=== PATIENT | male | born 1945 | race Hispanic/Latino ===

== ENCOUNTER 2017-10-09 17:28 | Inpatient (IN) | payer MEDICARE, MEDICAID ==
[2017-10-09] MEDS ORDERED: Piperacillin/Tazobact 3.375 GM in Sodium Chloride 0.9% 100 ML IVPB STA (20:03)
--- NOTE | 2017-10-09 20:29 | ED PDOC ---
HPI: Abdomen Time Seen by Provider: 10/09/17 19:34 Chief Complaint (Nursing): Abdominal Pain Chief Complaint (Provider): Lower Extremity Swelling and Body Aches History Per: Patient History/Exam Limitations: no limitations Onset/Duration Of Symptoms: Days (x 4) Current Symptoms Are (Timing): Still Present Associated Symptoms: Chills, Nausea, Loss Of Appetite. denies: Vomiting, Diarrhea Additional Complaint(s): 72 year old male with a past medical history of hypertension and diabetes, presents to the ED complaining of left foot swelling and body aches associated with chills, loss of appetite, nausea, generalized weakness and fatigue increase swelling and redness to the left foot. Patient reports he doesn't know if he injured his foot because he cannot feel is feet or hands due to diabetic nephropathy. Patient states he is homeless and is constantly wearing his shoes and socks. Patient reports he goes to [facility] and is compliant with his medications. Denies vomiting and diarrhea. PMD: Randy Ruiz MD Past Medical History Reviewed: Historical Data, Nursing Documentation, Vital Signs Vital Signs: Last Vital Signs Temp 99.4 F 10/10/17 12:45 Pulse 87 10/10/17 14:00 Resp 16 10/10/17 14:00 BP 99/50 L 10/10/17 14:00 Pulse Ox 99 10/10/17 14:00 - Medical History PMH: Arthritis, Diabetes, HTN - Surgical History Surgical History: No Surg Hx - Family History Family History: States: Unknown Family Hx - Living Arrangements Living Arrangements: Other (Undomiciled (homeless)) - Social History Current smoker - smoking cessation education provided: No Alcohol: None Drugs: Denies - Home Medications Home Medications: Ambulatory Orders Medication Instructions Recorded Gabapentin 300 mg PO TID 10/17/16 Ibuprofen [Motrin Tab] 800 mg PO TID 10/17/16 Sitagliptin Phos/Metformin HCl 1 each PO BID 10/17/16 [Janumet 50-500 mg Tablet] Brimonidine 0.15% [Alphagan P 5 Ml] 1 drop OP TID 10/10/17 Timolol 0.5% Ophth [Timoptic 0.5% 1 drop OP BID 10/10/17 Ophth Soln] amLODIPine [Norvasc] 10 mg PO DAILY 10/10/17 - Allergies Allergies/Adverse Reactions: Allergies Allergy/AdvReac Type Severity Reaction Status Date / Time No Known Allergies Allergy Verified 10/09/17 17:36 Review of Systems ROS Statement: Except As Marked, All Systems Reviewed And Found Negative (and as per HPI) Constitutional: Positive for: Chills, Weakness, Other (Fatigue) Gastrointestinal: Positive for: Nausea, Other (Loss of appetite). Negative for : Vomiting, Diarrhea Musculoskeletal: Positive for: Foot Pain (left foot swelling and redness ) Physical Exam - Reviewed Nursing Documentation Reviewed: Yes Vital Signs Reviewed: Yes - Physical Exam Appears: Positive for: In Acute Distress (dissheveled and unkempt) Head Exam: Positive for: ATRAUMATIC, NORMOCEPHALIC Skin: Positive for: Warm, Dry Eye Exam: Positive for: EOMI, PERRL ENT: Positive for: Other (dry mucus membranes) Neck: Positive for: Painless ROM, Supple Cardiovascular/Chest: Positive for: Regular Rate, Rhythm. Negative for: Murmur Respiratory: Positive for: Normal Breath Sounds. Negative for: Respiratory Distress Gastrointestinal/Abdominal: Positive for: Soft. Negative for: Tenderness Back: Positive for: Normal Inspection. Negative for: Decreased ROM Extremity: Positive for: Pedal Edema (Marked pitting edema of left lower ankle and leg associated with erythema, warmth and induration ), Other (slothing of skin layers of the forefoot with gangrenous appearing first and third toes, malodorus discharge from diffusely excoriated skin of fore foot. ) Lymphatic: Negative for: Adenopathy Neurologic/Psych: Positive for: Alert. Negative for: Motor/Sensory Deficits - Laboratory Results Result Diagrams: 10/10/17 04:35 10/10/17 04:35 Interpretation Of Abn Labs: NOTE: LABS ABOVE ARE NOT LABS AT TIME OF ER EVALUATION - ECG O2 Sat by Pulse Oximetry: 100 (RA) Pulse Ox Interpretation: Normal - Critical Care Total Time (In Min): 30 Documented Critical Care: Time excludes all time spent performint seperately billable procedures Medical Decision Making Medical Decision Making: Initial Impression: Diabetic Foot Cellulites Differentials include but not limiting to gangrene, sepsis, osteomalulits, hyperglycemia DKA Time: 1948 Plan: -- Venous Blood Gas -- EKG -- B-Type Natriuretic -- CMP -- CRP -- Magnesium -- Phosphorus -- Troponin -- ED Urine Dipstick -- CBC with differentials -- Erythrocyte Sedimentation -- PTT -- Prothombin Time -- CXR -- Blood Culture -- IV Insertion -- Glucose, Blood, POC -- Foot Left 3 Views RAD -- Duple Lower Extremity US Time: 2002 Plan: -- Vancomycin IV 250 ml -- Piperacillin IVPB 100 ml Time: 2303 --Patient evaluated by podiatry: concern for gas in foot, tracking from higher to lower left extremity. Possible DKA. Recommended surgical consult. --Discussed case with surgical services director and Dr. Griffin, who will admit for patient 's PMD: Dr. Ruiz. --Discussed case with Dr. Dye, hospitalist for ICU admission. --Sepsis considered. However pt does not meet SIRS criteria. Given markedly uncontrolled diabetes, will aggressively hydrate and continue broad spectrum antibiotics anyway. Time: 00:09 --US duplex LE FINDINGS: Deep veins: Unremarkable. No DVT in the visualized common femoral, femoral, proximal deep femoral or popliteal veins. The veins demonstrate normal color flow, are normally compressible, with normal phasic flow and/or augmentation response. Soft tissues: No acute findings. No popliteal cyst. IMPRESSION: No evidence of left lower extremity deep venous thrombosis. Scribe Attestation: Documented by Karen Wilkes and Catarina Gregory, acting as scribes for Dr. Mari Lowry. Provider Scribe Attestation: All medical record entries made by the Scribe were at my direction and personally dictated by me. I have reviewed the chart and agree that the record accurately reflects my personal performance of the history, physical exam, medical decision making, and the department course for this patient. I have also personally directed, reviewed, and agree with the discharge instructions and disposition. Disposition - Clinical Impression Clinical Impression: Gangrene of left foot, Uncontrolled diabetes mellitus Counseled Patient/Family Regarding: Studies Performed, Diagnosis - Disposition Disposition Time: 22:00 Condition: CRITICAL - Pt Status Changed To: Hospital Disposition Of: Inpatient - Admit Certification Admit to Inpatient:: After my assessment, the patient will require hospitalization for at least two midnights. This is because of the severity of symptoms shown, intensity of services needed, and/or the medical risk in this patient being treated as an outpatient. - POA Present On Arrival: Poor Glycemic Control
[2017-10-09 21:51] LABS: VENOUS BLOOD GAS BASE EXCESS 0.5 mmol/L (0.0-2.0); VENOUS BLOOD GAS PCO2 37 mmHg (40-60); VENOUS BLOOD GAS PO2 33 mm/Hg (30-55); VENOUS BLOOD PH 7.43 (7.32-7.43)
[2017-10-09] MEDS ORDERED: Insulin Regular 100 units/ml SC STA (21:53)
[2017-10-09] MEDS ORDERED: Insulin Regular 100 units/ml IVP STA (21:54)
[2017-10-09] MEDS ORDERED: Sodium Chloride 0.9% 1,000 ML IV STA (21:54)
[2017-10-09 22:05] LABS: BASO % 0.1 % (0.0-2.0); EOS # 0.1 K/uL (0.0-0.7); EOS % 0.2 % (0.0-4.0); HEMOGLOBIN 9.6 g/dL (12.0-18.0); LYMPH # 1.4 K/uL (1.0-4.3); LYMPH % 4.6 % (20.0-40.0); MEAN CELL VOLUME 92.7 fl (80.0-94.0); MEAN CORPUSCULAR HEMOGLOBIN 30.6 pg (27.0-31.0); MEAN PLATELET VOLUME 8.9 fl (7.2-11.7); MONO # 1.8 K/uL (0.0-0.8); MONO % 5.9 % (0.0-10.0); NEUT % 89.2 % (50.0-75.0); PLATELET COUNT 467 K/uL (130-400); RBC 3.13 Mil/uL (4.40-5.90); RED CELL DISTRIBUTION WIDTH 15.6 % (11.5-14.5); WHITE BLOOD COUNT 30.3 K/uL (4.8-10.8)
[2017-10-09] MEDS ORDERED: Piperacillin/Tazobact 3.375 gm Inj IVPB ONE (22:06)
[2017-10-09 22:09] LABS: INR 1.5 (0.9-1.2); PARTIAL THROMBOPLASTIN TIME 30.5 Seconds (25.6-37.1); PROTHROMBIN TIME 16.2 Seconds (9.8-13.1)
[2017-10-09 22:18] LABS: ALB/GLOB RATIO 0.6 (1.0-2.1); ALBUMIN 3.1 g/dL (3.5-5.0); ALT/SGPT 28 U/L (21-72); AST/SGOT 50 U/L (17-59); BLOOD UREA NITROGEN 41 mg/dl (9-20); CALCIUM 8.5 mg/dL (8.4-10.2); GFR AFRICAN-AMERICAN > 60; GFR NON-AFRICAN AMERICAN > 60
[2017-10-09] MEDS ORDERED: Povidone Iodine Topical 10% Sol ONE (22:23)
[2017-10-09 22:24] LABS: B-TYPE NATRIURETIC PEPTIDE 615 pg/ml (0-900)
[2017-10-09 22:41] LABS: LYMPHOCYTE 3 % (20-50); MONOCYTE 1 % (0-10); NEUTROPHIL 95 % (42-75); REACTIVE LYMPHOCYTES 1 % (0-0); TOTAL CELLS COUNTED 100
[2017-10-09 22:42] LABS: HYPOCHROMIC SLIGHT; TARGET CELLS SLIGHT
[2017-10-09 22:43] LABS: PLATELET CLUMPS PRESENT
[2017-10-09 22:44] LABS: PLATELET ESTIMATE NORMAL (NORMAL); ROULEAUX FORMATION SLIGHT
--- NOTE | 2017-10-09 23:13 | CP.PCM.CON ---
History of Present Illness - History of Present Illness History of Present Illness: Attending: Gaby Celis MD PMD: Randy Arevalo MD Reason for consult: Critical care management Chief Complaint: Abdominal pain/ Left foot swollen/body aches The patient was seen and examined in the ED HPI: The hx was obtained from the patient and after review of the medical records. He is a 72 years old male who [place], with hx of DM II with neuropathy where he does not have sensation at the feet nor the hands, HTN and arthritis. He comes to the ED with 4 days of left foot and ankle swelling, red but nontender. This is associated with chills, loss of appetite, nausea, abdominal pain, generalized weakness. No vomiting, diarrhea, dysuria nor urinary frequency. PMH: Arthritis; DM II; HTN PSH: No surgical Hx SH; No illegal drug use; No alcohol use; No cigarette smoking; homeless FH: States: No known family hx Allergies: NKDA Medication: Review of Systems - Constitutional Constitutional: Anorexia, Chills. absent: Fever, Headache, Lethargy - EENT Eyes: Requires Corrective Lenses. 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 absent: Diarrhea, Vomiting - Genitourinary Genitourinary: absent: Dysuria, Flank Pain, Hematuria, Urinary Frequency - Musculoskeletal Additional comments: Necrosis at the distal region of the left foot DERM: Necrotic distal aspect of the left 1st and 2nd digit, with inter-digital maceration in all interspaces; fluctuant roofed bullae noted on the dorso- lateral aspect of the left foot with proximal necrotic eschar on the proximal medial aspect of the foot, scaling of the epidermis layer on on the forefoot as well as surrounding the fluctuant area; - Integumentary Integumentary: Swelling. absent: Pruritus, Rash, Striae - Neurological Neurological: Weakness. absent: Confusion, Headaches, Tremor - Psychiatric Psychiatric: absent: Anxiety, Depression, Panic Attacks - Endocrine Endocrine: absent: Palpitations, Polydipsia, Polyphagia, Polyuria - Hematologic/Lymphatic Hematologic: absent: Easy Bleeding, Easy Bruising Past Patient History - Past Medical History & Family History Past Medical History?: Yes - Past Social History Smoking Status: Never Smoked Chewing Tobacco Use: No Cigar Use: No Alcohol: None Drugs: Denies Home Situation {Lives}: Homeless - CARDIAC Hx Hypertension: Yes - PULMONARY Hx Respiratory Disorders: No - HEENT Hx Blind: Yes (lt eye) - RENAL Hx Chronic Kidney Disease: No - ENDOCRINE/METABOLIC Hx Diabetes Mellitus Type 1: Yes - HEMATOLOGICAL/ONCOLOGICAL Hx Blood Disorders: No - INTEGUMENTARY Hx Dermatological Problems: No - MUSCULOSKELETAL/RHEUMATOLOGICAL Hx Arthritis: Yes - PSYCHIATRIC Hx Psychophysiologic Disorder: No Hx Substance Use: No - SURGICAL HISTORY Hx Surgeries: No - ANESTHESIA Hx Anesthesia: No Meds Allergies/Adverse Reactions: Allergies Allergy/AdvReac Type Severity Reaction Status Date / Time No Known Allergies Allergy Verified 10/09/17 17:36 Physical Exam - Constitutional Appears: No Acute Distress - Head Exam Head Exam: ATRAUMATIC, NORMAL INSPECTION, NORMOCEPHALIC - Eye Exam Additional comments: left eye with cataract - ENT Exam ENT Exam: absent: Mucous Membranes Moist - Neck Exam Neck exam: Positive for: Full Rom, Normal Inspection. Negative for: Lymphadenopathy, Tenderness - Respiratory Exam Respiratory Exam: absent: Clear to Auscultation Bilateral, Rales, Rhonchi, Wheezes - Cardiovascular Exam Cardiovascular Exam: REGULAR RHYTHM, RRR, +S1, +S2 - GI/Abdominal Exam Additional comments: Flat, soft , decreased, mild generalized tenderness, no guarding, nor rebound tenderness - Rectal Exam Rectal Exam: Deferred - Extremities Exam Extremities exam: Negative for: calf tenderness, joint swelling, pedal edema, tenderness - Back Exam Back exam: NORMAL INSPECTION. absent: CVA tenderness (L), CVA tenderness (R), paraspinal tenderness - Neurological Exam Neurological exam: Alert, CN II-XII Intact, Oriented x3, Reflexes Normal - Psychiatric Exam Psychiatric exam: Normal Affect, Normal Mood - Skin Additional comments: left foot with necrotic lesion at the distal 1 and 2nd toes with fluctuant bullae with swelling at the dorsum of the left foot. Results - Vital Signs Recent Vital Signs: Last Vital Signs Temp 98 F 10/09/17 17:36 Pulse 94 H 10/09/17 17:36 Resp 18 10/09/17 17:36 BP 151/71 H 10/09/17 17:36 Pulse Ox 100 10/09/17 22:22 - Labs Result Diagrams: 10/09/17 21:47 10/09/17 21:47 Labs: Laboratory Results - last 24 hr 10/09/17 10/09/17 10/09/17 21:41 21:47 21:47 WBC 30.3 H RBC 3.13 L Hgb 9.6 L Hct 29.0 L MCV 92.7 MCH 30.6 MCHC 33.0 RDW 15.6 H Plt Count 467 H MPV 8.9 Neut % (Auto) 89.2 H Lymph % (Auto) 4.[address] [place] % (Auto) 5.9 Eos % (Auto) 0.2 Baso % (Auto) 0.1 Neut # (Auto) 27.0 H Lymph # (Auto) 1.4 [place] # (Auto) 1.8 H Eos # (Auto) 0.1 Baso # (Auto) 0.0 Neutrophils % (Manual) 95 H Lymphocytes % (Manual) 3 L Reactive Lymphs % 1 H Monocytes % (Manual) 1 Platelet Estimate Normal Plt Clumps, EDTA Present Hypochromasia (manual) Slight Macrocytosis (manual) Slight Target Cells Slight Rouleaux Slight PT INR APTT pO2 33 VBG pH 7.43 VBG pCO2 37 L VBG HCO3 24.5 VBG Total CO2 25.7 VBG O2 Sat (Calc) 68.2 H VBG Base Excess 0.5 VBG Potassium 5.0 Sodium 131.0 L 136 Chloride 102.0 97 L Glucose 742 H* Lactate 2.0 FiO2 21.0 Crit Value Called To erasto Lowry md Crit Value Called By Xena mccarty Crit Value Read Back Y Blood Gas Notified Time 0 Potassium 4.9 Carbon Dioxide 22 Anion Gap 22 H BUN 41 H Creatinine 0.9 Est GFR ( Amer) > 60 Est GFR (Non-Af Amer) > 60 POC Glucose (mg/dL) Random Glucose 666 H* Calcium 8.5 Phosphorus 3.6 Magnesium 2.9 H Total Bilirubin 0.8 AST 50 ALT 28 Alkaline Phosphatase 188 H Troponin I < 0.0120 NT-Pro-B Natriuret Pep 615 Total Protein 8.5 H Albumin 3.1 L Globulin 5.4 H Albumin/Globulin Ratio 0.6 L Venous Blood Potassium 5.0 10/09/17 10/09/17 21:47 21:48 WBC RBC Hgb Hct MCV MCH MCHC RDW Plt Count MPV Neut % (Auto) Lymph % (Auto) [place] % (Auto) Eos % (Auto) Baso % (Auto) Neut # (Auto) Lymph # (Auto) [place] # (Auto) Eos # (Auto) Baso # (Auto) Neutrophils % (Manual) Lymphocytes % (Manual) Reactive Lymphs % Monocytes % (Manual) Platelet Estimate Plt Clumps, EDTA Hypochromasia (manual) Macrocytosis (manual) Target Cells Rouleaux PT 16.2 H INR 1.5 H APTT 30.5 pO2 VBG pH VBG pCO2 VBG HCO3 VBG Total CO2 VBG O2 Sat (Calc) VBG Base Excess VBG Potassium Sodium Chloride Glucose Lactate FiO2 Crit Value Called To Crit Value Called By Crit Value Read Back Blood Gas Notified Time Potassium Carbon Dioxide Anion Gap BUN Creatinine Est GFR ( Amer) Est GFR (Non-Af Amer) POC Glucose (mg/dL) > 500 H* Random Glucose Calcium Phosphorus Magnesium Total Bilirubin AST ALT Alkaline Phosphatase Troponin I NT-Pro-B Natriuret Pep Total Protein Albumin Globulin Albumin/Globulin Ratio Venous Blood Potassium - Impressions Impression: NSR 92/min - Imaging and Cardiology US left lower extremity Status: Report reviewed by me Additional comment: EXAM: US Duplex Left Lower Extremity Veins FINDINGS: Deep veins: Unremarkable. No DVT in the visualized common femoral, femoral, proximal deep femoral or popliteal veins. The veins demonstrate normal color flow, are normally compressible, with normal phasic flow and/or augmentation response. Soft tissues: No acute findings. No popliteal cyst. IMPRESSION: No evidence of left lower extremity deep venous thrombosis. Chest x-ray Status: Image reviewed by me Additional comment: No infiltrate Left foot and ankle Status: Report reviewed by me Additional comment: No fracture nor dislocation Assessment & Plan - Assessment and Plan (Free Text) Assessment: #. Gangrenous diabetic foot Cellulitis #. Hyperosmole Hyperglycemias Syndrome #. Anemia #. Dehydrationl #. Leukocytosis Plan: 72 years old male who lives in [place], with hx of DM II with neuropathy where he does not have sensation at the feet nor the hands, comes with 4 days of left foot and ankle swelling, red but nontender. This is associated with chills, loss of appetite, nausea, abdominal pain, generalized weakness. No vomiting, diarrhea, dysuria nor urinary frequency. #. Gangrenous diabetic - NPO for possible surgery in the - Consult PodiatryDgurwinder Velazquez - Consult Dr Jacobson ID - Vancomycin - Zosyn #. Hyperosmole Hyperglycemias Syndrome in Diabetes Mellitus - IV Fluids - Regular insulin sliding scale according to accucheck - To start Januvia when patient starts oral diet #. Coagulopathy with elevated INR - Vitamin K - transfuse one unit of FFP #. Anemia - Iron panel - follow Hb #. Dehydrationl - IV fluids #. Leukocytosis caused by the gangrenous #. DVT Prophylaxis will be started after surgery #. Code Status: Full This patient has a low to intermediate cardiac surgical risk. He is cleared for Surgery. - Date & Time Date: 10/09/17 Time: 23:13
--- NOTE | 2017-10-10 00:10 | US ---
EXAM: US Duplex Left Lower Extremity Veins CLINICAL HISTORY: 72 years old, male; Signs and symptoms; Swelling of limb; Lower extremity, left; Additional info: Left leg swelling TECHNIQUE: Real-time duplex ultrasound scan of the left lower extremity veins integrating B-mode two-dimensional vascular structure, Doppler spectral analysis, color flow Doppler imaging and compression. COMPARISON: No relevant prior studies available. FINDINGS: Deep veins: Unremarkable. No DVT in the visualized common femoral, femoral, proximal deep femoral or popliteal veins. The veins demonstrate normal color flow, are normally compressible, with normal phasic flow and/or augmentation response. Soft tissues: No acute findings. No popliteal cyst. IMPRESSION: No evidence of left lower extremity deep venous thrombosis.
[2017-10-10] MEDS ORDERED: Permethrin 5% CREAM TOP STA (00:13)
--- NOTE | 2017-10-10 00:24 | CP.PCM.CON ---
History of Present Illness - History of Present Illness History of Present Illness: Podiatry consult note Dr. Velazquez 72 year old male patient with PMHx of DM, HTN, and Arthritis was seen and evaluated at bedside for left foot pain. Patient is a homeless man who reports that the pain started about 6 days ago. Patient states that he did not seek any medical attention until today. Reports that he has been having fever and diarrhea for the past couple of days. Denies of any recent trauma to the foot and reports that he is always wearing his shoes so he did not notice the wound. Patient denies of any pain to his foot now. Denies of N/V/C/SOB. No new complains at this time. PMHx: DM, HTN, Arthritis PSHx: Denies Allergies: N.K.D.A Review of Systems - Constitutional Constitutional: As Per HPI Past Patient History - Past Social History Alcohol: None Drugs: Denies - CARDIAC Hx Hypertension: Yes - HEENT Hx Blind: Yes (lt eye) - ENDOCRINE/METABOLIC Hx Diabetes Mellitus Type 1: Yes - MUSCULOSKELETAL/RHEUMATOLOGICAL Hx Arthritis: Yes - PSYCHIATRIC Hx Substance Use: No - SURGICAL HISTORY Hx Surgeries: No - ANESTHESIA Hx Anesthesia: No Meds Allergies/Adverse Reactions: Allergies Allergy/AdvReac Type Severity Reaction Status Date / Time No Known Allergies Allergy Verified 10/09/17 17:36 Physical Exam - Constitutional Appears: Well, Non-toxic, No Acute Distress - Extremities Exam Additional comments: Bilateral LE exam: VASC: DP pulses are faintly palpable 1/4, PT pulses are non-palpable due to edema on the left, DP/PT pulse are 1/4 on the right, Cap refill time: Sluggish with necrosis at the tips of the digits 1 and 2 on the left foot, diffuse non- pitting edema noted from foot extending up to the ankle joint; temperature gradient: warm to hot from proximal to distal DERM: Necrotic distal aspect of the left 1st and 2nd digit, with inter-digital maceration in all interspaces; fluctuant roofed bullae noted on the dorso- lateral aspect of the left foot with proximal necrotic eschar on the proximal medial aspect of the foot, scaling of the epidermis layer on on the forefoot as well as surrounding the fluctuant area; maceration extending on the plantar aspect of the forefoot, erythema extending distal mid leg on the left, no open lesions noted, extreme malodor from the site, no tunneling, no undermining, suspicious for soft tissue emphysema/infection NEURO: Protective sensation grossly diminished to bilateral LE ORTHO: no pain on palpation of the left foot - Neurological Exam Neurological exam: Alert, Oriented x3 - Psychiatric Exam Psychiatric exam: Normal Affect, Normal Mood Results - Vital Signs Recent Vital Signs: Last Vital Signs Temp 98 F 10/09/17 17:36 Pulse 94 H 10/09/17 17:36 Resp 18 10/09/17 17:36 BP 151/71 H 10/09/17 17:36 Pulse Ox 100 10/09/17 23:42 - Labs Result Diagrams: 10/11/17 04:20 10/10/17 04:35 Labs: Laboratory Results - last 24 hr 10/09/17 10/09/17 10/09/17 21:41 21:47 21:47 WBC 30.3 H RBC 3.13 L Hgb 9.6 L Hct 29.0 L MCV 92.7 MCH 30.6 MCHC 33.0 RDW 15.6 H Plt Count 467 H MPV 8.9 Neut % (Auto) 89.2 H Lymph % (Auto) 4.6 L [place] % (Auto) 5.9 Eos % (Auto) 0.2 Baso % (Auto) 0.1 Neut # (Auto) 27.0 H Lymph # (Auto) 1.4 [place] # (Auto) 1.8 H Eos # (Auto) 0.1 Baso # (Auto) 0.0 Neutrophils % (Manual) 95 H Lymphocytes % (Manual) 3 L Reactive Lymphs % 1 H Monocytes % (Manual) 1 Platelet Estimate Normal Plt Clumps, EDTA Present Hypochromasia (manual) Slight Macrocytosis (manual) Slight Target Cells Slight Rouleaux Slight PT INR APTT pO2 33 VBG pH 7.43 VBG pCO2 37 L VBG HCO3 24.5 VBG Total CO2 25.7 VBG O2 Sat (Calc) 68.2 H VBG Base Excess 0.5 VBG Potassium 5.0 Sodium 131.0 L 136 Chloride 102.0 97 L Glucose 742 H* Lactate 2.0 FiO2 21.0 Crit Value Called To erasto Lowry md Crit Value Called By Xena mccarty Crit Value Read Back Y Blood Gas Notified Time 2150 Potassium 4.9 Carbon Dioxide 22 Anion Gap 22 H BUN 41 H Creatinine 0.9 Est GFR ( Amer) > 60 Est GFR (Non-Af Amer) > 60 POC Glucose (mg/dL) Random Glucose 666 H* Calcium 8.5 Phosphorus 3.6 Magnesium 2.9 H Total Bilirubin 0.8 AST 50 ALT 28 Alkaline Phosphatase 188 H Troponin I < 0.0120 NT-Pro-B Natriuret Pep 615 Total Protein 8.5 H Albumin 3.1 L Globulin 5.4 H Albumin/Globulin Ratio 0.6 L Venous Blood Potassium 5.0 10/09/17 10/09/17 10/09/17 21:47 21:48 23:32 WBC RBC Hgb Hct MCV MCH MCHC RDW Plt Count MPV Neut % (Auto) Lymph % (Auto) [place] % (Auto) Eos % (Auto) Baso % (Auto) Neut # (Auto) Lymph # (Auto) [place] # (Auto) Eos # (Auto) Baso # (Auto) Neutrophils % (Manual) Lymphocytes % (Manual) Reactive Lymphs % Monocytes % (Manual) Platelet Estimate Plt Clumps, EDTA Hypochromasia (manual) Macrocytosis (manual) Target Cells Rouleaux PT 16.2 H INR 1.5 H APTT 30.5 pO2 VBG pH VBG pCO2 VBG HCO3 VBG Total CO2 VBG O2 Sat (Calc) VBG Base Excess VBG Potassium Sodium Chloride Glucose Lactate FiO2 Crit Value Called To Crit Value Called By Crit Value Read Back Blood Gas Notified Time Potassium Carbon Dioxide Anion Gap BUN Creatinine Est GFR ( Amer) Est GFR (Non-Af Amer) POC Glucose (mg/dL) > 500 H* 361 H Random Glucose Calcium Phosphorus Magnesium Total Bilirubin AST ALT Alkaline Phosphatase Troponin I NT-Pro-B Natriuret Pep Total Protein Albumin Globulin Albumin/Globulin Ratio Venous Blood Potassium Assessment & Plan - Assessment and Plan (Free Text) Assessment: 72 year old male with PMHx of DM, HTN, arthritis was evaluated for gas gangrene/ soft tissue emphysema of the left foot Plan: Patient seen and evaluated Discussed in details with attending Dr. Velazquez Labs, vitals and charts reviewed - Afebrile; WBC @ 30.3 ESR and CRP: pending Venous dulpex: - No evidence of DVT X-rays of the left foot, ankle and tib-fib ordered/reviewed - Diffuse soft tissue emphysema noted on the forefoot and midfoot extending anterior to the ankle joint on lateral view With the medical history and the possible post surgical wound from just I&D due to soft tissue emphysema, patient may benefit from BKA Patient started on Vanc, zosyn in the ER Small superficial longitudinal incision placed superior to the bullae - approx 5 cc of purulent drainage evacuated with bubbles when pressure applied proximally from the ankle distally as well as from distal to proximal Incision site superficially packed with gauze Left foot cleaned with saline and dressed with betadine, DSD Patient requires medical clearance for incision and drainage of the left foot/ ankle in the morning - Hospitalist team made aware; started on FFP due to elevated INR - NPO Vascular team on consult due to extensive soft tissue emphysema extending to distal leg -Recommends holding the I&D/BKA procedure until the morning as the patient is not currently septic Infectious disease consulted Spoke with on-call anesthesiologist (Dr. Cárdenas) over the phone who recommends to hold the procedure until the morning Podiatry to monitor patient closely Thank you for the podiatry consult and allowing to take part in patient care - Date & Time Date: 10/10/17 Time: 02:14
--- NOTE | 2017-10-10 00:45 | CP.PCM.CON ---
History of Present Illness - History of Present Illness History of Present Illness: Vascular Surgery Consult for Dr. Brasher This is a 72M with a PMH of DM, HTN, diabetic neuropathy who presented to the ED with foot pain. Patient reports pain started 6 days ago. He did not check for fevers but reports chills. Denies of any recent trauma to the foot and reports that he is always wearing his shoes so he did not notice the wound. He reports he has not been able to eat for 9 days and he has only consumed fruit juice. Patient reports numbness in both upper and lowe extremities in a stocking like distribution. Denies of N/V/C/SOB. PMHx: DM, HTN PSHx: Denies Allergies: N.K.D.A Review of Systems - Review of Systems All systems: reviewed and no additional remarkable complaints except - Gastrointestinal Gastrointestinal: Abdominal Pain - Neurological Neurological: Numbness Past Patient History - Past Social History Alcohol: None Drugs: Denies - CARDIAC Hx Hypertension: Yes - HEENT Hx Blind: Yes (lt eye) - ENDOCRINE/METABOLIC Hx Diabetes Mellitus Type 1: Yes - MUSCULOSKELETAL/RHEUMATOLOGICAL Hx Arthritis: Yes - PSYCHIATRIC Hx Substance Use: No - SURGICAL HISTORY Hx Surgeries: No - ANESTHESIA Hx Anesthesia: No Meds Allergies/Adverse Reactions: Allergies Allergy/AdvReac Type Severity Reaction Status Date / Time No Known Allergies Allergy Verified 10/09/17 17:36 Physical Exam - Constitutional Appears: Non-toxic - Head Exam Head Exam: ATRAUMATIC, NORMOCEPHALIC - Eye Exam Eye Exam: EOMI Additional comments: Left cataract - Respiratory Exam Respiratory Exam: NORMAL BREATHING PATTERN - Cardiovascular Exam Cardiovascular Exam: +S1, +S2 - GI/Abdominal Exam GI & Abdominal Exam: Soft, Tenderness. absent: Guarding, Hernia, Rebound, Rigid - Extremities Exam Additional comments: LLE necrosis with eschar and gas - Neurological Exam Neurological exam: Alert, Oriented x3 - Psychiatric Exam Psychiatric exam: Normal Affect, Normal Mood - Skin Skin Exam: Dry, Intact Results - Vital Signs Recent Vital Signs: Last Vital Signs Temp 98 F 10/09/17 17:36 Pulse 94 H 10/09/17 17:36 Resp 18 10/09/17 17:36 BP 151/71 H 10/09/17 17:36 Pulse Ox 100 10/10/17 00:16 - Labs Result Diagrams: 10/11/17 04:20 10/10/17 04:35 Labs: Laboratory Results - last 24 hr 10/09/17 10/09/17 10/09/17 21:41 21:47 21:47 WBC 30.3 H RBC 3.13 L Hgb 9.6 L Hct 29.0 L MCV 92.7 MCH 30.6 MCHC 33.0 RDW 15.6 H Plt Count 467 H MPV 8.9 Neut % (Auto) 89.2 H Lymph % (Auto) 4.6 L [place] % (Auto) 5.9 Eos % (Auto) 0.2 Baso % (Auto) 0.1 Neut # (Auto) 27.0 H Lymph # (Auto) 1.4 [place] # (Auto) 1.8 H Eos # (Auto) 0.1 Baso # (Auto) 0.0 Neutrophils % (Manual) 95 H Lymphocytes % (Manual) 3 L Reactive Lymphs % 1 H Monocytes % (Manual) 1 Platelet Estimate Normal Plt Clumps, EDTA Present Hypochromasia (manual) Slight Macrocytosis (manual) Slight Target Cells Slight Rouleaux Slight PT INR APTT pO2 33 VBG pH 7.43 VBG pCO2 37 L VBG HCO3 24.5 VBG Total CO2 25.7 VBG O2 Sat (Calc) 68.2 H VBG Base Excess 0.5 VBG Potassium 5.0 Sodium 131.0 L 136 Chloride 102.0 97 L Glucose 742 H* Lactate 2.0 FiO2 21.0 Crit Value Called To erasto Lowry md Crit Value Called By Xena frankfort Crit Value Read Back Y Blood Gas Notified Time 2150 Potassium 4.9 Carbon Dioxide 22 Anion Gap 22 H BUN 41 H Creatinine 0.9 Est GFR ( Amer) > 60 Est GFR (Non-Af Amer) > 60 POC Glucose (mg/dL) Random Glucose 666 H* Calcium 8.5 Phosphorus 3.6 Magnesium 2.9 H Total Bilirubin 0.8 AST 50 ALT 28 Alkaline Phosphatase 188 H Troponin I < 0.0120 NT-Pro-B Natriuret Pep 615 Total Protein 8.5 H Albumin 3.1 L Globulin 5.4 H Albumin/Globulin Ratio 0.6 L Venous Blood Potassium 5.0 10/09/17 10/09/17 10/09/17 21:47 21:48 23:32 WBC RBC Hgb Hct MCV MCH MCHC RDW Plt Count MPV Neut % (Auto) Lymph % (Auto) [place] % (Auto) Eos % (Auto) Baso % (Auto) Neut # (Auto) Lymph # (Auto) [place] # (Auto) Eos # (Auto) Baso # (Auto) Neutrophils % (Manual) Lymphocytes % (Manual) Reactive Lymphs % Monocytes % (Manual) Platelet Estimate Plt Clumps, EDTA Hypochromasia (manual) Macrocytosis (manual) Target Cells Rouleaux PT 16.2 H INR 1.5 H APTT 30.5 pO2 VBG pH VBG pCO2 VBG HCO3 VBG Total CO2 VBG O2 Sat (Calc) VBG Base Excess VBG Potassium Sodium Chloride Glucose Lactate FiO2 Crit Value Called To Crit Value Called By Crit Value Read Back Blood Gas Notified Time Potassium Carbon Dioxide Anion Gap BUN Creatinine Est GFR ( Amer) Est GFR (Non-Af Amer) POC Glucose (mg/dL) > 500 H* 361 H Random Glucose Calcium Phosphorus Magnesium Total Bilirubin AST ALT Alkaline Phosphatase Troponin I NT-Pro-B Natriuret Pep Total Protein Albumin Globulin Albumin/Globulin Ratio Venous Blood Potassium Assessment & Plan - Assessment and Plan (Free Text) Assessment: 72M with LLE infected necrosis NPO IV ABX IVF F/U Radiology Continue managment per ICU team D/W Dr. Villatoro
[2017-10-10] MEDS ORDERED: Povidone Iodine Topical 10% Sol ONE (01:09)
[2017-10-10 01:54] VITALS: BMI 19.0
[2017-10-10] MEDS: Piperacillin/Tazobact 3.375 GM in Sodium Chloride 0.9% 100 ML IVPB SCH ×3 (03:07→16:20)
[2017-10-10 06:03] LABS: BASO # 0.1 K/uL (0.0-0.2); BASO % 0.2 % (0.0-2.0); EOS # 0.2 K/uL (0.0-0.7); EOS % 0.6 % (0.0-4.0); HEMOGLOBIN 8.7 g/dL (12.0-18.0); LYMPH # 1.7 K/uL (1.0-4.3); LYMPH % 5.9 % (20.0-40.0); MEAN CELL VOLUME 91.7 fl (80.0-94.0); MEAN CORPUSCULAR HEMOGLOBIN 30.1 pg (27.0-31.0); MEAN CORPUSCULAR HGB CONC 32.8 g/dL (33.0-37.0); MEAN PLATELET VOLUME 8.9 fl (7.2-11.7); MONO # 2.4 K/uL (0.0-0.8); MONO % 8.1 % (0.0-10.0); NEUT # 24.9 K/uL (1.8-7.0); NEUT % 85.2 % (50.0-75.0); PLATELET COUNT 418 K/uL (130-400); RBC 2.89 Mil/uL (4.40-5.90); WHITE BLOOD COUNT 29.3 K/uL (4.8-10.8)
[2017-10-10 06:11] LABS: BLOOD UREA NITROGEN 37 mg/dl (9-20); GFR AFRICAN-AMERICAN > 60; GFR NON-AFRICAN AMERICAN > 60
[2017-10-10 06:14] LABS: IRON 28 ug/dL (49-181)
[2017-10-10 06:24] LABS: % IRON SATURATION 15 % (20-55); TOTAL IRON BINDING CAPACITY 191 ug/dL (250-450)
--- NOTE | 2017-10-10 07:41 | CP.PCM.PN ---
Subjective - Date & Time of Evaluation Date of Evaluation: 10/10/17 Time of Evaluation: 07:39 - Subjective Subjective: 72 y/o male with left foot and ankle gangrene to go to OR for emergent I&D today at 9am. Pt seen at bedside with Dr. Griffin and resident. Per chart, no fevers or tachycardia overnight. Pt resting in bed at time of visit. Agreeable and aware of surgery this morning. Objective - Vital Signs/Intake and Output Vital Signs (last 24 hours): Temp Pulse Resp BP Pulse Ox 98.1 F 86 16 137/66 97 10/10/17 04:00 10/10/17 06:00 10/10/17 06:00 10/10/17 06:00 10/10/17 06:00 Intake and Output: 10/10/17 10/10/17 06:59 18:59 Intake Total 650 Balance 650 - Medications Medications: Current Medications Vancomycin HCl 1 gm/ Sodium (Chloride) 250 mls @ 166.667 mls/hr IVPB Q12 STEVEN PRN Reason: Protocol Piperacillin Sod/Tazobactam (Sod 3.375 gm/ Sodium Chloride) 100 mls @ 100 mls/ hr IVPB Q6 STEVEN PRN Reason: Protocol Last Admin: 10/10/17 03:07 Dose: 100 mls/hr - Labs Labs: 10/10/17 04:35 10/10/17 04:35 PT 16.2 Seconds (9.8-13.1) H 10/09/17 21:47 INR 1.5 (0.9-1.2) H 10/09/17 21:47 APTT 30.5 Seconds (25.6-37.1) 10/09/17 21:47 - Constitutional Appears: Well, Non-toxic - Extremities Exam Additional comments: LLE dressing left clean dry and intact without strikethrough - Neurological Exam Neurological Exam: Alert, Awake - Psychiatric Exam Psychiatric exam: Normal Affect, Normal Mood Assessment and Plan - Assessment and Plan (Free Text) Assessment: 72 y/o diabetic male with 1) left forefoot gangrene and 2) clinical and radiographic soft tissue emphysema of the left lower extremity extending from foot proximally to anterior ankle Plan: Discussed plan with attending Dr. Velazquez Afebrile, WBC 29.3 INR 1.5 --> pt given 1 unit of FFP X-rays of foot and ankle reviewed, indicate soft tissue emphysema extending up to anterior ankle Discussed with general surgery team and Dr. Villatoro - recommendation is to proceed with I&D of gas gangrene with removal of all non-viable soft tissue and bone Pt NPO past midnight Discussed with PMD Dr. Griffin who agrees that emergent surgical intervention must be performed Will continue to follow pt postoperatively
--- NOTE | 2017-10-10 08:11 | CP.PCM.HP ---
<Steve Holly - Last Filed: 10/10/17 08:03> History of Present Illness - History of Present Illness History of Present Illness: CC: left foot swelling HPI: 72 y/o man w/ pmh of HTN and NIDDM2 presents to the ED w/ complaints of left foot swelling and body aches. Patient reports symptoms for the past 4-5 days. Patient reports associated chills, loss of appetite, nausea, generalized weakness and fatigue increase swelling and redness to the left foot. Patient unsure of trauma to his foot due to diabetic neuropathy. Patient states he is homeless and is constantly wearing his shoes and socks. Patient reports he goes to [facility] and is adherent with his medications. Patient denies headaches, dizziness, SOB, vomiting, diarrhea, or dysuria. PMD: Dr. Randy Ruiz PMH: NIDDM2, HTN meds: see med list Allergies: NKDA PSH: denies previous surgery Fam: denies SOC: denies smoking, alcohol, and drugs; homeless ROS: 12 points assessed and negative unless otherwise reported in HPI Present on Admission - Present on Admission Any Indicators Present on Admission: Yes History of DVT/PE: No History of Uncontrolled Diabetes: Yes Urinary Catheter: No Decubitus Ulcer Present: No Review of Systems - Review of Systems All systems: reviewed and no additional remarkable complaints except - Constitutional Constitutional: As Per HPI, Chills, Fever. absent: Headache - EENT Eyes: absent: Change in Vision - Cardiovascular Cardiovascular: absent: Chest Pain - Respiratory Respiratory: absent: Dyspnea - Gastrointestinal Gastrointestinal: As Per HPI, Nausea. absent: Diarrhea, Vomiting - Genitourinary Genitourinary: absent: Dysuria, Urinary Frequency - Integumentary Integumentary: As Per HPI - Neurological Neurological: Paresthesias Past Patient History - Past Medical History & Family History Past Medical History?: Yes - Past Social History Smoking Status: Never Smoked Chewing Tobacco Use: No Cigar Use: No Alcohol: None Drugs: Denies Home Situation {Lives}: Homeless - CARDIAC Hx Hypertension: Yes - PULMONARY Hx Respiratory Disorders: No - HEENT Hx Blind: Yes (lt eye) - RENAL Hx Chronic Kidney Disease: No - ENDOCRINE/METABOLIC Hx Diabetes Mellitus Type 1: Yes - HEMATOLOGICAL/ONCOLOGICAL Hx Blood Disorders: No - INTEGUMENTARY Hx Dermatological Problems: No - MUSCULOSKELETAL/RHEUMATOLOGICAL Hx Arthritis: Yes - GASTROINTESTINAL Hx Gastrointestinal Disorders: Yes Hx Gastritis: Yes - GENITOURINARY/GYNECOLOGICAL Hx Genitourinary Disorders: No - PSYCHIATRIC Hx Psychophysiologic Disorder: No Hx Substance Use: No - SURGICAL HISTORY Hx Surgeries: No - ANESTHESIA Hx Anesthesia: No Meds Allergies/Adverse Reactions: Allergies Allergy/AdvReac Type Severity Reaction Status Date / Time No Known Allergies Allergy Verified 10/23/17 16:52 Physical Exam - Constitutional Appears: No Acute Distress - Head Exam Head Exam: ATRAUMATIC, NORMAL INSPECTION, NORMOCEPHALIC - Eye Exam Additional comments: cataract on left eye - ENT Exam ENT Exam: Mucous Membranes Dry - Neck Exam Neck exam: Positive for: Full Rom. Negative for: Tenderness - Respiratory Exam Respiratory Exam: Clear to Auscultation Bilateral. absent: Accessory Muscle Use , Decreased Breath Sounds, Rales, Rhonchi, Wheezes - Cardiovascular Exam Cardiovascular Exam: REGULAR RHYTHM, RRR. absent: Tachycardia - GI/Abdominal Exam GI & Abdominal Exam: Normal Bowel Sounds, Soft, Tenderness (mild generalized tenderness). absent: Distended, Guarding, Rebound - Extremities Exam Additional comments: left foot with necrotic lesion at the distal 1 and 2nd toes with fluctuant bullae with swelling at the dorsum of the left foot; nontender; left DP pulse faintly palpable, PT pulse not palpable - Expanded Lower Extremities Exam Left Foot/Toe exam: swelling - Neurological Exam Neurological exam: Alert, CN II-XII Intact, Oriented x3 - Skin Skin Exam: Dry Results - Vital Signs Recent Vital Signs: Last Vital Signs Temp 98.1 F 10/10/17 04:00 Pulse 86 10/10/17 06:00 Resp 16 10/10/17 06:00 BP 137/66 10/10/17 06:00 Pulse Ox 97 10/10/17 06:00 - Labs Result Diagrams: 10/10/17 04:35 10/10/17 04:35 Labs: Laboratory Results - last 24 hr 10/09/17 10/09/17 10/09/17 21:41 21:47 21:47 WBC 30.3 H RBC 3.13 L Hgb 9.6 L Hct 29.0 L MCV 92.7 MCH 30.6 MCHC 33.0 RDW 15.6 H Plt Count 467 H MPV 8.9 Neut % (Auto) 89.2 H Lymph % (Auto) 4.6 L [place] % (Auto) 5.9 Eos % (Auto) 0.2 Baso % (Auto) 0.1 Neut # (Auto) 27.0 H Lymph # (Auto) 1.4 [place] # (Auto) 1.8 H Eos # (Auto) 0.1 Baso # (Auto) 0.0 Neutrophils % (Manual) 95 H Lymphocytes % (Manual) 3 L Reactive Lymphs % 1 H Monocytes % (Manual) 1 Platelet Estimate Normal Plt Clumps, EDTA Present Hypochromasia (manual) Slight Macrocytosis (manual) Slight Target Cells Slight Rouleaux Slight ESR Cancelled PT INR APTT pO2 33 VBG pH 7.43 VBG pCO2 37 L VBG HCO3 24.5 VBG Total CO2 25.7 VBG O2 Sat (Calc) 68.2 H VBG Base Excess 0.5 VBG Potassium 5.0 Sodium 131.0 L 136 Chloride 102.0 97 L Glucose 742 H* Lactate 2.0 FiO2 21.0 Crit Value Called To erasto Lowry md Crit Value Called By Xena mccarty Crit Value Read Back Y Blood Gas Notified Time 2150 Potassium 4.9 Carbon Dioxide 22 Anion Gap 22 H BUN 41 H Creatinine 0.9 Est GFR ( Amer) > 60 Est GFR (Non-Af Amer) > 60 POC Glucose (mg/dL) Random Glucose 666 H* Serum Osmolality Calcium 8.5 Phosphorus 3.6 Magnesium 2.9 H Iron TIBC % Saturation Total Bilirubin 0.8 AST 50 ALT 28 Alkaline Phosphatase 188 H Troponin I < 0.0120 NT-Pro-B Natriuret Pep 615 Total Protein 8.5 H Albumin 3.1 L Globulin 5.4 H Albumin/Globulin Ratio 0.6 L Venous Blood Potassium 5.0 Blood Type Blood Type Confirm Antibody Screen BBK History Checked 10/09/17 10/09/17 10/09/17 21:47 21:48 22:35 WBC RBC Hgb Hct MCV MCH MCHC RDW Plt Count MPV Neut % (Auto) Lymph % (Auto) [place] % (Auto) Eos % (Auto) Baso % (Auto) Neut # (Auto) Lymph # (Auto) [place] # (Auto) Eos # (Auto) Baso # (Auto) Neutrophils % (Manual) Lymphocytes % (Manual) Reactive Lymphs % Monocytes % (Manual) Platelet Estimate Plt Clumps, EDTA Hypochromasia (manual) Macrocytosis (manual) Target Cells Rouleaux ESR PT 16.2 H INR 1.5 H APTT 30.5 pO2 VBG pH VBG pCO2 VBG HCO3 VBG Total CO2 VBG O2 Sat (Calc) VBG Base Excess VBG Potassium Sodium Chloride Glucose Lactate FiO2 Crit Value Called To Crit Value Called By Crit Value Read Back Blood Gas Notified Time Potassium Carbon Dioxide Anion Gap BUN Creatinine Est GFR ( Amer) Est GFR (Non-Af Amer) POC Glucose (mg/dL) > 500 H* Random Glucose Serum Osmolality 318 H Calcium Phosphorus Magnesium Iron TIBC % Saturation Total Bilirubin AST ALT Alkaline Phosphatase Troponin I NT-Pro-B Natriuret Pep Total Protein Albumin Globulin Albumin/Globulin Ratio Venous Blood Potassium Blood Type Blood Type Confirm Antibody Screen BBK History Checked 10/09/17 10/10/17 10/10/17 23:32 02:33 02:36 WBC RBC Hgb Hct MCV MCH MCHC RDW Plt Count MPV Neut % (Auto) Lymph % (Auto) [place] % (Auto) Eos % (Auto) Baso % (Auto) Neut # (Auto) Lymph # (Auto) [place] # (Auto) Eos # (Auto) Baso # (Auto) Neutrophils % (Manual) Lymphocytes % (Manual) Reactive Lymphs % Monocytes % (Manual) Platelet Estimate Plt Clumps, EDTA Hypochromasia (manual) Macrocytosis (manual) Target Cells Rouleaux ESR PT INR APTT pO2 VBG pH VBG pCO2 VBG HCO3 VBG Total CO2 VBG O2 Sat (Calc) VBG Base Excess VBG Potassium Sodium Chloride Glucose Lactate FiO2 Crit Value Called To Crit Value Called By Crit Value Read Back Blood Gas Notified Time Potassium Carbon Dioxide Anion Gap BUN Creatinine Est GFR ( Amer) Est GFR (Non-Af Amer) POC Glucose (mg/dL) 361 H 289 H Random Glucose Serum Osmolality Calcium Phosphorus Magnesium Iron TIBC % Saturation Total Bilirubin AST ALT Alkaline Phosphatase Troponin I NT-Pro-B Natriuret Pep Total Protein Albumin Globulin Albumin/Globulin Ratio Venous Blood Potassium Blood Type O POSITIVE Blood Type Confirm Antibody Screen Negative BBK History Checked No verified bt 10/10/17 10/10/17 10/10/17 02:36 04:29 04:35 WBC 29.3 H RBC 2.89 L Hgb 8.7 L Hct 26.5 L MCV 91.7 MCH 30.1 MCHC 32.8 L RDW 15.0 H Plt Count 418 H MPV 8.9 Neut % (Auto) 85.2 H Lymph % (Auto) 5.9 L [place] % (Auto) 8.1 Eos % (Auto) 0.6 Baso % (Auto) 0.2 Neut # (Auto) 24.9 H Lymph # (Auto) 1.7 [place] # (Auto) 2.4 H Eos # (Auto) 0.2 Baso # (Auto) 0.1 Neutrophils % (Manual) Lymphocytes % (Manual) Reactive Lymphs % Monocytes % (Manual) Platelet Estimate Plt Clumps, EDTA Hypochromasia (manual) Macrocytosis (manual) Target Cells Rouleaux ESR > 120 H PT INR APTT pO2 VBG pH VBG pCO2 VBG HCO3 VBG Total CO2 VBG O2 Sat (Calc) VBG Base Excess VBG Potassium Sodium Chloride Glucose Lactate FiO2 Crit Value Called To Crit Value Called By Crit Value Read Back Blood Gas Notified Time Potassium Carbon Dioxide Anion Gap BUN Creatinine Est GFR ( Amer) Est GFR (Non-Af Amer) POC Glucose (mg/dL) Random Glucose Serum Osmolality Calcium Phosphorus Magnesium Iron TIBC % Saturation Total Bilirubin AST ALT Alkaline Phosphatase Troponin I NT-Pro-B Natriuret Pep Total Protein Albumin Globulin Albumin/Globulin Ratio Venous Blood Potassium Blood Type Blood Type Confirm O POSITIVE Antibody Screen BBK History Checked 10/10/17 10/10/17 10/10/17 04:35 04:35 06:06 WBC RBC Hgb Hct MCV MCH MCHC RDW Plt Count MPV Neut % (Auto) Lymph % (Auto) [place] % (Auto) Eos % (Auto) Baso % (Auto) Neut # (Auto) Lymph # (Auto) [place] # (Auto) Eos # (Auto) Baso # (Auto) Neutrophils % (Manual) Lymphocytes % (Manual) Reactive Lymphs % Monocytes % (Manual) Platelet Estimate Plt Clumps, EDTA Hypochromasia (manual) Macrocytosis (manual) Target Cells Rouleaux ESR PT INR APTT pO2 VBG pH VBG pCO2 VBG HCO3 VBG Total CO2 VBG O2 Sat (Calc) VBG Base Excess VBG Potassium Sodium 143 Chloride 106 Glucose Lactate FiO2 Crit Value Called To Crit Value Called By Crit Value Read Back Blood Gas Notified Time Potassium 4.2 Carbon Dioxide 20 L Anion Gap 21 H BUN 37 H Creatinine 0.9 Est GFR ( Amer) > 60 Est GFR (Non-Af Amer) > 60 POC Glucose (mg/dL) 297 H Random Glucose 299 H Serum Osmolality Calcium 8.0 L Phosphorus Magnesium Iron 28 L TIBC 191 L % Saturation 15 L Total Bilirubin AST ALT Alkaline Phosphatase Troponin I NT-Pro-B Natriuret Pep Total Protein Albumin Globulin Albumin/Globulin Ratio Venous Blood Potassium Blood Type Blood Type Confirm Antibody Screen BBK History Checked Assessment & Plan (3) HTN (hypertension) Status: Chronic (4) Uncontrolled diabetes mellitus Status: Chronic (5) Gangrene of left foot Status: Acute - Assessment and Plan (Free Text) Plan: c/w present management afebrile, non-tachycardic, normotensive podiatry recommendations appreciated surgery recommendations appreciated infectious disease consult ordered WBC 29.3 H/H 8.7/26.5 INR 1.5 given FFP f/u repeat INR Vancomycin 1 gm Q12 day 1 zosyn 3.375 gm Q6 day1 NPO for OR this morning patient medically cleared for emergent surgery: patient is moderate to high risk for surgery; however, due to emergent nature of his case and present condition, benefits outweigh risks monitor for acute changes <Vimal Griffin - Last Filed: 10/25/17 19:17> Results - Vital Signs Recent Vital Signs: Last Vital Signs Temp 98.9 F 10/23/17 16:09 Pulse 83 10/23/17 16:09 Resp 20 10/23/17 16:09 BP 141/69 10/23/17 16:09 Pulse Ox 99 10/23/17 16:09 - Labs Result Diagrams: 10/22/17 12:00 10/21/17 10:30 Assessment & Plan - Assessment and Plan (Free Text) Assessment: Patient was personally seen and examined by me in rounds with residents. Available labs and diagnostic data reviewed. Case, Patient's condition and management plan discussed with residents in rounds. Agree with resident's progress note. Plan: As ordered.
--- NOTE | 2017-10-10 08:53 | CARD ---
APPROVED REPORT EKG Measurement Heart [id number] MD [id number] <Conclusion> Normal sinus rhythm Rightward axis Prolonged QT Abnormal ECG
[2017-10-10 08:57] LABS: INR 1.5 (0.9-1.2); PROTHROMBIN TIME 16.6 Seconds (9.8-13.1)
[2017-10-10] MEDS ORDERED: Propofol 10 mg/ml Inj (20 ML) ONE (09:37)
[2017-10-10] MEDS ORDERED: Midazolam 2 MG/2 ML VIAL ONE (09:42)
[2017-10-10] MEDS ORDERED: Lidocaine 4% (Laryng-O-Jet) Kit MM ONE (09:43)
[2017-10-10 09:55] LABS: ANISOCYTOSIS SLIGHT; BANDS 4 % (0-2); EOSINOPHIL 2 % (0-7); HYPOCHROMIC SLIGHT; LYMPHOCYTE 9 % (20-50); MONOCYTE 2 % (0-10); NEUTROPHIL 81 % (42-75); PLATELET ESTIMATE NORMAL (NORMAL); POIKILOCYTOSIS SLIGHT; REACTIVE LYMPHOCYTES 2 % (0-0); TOTAL CELLS COUNTED 100
[2017-10-10 09:56] LABS: LARGE PLATELETS PRESENT; TARGET CELLS SLIGHT
[2017-10-10] MEDS ORDERED: Piperacillin/Tazobact 3.375 gm Inj IVPB ONE (10:00)
[2017-10-10] MEDS ORDERED: Lactated Ringer's 1,000 ML IV ONE (10:15)
--- NOTE | 2017-10-10 10:46 | CP.PCM.CON ---
History of Present Illness - History of Present Illness History of Present Illness: Infectious Disease Consultation Note- asked to see this patient at the request of Dr. Griffin for left foot/leg gas gangrene HPI- History obtained from medical chart and podiatry resident as pt. is not good historian and is post-op currently in ICU. Patient is a 72 year old homeless male with pmh of Dm II, HTN who came to ED c/ o left foot pain and swelling that had worsened in the past five day.as per podiatry resident Patient stated that he is homeless and is constantly wearing his shoes and socks. upon admission pt. was found to have very high wbc and fever and foot/leg xray subcutaneous emphysema of the left foot and leg and gangrenous toes and pt. is now s/p surgery by podiatry for left TMA of left lateral leg wound opened to relieve the gas and infection and as per podiatry resident there was foul odor once the wound was opened in OR. wound is left open as they are planning on most likely BKA since the infection was so extensive. pt. in NAD slightly drowsy from the anesthesia. PMH: NIDDM2, HTN meds: see med list Allergies: NKDA PSH: denies previous surgery Fam: denies SOC: denies smoking, alcohol, and drugs; homeless Review of Systems - Review of Systems Review of Systems: ROS- unable to obtain at the moment since pt. is somewhat drowsy post-op but as per podiatry resident pt. had mandy dmission left foor/leg pain and swelling, chills. no other complaints Past Patient History - Past Medical History & Family History Past Medical History?: Yes - Past Social History Smoking Status: Never Smoked Chewing Tobacco Use: No Cigar Use: No Alcohol: None Drugs: Denies Home Situation {Lives}: Homeless - CARDIAC Hx Hypertension: Yes - PULMONARY Hx Respiratory Disorders: No - HEENT Hx Blind: Yes (lt eye) - RENAL Hx Chronic Kidney Disease: No - ENDOCRINE/METABOLIC Hx Diabetes Mellitus Type 1: Yes - HEMATOLOGICAL/ONCOLOGICAL Hx Blood Disorders: No - INTEGUMENTARY Hx Dermatological Problems: No - MUSCULOSKELETAL/RHEUMATOLOGICAL Hx Arthritis: Yes - GASTROINTESTINAL Hx Gastrointestinal Disorders: Yes Hx Gastritis: Yes - GENITOURINARY/GYNECOLOGICAL Hx Genitourinary Disorders: No - PSYCHIATRIC Hx Psychophysiologic Disorder: No Hx Substance Use: No - SURGICAL HISTORY Hx Surgeries: No - ANESTHESIA Hx Anesthesia: No Meds Allergies/Adverse Reactions: Allergies Allergy/AdvReac Type Severity Reaction Status Date / Time No Known Allergies Allergy Verified 10/09/17 17:36 - Medications Medications: Current Medications Vancomycin HCl 1 gm/ Sodium (Chloride) 250 mls @ 166.667 mls/hr IVPB Q12 STEVEN PRN Reason: Protocol Last Admin: 10/10/17 08:22 Dose: 166.667 mls/hr Piperacillin Sod/Tazobactam (Sod 3.375 gm/ Sodium Chloride) 100 mls @ 100 mls/ hr IVPB Q6 STEVEN PRN Reason: Protocol Last Admin: 10/10/17 03:07 Dose: 100 mls/hr Insulin Human Lispro (Humalog) 0 units SC Q6H STEVEN PRN Reason: Protocol Physical Exam - Constitutional Appears: No Acute Distress - Head Exam Head Exam: ATRAUMATIC - Neck Exam Neck exam: Positive for: Full Rom - Respiratory Exam Respiratory Exam: Clear to Auscultation Bilateral, NORMAL BREATHING PATTERN - Cardiovascular Exam Cardiovascular Exam: RRR, +S1, +S2 - GI/Abdominal Exam GI & Abdominal Exam: Normal Bowel Sounds, Soft Additional comments: NT,ND - Extremities Exam Additional comments: left foot OPEN TMA surgical open wound all the way till mid lateral left leg , no active pus . bloody discharge exposed bone in foot pt. seen and examined and dressing opened by the podiatry resident and post -op dressing done by podiatry - Neurological Exam Additional comments: drowsy post-op but awakens when his name is called Results - Vital Signs Recent Vital Signs: Last Vital Signs Temp 100.4 F H 10/10/17 08:00 Pulse 89 10/10/17 08:00 Resp 24 10/10/17 08:00 BP 136/75 10/10/17 08:00 Pulse Ox 96 10/10/17 08:00 - Labs Result Diagrams: 10/10/17 04:35 10/10/17 04:35 Labs: Laboratory Results - last 24 hr 10/09/17 10/09/17 10/09/17 21:41 21:47 21:47 WBC 30.3 H RBC 3.13 L Hgb 9.6 L Hct 29.0 L MCV 92.7 MCH 30.6 MCHC 33.0 RDW 15.6 H Plt Count 467 H MPV 8.9 Neut % (Auto) 89.2 H Lymph % (Auto) 4.6 L Churchill % (Auto) 5.9 Eos % (Auto) 0.2 Baso % (Auto) 0.1 Neut # (Auto) 27.0 H Lymph # (Auto) 1.4 Churchill # (Auto) 1.8 H Eos # (Auto) 0.1 Baso # (Auto) 0.0 Neutrophils % (Manual) 95 H Band Neutrophils % Lymphocytes % (Manual) 3 L Reactive Lymphs % 1 H Monocytes % (Manual) 1 Eosinophils % (Manual) Platelet Estimate Normal Plt Clumps, EDTA Present Large Platelets Hypochromasia (manual) Slight Poikilocytosis (manual Anisocytosis (manual) Macrocytosis (manual) Slight Target Cells Slight Rouleaux Slight ESR Cancelled PT INR APTT pO2 33 VBG pH 7.43 VBG pCO2 37 L VBG HCO3 24.5 VBG Total CO2 25.7 VBG O2 Sat (Calc) 68.2 H VBG Base Excess 0.5 VBG Potassium 5.0 Sodium 131.0 L 136 Chloride 102.0 97 L Glucose 742 H* Lactate 2.0 FiO2 21.0 Crit Value Called To erasto Lowry md Crit Value Called By [place] Crit Value Read Back Y Blood Gas Notified Time 2150 Potassium 4.9 Carbon Dioxide 22 Anion Gap 22 H BUN 41 H Creatinine 0.9 Est GFR ( Amer) > 60 Est GFR (Non-Af Amer) > 60 POC Glucose (mg/dL) Random Glucose 666 H* Serum Osmolality Calcium 8.5 Phosphorus 3.6 Magnesium 2.9 H Iron TIBC % Saturation Total Bilirubin 0.8 AST 50 ALT 28 Alkaline Phosphatase 188 H Troponin I < 0.0120 NT-Pro-B Natriuret Pep 615 Total Protein 8.5 H Albumin 3.1 L Globulin 5.4 H Albumin/Globulin Ratio 0.6 L Venous Blood Potassium 5.0 Blood Type Blood Type Confirm Antibody Screen Crossmatch BBK History Checked 10/09/17 10/09/17 10/09/17 21:47 21:48 22:35 WBC RBC Hgb Hct MCV MCH MCHC RDW Plt Count MPV Neut % (Auto) Lymph % (Auto) Churchill % (Auto) Eos % (Auto) Baso % (Auto) Neut # (Auto) Lymph # (Auto) Churchill # (Auto) Eos # (Auto) Baso # (Auto) Neutrophils % (Manual) Band Neutrophils % Lymphocytes % (Manual) Reactive Lymphs % Monocytes % (Manual) Eosinophils % (Manual) Platelet Estimate Plt Clumps, EDTA Large Platelets Hypochromasia (manual) Poikilocytosis (manual Anisocytosis (manual) Macrocytosis (manual) Target Cells Rouleaux ESR PT 16.2 H INR 1.5 H APTT 30.5 pO2 VBG pH VBG pCO2 VBG HCO3 VBG Total CO2 VBG O2 Sat (Calc) VBG Base Excess VBG Potassium Sodium Chloride Glucose Lactate FiO2 Crit Value Called To Crit Value Called By Crit Value Read Back Blood Gas Notified Time Potassium Carbon Dioxide Anion Gap BUN Creatinine Est GFR ( Amer) Est GFR (Non-Af Amer) POC Glucose (mg/dL) > 500 H* Random Glucose Serum Osmolality 318 H Calcium Phosphorus Magnesium Iron TIBC % Saturation Total Bilirubin AST ALT Alkaline Phosphatase Troponin I NT-Pro-B Natriuret Pep Total Protein Albumin Globulin Albumin/Globulin Ratio Venous Blood Potassium Blood Type Blood Type Confirm Antibody Screen Crossmatch BBK History Checked 10/09/17 10/10/17 10/10/17 23:32 02:33 02:36 WBC RBC Hgb Hct MCV MCH MCHC RDW Plt Count MPV Neut % (Auto) Lymph % (Auto) Churchill % (Auto) Eos % (Auto) Baso % (Auto) Neut # (Auto) Lymph # (Auto) Churchill # (Auto) Eos # (Auto) Baso # (Auto) Neutrophils % (Manual) Band Neutrophils % Lymphocytes % (Manual) Reactive Lymphs % Monocytes % (Manual) Eosinophils % (Manual) Platelet Estimate Plt Clumps, EDTA Large Platelets Hypochromasia (manual) Poikilocytosis (manual Anisocytosis (manual) Macrocytosis (manual) Target Cells Rouleaux ESR PT INR APTT pO2 VBG pH VBG pCO2 VBG HCO3 VBG Total CO2 VBG O2 Sat (Calc) VBG Base Excess VBG Potassium Sodium Chloride Glucose Lactate FiO2 Crit Value Called To Crit Value Called By Crit Value Read Back Blood Gas Notified Time Potassium Carbon Dioxide Anion Gap BUN Creatinine Est GFR ( Amer) Est GFR (Non-Af Amer) POC Glucose (mg/dL) 361 H 289 H Random Glucose Serum Osmolality Calcium Phosphorus Magnesium Iron TIBC % Saturation Total Bilirubin AST ALT Alkaline Phosphatase Troponin I NT-Pro-B Natriuret Pep Total Protein Albumin Globulin Albumin/Globulin Ratio Venous Blood Potassium Blood Type O POSITIVE Blood Type Confirm Antibody Screen Negative Crossmatch See Detail BBK History Checked No verified bt 10/10/17 10/10/17 10/10/17 02:36 04:29 04:35 WBC 29.3 H RBC 2.89 L Hgb 8.7 L Hct 26.5 L MCV 91.7 MCH 30.1 MCHC 32.8 L RDW 15.0 H Plt Count 418 H MPV 8.9 Neut % (Auto) 85.2 H Lymph % (Auto) 5.9 L Churchill % (Auto) 8.1 Eos % (Auto) 0.6 Baso % (Auto) 0.2 Neut # (Auto) 24.9 H Lymph # (Auto) 1.7 Churchill # (Auto) 2.4 H Eos # (Auto) 0.2 Baso # (Auto) 0.1 Neutrophils % (Manual) 81 H Band Neutrophils % 4 H Lymphocytes % (Manual) 9 L Reactive Lymphs % 2 H Monocytes % (Manual) 2 Eosinophils % (Manual) 2 Platelet Estimate Normal Plt Clumps, EDTA Large Platelets Present Hypochromasia (manual) Slight Poikilocytosis (manual Slight Anisocytosis (manual) Slight Macrocytosis (manual) Target Cells Slight Rouleaux ESR > 120 H PT INR APTT pO2 VBG pH VBG pCO2 VBG HCO3 VBG Total CO2 VBG O2 Sat (Calc) VBG Base Excess VBG Potassium Sodium Chloride Glucose Lactate FiO2 Crit Value Called To Crit Value Called By Crit Value Read Back Blood Gas Notified Time Potassium Carbon Dioxide Anion Gap BUN Creatinine Est GFR ( Amer) Est GFR (Non-Af Amer) POC Glucose (mg/dL) Random Glucose Serum Osmolality Calcium Phosphorus Magnesium Iron TIBC % Saturation Total Bilirubin AST ALT Alkaline Phosphatase Troponin I NT-Pro-B Natriuret Pep Total Protein Albumin Globulin Albumin/Globulin Ratio Venous Blood Potassium Blood Type Blood Type Confirm O POSITIVE Antibody Screen Crossmatch BBK History Checked 10/10/17 10/10/17 10/10/17 04:35 04:35 06:06 WBC RBC Hgb Hct MCV MCH MCHC RDW Plt Count MPV Neut % (Auto) Lymph % (Auto) Churchill % (Auto) Eos % (Auto) Baso % (Auto) Neut # (Auto) Lymph # (Auto) Churchill # (Auto) Eos # (Auto) Baso # (Auto) Neutrophils % (Manual) Band Neutrophils % Lymphocytes % (Manual) Reactive Lymphs % Monocytes % (Manual) Eosinophils % (Manual) Platelet Estimate Plt Clumps, EDTA Large Platelets Hypochromasia (manual) Poikilocytosis (manual Anisocytosis (manual) Macrocytosis (manual) Target Cells Rouleaux ESR PT INR APTT pO2 VBG pH VBG pCO2 VBG HCO3 VBG Total CO2 VBG O2 Sat (Calc) VBG Base Excess VBG Potassium Sodium 143 Chloride 106 Glucose Lactate FiO2 Crit Value Called To Crit Value Called By Crit Value Read Back Blood Gas Notified Time Potassium 4.2 Carbon Dioxide 20 L Anion Gap 21 H BUN 37 H Creatinine 0.9 Est GFR ( Amer) > 60 Est GFR (Non-Af Amer) > 60 POC Glucose (mg/dL) 297 H Random Glucose 299 H Serum Osmolality Calcium 8.0 L Phosphorus Magnesium Iron 28 L TIBC 191 L % Saturation 15 L Total Bilirubin AST ALT Alkaline Phosphatase Troponin I NT-Pro-B Natriuret Pep Total Protein Albumin Globulin Albumin/Globulin Ratio Venous Blood Potassium Blood Type Blood Type Confirm Antibody Screen Crossmatch BBK History Checked 10/10/17 10/10/17 08:12 09:34 WBC RBC Hgb Hct MCV MCH MCHC RDW Plt Count MPV Neut % (Auto) Lymph % (Auto) Churchill % (Auto) Eos % (Auto) Baso % (Auto) Neut # (Auto) Lymph # (Auto) Churchill # (Auto) Eos # (Auto) Baso # (Auto) Neutrophils % (Manual) Band Neutrophils % Lymphocytes % (Manual) Reactive Lymphs % Monocytes % (Manual) Eosinophils % (Manual) Platelet Estimate Plt Clumps, EDTA Large Platelets Hypochromasia (manual) Poikilocytosis (manual Anisocytosis (manual) Macrocytosis (manual) Target Cells Rouleaux ESR PT 16.6 H INR 1.5 H APTT pO2 VBG pH VBG pCO2 VBG HCO3 VBG Total CO2 VBG O2 Sat (Calc) VBG Base Excess VBG Potassium Sodium Chloride Glucose Lactate FiO2 Crit Value Called To Crit Value Called By Crit Value Read Back Blood Gas Notified Time Potassium Carbon Dioxide Anion Gap BUN Creatinine Est GFR ( Amer) Est GFR (Non-Af Amer) POC Glucose (mg/dL) 319 H Random Glucose Serum Osmolality Calcium Phosphorus Magnesium Iron TIBC % Saturation Total Bilirubin AST ALT Alkaline Phosphatase Troponin I NT-Pro-B Natriuret Pep Total Protein Albumin Globulin Albumin/Globulin Ratio Venous Blood Potassium Blood Type Blood Type Confirm Antibody Screen Crossmatch BBK History Checked Laboratory Results - last 72 hr 10/09/17 10/09/17 10/09/17 21:41 21:47 21:47 WBC 30.3 H RBC 3.13 L Hgb 9.6 L Hct 29.0 L MCV 92.7 MCH 30.6 MCHC 33.0 RDW 15.6 H Plt Count 467 H MPV 8.9 Neut % (Auto) 89.2 H Lymph % (Auto) 4.6 L Churchill % (Auto) 5.9 Eos % (Auto) 0.2 Baso % (Auto) 0.1 Neut # (Auto) 27.0 H Lymph # (Auto) 1.4 Churchill # (Auto) 1.8 H Eos # (Auto) 0.1 Baso # (Auto) 0.0 Neutrophils % (Manual) 95 H Band Neutrophils % Lymphocytes % (Manual) 3 L Reactive Lymphs % 1 H Monocytes % (Manual) 1 Eosinophils % (Manual) Platelet Estimate Normal Plt Clumps, EDTA Present Large Platelets Hypochromasia (manual) Slight Poikilocytosis (manual Anisocytosis (manual) Macrocytosis (manual) Slight Target Cells Slight Rouleaux Slight ESR Cancelled PT INR APTT pO2 33 VBG pH 7.43 VBG pCO2 37 L VBG HCO3 24.5 VBG Total CO2 25.7 VBG O2 Sat (Calc) 68.2 H VBG Base Excess 0.5 VBG Potassium 5.0 Sodium 131.0 L 136 Chloride 102.0 97 L Glucose 742 H* Lactate 2.0 FiO2 21.0 Crit Value Called To erasto Lowry md Crit Value Called By Xena mccarty Crit Value Read Back Y Blood Gas Notified Time 2150 Potassium 4.9 Carbon Dioxide 22 Anion Gap 22 H BUN 41 H Creatinine 0.9 Est GFR ( Amer) > 60 Est GFR (Non-Af Amer) > 60 POC Glucose (mg/dL) Random Glucose 666 H* Serum Osmolality Calcium 8.5 Phosphorus 3.6 Magnesium 2.9 H Iron TIBC % Saturation Total Bilirubin 0.8 AST 50 ALT 28 Alkaline Phosphatase 188 H Troponin I < 0.0120 C-Reactive Protein 250.10 H NT-Pro-B Natriuret Pep 615 Total Protein 8.5 H Albumin 3.1 L Globulin 5.4 H Albumin/Globulin Ratio 0.6 L Venous Blood Potassium 5.0 Blood Type Blood Type Confirm Antibody Screen Crossmatch BBK History Checked 10/09/17 10/09/17 10/09/17 21:47 21:48 22:35 WBC RBC Hgb Hct MCV MCH MCHC RDW Plt Count MPV Neut % (Auto) Lymph % (Auto) Churchill % (Auto) Eos % (Auto) Baso % (Auto) Neut # (Auto) Lymph # (Auto) Churchill # (Auto) Eos # (Auto) Baso # (Auto) Neutrophils % (Manual) Band Neutrophils % Lymphocytes % (Manual) Reactive Lymphs % Monocytes % (Manual) Eosinophils % (Manual) Platelet Estimate Plt Clumps, EDTA Large Platelets Hypochromasia (manual) Poikilocytosis (manual Anisocytosis (manual) Macrocytosis (manual) Target Cells Rouleaux ESR PT 16.2 H INR 1.5 H APTT 30.5 pO2 VBG pH VBG pCO2 VBG HCO3 VBG Total CO2 VBG O2 Sat (Calc) VBG Base Excess VBG Potassium Sodium Chloride Glucose Lactate FiO2 Crit Value Called To Crit Value Called By Crit Value Read Back Blood Gas Notified Time Potassium Carbon Dioxide Anion Gap BUN Creatinine Est GFR ( Amer) Est GFR (Non-Af Amer) POC Glucose (mg/dL) > 500 H* Random Glucose Serum Osmolality 318 H Calcium Phosphorus Magnesium Iron TIBC % Saturation Total Bilirubin AST ALT Alkaline Phosphatase Troponin I C-Reactive Protein NT-Pro-B Natriuret Pep Total Protein Albumin Globulin Albumin/Globulin Ratio Venous Blood Potassium Blood Type Blood Type Confirm Antibody Screen Crossmatch BBK History Checked 10/09/17 10/10/17 10/10/17 23:32 02:33 02:36 WBC RBC Hgb Hct MCV MCH MCHC RDW Plt Count MPV Neut % (Auto) Lymph % (Auto) Churchill % (Auto) Eos % (Auto) Baso % (Auto) Neut # (Auto) Lymph # (Auto) Churchill # (Auto) Eos # (Auto) Baso # (Auto) Neutrophils % (Manual) Band Neutrophils % Lymphocytes % (Manual) Reactive Lymphs % Monocytes % (Manual) Eosinophils % (Manual) Platelet Estimate Plt Clumps, EDTA Large Platelets Hypochromasia (manual) Poikilocytosis (manual Anisocytosis (manual) Macrocytosis (manual) Target Cells Rouleaux ESR PT INR APTT pO2 VBG pH VBG pCO2 VBG HCO3 VBG Total CO2 VBG O2 Sat (Calc) VBG Base Excess VBG Potassium Sodium Chloride Glucose Lactate FiO2 Crit Value Called To Crit Value Called By Crit Value Read Back Blood Gas Notified Time Potassium Carbon Dioxide Anion Gap BUN Creatinine Est GFR ( Amer) Est GFR (Non-Af Amer) POC Glucose (mg/dL) 361 H 289 H Random Glucose Serum Osmolality Calcium Phosphorus Magnesium Iron TIBC % Saturation Total Bilirubin AST ALT Alkaline Phosphatase Troponin I C-Reactive Protein NT-Pro-B Natriuret Pep Total Protein Albumin Globulin Albumin/Globulin Ratio Venous Blood Potassium Blood Type O POSITIVE Blood Type Confirm Antibody Screen Negative Crossmatch See Detail BBK History Checked No verified bt 10/10/17 10/10/17 10/10/17 02:36 04:29 04:35 WBC 29.3 H RBC 2.89 L Hgb 8.7 L Hct 26.5 L MCV 91.7 MCH 30.1 MCHC 32.8 L RDW 15.0 H Plt Count 418 H MPV 8.9 Neut % (Auto) 85.2 H Lymph % (Auto) 5.9 L Churchill % (Auto) 8.1 Eos % (Auto) 0.6 Baso % (Auto) 0.2 Neut # (Auto) 24.9 H Lymph # (Auto) 1.7 Churchill # (Auto) 2.4 H Eos # (Auto) 0.2 Baso # (Auto) 0.1 Neutrophils % (Manual) 81 H Band Neutrophils % 4 H Lymphocytes % (Manual) 9 L Reactive Lymphs % 2 H Monocytes % (Manual) 2 Eosinophils % (Manual) 2 Platelet Estimate Normal Plt Clumps, EDTA Large Platelets Present Hypochromasia (manual) Slight Poikilocytosis (manual Slight Anisocytosis (manual) Slight Macrocytosis (manual) Target Cells Slight Rouleaux ESR > 120 H PT INR APTT pO2 VBG pH VBG pCO2 VBG HCO3 VBG Total CO2 VBG O2 Sat (Calc) VBG Base Excess VBG Potassium Sodium Chloride Glucose Lactate FiO2 Crit Value Called To Crit Value Called By Crit Value Read Back Blood Gas Notified Time Potassium Carbon Dioxide Anion Gap BUN Creatinine Est GFR ( Amer) Est GFR (Non-Af Amer) POC Glucose (mg/dL) Random Glucose Serum Osmolality Calcium Phosphorus Magnesium Iron TIBC % Saturation Total Bilirubin AST ALT Alkaline Phosphatase Troponin I C-Reactive Protein NT-Pro-B Natriuret Pep Total Protein Albumin Globulin Albumin/Globulin Ratio Venous Blood Potassium Blood Type Blood Type Confirm O POSITIVE Antibody Screen Crossmatch BBK History Checked 10/10/17 10/10/17 10/10/17 04:35 04:35 06:06 WBC RBC Hgb Hct MCV MCH MCHC RDW Plt Count MPV Neut % (Auto) Lymph % (Auto) Churchill % (Auto) Eos % (Auto) Baso % (Auto) Neut # (Auto) Lymph # (Auto) Churchill # (Auto) Eos # (Auto) Baso # (Auto) Neutrophils % (Manual) Band Neutrophils % Lymphocytes % (Manual) Reactive Lymphs % Monocytes % (Manual) Eosinophils % (Manual) Platelet Estimate Plt Clumps, EDTA Large Platelets Hypochromasia (manual) Poikilocytosis (manual Anisocytosis (manual) Macrocytosis (manual) Target Cells Rouleaux ESR PT INR APTT pO2 VBG pH VBG pCO2 VBG HCO3 VBG Total CO2 VBG O2 Sat (Calc) VBG Base Excess VBG Potassium Sodium 143 Chloride 106 Glucose Lactate FiO2 Crit Value Called To Crit Value Called By Crit Value Read Back Blood Gas Notified Time Potassium 4.2 Carbon Dioxide 20 L Anion Gap 21 H BUN 37 H Creatinine 0.9 Est GFR ( Amer) > 60 Est GFR (Non-Af Amer) > 60 POC Glucose (mg/dL) 297 H Random Glucose 299 H Serum Osmolality Calcium 8.0 L Phosphorus Magnesium Iron 28 L TIBC 191 L % Saturation 15 L Total Bilirubin AST ALT Alkaline Phosphatase Troponin I C-Reactive Protein NT-Pro-B Natriuret Pep Total Protein Albumin Globulin Albumin/Globulin Ratio Venous Blood Potassium Blood Type Blood Type Confirm Antibody Screen Crossmatch BBK History Checked 10/10/17 10/10/17 10/10/17 08:12 09:34 11:46 WBC RBC Hgb Hct MCV MCH MCHC RDW Plt Count MPV Neut % (Auto) Lymph % (Auto) Churchill % (Auto) Eos % (Auto) Baso % (Auto) Neut # (Auto) Lymph # (Auto) Churchill # (Auto) Eos # (Auto) Baso # (Auto) Neutrophils % (Manual) Band Neutrophils % Lymphocytes % (Manual) Reactive Lymphs % Monocytes % (Manual) Eosinophils % (Manual) Platelet Estimate Plt Clumps, EDTA Large Platelets Hypochromasia (manual) Poikilocytosis (manual Anisocytosis (manual) Macrocytosis (manual) Target Cells Rouleaux ESR PT 16.6 H INR 1.5 H APTT pO2 VBG pH VBG pCO2 VBG HCO3 VBG Total CO2 VBG O2 Sat (Calc) VBG Base Excess VBG Potassium Sodium Chloride Glucose Lactate FiO2 Crit Value Called To Crit Value Called By Crit Value Read Back Blood Gas Notified Time Potassium Carbon Dioxide Anion Gap BUN Creatinine Est GFR ( Amer) Est GFR (Non-Af Amer) POC Glucose (mg/dL) 319 H 353 H Random Glucose Serum Osmolality Calcium Phosphorus Magnesium Iron TIBC % Saturation Total Bilirubin AST ALT Alkaline Phosphatase Troponin I C-Reactive Protein NT-Pro-B Natriuret Pep Total Protein Albumin Globulin Albumin/Globulin Ratio Venous Blood Potassium Blood Type Blood Type Confirm Antibody Screen Crossmatch BBK History Checked 10/10/17 15:05 WBC RBC Hgb Hct MCV MCH MCHC RDW Plt Count MPV Neut % (Auto) Lymph % (Auto) Churchill % (Auto) Eos % (Auto) Baso % (Auto) Neut # (Auto) Lymph # (Auto) Churchill # (Auto) Eos # (Auto) Baso # (Auto) Neutrophils % (Manual) Band Neutrophils % Lymphocytes % (Manual) Reactive Lymphs % Monocytes % (Manual) Eosinophils % (Manual) Platelet Estimate Plt Clumps, EDTA Large Platelets Hypochromasia (manual) Poikilocytosis (manual Anisocytosis (manual) Macrocytosis (manual) Target Cells Rouleaux ESR PT INR APTT pO2 VBG pH VBG pCO2 VBG HCO3 VBG Total CO2 VBG O2 Sat (Calc) VBG Base Excess VBG Potassium Sodium Chloride Glucose Lactate FiO2 Crit Value Called To Crit Value Called By Crit Value Read Back Blood Gas Notified Time Potassium Carbon Dioxide Anion Gap BUN Creatinine Est GFR ( Amer) Est GFR (Non-Af Amer) POC Glucose (mg/dL) 292 H Random Glucose Serum Osmolality Calcium Phosphorus Magnesium Iron TIBC % Saturation Total Bilirubin AST ALT Alkaline Phosphatase Troponin I C-Reactive Protein NT-Pro-B Natriuret Pep Total Protein Albumin Globulin Albumin/Globulin Ratio Venous Blood Potassium Blood Type Blood Type Confirm Antibody Screen Crossmatch BBK History Checked Accession No. : [id number] Patient Name / ID : GONZALEZ LOPEZ / [id number] Exam Date : 10/09/2017 23:03:57 ( Approved ) Study Comment : Sex / Age : M / 72Y Creator : Man Monroy MD Dictator : Man Monroy MD Sheet Heater Helper : Personal Lines Sales Rep : Man Monroy MD Approver2 : Report Date : 10/10/2017 12:58:07 My Comment : PROCEDURE: Left Ankle Radiographs. HISTORY: r/o soft tissue emphysema COMPARISON: None FINDINGS: BONES: No acute fracture or destructive bony lesion identified. JOINTS: No subluxation or dislocation is seen throughout the ankle with the ankle mortise is intact. Talar dome is intact as well SOFT TISSUES: Extensive vascular calcifications are identified anteriorly as well as posteriorly including the midfoot and forefoot as captured. The visualized distal leg also exhibits extensive vascular calcifications. Emphysematous soft tissue change are incidentally seen related to the midfoot and forefoot soft tissues. OTHER FINDINGS: None. IMPRESSION: No acute fracture or dislocation involving left ankle. No destructive bony lesion identified throughout the left ankle. Soft tissue vascular calcifications are noted. Additional incidental findings in the visualized forefoot and midfoot as well as visualize left leg as above. Accession No. : [id number] Patient Name / ID : GONZALEZ LOPEZ / [id number] Exam Date : 10/10/2017 12:20:53 ( Approved ) Study Comment : Sex / Age : M / 72Y Creator : Archana Davis Dictator : Archana Davis Sheet Heater Helper : Personal Lines Sales Rep : Archana Davis Approver2 : Report Date : 10/10/2017 12:58:10 My Comment : PROCEDURE: Left Ankle Radiographs. 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 JOINTS: Minimal anterior tibiotalar joint arthrosis . Ankle mortise maintained. Talar dome intact SOFT TISSUES: Atherosclerotic vascular calcifications present. . Lower leg subcutaneous edema OTHER FINDINGS: None. IMPRESSION: Recent postop changes as above. Accession No. : [id number] Patient Name / ID : GONZALEZ LOPEZ / [id number] Exam Date : 10/10/2017 12:12:45 ( Approved ) Study Comment : Sex / Age : [age] / 72Y Creator : Man Monroy MD Dictator : Man Monroy MD Sheet Heater Helper : Personal Lines Sales Rep : Man Monroy MD Approver2 : Report Date : 10/10/2017 13:06:56 My Comment : PROCEDURE: Radiographs of the left tibia and fibula. HISTORY: s/p surgery COMPARISON: None available. TECHNIQUE: Portable frontal and lateral views of the left tibia and fibula have been submitted. FINDINGS: BONES: No fracture or destructive lesion. JOINT SPACES: Limited degenerative changes seen at the left knee and tibiotalar joints comprised cortical sclerosis and joint space narrowing. OTHER FINDINGS: Vascular calcifications are seen in the soft tissues throughout the left leg. IMPRESSION: No acute fracture or dislocation identified. Degenerative changes are incidentally captured proximal and distal joints. Accession No. : [id number] Patient Name / ID : GONZALEZ LOPEZ / [id number] Exam Date : 10/10/2017 12:26:15 ( Approved ) Study Comment : Sex / Age : M / 72Y Creator : Archana Davis Dictator : Archana Davis Sheet Heater Helper : Personal Lines Sales Rep : Archana Davis Approver2 : Report Date : 10/10/2017 12:55:18 My Comment : PROCEDURE: Left Foot Radiographs. HISTORY: s/p surgery COMPARISON: 10/09/2017 FINDINGS: BONES: Interval recent amputation at proximal- mid metatarsal levels 1st through 5th digits. JOINTS: Tibiotalar arthrosis SOFT TISSUES: Overlying bandaging noted Atherosclerotic vascular calcifications present. . OTHER FINDINGS: None. IMPRESSION: Interval recent amputation at proximal- mid metatarsal levels 1st through 5th digits. Assessment & Plan (1) Gangrene of left foot Status: Acute (2) Uncontrolled diabetes mellitus Status: Chronic - Assessment and Plan (Free Text) Assessment: A/P- 72 y/o homeless male with DM II admitet with gangrenous toes and found to have subcutaneous emphysema on the xray and is s/p left TMA and opening of the left lateral LE for drainage of the infection by podiatry today. high leukocytois. febrile on admission. may need further surgical intervention done since pt. has extensive infection involving the entire foot and extending to his mid left LE region. plan- advise to cover with broad spectrum antibiotics pending intra-op wound cx results. hence advise to continue with IV vancomycin. keep vanco trough <15. advise to d/c zosyn and start pt. on IV meropenem for braoder coverage. check blood cx x 2. wound management as per podiatry and surgical team. all imaging and labs reviewed. Thank you for allowing me to take part in the care of this patient. ICU time 60 minutes.
[2017-10-10] MEDS ORDERED: Silver Sulfadiazine 1% CREAM (50 gm) ONE (11:24)
[2017-10-10] MEDS ORDERED: Silver Sulfadiazine 1% CREAM (50 gm) TOP ONE (11:30)
--- NOTE | 2017-10-10 11:43 | PCM.SURG1 ---
Surgeon's Initial Post Op Note - Surgeon's Notes Surgeon: Dr. Jesus Velazquez DPM Revenue Inspector: Dr. Patricio Smart DPM PGY-1; Dr. Vern Bernard DPM PGY-1 Type of Anesthesia: General LMA Anesthesia Administered By: Dr. Davy THORNE Pre-Operative Diagnosis: Left foot/ankle gas gangrene Operative Findings: See dictation. M: none. I: none Post-Operative Diagnosis: Same Operation Performed: Incision and drainage with transmetatarsal amputation of the left foot Specimen/Specimens Removed: Left forefoot. Intra-op wound cultures Estimated Blood Loss: EBL {In ML}: 50 Blood Products Given: N/A Drains Used: No Drains Post-Op Condition: Good Date of Surgery/Procedure: 10/10/17 Time of Surgery/Procedure: 11:44
[2017-10-10] MEDS ORDERED: Oxycodone/Acetaminophen 5/325 mg Tab PO PRN (11:45)
[2017-10-10] MEDS ORDERED: Sodium Chloride 0.9% 1,000 ML IV ONE (11:45)
[2017-10-10] MEDS ORDERED: Insulin Regular 100 units/ml SC ONE (11:58)
--- NOTE | 2017-10-10 12:00 | RAD ---
PROCEDURE: Radiographs of the left tibia and fibula. HISTORY: r/o soft tissue emphysema COMPARISON: None available. TECHNIQUE: Frontal and lateral views obtained. FINDINGS: BONES: No fracture or destructive lesion. JOINT SPACES: Unremarkable. OTHER FINDINGS: No subcutaneous emphysema appreciated. Atherosclerotic vascular calcifications present. . There is partially visualized dorsal and likely lateral bandaging over the foot IMPRESSION: No subcutaneous emphysema seen to suggest a gas-forming cellulitis. Atherosclerotic vascular calcifications present. No periosteal reaction or cortical interruption seen to suggest any osteomyelitis.
--- NOTE | 2017-10-10 12:21 | RAD ---
PROCEDURE: CHEST RADIOGRAPH, 1 VIEW HISTORY: [facility] COMPARISON: Portable chest 10/11/2013. FINDINGS: LUNGS: Skin folds are identified bilaterally in the periphery of the chest with Mach lines present and vessels identified extending beyond these lines. No pneumothorax pleural effusion or airspace disease identified bilaterally. PLEURA: As above. CARDIOVASCULAR: Normal. OSSEOUS STRUCTURES: No significant abnormalities. VISUALIZED UPPER ABDOMEN: Normal. OTHER FINDINGS: None. IMPRESSION: No interval acute cardiopulmonary disease appreciated.
--- NOTE | 2017-10-10 12:56 | RAD ---
PROCEDURE: Left Foot Radiographs. HISTORY: s/p surgery COMPARISON: 10/09/2017 FINDINGS: BONES: Interval recent amputation at proximal- mid metatarsal levels 1st through 5th digits. JOINTS: Tibiotalar arthrosis SOFT TISSUES: Overlying bandaging noted Atherosclerotic vascular calcifications present. . OTHER FINDINGS: None. IMPRESSION: Interval recent amputation at proximal- mid metatarsal levels 1st through 5th digits.
--- NOTE | 2017-10-10 12:59 | RAD ---
PROCEDURE: Left Ankle Radiographs. HISTORY: r/o soft tissue emphysema COMPARISON: None FINDINGS: BONES: No acute fracture or destructive bony lesion identified. JOINTS: No subluxation or dislocation is seen throughout the ankle with the ankle mortise is intact. Talar dome is intact as well SOFT TISSUES: Extensive vascular calcifications are identified anteriorly as well as posteriorly including the midfoot and forefoot as captured. The visualized distal leg also exhibits extensive vascular calcifications. Emphysematous soft tissue change are incidentally seen related to the midfoot and forefoot soft tissues. OTHER FINDINGS: None. IMPRESSION: No acute fracture or dislocation involving left ankle. No destructive bony lesion identified throughout the left ankle. Soft tissue vascular calcifications are noted. Additional incidental findings in the visualized forefoot and midfoot as well as visualize left leg as above.
--- NOTE | 2017-10-10 12:59 | RAD ---
PROCEDURE: Left Ankle Radiographs. 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 JOINTS: Minimal anterior tibiotalar joint arthrosis . Ankle mortise maintained. Talar dome intact SOFT TISSUES: Atherosclerotic vascular calcifications present. . Lower leg subcutaneous edema OTHER FINDINGS: None. IMPRESSION: Recent postop changes as above.
--- NOTE | 2017-10-10 13:02 | CP.CCUPN ---
CCU Subjective - Physician Review Events Since Last Encounter (Free Text): 10/10/17 13:01 alert and going to the OR today, no complaints. CCU Objective - Vital Signs / Intake & Output Vital Signs (Last 4 hours): Vital Signs Temp Pulse Resp BP Pulse Ox 10/10/17 12:45 99.4 F 91 H 20 133/74 99 10/10/17 12:30 99 F 88 20 131/79 98 10/10/17 12:15 98.9 F 85 20 132/78 100 10/10/17 12:00 98.6 F 85 20 130/76 100 10/10/17 11:45 98.3 F 86 20 129/76 100 Intake and Output (Last 8hrs): Intake & Output 10/09/17 10/10/17 10/10/17 22:59 06:59 14:59 Intake Total 650 1350 Output Total 250 Balance 650 1100 Weight 105 lb 117 lb 14.4 oz Intake: IV 700 Intake, Piggyback 350 Blood Product 300 650 Output: Urine 250 Urine, Voided 250 - Physical Exam Head: Positive for: Atraumatic, Normocephalic Pupils: Positive for: PERRL Extroacular Muscles: Positive for: EOMI Mouth: Positive for: Moist Mucous Membranes Respiratory/Chest: Positive for: Clear to Auscultation, Good Air Exchange Cardiovascular: Positive for: Regular Rate and Rhythm Abdomen: Positive for: Normal Bowel Sounds. Negative for: Tenderness, Distention Lower Extremity: Positive for: Other (left lower extremity gangrenous toes, foul smelling) Neurological: Positive for: GCS=15, CN II-XII Intact - Medications Active Medications: Active Medications Generic Name Dose Route Start Last Admin Trade Name Freq PRN Reason Stop Dose Admin Acetaminophen 650 mg 10/10/17 11:45 Tylenol 325mg Tab PO Q6 PRN Pain, Mild (1-3) Vancomycin HCl 1 gm/ Sodium 250 mls @ 166.667 mls/hr 10/10/17 09:00 10/10/17 08:22 Chloride IVPB 166.667 mls/hr Q12 STEVEN Administration Protocol Piperacillin Sod/Tazobactam 100 mls @ 100 mls/hr 10/10/17 04:00 10/10/17 03: 07 Sod 3.375 gm/ Sodium Chloride IVPB 100 mls/hr Q6 STEVEN Administration Protocol Insulin Human Lispro 0 units 10/10/17 08:30 Humalog SC Q6H STEVEN Protocol Morphine Sulfate 2 mg 10/10/17 11:48 Morphine IVP 10/10/17 13:48 Q10M PRN Pain, severe (8-10) Ondansetron HCl 4 mg 10/10/17 11:48 Zofran Inj IVP 10/10/17 13:49 ONCE PRN Nausea/Vomiting Oxycodone/Acetaminophen 1 tab 10/10/17 11:45 Percocet 5/325 Mg Tab PO 10/13/17 11:46 Q4 PRN Pain, moderate (4-7) Oxycodone/Acetaminophen 2 tab 10/10/17 11:45 Percocet 5/325 Mg Tab PO 10/13/17 11:46 Q4 PRN Pain, severe (8-10) - Patient Studies Lab Studies: Lab Studies 10/10/17 10/10/17 10/10/17 Range/Units 11:46 09:34 08:12 WBC (4.8-10.8) K/uL RBC (4.40-5.90) Mil/uL Hgb (12.0-18.0) g/dL Hct (35.0-51.0) % MCV (80.0-94.0) fl MCH (27.0-31.0) pg MCHC (33.0-37.0) g/dL RDW (11.5-14.5) % Plt Count (130-400) K/uL MPV (7.2-11.7) fl Neut % (Auto) (50.0-75.0) % Lymph % (Auto) (20.0-40.0) % [place] % (Auto) (0.0-10.0) % Eos % (Auto) (0.0-4.0) % Baso % (Auto) (0.0-2.0) % Neut # (Auto) (1.8-7.0) K/uL Lymph # (Auto) (1.0-4.3) K/uL [place] # (Auto) (0.0-0.8) K/uL Eos # (Auto) (0.0-0.7) K/uL Baso # (Auto) (0.0-0.2) K/uL Neutrophils % (Manual) (42-75) % Band Neutrophils % (0-2) % Lymphocytes % (Manual) (20-50) % Reactive Lymphs % (0-0) % Monocytes % (Manual) (0-10) % Eosinophils % (Manual) (0-7) % Platelet Estimate (NORMAL) Plt Clumps, EDTA Large Platelets Hypochromasia (manual) Poikilocytosis (manual Anisocytosis (manual) Macrocytosis (manual) Target Cells Rouleaux ESR PT 16.6 H (9.8-13.1) Seconds INR 1.5 H (0.9-1.2) APTT (25.6-37.1) Seconds pO2 (30-55) mm/Hg VBG pH (7.32-7.43) VBG pCO2 (40-60) mmHg VBG HCO3 mmol/L VBG Total CO2 (22-28) mmol/L VBG O2 Sat (Calc) (40-65) % VBG Base Excess (0.0-2.0) mmol/L VBG Potassium (3.6-5.2) mmol/L Sodium (132-148) mmol/L Chloride (98-107) mmol/L Glucose (75-110) mg/dL Lactate (0.7-2.1) mmol/L FiO2 % Crit Value Called To Crit Value Called By Crit Value Read Back Blood Gas Notified Time Potassium (3.6-5.0) MMOL/L Carbon Dioxide (22-30) mmol/L Anion Gap (10-20) BUN (9-20) mg/dl Creatinine (0.8-1.5) mg/dl Est GFR ( Amer) Est GFR (Non-Af Amer) POC Glucose (mg/dL) 353 H 319 H (65-110) mg/dL Random Glucose (75-110) mg/dL Serum Osmolality (272-300) mosm/kg Calcium (8.4-10.2) mg/dL Phosphorus (2.5-4.5) mg/dl Magnesium (1.6-2.3) MG/DL Iron (49-181) ug/dL TIBC (250-450) ug/dL % Saturation (20-55) % Total Bilirubin (0.2-1.3) mg/dl AST (17-59) U/L ALT (21-72) U/L Alkaline Phosphatase (38-126) U/L Troponin I (0.00-0.120) ng/mL C-Reactive Protein (0.0-9.9) mg/L NT-Pro-B Natriuret Pep (0-900) pg/ml Total Protein (6.3-8.2) G/DL Albumin (3.5-5.0) g/dL Globulin (2.2-3.9) gm/dL Albumin/Globulin Ratio (1.0-2.1) Venous Blood Potassium (3.6-5.2) mmol/L Blood Type Blood Type Confirm Antibody Screen Crossmatch BBK History Checked 10/10/17 10/10/17 10/10/17 Range/Units 06:06 04:35 04:35 WBC (4.8-10.8) K/uL RBC (4.40-5.90) Mil/uL Hgb (12.0-18.0) g/dL Hct (35.0-51.0) % MCV (80.0-94.0) fl MCH (27.0-31.0) pg MCHC (33.0-37.0) g/dL RDW (11.5-14.5) % Plt Count (130-400) K/uL MPV (7.2-11.7) fl Neut % (Auto) (50.0-75.0) % Lymph % (Auto) (20.0-40.0) % [place] % (Auto) (0.0-10.0) % Eos % (Auto) (0.0-4.0) % Baso % (Auto) (0.0-2.0) % Neut # (Auto) (1.8-7.0) K/uL Lymph # (Auto) (1.0-4.3) K/uL [place] # (Auto) (0.0-0.8) K/uL Eos # (Auto) (0.0-0.7) K/uL Baso # (Auto) (0.0-0.2) K/uL Neutrophils % (Manual) (42-75) % Band Neutrophils % (0-2) % Lymphocytes % (Manual) (20-50) % Reactive Lymphs % (0-0) % Monocytes % (Manual) (0-10) % Eosinophils % (Manual) (0-7) % Platelet Estimate (NORMAL) Plt Clumps, EDTA Large Platelets Hypochromasia (manual) Poikilocytosis (manual Anisocytosis (manual) Macrocytosis (manual) Target Cells Rouleaux ESR PT (9.8-13.1) Seconds INR (0.9-1.2) APTT (25.6-37.1) Seconds pO2 (30-55) mm/Hg VBG pH (7.32-7.43) VBG pCO2 (40-60) mmHg VBG HCO3 mmol/L VBG Total CO2 (22-28) mmol/L VBG O2 Sat (Calc) (40-65) % VBG Base Excess (0.0-2.0) mmol/L VBG Potassium (3.6-5.2) mmol/L Sodium 143 (132-148) mmol/L Chloride 106 (98-107) mmol/L Glucose (75-110) mg/dL Lactate (0.7-2.1) mmol/L FiO2 % Crit Value Called To Crit Value Called By Crit Value Read Back Blood Gas Notified Time Potassium 4.2 (3.6-5.0) MMOL/L Carbon Dioxide 20 L (22-30) mmol/L Anion Gap 21 H (10-20) BUN 37 H (9-20) mg/dl Creatinine 0.9 (0.8-1.5) mg/dl Est GFR ( Amer) > 60 Est GFR (Non-Af Amer) > 60 POC Glucose (mg/dL) 297 H (65-110) mg/dL Random Glucose 299 H (75-110) mg/dL Serum Osmolality (272-300) mosm/kg Calcium 8.0 L (8.4-10.2) mg/dL Phosphorus (2.5-4.5) mg/dl Magnesium (1.6-2.3) MG/DL Iron 28 L (49-181) ug/dL TIBC 191 L (250-450) ug/dL % Saturation 15 L (20-55) % Total Bilirubin (0.2-1.3) mg/dl AST (17-59) U/L ALT (21-72) U/L Alkaline Phosphatase (38-126) U/L Troponin I (0.00-0.120) ng/mL C-Reactive Protein (0.0-9.9) mg/L NT-Pro-B Natriuret Pep (0-900) pg/ml Total Protein (6.3-8.2) G/DL Albumin (3.5-5.0) g/dL Globulin (2.2-3.9) gm/dL Albumin/Globulin Ratio (1.0-2.1) Venous Blood Potassium (3.6-5.2) mmol/L Blood Type Blood Type Confirm Antibody Screen Crossmatch BBK History Checked 10/10/17 10/10/17 10/10/17 Range/Units 04:35 04:29 02:36 WBC 29.3 H (4.8-10.8) K/uL RBC 2.89 L (4.40-5.90) Mil/uL Hgb 8.7 L (12.0-18.0) g/dL Hct 26.5 L (35.0-51.0) % MCV 91.7 (80.0-94.0) fl MCH 30.1 (27.0-31.0) pg MCHC 32.8 L (33.0-37.0) g/dL RDW 15.0 H (11.5-14.5) % Plt Count 418 H (130-400) K/uL MPV 8.9 (7.2-11.7) fl Neut % (Auto) 85.2 H (50.0-75.0) % Lymph % (Auto) 5.9 L (20.0-40.0) % [place] % (Auto) 8.1 (0.0-10.0) % Eos % (Auto) 0.6 (0.0-4.0) % Baso % (Auto) 0.2 (0.0-2.0) % Neut # (Auto) 24.9 H (1.8-7.0) K/uL Lymph # (Auto) 1.7 (1.0-4.3) K/uL [place] # (Auto) 2.4 H (0.0-0.8) K/uL Eos # (Auto) 0.2 (0.0-0.7) K/uL Baso # (Auto) 0.1 (0.0-0.2) K/uL Neutrophils % (Manual) 81 H (42-75) % Band Neutrophils % 4 H (0-2) % Lymphocytes % (Manual) 9 L (20-50) % Reactive Lymphs % 2 H (0-0) % Monocytes % (Manual) 2 (0-10) % Eosinophils % (Manual) 2 (0-7) % Platelet Estimate Normal (NORMAL) Plt Clumps, EDTA Large Platelets Present Hypochromasia (manual) Slight Poikilocytosis (manual Slight Anisocytosis (manual) Slight Macrocytosis (manual) Target Cells Slight Rouleaux ESR > 120 H PT (9.8-13.1) Seconds INR (0.9-1.2) APTT (25.6-37.1) Seconds pO2 (30-55) mm/Hg VBG pH (7.32-7.43) VBG pCO2 (40-60) mmHg VBG HCO3 mmol/L VBG Total CO2 (22-28) mmol/L VBG O2 Sat (Calc) (40-65) % VBG Base Excess (0.0-2.0) mmol/L VBG Potassium (3.6-5.2) mmol/L Sodium (132-148) mmol/L Chloride (98-107) mmol/L Glucose (75-110) mg/dL Lactate (0.7-2.1) mmol/L FiO2 % Crit Value Called To Crit Value Called By Crit Value Read Back Blood Gas Notified Time Potassium (3.6-5.0) MMOL/L Carbon Dioxide (22-30) mmol/L Anion Gap (10-20) BUN (9-20) mg/dl Creatinine (0.8-1.5) mg/dl Est GFR ( Amer) Est GFR (Non-Af Amer) POC Glucose (mg/dL) (65-110) mg/dL Random Glucose (75-110) mg/dL Serum Osmolality (272-300) mosm/kg Calcium (8.4-10.2) mg/dL Phosphorus (2.5-4.5) mg/dl Magnesium (1.6-2.3) MG/DL Iron (49-181) ug/dL TIBC (250-450) ug/dL % Saturation (20-55) % Total Bilirubin (0.2-1.3) mg/dl AST (17-59) U/L ALT (21-72) U/L Alkaline Phosphatase (38-126) U/L Troponin I (0.00-0.120) ng/mL C-Reactive Protein (0.0-9.9) mg/L NT-Pro-B Natriuret Pep (0-900) pg/ml Total Protein (6.3-8.2) G/DL Albumin (3.5-5.0) g/dL Globulin (2.2-3.9) gm/dL Albumin/Globulin Ratio (1.0-2.1) Venous Blood Potassium (3.6-5.2) mmol/L Blood Type Blood Type Confirm O POSITIVE Antibody Screen Crossmatch BBK History Checked 10/10/17 10/10/17 10/09/17 Range/Units 02:36 02:33 23:32 WBC (4.8-10.8) K/uL RBC (4.40-5.90) Mil/uL Hgb (12.0-18.0) g/dL Hct (35.0-51.0) % MCV (80.0-94.0) fl MCH (27.0-31.0) pg MCHC (33.0-37.0) g/dL RDW (11.5-14.5) % Plt Count (130-400) K/uL MPV (7.2-11.7) fl Neut % (Auto) (50.0-75.0) % Lymph % (Auto) (20.0-40.0) % [place] % (Auto) (0.0-10.0) % Eos % (Auto) (0.0-4.0) % Baso % (Auto) (0.0-2.0) % Neut # (Auto) (1.8-7.0) K/uL Lymph # (Auto) (1.0-4.3) K/uL [place] # (Auto) (0.0-0.8) K/uL Eos # (Auto) (0.0-0.7) K/uL Baso # (Auto) (0.0-0.2) K/uL Neutrophils % (Manual) (42-75) % Band Neutrophils % (0-2) % Lymphocytes % (Manual) (20-50) % Reactive Lymphs % (0-0) % Monocytes % (Manual) (0-10) % Eosinophils % (Manual) (0-7) % Platelet Estimate (NORMAL) Plt Clumps, EDTA Large Platelets Hypochromasia (manual) Poikilocytosis (manual Anisocytosis (manual) Macrocytosis (manual) Target Cells Rouleaux ESR PT (9.8-13.1) Seconds INR (0.9-1.2) APTT (25.6-37.1) Seconds pO2 (30-55) mm/Hg VBG pH (7.32-7.43) VBG pCO2 (40-60) mmHg VBG HCO3 mmol/L VBG Total CO2 (22-28) mmol/L VBG O2 Sat (Calc) (40-65) % VBG Base Excess (0.0-2.0) mmol/L VBG Potassium (3.6-5.2) mmol/L Sodium (132-148) mmol/L Chloride (98-107) mmol/L Glucose (75-110) mg/dL Lactate (0.7-2.1) mmol/L FiO2 % Crit Value Called To Crit Value Called By Crit Value Read Back Blood Gas Notified Time Potassium (3.6-5.0) MMOL/L Carbon Dioxide (22-30) mmol/L Anion Gap (10-20) BUN (9-20) mg/dl Creatinine (0.8-1.5) mg/dl Est GFR ( Amer) Est GFR (Non-Af Amer) POC Glucose (mg/dL) 289 H 361 H (65-110) mg/dL Random Glucose (75-110) mg/dL Serum Osmolality (272-300) mosm/kg Calcium (8.4-10.2) mg/dL Phosphorus (2.5-4.5) mg/dl Magnesium (1.6-2.3) MG/DL Iron (49-181) ug/dL TIBC (250-450) ug/dL % Saturation (20-55) % Total Bilirubin (0.2-1.3) mg/dl AST (17-59) U/L ALT (21-72) U/L Alkaline Phosphatase (38-126) U/L Troponin I (0.00-0.120) ng/mL C-Reactive Protein (0.0-9.9) mg/L NT-Pro-B Natriuret Pep (0-900) pg/ml Total Protein (6.3-8.2) G/DL Albumin (3.5-5.0) g/dL Globulin (2.2-3.9) gm/dL Albumin/Globulin Ratio (1.0-2.1) Venous Blood Potassium (3.6-5.2) mmol/L Blood Type O POSITIVE Blood Type Confirm Antibody Screen Negative Crossmatch See Detail BBK History Checked No verified bt 10/09/17 10/09/17 10/09/17 Range/Units 22:35 21:48 21:47 WBC (4.8-10.8) K/uL RBC (4.40-5.90) Mil/uL Hgb (12.0-18.0) g/dL Hct (35.0-51.0) % MCV (80.0-94.0) fl MCH (27.0-31.0) pg MCHC (33.0-37.0) g/dL RDW (11.5-14.5) % Plt Count (130-400) K/uL MPV (7.2-11.7) fl Neut % (Auto) (50.0-75.0) % Lymph % (Auto) (20.0-40.0) % [place] % (Auto) (0.0-10.0) % Eos % (Auto) (0.0-4.0) % Baso % (Auto) (0.0-2.0) % Neut # (Auto) (1.8-7.0) K/uL Lymph # (Auto) (1.0-4.3) K/uL [place] # (Auto) (0.0-0.8) K/uL Eos # (Auto) (0.0-0.7) K/uL Baso # (Auto) (0.0-0.2) K/uL Neutrophils % (Manual) (42-75) % Band Neutrophils % (0-2) % Lymphocytes % (Manual) (20-50) % Reactive Lymphs % (0-0) % Monocytes % (Manual) (0-10) % Eosinophils % (Manual) (0-7) % Platelet Estimate (NORMAL) Plt Clumps, EDTA Large Platelets Hypochromasia (manual) Poikilocytosis (manual Anisocytosis (manual) Macrocytosis (manual) Target Cells Rouleaux ESR PT 16.2 H (9.8-13.1) Seconds INR 1.5 H (0.9-1.2) APTT 30.5 (25.6-37.1) Seconds pO2 (30-55) mm/Hg VBG pH (7.32-7.43) VBG pCO2 (40-60) mmHg VBG HCO3 mmol/L VBG Total CO2 (22-28) mmol/L VBG O2 Sat (Calc) (40-65) % VBG Base Excess (0.0-2.0) mmol/L VBG Potassium (3.6-5.2) mmol/L Sodium (132-148) mmol/L Chloride (98-107) mmol/L Glucose (75-110) mg/dL Lactate (0.7-2.1) mmol/L FiO2 % Crit Value Called To Crit Value Called By Crit Value Read Back Blood Gas Notified Time Potassium (3.6-5.0) MMOL/L Carbon Dioxide (22-30) mmol/L Anion Gap (10-20) BUN (9-20) mg/dl Creatinine (0.8-1.5) mg/dl Est GFR ( Amer) Est GFR (Non-Af Amer) POC Glucose (mg/dL) > 500 H* (65-110) mg/dL Random Glucose (75-110) mg/dL Serum Osmolality 318 H (272-300) mosm/kg Calcium (8.4-10.2) mg/dL Phosphorus (2.5-4.5) mg/dl Magnesium (1.6-2.3) MG/DL Iron (49-181) ug/dL TIBC (250-450) ug/dL % Saturation (20-55) % Total Bilirubin (0.2-1.3) mg/dl AST (17-59) U/L ALT (21-72) U/L Alkaline Phosphatase (38-126) U/L Troponin I (0.00-0.120) ng/mL C-Reactive Protein (0.0-9.9) mg/L NT-Pro-B Natriuret Pep (0-900) pg/ml Total Protein (6.3-8.2) G/DL Albumin (3.5-5.0) g/dL Globulin (2.2-3.9) gm/dL Albumin/Globulin Ratio (1.0-2.1) Venous Blood Potassium (3.6-5.2) mmol/L Blood Type Blood Type Confirm Antibody Screen Crossmatch BBK History Checked 10/09/17 10/09/17 10/09/17 Range/Units 21:47 21:47 21:41 WBC 30.3 H (4.8-10.8) K/uL RBC 3.13 L (4.40-5.90) Mil/uL Hgb 9.6 L (12.0-18.0) g/dL Hct 29.0 L (35.0-51.0) % MCV 92.7 (80.0-94.0) fl MCH 30.6 (27.0-31.0) pg MCHC 33.0 (33.0-37.0) g/dL RDW 15.6 H (11.5-14.5) % Plt Count 467 H (130-400) K/uL MPV 8.9 (7.2-11.7) fl Neut % (Auto) 89.2 H (50.0-75.0) % Lymph % (Auto) 4.6 L (20.0-40.0) % [place] % (Auto) 5.9 (0.0-10.0) % Eos % (Auto) 0.2 (0.0-4.0) % Baso % (Auto) 0.1 (0.0-2.0) % Neut # (Auto) 27.0 H (1.8-7.0) K/uL Lymph # (Auto) 1.4 (1.0-4.3) K/uL [place] # (Auto) 1.8 H (0.0-0.8) K/uL Eos # (Auto) 0.1 (0.0-0.7) K/uL Baso # (Auto) 0.0 (0.0-0.2) K/uL Neutrophils % (Manual) 95 H (42-75) % Band Neutrophils % (0-2) % Lymphocytes % (Manual) 3 L (20-50) % Reactive Lymphs % 1 H (0-0) % Monocytes % (Manual) 1 (0-10) % Eosinophils % (Manual) (0-7) % Platelet Estimate Normal (NORMAL) Plt Clumps, EDTA Present Large Platelets Hypochromasia (manual) Slight Poikilocytosis (manual Anisocytosis (manual) Macrocytosis (manual) Slight Target Cells Slight Rouleaux Slight ESR Cancelled PT (9.8-13.1) Seconds INR (0.9-1.2) APTT (25.6-37.1) Seconds pO2 33 (30-55) mm/Hg VBG pH 7.43 (7.32-7.43) VBG pCO2 37 L (40-60) mmHg VBG HCO3 24.5 mmol/L VBG Total CO2 25.7 (22-28) mmol/L VBG O2 Sat (Calc) 68.2 H (40-65) % VBG Base Excess 0.5 (0.0-2.0) mmol/L VBG Potassium 5.0 (3.6-5.2) mmol/L Sodium 136 131.0 L (132-148) mmol/L Chloride 97 L 102.0 (98-107) mmol/L Glucose 742 H* (75-110) mg/dL Lactate 2.0 (0.7-2.1) mmol/L FiO2 21.0 % Crit Value Called To erasto Lowry md Crit Value Called By Xena mccarty Crit Value Read Back Y Blood Gas Notified Time 2150 Potassium 4.9 (3.6-5.0) MMOL/L Carbon Dioxide 22 (22-30) mmol/L Anion Gap 22 H (10-20) BUN 41 H (9-20) mg/dl Creatinine 0.9 (0.8-1.5) mg/dl Est GFR ( Amer) > 60 Est GFR (Non-Af Amer) > 60 POC Glucose (mg/dL) (65-110) mg/dL Random Glucose 666 H* (75-110) mg/dL Serum Osmolality (272-300) mosm/kg Calcium 8.5 (8.4-10.2) mg/dL Phosphorus 3.6 (2.5-4.5) mg/dl Magnesium 2.9 H (1.6-2.3) MG/DL Iron (49-181) ug/dL TIBC (250-450) ug/dL % Saturation (20-55) % Total Bilirubin 0.8 (0.2-1.3) mg/dl AST 50 (17-59) U/L ALT 28 (21-72) U/L Alkaline Phosphatase 188 H (38-126) U/L Troponin I < 0.0120 (0.00-0.120) ng/mL C-Reactive Protein 250.10 H (0.0-9.9) mg/L NT-Pro-B Natriuret Pep 615 (0-900) pg/ml Total Protein 8.5 H (6.3-8.2) G/DL Albumin 3.1 L (3.5-5.0) g/dL Globulin 5.4 H (2.2-3.9) gm/dL Albumin/Globulin Ratio 0.6 L (1.0-2.1) Venous Blood Potassium 5.0 (3.6-5.2) mmol/L Blood Type Blood Type Confirm Antibody Screen Crossmatch BBK History Checked Laboratory Results - last 24 hr 10/09/17 10/09/17 10/09/17 21:41 21:47 21:47 WBC 30.3 H RBC 3.13 L Hgb 9.6 L Hct 29.0 L MCV 92.7 MCH 30.6 MCHC 33.0 RDW 15.6 H Plt Count 467 H MPV 8.9 Neut % (Auto) 89.2 H Lymph % (Auto) 4.6 L [place] % (Auto) 5.9 Eos % (Auto) 0.2 Baso % (Auto) 0.1 Neut # (Auto) 27.0 H Lymph # (Auto) 1.4 [place] # (Auto) 1.8 H Eos # (Auto) 0.1 Baso # (Auto) 0.0 Neutrophils % (Manual) 95 H Band Neutrophils % Lymphocytes % (Manual) 3 L Reactive Lymphs % 1 H Monocytes % (Manual) 1 Eosinophils % (Manual) Platelet Estimate Normal Plt Clumps, EDTA Present Large Platelets Hypochromasia (manual) Slight Poikilocytosis (manual Anisocytosis (manual) Macrocytosis (manual) Slight Target Cells Slight Rouleaux Slight ESR Cancelled PT INR APTT pO2 33 VBG pH 7.43 VBG pCO2 37 L VBG HCO3 24.5 VBG Total CO2 25.7 VBG O2 Sat (Calc) 68.2 H VBG Base Excess 0.5 VBG Potassium 5.0 Sodium 131.0 L 136 Chloride 102.0 97 L Glucose 742 H* Lactate 2.0 FiO2 21.0 Crit Value Called To erasto Lowry md Crit Value Called By Xena mccarty Crit Value Read Back Y Blood Gas Notified Time 2150 Potassium 4.9 Carbon Dioxide 22 Anion Gap 22 H BUN 41 H Creatinine 0.9 Est GFR ( Amer) > 60 Est GFR (Non-Af Amer) > 60 POC Glucose (mg/dL) Random Glucose 666 H* Serum Osmolality Calcium 8.5 Phosphorus 3.6 Magnesium 2.9 H Iron TIBC % Saturation Total Bilirubin 0.8 AST 50 ALT 28 Alkaline Phosphatase 188 H Troponin I < 0.0120 C-Reactive Protein 250.10 H NT-Pro-B Natriuret Pep 615 Total Protein 8.5 H Albumin 3.1 L Globulin 5.4 H Albumin/Globulin Ratio 0.6 L Venous Blood Potassium 5.0 Blood Type Blood Type Confirm Antibody Screen Crossmatch BBK History Checked 10/09/17 10/09/17 10/09/17 21:47 21:48 22:35 WBC RBC Hgb Hct MCV MCH MCHC RDW Plt Count MPV Neut % (Auto) Lymph % (Auto) [place] % (Auto) Eos % (Auto) Baso % (Auto) Neut # (Auto) Lymph # (Auto) [place] # (Auto) Eos # (Auto) Baso # (Auto) Neutrophils % (Manual) Band Neutrophils % Lymphocytes % (Manual) Reactive Lymphs % Monocytes % (Manual) Eosinophils % (Manual) Platelet Estimate Plt Clumps, EDTA Large Platelets Hypochromasia (manual) Poikilocytosis (manual Anisocytosis (manual) Macrocytosis (manual) Target Cells Rouleaux ESR PT 16.2 H INR 1.5 H APTT 30.5 pO2 VBG pH VBG pCO2 VBG HCO3 VBG Total CO2 VBG O2 Sat (Calc) VBG Base Excess VBG Potassium Sodium Chloride Glucose Lactate FiO2 Crit Value Called To Crit Value Called By Crit Value Read Back Blood Gas Notified Time Potassium Carbon Dioxide Anion Gap BUN Creatinine Est GFR ( Amer) Est GFR (Non-Af Amer) POC Glucose (mg/dL) > 500 H* Random Glucose Serum Osmolality 318 H Calcium Phosphorus Magnesium Iron TIBC % Saturation Total Bilirubin AST ALT Alkaline Phosphatase Troponin I C-Reactive Protein NT-Pro-B Natriuret Pep Total Protein Albumin Globulin Albumin/Globulin Ratio Venous Blood Potassium Blood Type Blood Type Confirm Antibody Screen Crossmatch BBK History Checked 10/09/17 10/10/17 10/10/17 23:32 02:33 02:36 WBC RBC Hgb Hct MCV MCH MCHC RDW Plt Count MPV Neut % (Auto) Lymph % (Auto) [place] % (Auto) Eos % (Auto) Baso % (Auto) Neut # (Auto) Lymph # (Auto) [place] # (Auto) Eos # (Auto) Baso # (Auto) Neutrophils % (Manual) Band Neutrophils % Lymphocytes % (Manual) Reactive Lymphs % Monocytes % (Manual) Eosinophils % (Manual) Platelet Estimate Plt Clumps, EDTA Large Platelets Hypochromasia (manual) Poikilocytosis (manual Anisocytosis (manual) Macrocytosis (manual) Target Cells Rouleaux ESR PT INR APTT pO2 VBG pH VBG pCO2 VBG HCO3 VBG Total CO2 VBG O2 Sat (Calc) VBG Base Excess VBG Potassium Sodium Chloride Glucose Lactate FiO2 Crit Value Called To Crit Value Called By Crit Value Read Back Blood Gas Notified Time Potassium Carbon Dioxide Anion Gap BUN Creatinine Est GFR ( Amer) Est GFR (Non-Af Amer) POC Glucose (mg/dL) 361 H 289 H Random Glucose Serum Osmolality Calcium Phosphorus Magnesium Iron TIBC % Saturation Total Bilirubin AST ALT Alkaline Phosphatase Troponin I C-Reactive Protein NT-Pro-B Natriuret Pep Total Protein Albumin Globulin Albumin/Globulin Ratio Venous Blood Potassium Blood Type O POSITIVE Blood Type Confirm Antibody Screen Negative Crossmatch See Detail BBK History Checked No verified bt 10/10/17 10/10/17 10/10/17 02:36 04:29 04:35 WBC 29.3 H RBC 2.89 L Hgb 8.7 L Hct 26.5 L MCV 91.7 MCH 30.1 MCHC 32.8 L RDW 15.0 H Plt Count 418 H MPV 8.9 Neut % (Auto) 85.2 H Lymph % (Auto) 5.9 L [place] % (Auto) 8.1 Eos % (Auto) 0.6 Baso % (Auto) 0.2 Neut # (Auto) 24.9 H Lymph # (Auto) 1.7 [place] # (Auto) 2.4 H Eos # (Auto) 0.2 Baso # (Auto) 0.1 Neutrophils % (Manual) 81 H Band Neutrophils % 4 H Lymphocytes % (Manual) 9 L Reactive Lymphs % 2 H Monocytes % (Manual) 2 Eosinophils % (Manual) 2 Platelet Estimate Normal Plt Clumps, EDTA Large Platelets Present Hypochromasia (manual) Slight Poikilocytosis (manual Slight Anisocytosis (manual) Slight Macrocytosis (manual) Target Cells Slight Rouleaux ESR > 120 H PT INR APTT pO2 VBG pH VBG pCO2 VBG HCO3 VBG Total CO2 VBG O2 Sat (Calc) VBG Base Excess VBG Potassium Sodium Chloride Glucose Lactate FiO2 Crit Value Called To Crit Value Called By Crit Value Read Back Blood Gas Notified Time Potassium Carbon Dioxide Anion Gap BUN Creatinine Est GFR ( Amer) Est GFR (Non-Af Amer) POC Glucose (mg/dL) Random Glucose Serum Osmolality Calcium Phosphorus Magnesium Iron TIBC % Saturation Total Bilirubin AST ALT Alkaline Phosphatase Troponin I C-Reactive Protein NT-Pro-B Natriuret Pep Total Protein Albumin Globulin Albumin/Globulin Ratio Venous Blood Potassium Blood Type Blood Type Confirm O POSITIVE Antibody Screen Crossmatch BBK History Checked 10/10/17 10/10/17 10/10/17 04:35 04:35 06:06 WBC RBC Hgb Hct MCV MCH MCHC RDW Plt Count MPV Neut % (Auto) Lymph % (Auto) [place] % (Auto) Eos % (Auto) Baso % (Auto) Neut # (Auto) Lymph # (Auto) [place] # (Auto) Eos # (Auto) Baso # (Auto) Neutrophils % (Manual) Band Neutrophils % Lymphocytes % (Manual) Reactive Lymphs % Monocytes % (Manual) Eosinophils % (Manual) Platelet Estimate Plt Clumps, EDTA Large Platelets Hypochromasia (manual) Poikilocytosis (manual Anisocytosis (manual) Macrocytosis (manual) Target Cells Rouleaux ESR PT INR APTT pO2 VBG pH VBG pCO2 VBG HCO3 VBG Total CO2 VBG O2 Sat (Calc) VBG Base Excess VBG Potassium Sodium 143 Chloride 106 Glucose Lactate FiO2 Crit Value Called To Crit Value Called By Crit Value Read Back Blood Gas Notified Time Potassium 4.2 Carbon Dioxide 20 L Anion Gap 21 H BUN 37 H Creatinine 0.9 Est GFR ( Amer) > 60 Est GFR (Non-Af Amer) > 60 POC Glucose (mg/dL) 297 H Random Glucose 299 H Serum Osmolality Calcium 8.0 L Phosphorus Magnesium Iron 28 L TIBC 191 L % Saturation 15 L Total Bilirubin AST ALT Alkaline Phosphatase Troponin I C-Reactive Protein NT-Pro-B Natriuret Pep Total Protein Albumin Globulin Albumin/Globulin Ratio Venous Blood Potassium Blood Type Blood Type Confirm Antibody Screen Crossmatch BBK History Checked 10/10/17 10/10/17 10/10/17 08:12 09:34 11:46 WBC RBC Hgb Hct MCV MCH MCHC RDW Plt Count MPV Neut % (Auto) Lymph % (Auto) [place] % (Auto) Eos % (Auto) Baso % (Auto) Neut # (Auto) Lymph # (Auto) [place] # (Auto) Eos # (Auto) Baso # (Auto) Neutrophils % (Manual) Band Neutrophils % Lymphocytes % (Manual) Reactive Lymphs % Monocytes % (Manual) Eosinophils % (Manual) Platelet Estimate Plt Clumps, EDTA Large Platelets Hypochromasia (manual) Poikilocytosis (manual Anisocytosis (manual) Macrocytosis (manual) Target Cells Rouleaux ESR PT 16.6 H INR 1.5 H APTT pO2 VBG pH VBG pCO2 VBG HCO3 VBG Total CO2 VBG O2 Sat (Calc) VBG Base Excess VBG Potassium Sodium Chloride Glucose Lactate FiO2 Crit Value Called To Crit Value Called By Crit Value Read Back Blood Gas Notified Time Potassium Carbon Dioxide Anion Gap BUN Creatinine Est GFR ( Amer) Est GFR (Non-Af Amer) POC Glucose (mg/dL) 319 H 353 H Random Glucose Serum Osmolality Calcium Phosphorus Magnesium Iron TIBC % Saturation Total Bilirubin AST ALT Alkaline Phosphatase Troponin I C-Reactive Protein NT-Pro-B Natriuret Pep Total Protein Albumin Globulin Albumin/Globulin Ratio Venous Blood Potassium Blood Type Blood Type Confirm Antibody Screen Crossmatch BBK History Checked EKG/Cardiology Studies: Cardiology / EKG Studies 10/09/17 19:49 ELECTROCARDIOGRAM Stat Comment: Mode Of Transportation: Reason For Exam: weakness Fingerstick Blood Sugar Results: 353 Review of Systems - Review of Systems All systems: reviewed and no additional remarkable complaints except (no complaints) Critical Care Progress Note - Nutrition Nutrition: Nutrition Category Date Time Status Heart Healthy Diet [DIET] Diets 10/10/17 Lunch Active Assessment/Plan (1) Gangrene of left foot Assessment and plan: 72yo M. PMHx DM type 2, HTN, homeless. p/w sepsis secondary to left toe gangrene (1st and 2nd toe). Neuro: alert and oriented x 3 Pulm: no acute issues, breathing spontaneously on room air CV: hemodynamically stable Hem: leucocytosis from sepsis, anemia of critical illness Renal: no acute issues Endo: severe hyperglycemia secondary to sepsis, SISS for coverage GI: NPO for surgery, carb consistent diet post-op ID: severe sepsis from gangrene of LLE, continue Zosyn and Vancomycin, ID consulted. patient underwent Incision and drainage with transmetatarsal amputation of the left foot by podiatry today. Patient will most likely need BKA by general surgery. DVT proph - start a/c post-op GI proph - not currently indciated Code status - full code Critical Care Time spent 35 minutes Multi-disciplinary rounds were performed with house staff, nursing, speech therapy, respiratory therapy, pharmacy and nutrition with integrated input from the primary team/attending and other consulting services. The documented time is cumulative and includes review of patient data/exams/labs/chart review and examination of the patient on rounds and throughout the day; time is exclusive of any procedures or teaching time. Current Visit: Yes Status: Acute
--- NOTE | 2017-10-10 13:03 | RAD ---
PROCEDURE: Left Foot Radiographs. HISTORY: LEFT foot infection COMPARISON: None. FINDINGS: BONES: Bandages and emphysema event limits the evaluation of the digits and proximal metatarsal bones somewhat. No displaced fractures identified throughout the left foot, subluxation or dislocation. However, emphysematous changes seen throughout the forefoot surrounding the digits and appears concentrated mostly at the great toe soft tissues with prominent soft tissue edema related. Gross erosive changes are not identified at this time. MRI can be performed for greater characterization of the osseous elements of the left foot, particularly the forefoot, to evaluate for potential osteomyelitis not clearly evident in the current images. JOINTS: Moderate degenerative joint space narrowing and cortical sclerosis are seen throughout the interphalangeal joints well as the 1st metatarsophalangeal joint and mildly throughout the remaining forefoot midfoot and hindfoot joints. SOFT TISSUES: As above. OTHER FINDINGS: None. IMPRESSION: Findings suspicious for advanced forefoot cellulitis with abscess formation not excluded. No definite periosteal reaction or erosion to suggest definite osteomyelitis though MRI is more sensitive can be performed for additional characterization as clinically warranted. No acute fracture, dislocation or definitive destructive bony lesion appreciable. Degenerative changes are concentrated at the forefoot moreso than midfoot and hindfoot joints.
--- NOTE | 2017-10-10 13:08 | RAD ---
PROCEDURE: Radiographs of the left tibia and fibula. HISTORY: s/p surgery COMPARISON: None available. TECHNIQUE: Portable frontal and lateral views of the left tibia and fibula have been submitted. FINDINGS: BONES: No fracture or destructive lesion. JOINT SPACES: Limited degenerative changes seen at the left knee and tibiotalar joints comprised cortical sclerosis and joint space narrowing. OTHER FINDINGS: Vascular calcifications are seen in the soft tissues throughout the left leg. IMPRESSION: No acute fracture or dislocation identified. Degenerative changes are incidentally captured proximal and distal joints.
[2017-10-10] MEDS: Insulin Lispro (humaLOG) 100 Units/ml Inj SC SCH (15:11)
[2017-10-10] MEDS: Meropenem 1 GM in Sodium Chloride 0.9% 100 ML IVPB SCH (16:58)
[2017-10-11] MEDS: Insulin Lispro (humaLOG) 100 Units/ml Inj SC SCH ×8 (00:24→22:17)
[2017-10-11] MEDS: Meropenem 1 GM in Sodium Chloride 0.9% 100 ML IVPB SCH ×3 (00:42→17:09)
[2017-10-11] MEDS: Sodium Chloride 0.9% 1,000 ML IV SCH (05:35)
[2017-10-11 05:56] LABS: BASO % 0.2 % (0.0-2.0); EOS # 0.1 K/uL (0.0-0.7); EOS % 0.4 % (0.0-4.0); HEMOGLOBIN 9.9 g/dL (12.0-18.0); LYMPH % 7.6 % (20.0-40.0); MEAN CELL VOLUME 90.3 fl (80.0-94.0); MEAN CORPUSCULAR HEMOGLOBIN 30.1 pg (27.0-31.0); MEAN CORPUSCULAR HGB CONC 33.3 g/dL (33.0-37.0); MEAN PLATELET VOLUME 9.1 fl (7.2-11.7); MONO % 7.5 % (0.0-10.0); NEUT # 22.4 K/uL (1.8-7.0); NEUT % 84.3 % (50.0-75.0); NRBC % 0.1 % (0.0-0.0); RBC 3.29 Mil/uL (4.40-5.90); RED CELL DISTRIBUTION WIDTH 16.3 % (11.5-14.5); WHITE BLOOD COUNT 26.6 K/uL (4.8-10.8)
--- NOTE | 2017-10-11 07:45 | CP.PCM.PN ---
Subjective - Date & Time of Evaluation Date of Evaluation: 10/11/17 Time of Evaluation: 07:43 - Subjective Subjective: SURGERY NOTE FOR DR. ROTH 72M seen and examined at bedside. Patient resting comfortably, no acute events overnight. Patient continues to complain of pain in lower extremity on left. Objective - Vital Signs/Intake and Output Vital Signs (last 24 hours): Temp Pulse Resp BP Pulse Ox 97.9 F 89 26 H 133/69 97 10/11/17 04:00 10/11/17 04:00 10/11/17 04:00 10/11/17 04:00 10/11/17 04:00 Intake and Output: 10/11/17 10/11/17 06:59 18:59 Intake Total 400 Output Total 300 Balance 100 - Medications Medications: Current Medications Acetaminophen (Tylenol 325mg Tab) 650 mg PO Q6 PRN PRN Reason: Pain, Mild (1-3) Vancomycin HCl 1 gm/ Sodium (Chloride) 250 mls @ 166.667 mls/hr IVPB Q12 STEVEN PRN Reason: Protocol Last Admin: 10/10/17 20:16 Dose: 166.667 mls/hr Meropenem 1 gm/ Sodium (Chloride) 100 mls @ 100 mls/hr IVPB Q8 STEVEN PRN Reason: Protocol Last Admin: 10/11/17 00:42 Dose: 100 mls/hr Sodium Chloride (Sodium Chloride 0.9%) 1,000 mls @ 60 mls/hr IV .[id number] STEVEN Stop: 10/12/17 05:24 Last Admin: 10/11/17 05:35 Dose: 60 mls/hr Insulin Human Lispro (Humalog) 0 units SC Q6H STEVEN PRN Reason: Protocol Last Admin: 10/11/17 05:27 Dose: 6 units Oxycodone/Acetaminophen (Percocet 5/325 Mg Tab) 1 tab PO Q4 PRN PRN Reason: Pain, moderate (4-7) Stop: 10/13/17 11:46 Oxycodone/Acetaminophen (Percocet 5/325 Mg Tab) 2 tab PO Q4 PRN PRN Reason: Pain, severe (8-10) Stop: 10/13/17 11:46 - Labs Labs: 10/11/17 04:20 10/10/17 04:35 PT 16.6 Seconds (9.8-13.1) H 10/10/17 08:12 INR 1.5 (0.9-1.2) H 10/10/17 08:12 APTT 30.5 Seconds (25.6-37.1) 10/09/17 21:47 - Constitutional Appears: Well, Non-toxic, No Acute Distress - Eye Exam Additional comments: left eye blindnes? - Respiratory Exam Respiratory Exam: Clear to Ausculation Bilateral, NORMAL BREATHING PATTERN - Cardiovascular Exam Cardiovascular Exam: REGULAR RHYTHM, +S1, +S2 - GI/Abdominal Exam GI & Abdominal Exam: Soft. absent: Distended, Firm, Guarding, Rigid, Tenderness , Rebound - Extremities Exam Additional comments: Left lower extremity bandage in place, clean dry intact - Neurological Exam Neurological Exam: Alert, Awake Assessment and Plan - Assessment and Plan (Free Text) Assessment: 72M presents with left lower extremity foot wound infection, nec facsiitis, s/p TMA POD1 Plan: - f/u IKER - f/u CTA of lower extremity Further recs discuss with Dr. Irving Asencio, PGY2
--- NOTE | 2017-10-11 07:48 | CP.PCM.PN ---
<Steve Holly - Last Filed: 10/11/17 07:43> Subjective - Date & Time of Evaluation Date of Evaluation: 10/11/17 Time of Evaluation: 07:10 - Subjective Subjective: Patient seen and examined this morning at bedside w/ Dr. Griffin. There are no acute events overnight, NAD. Patient reports mild pain at surgical site. Patient s/p left foot I&D w/ transmetatarsal amputation POD1. Wound has been left open due to possible BKA by general surgery. Patient is voiding freely. Patient denies ehadaches, chest pain, SOB, abdominal pain, nausea, vomiting, diarrhea, dysuria, or fever. Objective - Vital Signs/Intake and Output Vital Signs (last 24 hours): Temp Pulse Resp BP Pulse Ox 97.9 F 89 26 H 133/69 97 10/11/17 04:00 10/11/17 04:00 10/11/17 04:00 10/11/17 04:00 10/11/17 04:00 Intake and Output: 10/11/17 10/11/17 06:59 18:59 Intake Total 400 Output Total 300 Balance 100 - Medications Medications: Current Medications Acetaminophen (Tylenol 325mg Tab) 650 mg PO Q6 PRN PRN Reason: Pain, Mild (1-3) Vancomycin HCl 1 gm/ Sodium (Chloride) 250 mls @ 166.667 mls/hr IVPB Q12 STEVEN PRN Reason: Protocol Last Admin: 10/10/17 20:16 Dose: 166.667 mls/hr Meropenem 1 gm/ Sodium (Chloride) 100 mls @ 100 mls/hr IVPB Q8 STEVEN PRN Reason: Protocol Last Admin: 10/11/17 00:42 Dose: 100 mls/hr Sodium Chloride (Sodium Chloride 0.9%) 1,000 mls @ 60 mls/hr IV .[id number] STEVEN Stop: 10/12/17 05:24 Last Admin: 10/11/17 05:35 Dose: 60 mls/hr Insulin Human Lispro (Humalog) 0 units SC Q6H STEVEN PRN Reason: Protocol Last Admin: 10/11/17 05:27 Dose: 6 units Oxycodone/Acetaminophen (Percocet 5/325 Mg Tab) 1 tab PO Q4 PRN PRN Reason: Pain, moderate (4-7) Stop: 10/13/17 11:46 Oxycodone/Acetaminophen (Percocet 5/325 Mg Tab) 2 tab PO Q4 PRN PRN Reason: Pain, severe (8-10) Stop: 10/13/17 11:46 - Labs Labs: 10/11/17 04:20 10/10/17 04:35 PT 16.6 Seconds (9.8-13.1) H 10/10/17 08:12 INR 1.5 (0.9-1.2) H 10/10/17 08:12 APTT 30.5 Seconds (25.6-37.1) 10/09/17 21:47 - Constitutional Appears: No Acute Distress - Head Exam Head Exam: ATRAUMATIC, NORMAL INSPECTION, NORMOCEPHALIC - Eye Exam Additional comments: left eye cataract - ENT Exam ENT Exam: Mucous Membranes Dry - Neck Exam Neck Exam: Full ROM. absent: Tenderness - Respiratory Exam Respiratory Exam: Clear to Ausculation Bilateral. absent: Accessory Muscle Use , Decreased Breath Sounds, Rales, Rhonchi, Wheezes, Respiratory Distress - Cardiovascular Exam Cardiovascular Exam: REGULAR RHYTHM. absent: Tachycardia - GI/Abdominal Exam GI & Abdominal Exam: Soft, Normal Bowel Sounds. absent: Distended, Tenderness - Extremities Exam Extremities Exam: absent: Calf Tenderness, Pedal Edema, Tenderness Additional comments: left foot dressed, c/d/i - Neurological Exam Neurological Exam: Alert, Awake, Oriented x3 - Skin Skin Exam: Dry, Intact, Warm Assessment and Plan (3) HTN (hypertension) Status: Chronic (4) Uncontrolled diabetes mellitus Status: Chronic (5) Gangrene of left foot Status: Acute - Assessment and Plan (Free Text) Plan: c/w present management afebrile, non-tachycardic, normotensive s/p left TMA POD1, wound remains open for possible BKA podiatry recommendations appreciated surgery recommendations appreciated infectious disease consult ordered CBC: 26.6>9.9/29.7<380 INR 1.5 s/p 1 unit FFP and 1 unit PRBC Vancomycin 1 gm Q12 day 2 meropenem 1 gm Q8h day 2 pain management: tylenol 650 mg Q6h prn (mild), percocet 1 tab Q4h prn (moderate ), percocet 2 tab Q4h prn (severe) blood culture no growth x2 f/u wound culture f/u IKER f/u CTA left lower extremity PT ordered monitor for acute changes transfer to [facility] <Vimal Griffin - Last Filed: 10/25/17 19:17> Objective - Vital Signs/Intake and Output Vital Signs (last 24 hours): Temp Pulse Resp BP Pulse Ox 98.9 F 83 20 141/69 99 10/23/17 16:09 10/23/17 16:09 10/23/17 16:09 10/23/17 16:09 10/23/17 16:09 - Labs Labs: 10/22/17 12:00 10/21/17 10:30 PT 15.9 Seconds (9.8-13.1) H 10/15/17 06:00 INR 1.4 (0.9-1.2) H 10/15/17 06:00 APTT 33.1 Seconds (25.6-37.1) 10/15/17 06:00 Assessment and Plan - Assessment and Plan (Free Text) Assessment: Patient was personally seen and examined by me in rounds with residents. Available labs and diagnostic data reviewed. Case, Patient's condition and management plan discussed with residents in rounds. Agree with resident's progress note. Plan: As ordered.
--- NOTE | 2017-10-11 08:00 | CP.PCM.PN ---
Subjective - Date & Time of Evaluation Date of Evaluation: 10/11/17 Time of Evaluation: 07:56 - Subjective Subjective: General Surgery Progress Note for Dr. Villatoro This 72M was seen and examined this AM. Objective - Vital Signs/Intake and Output Vital Signs (last 24 hours): Temp Pulse Resp BP Pulse Ox 97.9 F 89 26 H 133/69 97 10/11/17 04:00 10/11/17 04:00 10/11/17 04:00 10/11/17 04:00 10/11/17 04:00 Intake and Output: 10/11/17 10/11/17 06:59 18:59 Intake Total 400 Output Total 300 Balance 100 - Medications Medications: Current Medications Acetaminophen (Tylenol 325mg Tab) 650 mg PO Q6 PRN PRN Reason: Pain, Mild (1-3) Vancomycin HCl 1 gm/ Sodium (Chloride) 250 mls @ 166.667 mls/hr IVPB Q12 STEVEN PRN Reason: Protocol Last Admin: 10/10/17 20:16 Dose: 166.667 mls/hr Meropenem 1 gm/ Sodium (Chloride) 100 mls @ 100 mls/hr IVPB Q8 STEVEN PRN Reason: Protocol Last Admin: 10/11/17 00:42 Dose: 100 mls/hr Sodium Chloride (Sodium Chloride 0.9%) 1,000 mls @ 60 mls/hr IV .[id number] STEVEN Stop: 10/12/17 05:24 Last Admin: 10/11/17 05:35 Dose: 60 mls/hr Insulin Human Lispro (Humalog) 0 units SC Q6H STEVEN PRN Reason: Protocol Last Admin: 10/11/17 05:27 Dose: 6 units Oxycodone/Acetaminophen (Percocet 5/325 Mg Tab) 1 tab PO Q4 PRN PRN Reason: Pain, moderate (4-7) Stop: 10/13/17 11:46 Oxycodone/Acetaminophen (Percocet 5/325 Mg Tab) 2 tab PO Q4 PRN PRN Reason: Pain, severe (8-10) Stop: 10/13/17 11:46 - Labs Labs: 10/11/17 04:20 10/10/17 04:35 PT 16.6 Seconds (9.8-13.1) H 10/10/17 08:12 INR 1.5 (0.9-1.2) H 10/10/17 08:12 APTT 30.5 Seconds (25.6-37.1) 10/09/17 21:47
--- NOTE | 2017-10-11 10:32 | CP.PCM.PN ---
Subjective - Date & Time of Evaluation Date of Evaluation: 10/11/17 Time of Evaluation: 13:00 - Subjective Subjective: ID Note- Pt. seen and examined in ICU. no new events overnight. afebrile POD #1 for I and D and TMA of left foot gasgangrene. Objective - Vital Signs/Intake and Output Vital Signs (last 24 hours): Temp Pulse Resp BP Pulse Ox 98.0 F 98 H 10 L 123/63 100 10/11/17 08:00 10/11/17 08:00 10/11/17 08:00 10/11/17 08:00 10/11/17 08:00 Intake and Output: 10/11/17 10/11/17 06:59 18:59 Intake Total 400 Output Total 300 Balance 100 - Medications Medications: Current Medications Acetaminophen (Tylenol 325mg Tab) 650 mg PO Q6 PRN PRN Reason: Pain, Mild (1-3) Vancomycin HCl 1 gm/ Sodium (Chloride) 250 mls @ 166.667 mls/hr IVPB Q12 STEVEN PRN Reason: Protocol Last Admin: 10/11/17 10:03 Dose: 166.667 mls/hr Meropenem 1 gm/ Sodium (Chloride) 100 mls @ 100 mls/hr IVPB Q8 STEVEN PRN Reason: Protocol Last Admin: 10/11/17 09:59 Dose: 100 mls/hr Sodium Chloride (Sodium Chloride 0.9%) 1,000 mls @ 60 mls/hr IV .[id number] STEVEN Stop: 10/12/17 05:24 Last Admin: 10/11/17 05:35 Dose: 60 mls/hr Insulin Human Lispro (Humalog) 0 units SC Q6H STEVEN PRN Reason: Protocol Last Admin: 10/11/17 05:27 Dose: 6 units Oxycodone/Acetaminophen (Percocet 5/325 Mg Tab) 1 tab PO Q4 PRN PRN Reason: Pain, moderate (4-7) Stop: 10/13/17 11:46 Oxycodone/Acetaminophen (Percocet 5/325 Mg Tab) 2 tab PO Q4 PRN PRN Reason: Pain, severe (8-10) Stop: 10/13/17 11:46 - Labs Labs: - Additional Findings Additional findings: - Constitutional Appears: No Acute Distress - Head Exam Head Exam: ATRAUMATIC - Neck Exam Neck exam: Positive for: Full Rom - Respiratory Exam Respiratory Exam: Clear to Auscultation Bilateral, NORMAL BREATHING PATTERN - Cardiovascular Exam Cardiovascular Exam: RRR, +S1, +S2 - GI/Abdominal Exam GI & Abdominal Exam: Normal Bowel Sounds, Soft Additional comments: NT,ND - Extremities Exam Additional comments: left foot OPEN TMA surgical open wound all the way till mid lateral left leg , no active pus . bloody discharge exposed bone in foot - Neurological Exam Additional comments: AAO x 3 Laboratory Results - last 72 hr 10/09/17 10/09/17 10/09/17 21:41 21:47 21:47 WBC 30.3 H RBC 3.13 L Hgb 9.6 L Hct 29.0 L MCV 92.7 MCH 30.6 MCHC 33.0 RDW 15.6 H Plt Count 467 H MPV 8.9 Neut % (Auto) 89.2 H Lymph % (Auto) 4.6 L [place] % (Auto) 5.9 Eos % (Auto) 0.2 Baso % (Auto) 0.1 Neut # (Auto) 27.0 H Lymph # (Auto) 1.4 [place] # (Auto) 1.8 H Eos # (Auto) 0.1 Baso # (Auto) 0.0 Neutrophils % (Manual) 95 H Band Neutrophils % Lymphocytes % (Manual) 3 L Reactive Lymphs % 1 H Monocytes % (Manual) 1 Eosinophils % (Manual) Platelet Estimate Normal Plt Clumps, EDTA Present Large Platelets Hypochromasia (manual) Slight Poikilocytosis (manual Anisocytosis (manual) Macrocytosis (manual) Slight Target Cells Slight Rouleaux Slight ESR Cancelled PT INR APTT pO2 33 VBG pH 7.43 VBG pCO2 37 L VBG HCO3 24.5 VBG Total CO2 25.7 VBG O2 Sat (Calc) 68.2 H VBG Base Excess 0.5 VBG Potassium 5.0 Sodium 131.0 L 136 Chloride 102.0 97 L Glucose 742 H* Lactate 2.0 FiO2 21.0 Crit Value Called To erasto Lowry md Crit Value Called By Xena mccarty Crit Value Read Back Y Blood Gas Notified Time 2150 Potassium 4.9 Carbon Dioxide 22 Anion Gap 22 H BUN 41 H Creatinine 0.9 Est GFR ( Amer) > 60 Est GFR (Non-Af Amer) > 60 POC Glucose (mg/dL) Random Glucose 666 H* Serum Osmolality Calcium 8.5 Phosphorus 3.6 Magnesium 2.9 H Iron TIBC % Saturation Total Bilirubin 0.8 AST 50 ALT 28 Alkaline Phosphatase 188 H Troponin I < 0.0120 C-Reactive Protein 250.10 H NT-Pro-B Natriuret Pep 615 Total Protein 8.5 H Albumin 3.1 L Globulin 5.4 H Albumin/Globulin Ratio 0.6 L Venous Blood Potassium 5.0 Blood Type Blood Type Confirm Antibody Screen Crossmatch BBK History Checked 10/09/17 10/09/17 10/09/17 21:47 21:48 22:35 WBC RBC Hgb Hct MCV MCH MCHC RDW Plt Count MPV Neut % (Auto) Lymph % (Auto) [place] % (Auto) Eos % (Auto) Baso % (Auto) Neut # (Auto) Lymph # (Auto) [place] # (Auto) Eos # (Auto) Baso # (Auto) Neutrophils % (Manual) Band Neutrophils % Lymphocytes % (Manual) Reactive Lymphs % Monocytes % (Manual) Eosinophils % (Manual) Platelet Estimate Plt Clumps, EDTA Large Platelets Hypochromasia (manual) Poikilocytosis (manual Anisocytosis (manual) Macrocytosis (manual) Target Cells Rouleaux ESR PT 16.2 H INR 1.5 H APTT 30.5 pO2 VBG pH VBG pCO2 VBG HCO3 VBG Total CO2 VBG O2 Sat (Calc) VBG Base Excess VBG Potassium Sodium Chloride Glucose Lactate FiO2 Crit Value Called To Crit Value Called By Crit Value Read Back Blood Gas Notified Time Potassium Carbon Dioxide Anion Gap BUN Creatinine Est GFR ( Amer) Est GFR (Non-Af Amer) POC Glucose (mg/dL) > 500 H* Random Glucose Serum Osmolality 318 H Calcium Phosphorus Magnesium Iron TIBC % Saturation Total Bilirubin AST ALT Alkaline Phosphatase Troponin I C-Reactive Protein NT-Pro-B Natriuret Pep Total Protein Albumin Globulin Albumin/Globulin Ratio Venous Blood Potassium Blood Type Blood Type Confirm Antibody Screen Crossmatch BBK History Checked 10/09/17 10/10/17 10/10/17 23:32 02:33 02:36 WBC RBC Hgb Hct MCV MCH MCHC RDW Plt Count MPV Neut % (Auto) Lymph % (Auto) [place] % (Auto) Eos % (Auto) Baso % (Auto) Neut # (Auto) Lymph # (Auto) [place] # (Auto) Eos # (Auto) Baso # (Auto) Neutrophils % (Manual) Band Neutrophils % Lymphocytes % (Manual) Reactive Lymphs % Monocytes % (Manual) Eosinophils % (Manual) Platelet Estimate Plt Clumps, EDTA Large Platelets Hypochromasia (manual) Poikilocytosis (manual Anisocytosis (manual) Macrocytosis (manual) Target Cells Rouleaux ESR PT INR APTT pO2 VBG pH VBG pCO2 VBG HCO3 VBG Total CO2 VBG O2 Sat (Calc) VBG Base Excess VBG Potassium Sodium Chloride Glucose Lactate FiO2 Crit Value Called To Crit Value Called By Crit Value Read Back Blood Gas Notified Time Potassium Carbon Dioxide Anion Gap BUN Creatinine Est GFR ( Amer) Est GFR (Non-Af Amer) POC Glucose (mg/dL) 361 H 289 H Random Glucose Serum Osmolality Calcium Phosphorus Magnesium Iron TIBC % Saturation Total Bilirubin AST ALT Alkaline Phosphatase Troponin I C-Reactive Protein NT-Pro-B Natriuret Pep Total Protein Albumin Globulin Albumin/Globulin Ratio Venous Blood Potassium Blood Type O POSITIVE Blood Type Confirm Antibody Screen Negative Crossmatch See Detail BBK History Checked No verified bt 10/10/17 10/10/17 10/10/17 02:36 04:29 04:35 WBC 29.3 H RBC 2.89 L Hgb 8.7 L Hct 26.5 L MCV 91.7 MCH 30.1 MCHC 32.8 L RDW 15.0 H Plt Count 418 H MPV 8.9 Neut % (Auto) 85.2 H Lymph % (Auto) 5.9 L [place] % (Auto) 8.1 Eos % (Auto) 0.6 Baso % (Auto) 0.2 Neut # (Auto) 24.9 H Lymph # (Auto) 1.7 [place] # (Auto) 2.4 H Eos # (Auto) 0.2 Baso # (Auto) 0.1 Neutrophils % (Manual) 81 H Band Neutrophils % 4 H Lymphocytes % (Manual) 9 L Reactive Lymphs % 2 H Monocytes % (Manual) 2 Eosinophils % (Manual) 2 Platelet Estimate Normal Plt Clumps, EDTA Large Platelets Present Hypochromasia (manual) Slight Poikilocytosis (manual Slight Anisocytosis (manual) Slight Macrocytosis (manual) Target Cells Slight Rouleaux ESR > 120 H PT INR APTT pO2 VBG pH VBG pCO2 VBG HCO3 VBG Total CO2 VBG O2 Sat (Calc) VBG Base Excess VBG Potassium Sodium Chloride Glucose Lactate FiO2 Crit Value Called To Crit Value Called By Crit Value Read Back Blood Gas Notified Time Potassium Carbon Dioxide Anion Gap BUN Creatinine Est GFR ( Amer) Est GFR (Non-Af Amer) POC Glucose (mg/dL) Random Glucose Serum Osmolality Calcium Phosphorus Magnesium Iron TIBC % Saturation Total Bilirubin AST ALT Alkaline Phosphatase Troponin I C-Reactive Protein NT-Pro-B Natriuret Pep Total Protein Albumin Globulin Albumin/Globulin Ratio Venous Blood Potassium Blood Type Blood Type Confirm O POSITIVE Antibody Screen Crossmatch BBK History Checked 10/10/17 10/10/17 10/10/17 04:35 04:35 06:06 WBC RBC Hgb Hct MCV MCH MCHC RDW Plt Count MPV Neut % (Auto) Lymph % (Auto) [place] % (Auto) Eos % (Auto) Baso % (Auto) Neut # (Auto) Lymph # (Auto) [place] # (Auto) Eos # (Auto) Baso # (Auto) Neutrophils % (Manual) Band Neutrophils % Lymphocytes % (Manual) Reactive Lymphs % Monocytes % (Manual) Eosinophils % (Manual) Platelet Estimate Plt Clumps, EDTA Large Platelets Hypochromasia (manual) Poikilocytosis (manual Anisocytosis (manual) Macrocytosis (manual) Target Cells Rouleaux ESR PT INR APTT pO2 VBG pH VBG pCO2 VBG HCO3 VBG Total CO2 VBG O2 Sat (Calc) VBG Base Excess VBG Potassium Sodium 143 Chloride 106 Glucose Lactate FiO2 Crit Value Called To Crit Value Called By Crit Value Read Back Blood Gas Notified Time Potassium 4.2 Carbon Dioxide 20 L Anion Gap 21 H BUN 37 H Creatinine 0.9 Est GFR ( Amer) > 60 Est GFR (Non-Af Amer) > 60 POC Glucose (mg/dL) 297 H Random Glucose 299 H Serum Osmolality Calcium 8.0 L Phosphorus Magnesium Iron 28 L TIBC 191 L % Saturation 15 L Total Bilirubin AST ALT Alkaline Phosphatase Troponin I C-Reactive Protein NT-Pro-B Natriuret Pep Total Protein Albumin Globulin Albumin/Globulin Ratio Venous Blood Potassium Blood Type Blood Type Confirm Antibody Screen Crossmatch BBK History Checked 10/10/17 10/10/17 10/10/17 08:12 09:34 11:46 WBC RBC Hgb Hct MCV MCH MCHC RDW Plt Count MPV Neut % (Auto) Lymph % (Auto) [place] % (Auto) Eos % (Auto) Baso % (Auto) Neut # (Auto) Lymph # (Auto) [place] # (Auto) Eos # (Auto) Baso # (Auto) Neutrophils % (Manual) Band Neutrophils % Lymphocytes % (Manual) Reactive Lymphs % Monocytes % (Manual) Eosinophils % (Manual) Platelet Estimate Plt Clumps, EDTA Large Platelets Hypochromasia (manual) Poikilocytosis (manual Anisocytosis (manual) Macrocytosis (manual) Target Cells Rouleaux ESR PT 16.6 H INR 1.5 H APTT pO2 VBG pH VBG pCO2 VBG HCO3 VBG Total CO2 VBG O2 Sat (Calc) VBG Base Excess VBG Potassium Sodium Chloride Glucose Lactate FiO2 Crit Value Called To Crit Value Called By Crit Value Read Back Blood Gas Notified Time Potassium Carbon Dioxide Anion Gap BUN Creatinine Est GFR ( Amer) Est GFR (Non-Af Amer) POC Glucose (mg/dL) 319 H 353 H Random Glucose Serum Osmolality Calcium Phosphorus Magnesium Iron TIBC % Saturation Total Bilirubin AST ALT Alkaline Phosphatase Troponin I C-Reactive Protein NT-Pro-B Natriuret Pep Total Protein Albumin Globulin Albumin/Globulin Ratio Venous Blood Potassium Blood Type Blood Type Confirm Antibody Screen Crossmatch BBK History Checked 10/10/17 10/10/17 10/11/17 15:05 21:37 04:20 WBC 26.6 H RBC 3.29 L Hgb 9.9 L Hct 29.7 L MCV 90.3 MCH 30.1 MCHC 33.3 RDW 16.3 H Plt Count 380 MPV 9.1 Neut % (Auto) 84.3 H Lymph % (Auto) 7.6 L [place] % (Auto) 7.5 Eos % (Auto) 0.4 Baso % (Auto) 0.2 Neut # (Auto) 22.4 H Lymph # (Auto) 2.0 [place] # (Auto) 2.0 H Eos # (Auto) 0.1 Baso # (Auto) 0.0 Neutrophils % (Manual) Band Neutrophils % Lymphocytes % (Manual) Reactive Lymphs % Monocytes % (Manual) Eosinophils % (Manual) Platelet Estimate Plt Clumps, EDTA Large Platelets Hypochromasia (manual) Poikilocytosis (manual Anisocytosis (manual) Macrocytosis (manual) Target Cells Rouleaux ESR PT INR APTT pO2 VBG pH VBG pCO2 VBG HCO3 VBG Total CO2 VBG O2 Sat (Calc) VBG Base Excess VBG Potassium Sodium Chloride Glucose Lactate FiO2 Crit Value Called To Crit Value Called By Crit Value Read Back Blood Gas Notified Time Potassium Carbon Dioxide Anion Gap BUN Creatinine Est GFR ( Amer) Est GFR (Non-Af Amer) POC Glucose (mg/dL) 292 H 237 H Random Glucose Serum Osmolality Calcium Phosphorus Magnesium Iron TIBC % Saturation Total Bilirubin AST ALT Alkaline Phosphatase Troponin I C-Reactive Protein NT-Pro-B Natriuret Pep Total Protein Albumin Globulin Albumin/Globulin Ratio Venous Blood Potassium Blood Type Blood Type Confirm Antibody Screen Crossmatch BBK History Checked 10/11/17 10/11/17 04:57 11:35 WBC RBC Hgb Hct MCV MCH MCHC RDW Plt Count MPV Neut % (Auto) Lymph % (Auto) [place] % (Auto) Eos % (Auto) Baso % (Auto) Neut # (Auto) Lymph # (Auto) [place] # (Auto) Eos # (Auto) Baso # (Auto) Neutrophils % (Manual) Band Neutrophils % Lymphocytes % (Manual) Reactive Lymphs % Monocytes % (Manual) Eosinophils % (Manual) Platelet Estimate Plt Clumps, EDTA Large Platelets Hypochromasia (manual) Poikilocytosis (manual Anisocytosis (manual) Macrocytosis (manual) Target Cells Rouleaux ESR PT INR APTT pO2 VBG pH VBG pCO2 VBG HCO3 VBG Total CO2 VBG O2 Sat (Calc) VBG Base Excess VBG Potassium Sodium Chloride Glucose Lactate FiO2 Crit Value Called To Crit Value Called By Crit Value Read Back Blood Gas Notified Time Potassium Carbon Dioxide Anion Gap BUN Creatinine Est GFR ( Amer) Est GFR (Non-Af Amer) POC Glucose (mg/dL) 271 H 272 H Random Glucose Serum Osmolality Calcium Phosphorus Magnesium Iron TIBC % Saturation Total Bilirubin AST ALT Alkaline Phosphatase Troponin I C-Reactive Protein NT-Pro-B Natriuret Pep Total Protein Albumin Globulin Albumin/Globulin Ratio Venous Blood Potassium Blood Type Blood Type Confirm Antibody Screen Crossmatch BBK History Checked Microbiology 10/10/17 06:46 Nose MRSA Culture (Admit) - Final MRSA NOT DETECTED 10/09/17 21:50 Blood-Venous Blood Culture - Preliminary NO GROWTH AFTER 24 HOURS 10/09/17 21:47 Blood-Venous Blood Culture - Preliminary NO GROWTH AFTER 24 HOURS 10/10/17 15:50 Ankle - Left Gram Stain - Final Assessment and Plan (1) Gangrene of left foot Status: Acute (2) Uncontrolled diabetes mellitus Status: Chronic - Assessment and Plan (Free Text) Assessment: A/P- 72 y/o homeless male with DM II admitet with gangrenous toes and found to have subcutaneous emphysema on the xray and is s/p left TMA and opening of the left lateral LE for drainage of the infection by podiatry today. high leukocytosis still but trending down. afebrile may need further surgical intervention done since pt. has extensive infection involving the entire foot and extending to his mid left LE region. awaiting vascular studies blood cx- neg x 2 wound cx- pending plan- advise to continue both IV vancomycin and meropnem day #2. keep vanco trough <15. wound management as per podiatry and surgical team. follow wbc. add clindamycin as well. ICU time 60 minutes.
[2017-10-11] MEDS ORDERED: Iodixanol 320 MG/ML 100 ML BOTTLE IV ONE (14:37)
[2017-10-11] MEDS ORDERED: Sodium Chloride 0.9% 100 ML ONE (14:38)
--- NOTE | 2017-10-11 14:43 | CP.PCM.PN ---
Subjective - Date & Time of Evaluation Date of Evaluation: 10/11/17 Time of Evaluation: 14:42 - Subjective Subjective: 72 y/o male seen and evaluated at bedside this afternoon 1 day s/p emergent I&D of gas gangrene of right foot and ankle. Pt denies any pain in the RLE. Denies F /C/N/V/CP/SOB. Denies any events overnight. Objective - Vital Signs/Intake and Output Vital Signs (last 24 hours): Temp Pulse Resp BP Pulse Ox 99.9 F H 92 H 24 120/66 99 10/11/17 12:00 10/11/17 14:00 10/11/17 14:00 10/11/17 14:00 10/11/17 14:00 Intake and Output: 10/11/17 10/11/17 06:59 18:59 Intake Total 400 800 Output Total 300 550 Balance 100 250 - Medications Medications: Current Medications Acetaminophen (Tylenol 325mg Tab) 650 mg PO Q6 PRN PRN Reason: Pain, Mild (1-3) Vancomycin HCl 1 gm/ Sodium (Chloride) 250 mls @ 166.667 mls/hr IVPB Q12 STEVEN PRN Reason: Protocol Last Admin: 10/11/17 10:03 Dose: 166.667 mls/hr Meropenem 1 gm/ Sodium (Chloride) 100 mls @ 100 mls/hr IVPB Q8 STEVEN PRN Reason: Protocol Last Admin: 10/11/17 09:59 Dose: 100 mls/hr Sodium Chloride (Sodium Chloride 0.9%) 1,000 mls @ 60 mls/hr IV .[id number] [facility] Stop: 10/12/17 05:24 Last Admin: 10/11/17 05:35 Dose: 60 mls/hr Insulin Human Lispro (Humalog) 0 units SC Q6H STEVEN PRN Reason: Protocol Last Admin: 10/11/17 12:00 Dose: 6 units Oxycodone/Acetaminophen (Percocet 5/325 Mg Tab) 1 tab PO Q4 PRN PRN Reason: Pain, moderate (4-7) Stop: 10/13/17 11:46 Oxycodone/Acetaminophen (Percocet 5/325 Mg Tab) 2 tab PO Q4 PRN PRN Reason: Pain, severe (8-10) Stop: 10/13/17 11:46 - Labs Labs: 10/11/17 04:20 10/10/17 04:35 PT 16.6 Seconds (9.8-13.1) H 10/10/17 08:12 INR 1.5 (0.9-1.2) H 10/10/17 08:12 APTT 30.5 Seconds (25.6-37.1) 10/09/17 21:47 - Constitutional Appears: Well, Non-toxic, No Acute Distress - Extremities Exam Additional comments: RLE focused exam: Sanguinous strikethrough noted to inner dressing Vasc: unable to assess DP; PT pulse 1/4. No pedal edema noted. Extensive necrotic and gangrenous tissue within wound bed proximally Derm: Open transmetatarsal amputation with wound extending from the distal lateral 1/3 of leg to forefoot. Wound narrows at level of ankle to linear incision. Wound bed is a mix of fibrotic and granular tissue with necrotic skin edges noted to linear incision site at anterior ankle. Tunneling and undermining noted to distal aspect of TMA site. Exposed metatarsal shafts 1-5. Lizett wound maceration noted diffusely. Neuro: Protective sensation grossly diminished Ortho: No tenderness to palpation of RLE - Neurological Exam Neurological Exam: Alert, Awake, Oriented x3 - Psychiatric Exam Psychiatric exam: Normal Affect, Normal Mood Assessment and Plan - Assessment and Plan (Free Text) Assessment: 72 y/o male 1 day s/p right foot and ankle I&D of gas gangrene Plan: Pt seen and evaluated in ICU Discussed with attending Dr. Velazquez Labs and vitals reviewed- afebrile, WBC 26.6 Wound cleansed with saline and dressed with adaptic, ABD, DSD Await results of vascular studies to develop further treatment plan - limb salvage vs proximal amputation General surgery on consult, appreciate recs Continue IV abx per ID Will continue to follow patient while in house
[2017-10-11] MEDS: Oxycodone/Acetaminophen 5/325 mg Tab PO PRN (19:53)
[2017-10-11] MEDS ORDERED: Insulin Lispro (humaLOG) 100 Units/ml Inj SC SCH (21:23)
[2017-10-12] MEDS: Meropenem 1 GM in Sodium Chloride 0.9% 100 ML IVPB SCH ×3 (01:34→17:59)
[2017-10-12] MEDS: Sodium Chloride 0.9% 1,000 ML IV SCH (01:36)
[2017-10-12 07:35] LABS: BASO % 0.2 % (0.0-2.0); EOS # 0.2 K/uL (0.0-0.7); EOS % 0.7 % (0.0-4.0); HEMOGLOBIN 9.6 g/dL (12.0-18.0); LYMPH # 1.5 K/uL (1.0-4.3); LYMPH % 6.6 % (20.0-40.0); MEAN CORPUSCULAR HEMOGLOBIN 29.7 pg (27.0-31.0); MEAN CORPUSCULAR HGB CONC 32.3 g/dL (33.0-37.0); MEAN PLATELET VOLUME 9.1 fl (7.2-11.7); MONO # 1.3 K/uL (0.0-0.8); MONO % 5.6 % (0.0-10.0); NEUT # 19.4 K/uL (1.8-7.0); NEUT % 86.9 % (50.0-75.0); RBC 3.23 Mil/uL (4.40-5.90); RED CELL DISTRIBUTION WIDTH 16.4 % (11.5-14.5); WHITE BLOOD COUNT 22.3 K/uL (4.8-10.8)
--- NOTE | 2017-10-12 08:22 | OP ---
PROCEDURE DATE: 10/10/2017 PREOPERATIVE DIAGNOSIS: Left foot ankle gas gangrene. POSTOPERATIVE DIAGNOSIS: Left foot ankle gas gangrene. NAME OF PROCEDURE: Incision and drainage with transmetatarsal amputation of the left foot. SURGEON: Jesus Velazquez DPM ASSISTANTS: Patricio Smart DPM, PGY1 and Vern Bernard DPM, PGY1. TYPE OF ANESTHESIA: General LMA. ANESTHESIA ADMINISTERED BY: Pablo Wilson MD INDICATION: The patient is a 72-year-old male with the above diagnosis. The patient has exhausted all conservative treatment at this time and now requires surgical intervention. The patient signed the consent after careful explanation of the risks, benefits, complications, and alternatives for the surgical procedure. The patient was made aware that he may still require [id number] amputation after this procedure. No guarantees were given nor implied. PREPARATION: The patient was brought into the operating room and placed on the operating room table in supine position. Time-out was performed for identification of the correct patient and the procedure. The patient received general LMA and no local anesthesia was used during the procedure. Once anesthesia was achieved, the left lower extremity was then prepped and draped in a normal sterile manner. No tourniquet was used during this procedure. DESCRIPTION OF PROCEDURE: Attention was directed at the distal anterolateral aspect of the left lower extremity where cellulitic changes were noted extending from the foot. Diffuse necrotic eschars with gangrenous changes were noted on the left forefoot and midfoot. The incision was carefully planned out after reviewing the radiographic studies using a marking pen. Incision was drawn out from the anterolateral left lower extremity extending down distally, circumferentially around the necrotic changes at the midfoot level. At this time, #15 blade and curved stats were used and layer by layer incision was made through the epidermal and dermal layer down to the bone. All of the neurovascular structures were identified and care was taken to retract them out of the way. All of the nonviable necrotic infected tissue was excisionally removed from the surgical site and was passed off the operative rodriguez to pathology. Intraoperative wound cultures were taken at this time. Using a sagittal saw, osteotomy was made over the metatarsal shafts resecting one metatarsal at a time. Forefoot consisting of bone and soft tissue [id number] metatarsal was resected and was passed off the operative field and was sent to pathology. At this time using pulse lavage, surgical site was irrigated with copious amounts of sterile saline infused with bacitracin. Surgical site was left opened and no primary closure was performed. Surgical site was dressed with great amount of SSD and Adaptic, 4 x 4 fluffy dressing with ABD, Kerlix, and light Vimal was applied over the surgical site. POSTOPERATIVE CONDITION: The patient tolerated the anesthesia and the procedure well and was escorted to the recovery room with vital signs stable and neurovascular status intact to the left lower extremity. The patient is to remain nonweightbearing to the left lower extremity using crutches. This patient will return to the floor where he will followed up by Podiatry on a daily basis. Patricio Smart DPM Jesus Velazquez DPM MARTINEZ
--- NOTE | 2017-10-12 08:39 | CP.PCM.PN ---
Subjective - Date & Time of Evaluation Date of Evaluation: 10/12/17 Time of Evaluation: 07:30 - Subjective Subjective: SURGERY NOTE FOR DR. MOBLEY Patient seen and examined at bedside. No acute events overnight. Patient resting comfortably in bed. Patient continues to complain of pain in left lower extremity. Patient has no other complaints at this time. Objective - Vital Signs/Intake and Output Vital Signs (last 24 hours): Temp Pulse Resp BP Pulse Ox 98.1 F 84 26 H 127/62 98 10/11/17 20:00 10/11/17 20:00 10/11/17 20:00 10/11/17 20:00 10/11/17 20:00 Intake and Output: 10/12/17 10/12/17 06:59 18:59 Intake Total 260 Output Total 300 Balance -40 - Medications Medications: Current Medications Acetaminophen (Tylenol 325mg Tab) 650 mg PO Q6 PRN PRN Reason: Pain, Mild (1-3) Vancomycin HCl 1 gm/ Sodium (Chloride) 250 mls @ 166.667 mls/hr IVPB Q12 STEVEN PRN Reason: Protocol Last Admin: 10/11/17 21:45 Dose: 166.667 mls/hr Meropenem 1 gm/ Sodium (Chloride) 100 mls @ 100 mls/hr IVPB Q8 STEVEN PRN Reason: Protocol Last Admin: 10/12/17 01:34 Dose: 100 mls/hr Clindamycin Phosphate 600 mg/ (Sodium Chloride) 54 mls @ 54 mls/hr IVPB Q8 STEVEN PRN Reason: Protocol Last Admin: 10/12/17 01:45 Dose: 54 mls/hr Insulin Human Lispro (Humalog) 0 units SC ACHS STEVEN PRN Reason: Protocol Last Admin: 10/11/17 22:17 Dose: Not Given Oxycodone/Acetaminophen (Percocet 5/325 Mg Tab) 1 tab PO Q4 PRN PRN Reason: Pain, moderate (4-7) Stop: 10/13/17 11:46 Last Admin: 10/11/17 19:53 Dose: 1 tab Oxycodone/Acetaminophen (Percocet 5/325 Mg Tab) 2 tab PO Q4 PRN PRN Reason: Pain, severe (8-10) Stop: 10/13/17 11:46 - Labs Labs: 10/12/17 06:40 10/10/17 04:35 PT 16.6 Seconds (9.8-13.1) H 10/10/17 08:12 INR 1.5 (0.9-1.2) H 10/10/17 08:12 APTT 30.5 Seconds (25.6-37.1) 10/09/17 21:47 - Constitutional Appears: No Acute Distress - Head Exam Head Exam: ATRAUMATIC, NORMOCEPHALIC - ENT Exam ENT Exam: Mucous Membranes Moist - Respiratory Exam Respiratory Exam: NORMAL BREATHING PATTERN - Cardiovascular Exam Cardiovascular Exam: REGULAR RHYTHM - GI/Abdominal Exam GI & Abdominal Exam: Soft, Normal Bowel Sounds. absent: Tenderness - Extremities Exam Additional comments: Left lower extremity bandage in place and clean/dry/intact LLE femoral and popliteal pulses 2+ - Neurological Exam Neurological Exam: Alert, Awake - Psychiatric Exam Psychiatric exam: Flat Affect - Skin Skin Exam: Dry, Warm Assessment and Plan - Assessment and Plan (Free Text) Plan: 72M presents with left lower extremity foot wound infection, necro fasciitis, s/ p TMA POD#2 -f/u IKER & CTA official reports -Plan for L BKA sunday -Further recommendations as per Dr. Irving Hawk PGY1
[2017-10-12] MEDS: Insulin Lispro (humaLOG) 100 Units/ml Inj SC SCH ×4 (08:44→22:42)
--- NOTE | 2017-10-12 10:56 | CP.PCM.PN ---
Subjective - Date & Time of Evaluation Date of Evaluation: 10/12/17 Time of Evaluation: 14:45 - Subjective Subjective: ID Note- still has lef tlower leg pain. afebrile high wbc Objective - Vital Signs/Intake and Output Vital Signs (last 24 hours): Temp Pulse Resp BP Pulse Ox 98.1 F 84 26 H 127/62 98 10/11/17 20:00 10/11/17 20:00 10/11/17 20:00 10/11/17 20:00 10/11/17 20:00 Intake and Output: 10/12/17 10/12/17 06:59 18:59 Intake Total 260 Output Total 300 Balance -40 - Medications Medications: Current Medications Acetaminophen (Tylenol 325mg Tab) 650 mg PO Q6 PRN PRN Reason: Pain, Mild (1-3) Vancomycin HCl 1 gm/ Sodium (Chloride) 250 mls @ 166.667 mls/hr IVPB Q12 STEVEN PRN Reason: Protocol Last Admin: 10/11/17 21:45 Dose: 166.667 mls/hr Meropenem 1 gm/ Sodium (Chloride) 100 mls @ 100 mls/hr IVPB Q8 STEVEN PRN Reason: Protocol Last Admin: 10/12/17 08:44 Dose: 100 mls/hr Clindamycin Phosphate 600 mg/ (Sodium Chloride) 54 mls @ 54 mls/hr IVPB Q8 STEVEN PRN Reason: Protocol Last Admin: 10/12/17 10:09 Dose: 54 mls/hr Insulin Human Lispro (Humalog) 0 units SC ACHS STEVEN PRN Reason: Protocol Last Admin: 10/12/17 08:44 Dose: 3 u Oxycodone/Acetaminophen (Percocet 5/325 Mg Tab) 1 tab PO Q4 PRN PRN Reason: Pain, moderate (4-7) Stop: 10/13/17 11:46 Last Admin: 10/11/17 19:53 Dose: 1 tab Oxycodone/Acetaminophen (Percocet 5/325 Mg Tab) 2 tab PO Q4 PRN PRN Reason: Pain, severe (8-10) Stop: 10/13/17 11:46 - Labs Labs: - Additional Findings Additional findings: - Constitutional Appears: No Acute Distress - Head Exam Head Exam: ATRAUMATIC - Neck Exam Neck exam: Positive for: Full Rom - Respiratory Exam Respiratory Exam: Clear to Auscultation Bilateral, NORMAL BREATHING PATTERN - Cardiovascular Exam Cardiovascular Exam: RRR, +S1, +S2 - GI/Abdominal Exam GI & Abdominal Exam: Normal Bowel Sounds, Soft Additional comments: NT,ND - Extremities Exam Additional comments: left foot OPEN TMA surgical open wound all the way till mid lateral left leg , no active pus . bloody discharge exposed bone in foot - Neurological Exam Additional comments: AAO x 3 Laboratory Results - last 72 hr 10/09/17 10/09/17 10/09/17 21:41 21:47 21:47 WBC 30.3 H RBC 3.13 L Hgb 9.6 L Hct 29.0 L MCV 92.7 MCH 30.6 MCHC 33.0 RDW 15.6 H Plt Count 467 H MPV 8.9 Neut % (Auto) 89.2 H Lymph % (Auto) 4.6 L Emanuel % (Auto) 5.9 Eos % (Auto) 0.2 Baso % (Auto) 0.1 Neut # (Auto) 27.0 H Lymph # (Auto) 1.4 Emanuel # (Auto) 1.8 H Eos # (Auto) 0.1 Baso # (Auto) 0.0 Neutrophils % (Manual) 95 H Band Neutrophils % Lymphocytes % (Manual) 3 L Reactive Lymphs % 1 H Monocytes % (Manual) 1 Eosinophils % (Manual) Platelet Estimate Normal Plt Clumps, EDTA Present Large Platelets Hypochromasia (manual) Slight Poikilocytosis (manual Anisocytosis (manual) Macrocytosis (manual) Slight Target Cells Slight Rouleaux Slight ESR Cancelled PT INR APTT pO2 33 VBG pH 7.43 VBG pCO2 37 L VBG HCO3 24.5 VBG Total CO2 25.7 VBG O2 Sat (Calc) 68.2 H VBG Base Excess 0.5 VBG Potassium 5.0 Sodium 131.0 L 136 Chloride 102.0 97 L Glucose 742 H* Lactate 2.0 FiO2 21.0 Crit Value Called To erasto Lowry md Crit Value Called By Xena mccarty Crit Value Read Back Y Blood Gas Notified Time 2150 Potassium 4.9 Carbon Dioxide 22 Anion Gap 22 H BUN 41 H Creatinine 0.9 Est GFR ( Amer) > 60 Est GFR (Non-Af Amer) > 60 POC Glucose (mg/dL) Random Glucose 666 H* Serum Osmolality Calcium 8.5 Phosphorus 3.6 Magnesium 2.9 H Iron TIBC % Saturation Total Bilirubin 0.8 AST 50 ALT 28 Alkaline Phosphatase 188 H Troponin I < 0.0120 C-Reactive Protein 250.10 H NT-Pro-B Natriuret Pep 615 Total Protein 8.5 H Albumin 3.1 L Globulin 5.4 H Albumin/Globulin Ratio 0.6 L Venous Blood Potassium 5.0 Blood Type Blood Type Confirm Antibody Screen Crossmatch BBK History Checked 10/09/17 10/09/17 10/09/17 21:47 21:48 22:35 WBC RBC Hgb Hct MCV MCH MCHC RDW Plt Count MPV Neut % (Auto) Lymph % (Auto) Emanuel % (Auto) Eos % (Auto) Baso % (Auto) Neut # (Auto) Lymph # (Auto) Emanuel # (Auto) Eos # (Auto) Baso # (Auto) Neutrophils % (Manual) Band Neutrophils % Lymphocytes % (Manual) Reactive Lymphs % Monocytes % (Manual) Eosinophils % (Manual) Platelet Estimate Plt Clumps, EDTA Large Platelets Hypochromasia (manual) Poikilocytosis (manual Anisocytosis (manual) Macrocytosis (manual) Target Cells Rouleaux ESR PT 16.2 H INR 1.5 H APTT 30.5 pO2 VBG pH VBG pCO2 VBG HCO3 VBG Total CO2 VBG O2 Sat (Calc) VBG Base Excess VBG Potassium Sodium Chloride Glucose Lactate FiO2 Crit Value Called To Crit Value Called By Crit Value Read Back Blood Gas Notified Time Potassium Carbon Dioxide Anion Gap BUN Creatinine Est GFR ( Amer) Est GFR (Non-Af Amer) POC Glucose (mg/dL) > 500 H* Random Glucose Serum Osmolality 318 H Calcium Phosphorus Magnesium Iron TIBC % Saturation Total Bilirubin AST ALT Alkaline Phosphatase Troponin I C-Reactive Protein NT-Pro-B Natriuret Pep Total Protein Albumin Globulin Albumin/Globulin Ratio Venous Blood Potassium Blood Type Blood Type Confirm Antibody Screen Crossmatch BBK History Checked 10/09/17 10/10/17 10/10/17 23:32 02:33 02:36 WBC RBC Hgb Hct MCV MCH MCHC RDW Plt Count MPV Neut % (Auto) Lymph % (Auto) Emanuel % (Auto) Eos % (Auto) Baso % (Auto) Neut # (Auto) Lymph # (Auto) Emanuel # (Auto) Eos # (Auto) Baso # (Auto) Neutrophils % (Manual) Band Neutrophils % Lymphocytes % (Manual) Reactive Lymphs % Monocytes % (Manual) Eosinophils % (Manual) Platelet Estimate Plt Clumps, EDTA Large Platelets Hypochromasia (manual) Poikilocytosis (manual Anisocytosis (manual) Macrocytosis (manual) Target Cells Rouleaux ESR PT INR APTT pO2 VBG pH VBG pCO2 VBG HCO3 VBG Total CO2 VBG O2 Sat (Calc) VBG Base Excess VBG Potassium Sodium Chloride Glucose Lactate FiO2 Crit Value Called To Crit Value Called By Crit Value Read Back Blood Gas Notified Time Potassium Carbon Dioxide Anion Gap BUN Creatinine Est GFR ( Amer) Est GFR (Non-Af Amer) POC Glucose (mg/dL) 361 H 289 H Random Glucose Serum Osmolality Calcium Phosphorus Magnesium Iron TIBC % Saturation Total Bilirubin AST ALT Alkaline Phosphatase Troponin I C-Reactive Protein NT-Pro-B Natriuret Pep Total Protein Albumin Globulin Albumin/Globulin Ratio Venous Blood Potassium Blood Type O POSITIVE Blood Type Confirm Antibody Screen Negative Crossmatch See Detail BBK History Checked No verified bt 10/10/17 10/10/17 10/10/17 02:36 04:29 04:35 WBC 29.3 H RBC 2.89 L Hgb 8.7 L Hct 26.5 L MCV 91.7 MCH 30.1 MCHC 32.8 L RDW 15.0 H Plt Count 418 H MPV 8.9 Neut % (Auto) 85.2 H Lymph % (Auto) 5.9 L Emanuel % (Auto) 8.1 Eos % (Auto) 0.6 Baso % (Auto) 0.2 Neut # (Auto) 24.9 H Lymph # (Auto) 1.7 Emanuel # (Auto) 2.4 H Eos # (Auto) 0.2 Baso # (Auto) 0.1 Neutrophils % (Manual) 81 H Band Neutrophils % 4 H Lymphocytes % (Manual) 9 L Reactive Lymphs % 2 H Monocytes % (Manual) 2 Eosinophils % (Manual) 2 Platelet Estimate Normal Plt Clumps, EDTA Large Platelets Present Hypochromasia (manual) Slight Poikilocytosis (manual Slight Anisocytosis (manual) Slight Macrocytosis (manual) Target Cells Slight Rouleaux ESR > 120 H PT INR APTT pO2 VBG pH VBG pCO2 VBG HCO3 VBG Total CO2 VBG O2 Sat (Calc) VBG Base Excess VBG Potassium Sodium Chloride Glucose Lactate FiO2 Crit Value Called To Crit Value Called By Crit Value Read Back Blood Gas Notified Time Potassium Carbon Dioxide Anion Gap BUN Creatinine Est GFR ( Amer) Est GFR (Non-Af Amer) POC Glucose (mg/dL) Random Glucose Serum Osmolality Calcium Phosphorus Magnesium Iron TIBC % Saturation Total Bilirubin AST ALT Alkaline Phosphatase Troponin I C-Reactive Protein NT-Pro-B Natriuret Pep Total Protein Albumin Globulin Albumin/Globulin Ratio Venous Blood Potassium Blood Type Blood Type Confirm O POSITIVE Antibody Screen Crossmatch BBK History Checked 10/10/17 10/10/17 10/10/17 04:35 04:35 06:06 WBC RBC Hgb Hct MCV MCH MCHC RDW Plt Count MPV Neut % (Auto) Lymph % (Auto) Emanuel % (Auto) Eos % (Auto) Baso % (Auto) Neut # (Auto) Lymph # (Auto) Emanuel # (Auto) Eos # (Auto) Baso # (Auto) Neutrophils % (Manual) Band Neutrophils % Lymphocytes % (Manual) Reactive Lymphs % Monocytes % (Manual) Eosinophils % (Manual) Platelet Estimate Plt Clumps, EDTA Large Platelets Hypochromasia (manual) Poikilocytosis (manual Anisocytosis (manual) Macrocytosis (manual) Target Cells Rouleaux ESR PT INR APTT pO2 VBG pH VBG pCO2 VBG HCO3 VBG Total CO2 VBG O2 Sat (Calc) VBG Base Excess VBG Potassium Sodium 143 Chloride 106 Glucose Lactate FiO2 Crit Value Called To Crit Value Called By Crit Value Read Back Blood Gas Notified Time Potassium 4.2 Carbon Dioxide 20 L Anion Gap 21 H BUN 37 H Creatinine 0.9 Est GFR ( Amer) > 60 Est GFR (Non-Af Amer) > 60 POC Glucose (mg/dL) 297 H Random Glucose 299 H Serum Osmolality Calcium 8.0 L Phosphorus Magnesium Iron 28 L TIBC 191 L % Saturation 15 L Total Bilirubin AST ALT Alkaline Phosphatase Troponin I C-Reactive Protein NT-Pro-B Natriuret Pep Total Protein Albumin Globulin Albumin/Globulin Ratio Venous Blood Potassium Blood Type Blood Type Confirm Antibody Screen Crossmatch BBK History Checked 10/10/17 10/10/17 10/10/17 08:12 09:34 11:46 WBC RBC Hgb Hct MCV MCH MCHC RDW Plt Count MPV Neut % (Auto) Lymph % (Auto) Emanuel % (Auto) Eos % (Auto) Baso % (Auto) Neut # (Auto) Lymph # (Auto) Emanuel # (Auto) Eos # (Auto) Baso # (Auto) Neutrophils % (Manual) Band Neutrophils % Lymphocytes % (Manual) Reactive Lymphs % Monocytes % (Manual) Eosinophils % (Manual) Platelet Estimate Plt Clumps, EDTA Large Platelets Hypochromasia (manual) Poikilocytosis (manual Anisocytosis (manual) Macrocytosis (manual) Target Cells Rouleaux ESR PT 16.6 H INR 1.5 H APTT pO2 VBG pH VBG pCO2 VBG HCO3 VBG Total CO2 VBG O2 Sat (Calc) VBG Base Excess VBG Potassium Sodium Chloride Glucose Lactate FiO2 Crit Value Called To Crit Value Called By Crit Value Read Back Blood Gas Notified Time Potassium Carbon Dioxide Anion Gap BUN Creatinine Est GFR ( Amer) Est GFR (Non-Af Amer) POC Glucose (mg/dL) 319 H 353 H Random Glucose Serum Osmolality Calcium Phosphorus Magnesium Iron TIBC % Saturation Total Bilirubin AST ALT Alkaline Phosphatase Troponin I C-Reactive Protein NT-Pro-B Natriuret Pep Total Protein Albumin Globulin Albumin/Globulin Ratio Venous Blood Potassium Blood Type Blood Type Confirm Antibody Screen Crossmatch BBK History Checked 10/10/17 10/10/17 10/11/17 15:05 21:37 04:20 WBC 26.6 H RBC 3.29 L Hgb 9.9 L Hct 29.7 L MCV 90.3 MCH 30.1 MCHC 33.3 RDW 16.3 H Plt Count 380 MPV 9.1 Neut % (Auto) 84.3 H Lymph % (Auto) 7.6 L Emanuel % (Auto) 7.5 Eos % (Auto) 0.4 Baso % (Auto) 0.2 Neut # (Auto) 22.4 H Lymph # (Auto) 2.0 Emanuel # (Auto) 2.0 H Eos # (Auto) 0.1 Baso # (Auto) 0.0 Neutrophils % (Manual) Band Neutrophils % Lymphocytes % (Manual) Reactive Lymphs % Monocytes % (Manual) Eosinophils % (Manual) Platelet Estimate Plt Clumps, EDTA Large Platelets Hypochromasia (manual) Poikilocytosis (manual Anisocytosis (manual) Macrocytosis (manual) Target Cells Rouleaux ESR PT INR APTT pO2 VBG pH VBG pCO2 VBG HCO3 VBG Total CO2 VBG O2 Sat (Calc) VBG Base Excess VBG Potassium Sodium Chloride Glucose Lactate FiO2 Crit Value Called To Crit Value Called By Crit Value Read Back Blood Gas Notified Time Potassium Carbon Dioxide Anion Gap BUN Creatinine Est GFR ( Amer) Est GFR (Non-Af Amer) POC Glucose (mg/dL) 292 H 237 H Random Glucose Serum Osmolality Calcium Phosphorus Magnesium Iron TIBC % Saturation Total Bilirubin AST ALT Alkaline Phosphatase Troponin I C-Reactive Protein NT-Pro-B Natriuret Pep Total Protein Albumin Globulin Albumin/Globulin Ratio Venous Blood Potassium Blood Type Blood Type Confirm Antibody Screen Crossmatch BBK History Checked 10/11/17 10/11/17 10/11/17 04:57 11:35 17:01 WBC RBC Hgb Hct MCV MCH MCHC RDW Plt Count MPV Neut % (Auto) Lymph % (Auto) Emanuel % (Auto) Eos % (Auto) Baso % (Auto) Neut # (Auto) Lymph # (Auto) Emanuel # (Auto) Eos # (Auto) Baso # (Auto) Neutrophils % (Manual) Band Neutrophils % Lymphocytes % (Manual) Reactive Lymphs % Monocytes % (Manual) Eosinophils % (Manual) Platelet Estimate Plt Clumps, EDTA Large Platelets Hypochromasia (manual) Poikilocytosis (manual Anisocytosis (manual) Macrocytosis (manual) Target Cells Rouleaux ESR PT INR APTT pO2 VBG pH VBG pCO2 VBG HCO3 VBG Total CO2 VBG O2 Sat (Calc) VBG Base Excess VBG Potassium Sodium Chloride Glucose Lactate FiO2 Crit Value Called To Crit Value Called By Crit Value Read Back Blood Gas Notified Time Potassium Carbon Dioxide Anion Gap BUN Creatinine Est GFR ( Amer) Est GFR (Non-Af Amer) POC Glucose (mg/dL) 271 H 272 H 260 H Random Glucose Serum Osmolality Calcium Phosphorus Magnesium Iron TIBC % Saturation Total Bilirubin AST ALT Alkaline Phosphatase Troponin I C-Reactive Protein NT-Pro-B Natriuret Pep Total Protein Albumin Globulin Albumin/Globulin Ratio Venous Blood Potassium Blood Type Blood Type Confirm Antibody Screen Crossmatch BBK History Checked 10/11/17 10/12/17 10/12/17 20:58 05:26 06:40 WBC 22.3 H RBC 3.23 L Hgb 9.6 L Hct 29.7 L MCV 92.0 MCH 29.7 MCHC 32.3 L RDW 16.4 H Plt Count 352 MPV 9.1 Neut % (Auto) 86.9 H Lymph % (Auto) 6.6 L Emanuel % (Auto) 5.6 Eos % (Auto) 0.7 Baso % (Auto) 0.2 Neut # (Auto) 19.4 H Lymph # (Auto) 1.5 Emanuel # (Auto) 1.3 H Eos # (Auto) 0.2 Baso # (Auto) 0.0 Neutrophils % (Manual) Band Neutrophils % Lymphocytes % (Manual) Reactive Lymphs % Monocytes % (Manual) Eosinophils % (Manual) Platelet Estimate Plt Clumps, EDTA Large Platelets Hypochromasia (manual) Poikilocytosis (manual Anisocytosis (manual) Macrocytosis (manual) Target Cells Rouleaux ESR PT INR APTT pO2 VBG pH VBG pCO2 VBG HCO3 VBG Total CO2 VBG O2 Sat (Calc) VBG Base Excess VBG Potassium Sodium Chloride Glucose Lactate FiO2 Crit Value Called To Crit Value Called By Crit Value Read Back Blood Gas Notified Time Potassium Carbon Dioxide Anion Gap BUN Creatinine Est GFR ( Amer) Est GFR (Non-Af Amer) POC Glucose (mg/dL) 230 H 212 H Random Glucose Serum Osmolality Calcium Phosphorus Magnesium Iron TIBC % Saturation Total Bilirubin AST ALT Alkaline Phosphatase Troponin I C-Reactive Protein NT-Pro-B Natriuret Pep Total Protein Albumin Globulin Albumin/Globulin Ratio Venous Blood Potassium Blood Type Blood Type Confirm Antibody Screen Crossmatch BBK History Checked 10/12/17 11:55 WBC RBC Hgb Hct MCV MCH MCHC RDW Plt Count MPV Neut % (Auto) Lymph % (Auto) Emanuel % (Auto) Eos % (Auto) Baso % (Auto) Neut # (Auto) Lymph # (Auto) Emanuel # (Auto) Eos # (Auto) Baso # (Auto) Neutrophils % (Manual) Band Neutrophils % Lymphocytes % (Manual) Reactive Lymphs % Monocytes % (Manual) Eosinophils % (Manual) Platelet Estimate Plt Clumps, EDTA Large Platelets Hypochromasia (manual) Poikilocytosis (manual Anisocytosis (manual) Macrocytosis (manual) Target Cells Rouleaux ESR PT INR APTT pO2 VBG pH VBG pCO2 VBG HCO3 VBG Total CO2 VBG O2 Sat (Calc) VBG Base Excess VBG Potassium Sodium Chloride Glucose Lactate FiO2 Crit Value Called To Crit Value Called By Crit Value Read Back Blood Gas Notified Time Potassium Carbon Dioxide Anion Gap BUN Creatinine Est GFR ( Amer) Est GFR (Non-Af Amer) POC Glucose (mg/dL) 259 H Random Glucose Serum Osmolality Calcium Phosphorus Magnesium Iron TIBC % Saturation Total Bilirubin AST ALT Alkaline Phosphatase Troponin I C-Reactive Protein NT-Pro-B Natriuret Pep Total Protein Albumin Globulin Albumin/Globulin Ratio Venous Blood Potassium Blood Type Blood Type Confirm Antibody Screen Crossmatch BBK History Checked Microbiology 10/10/17 15:50 Ankle - Left Gram Stain - Final 10/10/17 15:50 Ankle - Left Wound Culture - Final Beta Hemolytic Strep Group B 10/09/17 21:50 Blood-Venous Blood Culture - Preliminary NO GROWTH AFTER 48 HOURS 10/09/17 21:47 Blood-Venous Blood Culture - Preliminary NO GROWTH AFTER 48 HOURS 10/10/17 20:30 Blood-Venous Blood Culture - Preliminary NO GROWTH AFTER 24 HOURS 10/10/17 21:00 Blood-Venous Blood Culture - Preliminary NO GROWTH AFTER 24 HOURS 10/10/17 06:46 Nose MRSA Culture (Admit) - Final MRSA NOT DETECTED Assessment and Plan (1) Gangrene of left foot Status: Acute (2) Uncontrolled diabetes mellitus Status: Chronic - Assessment and Plan (Free Text) Assessment: A/P- 72 y/o homeless male with DM II admitet with gangrenous toes and found to have subcutaneous emphysema on the xray and is s/p left TMA and opening of the left lateral LE for drainage of the infection by podiatry today. high leukocytosis still but trending down. 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 blood cx- neg x 4 wound cx- group B strep Metatarsal Bone bx- osteo as per path report plan- advise to continue both IV vancomycin and meropnem day #4 keep vanco trough <15. continue wiht Iv clindamycin as well. day #4. wound management as per podiatry and surgical team. follow wbc.
--- NOTE | 2017-10-12 11:53 | VASCLAB ---
STUDY DESCRIPTION: HISTORY: PVD PRIORS: None. TECHNIQUE: Pulse volume recording waveforms and segmental pressures of bilateral lower extremities at multiple levels were obtained. Ankle Brachial Indices (ABIs) were calculated. Report prepared by Alex Smart RDMS,HELENA,VEENA LAZO RIGHT LOWER EXTREMITY: * Brachial artery: Pressure - 120 mmHg. * High thigh: Pressure - 188 mmHg: Ratio - 1.54: PVR waveform - Pulsatile * Calf: Pressure - 220 mmHg: Ratio - 1.80 PVR waveform: Pulsatile * Posterior tibial Artery: Pressure - >240 mmHg: Ratio - PVR waveform: Pulsatile * Dorsalis pedis Artery: Pressure - 222 mmHg: Ratio - 1.82 PVR waveform: Pulsatile Ankle brachial index (IKER): 1.82 LEFT LOWER EXTREMITY: * Brachial artery: Pressure - 122 mmHg. * High thigh: Pressure - 217 mmHg: Ratio - 1.78: PVR waveform - Pulsatile * Calf: Pressure - 217 mmHg: Ratio - 1.78 PVR waveform: Pulsatile * Posterior tibial Artery: Unable to obtain. PVR waveform: Pulsatile * Dorsalis pedis Artery: Unable to obtain. PVR waveform: Pulsatile Ankle brachial index (IKER): N/A OTHER FINDINGS: IMPRESSION: Right: The ankle pressure at the right lower extremity is nondiagnostic due to possible atrial wall calcifications. Left: IKER Could not be obtained due to patient unable to tolerate cuff pressures.
[2017-10-12] MEDS: Oxycodone/Acetaminophen 5/325 mg Tab PO PRN (13:36)
--- NOTE | 2017-10-12 18:42 | CP.PCM.PN ---
Subjective - Date & Time of Evaluation Date of Evaluation: 10/12/17 Time of Evaluation: 18:41 - Subjective Subjective: 72 y/o male seen at bedside this afternoon 2 days s/p emergent I&D of gas gangrene of left lower extremity. Pt denies pain in the left leg. Denies F/C/N/V /CP/SOb. Dressing has remained clean dry and intact to LLE. Objective - Vital Signs/Intake and Output Vital Signs (last 24 hours): Temp Pulse Resp BP Pulse Ox 97.7 F 88 20 129/71 98 10/12/17 17:26 10/12/17 17:26 10/12/17 17:26 10/12/17 17:26 10/12/17 17:26 Intake and Output: 10/12/17 10/12/17 06:59 18:59 Intake Total 260 Output Total 300 Balance -40 - Medications Medications: Current Medications Acetaminophen (Tylenol 325mg Tab) 650 mg PO Q6 PRN PRN Reason: Pain, Mild (1-3) Vancomycin HCl 1 gm/ Sodium (Chloride) 250 mls @ 166.667 mls/hr IVPB Q12 STEVEN PRN Reason: Protocol Last Admin: 10/12/17 11:25 Dose: 166.667 mls/hr Meropenem 1 gm/ Sodium (Chloride) 100 mls @ 100 mls/hr IVPB Q8 STEVEN PRN Reason: Protocol Last Admin: 10/12/17 17:59 Dose: 100 mls/hr Clindamycin Phosphate 600 mg/ (Sodium Chloride) 54 mls @ 54 mls/hr IVPB Q8 STEVEN PRN Reason: Protocol Last Admin: 10/12/17 16:44 Dose: 54 mls/hr Insulin Human Lispro (Humalog) 0 units SC ACHS STEVEN PRN Reason: Protocol Last Admin: 10/12/17 16:49 Dose: 8 u Oxycodone/Acetaminophen (Percocet 5/325 Mg Tab) 1 tab PO Q4 PRN PRN Reason: Pain, moderate (4-7) Stop: 10/13/17 11:46 Last Admin: 10/12/17 13:36 Dose: 1 tab Oxycodone/Acetaminophen (Percocet 5/325 Mg Tab) 2 tab PO Q4 PRN PRN Reason: Pain, severe (8-10) Stop: 10/13/17 11:46 - Labs Labs: 10/12/17 06:40 10/10/17 04:35 PT 16.6 Seconds (9.8-13.1) H 10/10/17 08:12 INR 1.5 (0.9-1.2) H 10/10/17 08:12 APTT 30.5 Seconds (25.6-37.1) 10/09/17 21:47 - Constitutional Appears: Well, Non-toxic, No Acute Distress - Extremities Exam Additional comments: dressing to LLE left clean dry and intact at this time no strikethrough at present - Neurological Exam Neurological Exam: Alert, Awake, Oriented x3 - Psychiatric Exam Psychiatric exam: Normal Affect, Normal Mood Assessment and Plan - Assessment and Plan (Free Text) Assessment: 72 y/o male 2 days s/p left foot and ankle I&D of gas gangrene Plan: Pt seen and evaluated in ICU Discussed with attending Dr. Velazquez Labs and vitals reviewed- afebrile, WBC 22.3 (trending down) Wound dressing left in place today Vascular studies indicate good flow to LE, femoral and popliteal vessels patent General surgery on consult, to take pt for left BKA on Sunday Continue IV abx per ID Will continue to follow patient while in house
--- NOTE | 2017-10-13 00:11 | CP.PCM.PN ---
<MunozCatarina Irene - Last Filed: 10/13/17 00:09> Subjective - Date & Time of Evaluation Date of Evaluation: 10/12/17 Time of Evaluation: 11:00 - Subjective Subjective: C/o l foot pain Objective - Vital Signs/Intake and Output Vital Signs (last 24 hours): Temp Pulse Resp BP Pulse Ox 97.7 F 88 20 129/71 98 10/12/17 17:26 10/12/17 17:26 10/12/17 17:26 10/12/17 17:26 10/12/17 17:26 - Medications Medications: Current Medications Acetaminophen (Tylenol 325mg Tab) 650 mg PO Q6 PRN PRN Reason: Pain, Mild (1-3) Vancomycin HCl 1 gm/ Sodium (Chloride) 250 mls @ 166.667 mls/hr IVPB Q12 STEVEN PRN Reason: Protocol Last Admin: 10/12/17 21:27 Dose: 166.667 mls/hr Meropenem 1 gm/ Sodium (Chloride) 100 mls @ 100 mls/hr IVPB Q8 STEVEN PRN Reason: Protocol Last Admin: 10/12/17 17:59 Dose: 100 mls/hr Clindamycin Phosphate 600 mg/ (Sodium Chloride) 54 mls @ 54 mls/hr IVPB Q8 STEVEN PRN Reason: Protocol Last Admin: 10/12/17 16:44 Dose: 54 mls/hr Insulin Human Lispro (Humalog) 0 units SC ACHS STEVEN PRN Reason: Protocol Last Admin: 10/12/17 22:42 Dose: 4 u Oxycodone/Acetaminophen (Percocet 5/325 Mg Tab) 1 tab PO Q4 PRN PRN Reason: Pain, moderate (4-7) Stop: 10/13/17 11:46 Last Admin: 10/12/17 13:36 Dose: 1 tab Oxycodone/Acetaminophen (Percocet 5/325 Mg Tab) 2 tab PO Q4 PRN PRN Reason: Pain, severe (8-10) Stop: 10/13/17 11:46 - Labs Labs: 10/12/17 06:40 10/10/17 04:35 PT 16.6 Seconds (9.8-13.1) H 10/10/17 08:12 INR 1.5 (0.9-1.2) H 10/10/17 08:12 APTT 30.5 Seconds (25.6-37.1) 10/09/17 21:47 - Constitutional Appears: Non-toxic, No Acute Distress - Head Exam Head Exam: ATRAUMATIC - Eye Exam Eye Exam: EOMI, Normal appearance Pupil Exam: NORMAL ACCOMODATION - ENT Exam ENT Exam: Mucous Membranes Moist - Neck Exam Neck Exam: Full ROM, Normal Inspection - Respiratory Exam Respiratory Exam: Clear to Ausculation Bilateral, NORMAL BREATHING PATTERN - Cardiovascular Exam Cardiovascular Exam: REGULAR RHYTHM - GI/Abdominal Exam GI & Abdominal Exam: Normal Bowel Sounds - Extremities Exam Extremities Exam: Full ROM Additional comments: eft foot OPEN TMA surgical open wound all the way till mid lateral left leg , no active pus . bloody discharge exposed bone in foot - Neurological Exam Neurological Exam: Alert, Awake, Oriented x3 - Psychiatric Exam Psychiatric exam: Normal Affect - Skin Skin Exam: Normal Color, Warm Assessment and Plan - Assessment and Plan (Free Text) Assessment: A/P- 72 y/o homeless male with DM II admitet with gangrenous toes and found to have subcutaneous emphysema on the xray and is s/p left TMA and opening of the left lateral LE for drainage of the infection by podiatry today. high leukocytosis still but trending down. 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 blood cx- neg x 4 wound cx- group B strep Metatarsal Bone bx- osteo as per path report -to continue both IV vancomycin and meropnem day #4 keep vanco trough <15. -continue wiht Iv clindamycin as well. day #4. wound management as per podiatry and surgical team. follow wbc. <Griffin,Vimal K - Last Filed: 10/25/17 19:19> Objective - Vital Signs/Intake and Output Vital Signs (last 24 hours): Temp Pulse Resp BP Pulse Ox 98.9 F 83 20 141/69 99 10/23/17 16:09 10/23/17 16:09 10/23/17 16:09 10/23/17 16:09 10/23/17 16:09 - Labs Labs: 10/22/17 12:00 10/21/17 10:30 PT 15.9 Seconds (9.8-13.1) H 10/15/17 06:00 INR 1.4 (0.9-1.2) H 10/15/17 06:00 APTT 33.1 Seconds (25.6-37.1) 10/15/17 06:00 Assessment and Plan - Assessment and Plan (Free Text) Assessment: Patient was personally seen and examined by me in rounds with residents. Available labs and diagnostic data reviewed. Case, Patient's condition and management plan discussed with residents in rounds. Agree with resident's progress note. Plan: As ordered.
[2017-10-13] MEDS: Meropenem 1 GM in Sodium Chloride 0.9% 100 ML IVPB SCH ×3 (00:22→16:36)
--- NOTE | 2017-10-13 08:01 | CP.PCM.PN ---
Subjective - Date & Time of Evaluation Date of Evaluation: 10/13/17 Time of Evaluation: 07:59 - Subjective Subjective: SURGERY NOTE FOR DR. MOBLEY 72M seen and examined at bedside. No acute events overnight. Patient resting comfortably in bed. Objective - Vital Signs/Intake and Output Vital Signs (last 24 hours): Temp Pulse Resp BP Pulse Ox 99.1 F 91 H 19 130/64 99 10/13/17 00:25 10/13/17 00:25 10/13/17 00:25 10/13/17 00:25 10/13/17 00:25 - Medications Medications: Current Medications Acetaminophen (Tylenol 325mg Tab) 650 mg PO Q6 PRN PRN Reason: Pain, Mild (1-3) Vancomycin HCl 1 gm/ Sodium (Chloride) 250 mls @ 166.667 mls/hr IVPB Q12 STEVEN PRN Reason: Protocol Last Admin: 10/12/17 21:27 Dose: 166.667 mls/hr Meropenem 1 gm/ Sodium (Chloride) 100 mls @ 100 mls/hr IVPB Q8 STEVEN PRN Reason: Protocol Last Admin: 10/13/17 00:22 Dose: 100 mls/hr Clindamycin Phosphate 600 mg/ (Sodium Chloride) 54 mls @ 54 mls/hr IVPB Q8 STEVEN PRN Reason: Protocol Last Admin: 10/13/17 00:23 Dose: 54 mls/hr Insulin Human Lispro (Humalog) 0 units SC ACHS STEVEN PRN Reason: Protocol Last Admin: 10/12/17 22:42 Dose: 4 u Oxycodone/Acetaminophen (Percocet 5/325 Mg Tab) 1 tab PO Q4 PRN PRN Reason: Pain, moderate (4-7) Stop: 10/13/17 11:46 Last Admin: 10/12/17 13:36 Dose: 1 tab Oxycodone/Acetaminophen (Percocet 5/325 Mg Tab) 2 tab PO Q4 PRN PRN Reason: Pain, severe (8-10) Stop: 10/13/17 11:46 Saccharomyces Boulardii (Florastor) 250 mg PO BID STEVEN - Labs Labs: 10/12/17 06:40 10/10/17 04:35 PT 16.6 Seconds (9.8-13.1) H 10/10/17 08:12 INR 1.5 (0.9-1.2) H 10/10/17 08:12 APTT 30.5 Seconds (25.6-37.1) 10/09/17 21:47 - Constitutional Appears: Non-toxic, No Acute Distress - Respiratory Exam Respiratory Exam: Clear to Ausculation Bilateral, NORMAL BREATHING PATTERN - Cardiovascular Exam Cardiovascular Exam: REGULAR RHYTHM, +S1, +S2 - GI/Abdominal Exam GI & Abdominal Exam: Soft. absent: Distended, Firm, Guarding, Rigid, Tenderness , Rebound - Extremities Exam Additional comments: left lower extremity wound palpable pulses in the femoral and popliteal artery - Neurological Exam Neurological Exam: Alert, Awake Assessment and Plan - Assessment and Plan (Free Text) Assessment: 72M presents with left lower extremity foot wound infection, necro fasciitis, s /p TMA POD#3 Plan: -Plan for L BKA Sunday -Further recommendations as per Dr. Irving Asencio, PGY2
[2017-10-13 08:10] LABS: BASO % 0.1 % (0.0-2.0); EOS # 0.2 K/uL (0.0-0.7); HEMOGLOBIN 9.3 g/dL (12.0-18.0); LYMPH # 1.4 K/uL (1.0-4.3); LYMPH % 8.1 % (20.0-40.0); MEAN CELL VOLUME 90.5 fl (80.0-94.0); MEAN CORPUSCULAR HEMOGLOBIN 29.9 pg (27.0-31.0); MEAN CORPUSCULAR HGB CONC 33.1 g/dL (33.0-37.0); MEAN PLATELET VOLUME 9.1 fl (7.2-11.7); MONO # 0.9 K/uL (0.0-0.8); MONO % 5.1 % (0.0-10.0); NEUT % 85.7 % (50.0-75.0); PLATELET COUNT 325 K/uL (130-400); RBC 3.12 Mil/uL (4.40-5.90); RED CELL DISTRIBUTION WIDTH 16.2 % (11.5-14.5); WHITE BLOOD COUNT 17.5 K/uL (4.8-10.8)
[2017-10-13] MEDS: Insulin Lispro (humaLOG) 100 Units/ml Inj SC SCH ×4 (08:46→22:07)
[2017-10-13] MEDS: Saccharomyces Boulardi 250 mg Cap PO SCH ×2 (09:20→16:37)
[2017-10-13 11:40] LABS: ANISOCYTOSIS SLIGHT; BANDS 2 % (0-2); EOSINOPHIL 1 % (0-7); LYMPHOCYTE 8 % (20-50); MONOCYTE 7 % (0-10); NEUTROPHIL 81 % (42-75); PLATELET ESTIMATE NORMAL (NORMAL); POIKILOCYTOSIS SLIGHT; REACTIVE LYMPHOCYTES 1 % (0-0); TARGET CELLS SLIGHT; TOTAL CELLS COUNTED 100
--- NOTE | 2017-10-13 22:33 | CP.PCM.PN ---
<Catarina Munoz - Last Filed: 10/13/17 22:31> Subjective - Date & Time of Evaluation Date of Evaluation: 10/13/17 Time of Evaluation: 16:00 - Subjective Subjective: c/o hiccups, no abdominal pain or vomiting Objective - Vital Signs/Intake and Output Vital Signs (last 24 hours): Temp Pulse Resp BP Pulse Ox 97.6 F 86 20 128/65 99 10/13/17 16:32 10/13/17 16:32 10/13/17 16:32 10/13/17 16:32 10/13/17 16:32 - Medications Medications: Current Medications Acetaminophen (Tylenol 325mg Tab) 650 mg PO Q6 PRN PRN Reason: Pain, Mild (1-3) Last Admin: 10/13/17 22:10 Dose: 650 mg Famotidine (Pepcid) 20 mg PO BID [facility] Last Admin: 10/13/17 17:58 Dose: 20 mg Vancomycin HCl 1 gm/ Sodium (Chloride) 250 mls @ 166.667 mls/hr IVPB Q12 STEVEN PRN Reason: Protocol Last Admin: 10/13/17 22:11 Dose: 166.667 mls/hr Meropenem 1 gm/ Sodium (Chloride) 100 mls @ 100 mls/hr IVPB Q8 STEVEN PRN Reason: Protocol Last Admin: 10/13/17 16:36 Dose: 100 mls/hr Clindamycin Phosphate 600 mg/ (Sodium Chloride) 54 mls @ 54 mls/hr IVPB Q8 STEVEN PRN Reason: Protocol Last Admin: 10/13/17 17:56 Dose: 54 mls/hr Insulin Human Lispro (Humalog) 0 units SC ACHS STEVEN PRN Reason: Protocol Last Admin: 10/13/17 22:07 Dose: Not Given Saccharomyces Boulardii (Florastor) 250 mg PO BID [facility] Last Admin: 10/13/17 16:37 Dose: 250 mg - Labs Labs: 10/13/17 06:00 10/10/17 04:35 PT 16.6 Seconds (9.8-13.1) H 10/10/17 08:12 INR 1.5 (0.9-1.2) H 10/10/17 08:12 APTT 30.5 Seconds (25.6-37.1) 10/09/17 21:47 - Constitutional Appears: Non-toxic, No Acute Distress, Cachectic - Head Exam Head Exam: ATRAUMATIC - Eye Exam Eye Exam: Normal appearance - ENT Exam ENT Exam: Mucous Membranes Moist - Neck Exam Neck Exam: Full ROM - Respiratory Exam Respiratory Exam: Clear to Ausculation Bilateral - Cardiovascular Exam Cardiovascular Exam: REGULAR RHYTHM - GI/Abdominal Exam GI & Abdominal Exam: Soft, Normal Bowel Sounds - Extremities Exam Extremities Exam: Full ROM Additional comments: L foot gangrene - Back Exam Back Exam: NORMAL INSPECTION - Neurological Exam Neurological Exam: Alert, Awake, Oriented x3 - Skin Skin Exam: Normal Color Assessment and Plan - Assessment and Plan (Free Text) Assessment: 72 y/o homeless male with DM II admitet with gangrenous toes and found to have subcutaneous emphysema on the xray and is s/p left TMA and opening of the left lateral LE for drainage of the infection by podiatry today. high leukocytosis still but trending down. 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 blood cx- neg x 4 wound cx- group B strep Metatarsal Bone bx- osteo as per path report -to continue both IV vancomycin and meropnem day #4 keep vanco trough <15. -continue wiht Iv clindamycin as well. day #4. wound management as per podiatry and surgical team. WBC trending down <Griffin,Vimal K - Last Filed: 10/27/17 18:56> Objective - Vital Signs/Intake and Output Vital Signs (last 24 hours): Temp Pulse Resp BP Pulse Ox 98.9 F 83 20 141/69 99 10/23/17 16:09 10/23/17 16:09 10/23/17 16:09 10/23/17 16:09 10/23/17 16:09 - Labs Labs: 10/22/17 12:00 10/21/17 10:30 PT 15.9 Seconds (9.8-13.1) H 10/15/17 06:00 INR 1.4 (0.9-1.2) H 10/15/17 06:00 APTT 33.1 Seconds (25.6-37.1) 10/15/17 06:00 Assessment and Plan - Assessment and Plan (Free Text) Assessment: Patient was personally seen and examined by me in rounds with residents. Available labs and diagnostic data reviewed. Case, Patient's condition and management plan discussed with residents in rounds. Agree with resident's progress note. Plan: As ordered.
[2017-10-14] MEDS: Meropenem 1 GM in Sodium Chloride 0.9% 100 ML IVPB SCH ×3 (01:37→16:05)
[2017-10-14] MEDS: Sodium Chloride 0.9% 1,000 ML IV SCH (01:42)
--- NOTE | 2017-10-14 06:45 | CP.PCM.PN ---
Subjective - Date & Time of Evaluation Date of Evaluation: 10/14/17 Time of Evaluation: 06:40 - Subjective Subjective: General Surgery Progress Note For Dr. Villatoro This 72M was seen and examined this AM bedside. No acute events overnight. Denies fevers chills chest pain. Denies lower extremity pain. Objective - Vital Signs/Intake and Output Vital Signs (last 24 hours): Temp Pulse Resp BP Pulse Ox 98 F 64 20 104/65 95 10/13/17 23:57 10/13/17 23:57 10/13/17 23:57 10/13/17 23:57 10/13/17 23:57 - Medications Medications: Current Medications Acetaminophen (Tylenol 325mg Tab) 650 mg PO Q6 PRN PRN Reason: Pain, Mild (1-3) Last Admin: 10/13/17 22:10 Dose: 650 mg Famotidine (Pepcid) 20 mg PO BID [facility] Last Admin: 10/13/17 17:58 Dose: 20 mg Vancomycin HCl 1 gm/ Sodium (Chloride) 250 mls @ 166.667 mls/hr IVPB Q12 STEVEN PRN Reason: Protocol Last Admin: 10/13/17 22:11 Dose: 166.667 mls/hr Meropenem 1 gm/ Sodium (Chloride) 100 mls @ 100 mls/hr IVPB Q8 STEVEN PRN Reason: Protocol Last Admin: 10/14/17 01:37 Dose: 100 mls/hr Clindamycin Phosphate 600 mg/ (Sodium Chloride) 54 mls @ 54 mls/hr IVPB Q8 STVEEN PRN Reason: Protocol Last Admin: 10/14/17 01:37 Dose: 54 mls/hr Insulin Human Lispro (Humalog) 0 units SC ACHS STEVEN PRN Reason: Protocol Last Admin: 10/13/17 22:07 Dose: Not Given Saccharomyces Boulardii (Florastor) 250 mg PO BID [facility] Last Admin: 10/13/17 16:37 Dose: 250 mg - Labs Labs: 10/13/17 06:00 10/10/17 04:35 PT 16.6 Seconds (9.8-13.1) H 10/10/17 08:12 INR 1.5 (0.9-1.2) H 10/10/17 08:12 APTT 30.5 Seconds (25.6-37.1) 10/09/17 21:47 - Constitutional Appears: Non-toxic, No Acute Distress - Respiratory Exam Respiratory Exam: Clear to Ausculation Bilateral, NORMAL BREATHING PATTERN - Cardiovascular Exam Cardiovascular Exam: REGULAR RHYTHM, +S1, +S2 - GI/Abdominal Exam GI & Abdominal Exam: Soft. absent: Distended, Firm, Guarding, Rigid, Tenderness , Rebound - Extremities Exam Additional comments: left lower extremity wound palpable pulses in the femoral and popliteal artery - Neurological Exam Neurological Exam: Alert, Awake Assessment and Plan - Assessment and Plan (Free Text) Assessment: 72M presents with left lower extremity foot wound infection, necro fasciitis, s /p TMA POD#4 Plan: -Plan for L BKA Sunday -NPO after midnight -Hold A/C tomorrow AM D/W Dr. Villatoro
[2017-10-14] MEDS: Saccharomyces Boulardi 250 mg Cap PO SCH ×2 (08:26→16:06)
[2017-10-14] MEDS: Insulin Lispro (humaLOG) 100 Units/ml Inj SC SCH ×4 (08:27→22:11)
[2017-10-14 09:50] LABS: HEMOGLOBIN 9.7 g/dL (12.0-18.0); MEAN CELL VOLUME 89.9 fl (80.0-94.0); MEAN CORPUSCULAR HEMOGLOBIN 30.1 pg (27.0-31.0); MEAN CORPUSCULAR HGB CONC 33.5 g/dL (33.0-37.0); RBC 3.21 Mil/uL (4.40-5.90); RED CELL DISTRIBUTION WIDTH 15.9 % (11.5-14.5); WHITE BLOOD COUNT 16.8 K/uL (4.8-10.8)
[2017-10-14 10:06] LABS: ALB/GLOB RATIO 0.5 (1.0-2.1); ALBUMIN 2.1 g/dL (3.5-5.0); ALT/SGPT 28 U/L (21-72); AST/SGOT 33 U/L (17-59); BLOOD UREA NITROGEN 9 mg/dl (9-20); CALCIUM 6.9 mg/dL (8.4-10.2); GFR AFRICAN-AMERICAN > 60; GFR NON-AFRICAN AMERICAN > 60
[2017-10-14] MEDS ORDERED: Potassium Chloride 20 mEq ER Tab PO ONE (16:09)
--- NOTE | 2017-10-14 16:15 | CP.PCM.PN ---
<MunozCatarina Y - Last Filed: 10/14/17 16:11> Subjective - Date & Time of Evaluation Date of Evaluation: 10/14/17 Time of Evaluation: 16:15 - Subjective Subjective: no abd pain/n/v/fever Objective - Vital Signs/Intake and Output Vital Signs (last 24 hours): Temp Pulse Resp BP Pulse Ox 98.1 F 77 20 153/73 H 100 10/14/17 08:10 10/14/17 08:10 10/14/17 08:10 10/14/17 08:10 10/14/17 08:10 - Medications Medications: Current Medications Acetaminophen (Tylenol 325mg Tab) 650 mg PO Q6 PRN PRN Reason: Pain, Mild (1-3) Last Admin: 10/13/17 22:10 Dose: 650 mg Famotidine (Pepcid) 20 mg PO BID [facility] Last Admin: 10/14/17 16:06 Dose: 20 mg Vancomycin HCl 1 gm/ Sodium (Chloride) 250 mls @ 166.667 mls/hr IVPB Q12 STEVEN PRN Reason: Protocol Last Admin: 10/14/17 08:26 Dose: 166.667 mls/hr Meropenem 1 gm/ Sodium (Chloride) 100 mls @ 100 mls/hr IVPB Q8 STEVEN PRN Reason: Protocol Last Admin: 10/14/17 16:05 Dose: 100 mls/hr Clindamycin Phosphate 600 mg/ (Sodium Chloride) 54 mls @ 54 mls/hr IVPB Q8 STEVEN PRN Reason: Protocol Last Admin: 10/14/17 16:05 Dose: 54 mls/hr Insulin Human Lispro (Humalog) 0 units SC ACHS STEVEN PRN Reason: Protocol Last Admin: 10/14/17 16:06 Dose: 2 u Saccharomyces Boulardii (Florastor) 250 mg PO BID [facility] Last Admin: 10/14/17 16:06 Dose: 250 mg - Labs Labs: 10/14/17 09:25 10/14/17 09:25 PT 16.6 Seconds (9.8-13.1) H 10/10/17 08:12 INR 1.5 (0.9-1.2) H 10/10/17 08:12 APTT 30.5 Seconds (25.6-37.1) 10/09/17 21:47 - Constitutional Appears: Non-toxic - Head Exam Head Exam: ATRAUMATIC - Eye Exam Eye Exam: EOMI - ENT Exam ENT Exam: Mucous Membranes Moist - Neck Exam Neck Exam: Full ROM - Respiratory Exam Respiratory Exam: Clear to Ausculation Bilateral - Cardiovascular Exam Cardiovascular Exam: REGULAR RHYTHM - GI/Abdominal Exam GI & Abdominal Exam: Soft, Normal Bowel Sounds - Extremities Exam Additional comments: Necrotic L foot from TMA site to ankle with open wound, bone and tendon exposed - Neurological Exam Neurological Exam: Alert, Awake, Oriented x3 - Psychiatric Exam Psychiatric exam: Normal Mood - Skin Skin Exam: Normal Color, Warm Assessment and Plan - Assessment and Plan (Free Text) Assessment: 72 y/o with L necrotic foot s/p TMA, for BKA tomorrow, continue with current medical management <Griffin,Vimal K - Last Filed: 10/25/17 19:23> Objective - Vital Signs/Intake and Output Vital Signs (last 24 hours): Temp Pulse Resp BP Pulse Ox 98.9 F 83 20 141/69 99 10/23/17 16:09 10/23/17 16:09 10/23/17 16:09 10/23/17 16:09 10/23/17 16:09 - Labs Labs: 10/22/17 12:00 10/21/17 10:30 PT 15.9 Seconds (9.8-13.1) H 10/15/17 06:00 INR 1.4 (0.9-1.2) H 10/15/17 06:00 APTT 33.1 Seconds (25.6-37.1) 10/15/17 06:00 Assessment and Plan - Assessment and Plan (Free Text) Assessment: Patient was personally seen and examined by me in rounds with residents. Available labs and diagnostic data reviewed. Case, Patient's condition and management plan discussed with residents in rounds. Agree with resident's progress note. Plan: As ordered.
--- NOTE | 2017-10-14 16:32 | CP.PCM.PN ---
Subjective - Date & Time of Evaluation Date of Evaluation: 10/14/17 Time of Evaluation: 15:00 - Subjective Subjective: Podiatry Progress Note- Dr. 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 Patient is seen resting comfortably in bed and in NAD. Denies acute overnight events. Dressing to the lower extremity with strikethrough noted. Denies F/C/N/V/CP/SOB. Objective - Vital Signs/Intake and Output Vital Signs (last 24 hours): Temp Pulse Resp BP Pulse Ox 98.4 F 79 20 135/63 99 10/14/17 16:26 10/14/17 16:26 10/14/17 16:26 10/14/17 16:26 10/14/17 16:26 - Medications Medications: Current Medications Acetaminophen (Tylenol 325mg Tab) 650 mg PO Q6 PRN PRN Reason: Pain, Mild (1-3) Last Admin: 10/13/17 22:10 Dose: 650 mg Famotidine (Pepcid) 20 mg PO BID [facility] Last Admin: 10/14/17 16:06 Dose: 20 mg Vancomycin HCl 1 gm/ Sodium (Chloride) 250 mls @ 166.667 mls/hr IVPB Q12 STEVEN PRN Reason: Protocol Last Admin: 10/14/17 08:26 Dose: 166.667 mls/hr Meropenem 1 gm/ Sodium (Chloride) 100 mls @ 100 mls/hr IVPB Q8 STEVEN PRN Reason: Protocol Last Admin: 10/14/17 16:05 Dose: 100 mls/hr Clindamycin Phosphate 600 mg/ (Sodium Chloride) 54 mls @ 54 mls/hr IVPB Q8 STEVEN PRN Reason: Protocol Last Admin: 10/14/17 16:05 Dose: 54 mls/hr Insulin Human Lispro (Humalog) 0 units SC ACHS STEVEN PRN Reason: Protocol Last Admin: 10/14/17 16:06 Dose: 2 u Saccharomyces Boulardii (Florastor) 250 mg PO BID [facility] Last Admin: 10/14/17 16:06 Dose: 250 mg - Labs Labs: 10/14/17 09:25 10/14/17 09:25 PT 16.6 Seconds (9.8-13.1) H 10/10/17 08:12 INR 1.5 (0.9-1.2) H 10/10/17 08:12 APTT 30.5 Seconds (25.6-37.1) 10/09/17 21:47 - Constitutional Appears: Well, Non-toxic, No Acute Distress - Extremities Exam Extremities Exam: absent: Calf Tenderness Additional comments: RLE focused exam: Sanguinous strikethrough noted to inner dressing Vasc: unable to assess DP; PT pulse 1/4. No pedal edema noted. Extensive necrotic and gangrenous tissue within wound bed proximally Derm: Open transmetatarsal amputation with wound extending from the distal lateral 1/3 of leg to forefoot. Exposed metatarsal shafts 1-5. Wound narrows at level of ankle to linear incision. Wound bed is a mix of fibrotic and necrotic tissue, with minimal granular tissue noted, skin edges with necrosis noted to linear incision site at anterior ankle. Increase fibrotic slough noted to entire 1/2 proximal wound. Increase necrotic tissue noted to the distal aspect of the wound at levels of midfoot joints, tunneling and undermining noted to distal aspect of TMA site. Lizett wound maceration noted diffusely. Odorous. Neuro: Protective and gross sensation diminished Ortho: No tenderness to palpation of RLE Assessment and Plan - Assessment and Plan (Free Text) Assessment: 72 y/o male 4 days s/p left foot and ankle I&D of gas gangrene Plan: Pt seen and evaluated Discussed plan with attending Dr. Velazquez Labs and vitals reviewed- afebrile, WBC 16.8 (trending down) Cleansed ulceration with saline solution, dressed with betadine w2d, and dsd, and kerlix Vascular studies indicate good flow to LE, femoral and popliteal vessels patent General surgery on consult, to take pt for left BKA on Sunday Continue IV abx per ID Will continue to follow patient while in house
[2017-10-15] MEDS: Meropenem 1 GM in Sodium Chloride 0.9% 100 ML IVPB SCH ×2 (00:09→16:50)
[2017-10-15 06:30] LABS: BASO # 0.1 K/uL (0.0-0.2); BASO % 0.4 % (0.0-2.0); EOS # 0.1 K/uL (0.0-0.7); EOS % 0.8 % (0.0-4.0); HEMOGLOBIN 9.3 g/dL (12.0-18.0); LYMPH # 1.2 K/uL (1.0-4.3); LYMPH % 7.4 % (20.0-40.0); MEAN CELL VOLUME 90.2 fl (80.0-94.0); MEAN CORPUSCULAR HGB CONC 33.3 g/dL (33.0-37.0); MEAN PLATELET VOLUME 8.9 fl (7.2-11.7); MONO # 1.2 K/uL (0.0-0.8); MONO % 7.3 % (0.0-10.0); NEUT # 13.4 K/uL (1.8-7.0); NEUT % 84.1 % (50.0-75.0); RBC 3.1 Mil/uL (4.40-5.90); RED CELL DISTRIBUTION WIDTH 15.6 % (11.5-14.5)
[2017-10-15 06:45] LABS: ALB/GLOB RATIO 0.5 (1.0-2.1); ALBUMIN 2.1 g/dL (3.5-5.0); ALT/SGPT 27 U/L (21-72); AST/SGOT 31 U/L (17-59); BLOOD UREA NITROGEN 7 mg/dl (9-20); CALCIUM 6.9 mg/dL (8.4-10.2); GFR AFRICAN-AMERICAN > 60; GFR NON-AFRICAN AMERICAN > 60; INR 1.4 (0.9-1.2); PARTIAL THROMBOPLASTIN TIME 33.1 Seconds (25.6-37.1); PROTHROMBIN TIME 15.9 Seconds (9.8-13.1)
[2017-10-15] MEDS: Insulin Lispro (humaLOG) 100 Units/ml Inj SC SCH ×4 (07:10→22:59)
[2017-10-15] MEDS ORDERED: Propofol 10 mg/ml Inj (20 ML) ONE (08:09)
[2017-10-15] MEDS ORDERED: Midazolam 2 MG/2 ML VIAL ONE (08:09)
[2017-10-15] MEDS ORDERED: Succinylcholine 200 mg/10 ml Inj IV ONE (08:10)
[2017-10-15] MEDS ORDERED: Lidocaine 4% (Laryng-O-Jet) Kit MM ONE (08:10)
[2017-10-15] MEDS ORDERED: Rocuronium 10 mg/ml (5 ml) ONE (08:10)
[2017-10-15] MEDS ORDERED: Bacitracin Ointment 30 GM TUBE ONE (08:14)
[2017-10-15] MEDS ORDERED: Sodium Chloride 0.9% 100 ML IV ONE (08:20)
[2017-10-15] MEDS ORDERED: Sodium Chloride 0.9% 50 ML IV ONE (08:20)
[2017-10-15] MEDS: Saccharomyces Boulardi 250 mg Cap PO SCH ×2 (08:50→16:23)
[2017-10-15] MEDS ORDERED: Vancomycin 1 g Inj IVPB ONE (09:00)
[2017-10-15] MEDS ORDERED: Lactated Ringer's 1,000 ML IV ONE ×2 (10:00→10:30)
--- NOTE | 2017-10-15 11:06 | PCM.SURG1 ---
Surgeon's Initial Post Op Note - Surgeon's Notes Surgeon: Dr. 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 Schafer Pre-Operative Diagnosis: necrotizing fasciitis, nonhealing left lower extremity wound Operative Findings: see operative report Post-Operative Diagnosis: necrotizing fasciitis, nonhealing left lower extremity wound Operation Performed: L BKA Specimen/Specimens Removed: left lower leg Estimated Blood Loss: EBL {In ML}: 200 Blood Products Given: N/A Drains Used: No Drains Post-Op Condition: Good Date of Surgery/Procedure: 10/15/17 Time of Surgery/Procedure: 08:00
--- NOTE | 2017-10-15 11:08 | CT ---
PROCEDURE: CT Angiography Abdomen, Pelvis and Lower Extremity with Contrast HISTORY: left foot infection COMPARISON: None. TECHNIQUE: Technique: CT angiography of the abdomen, pelvis and bilateral lower extremities performed in the arterial phase of enhancement. Coronal and sagittal reformats, and well as rotating MIP images of the vessels generated at the workstation. Intravenous contrast dose: 99 mL Visipaque 320 Radiation dose: Total exam DLP = 638.3 MGy-cm. This CT exam was performed using one or more of the following dose reduction techniques: Automated exposure control, adjustment of the mA and/or kV according to patient size, and/or use of iterative reconstruction technique. FINDINGS: CT ANGIOGRAPHY: ABDOMINAL AORTA:: Mild calcific atherosclerosis. No aneurysm or stenosis. MAJOR AORTIC BRANCHES: Celiac Gardiner: Unremarkable. Superior mesenteric artery: Unremarkable. Inferior mesenteric artery: Mild calcific atherosclerosis of the ostium. Renal arteries: Unremarkable. PELVIC ARTERIES: Right Common Iliac: Mild calcific atherosclerosis. Widely patent. Right External Iliac: Unremarkable. Right Internal Iliac: Unremarkable. Left Common Iliac: Unremarkable. Left External Iliac: Unremarkable. Left Internal Iliac: Unremarkable. RIGHT LOWER EXTREMITY ARTERIES: Right Common Femoral: Unremarkable. Right Superficial Femoral: Heavy calcific atherosclerosis. Widely patent. Right Profunda Femoris: Heavy calcific atherosclerosis. Widely patent. Right Popliteal:Unremarkable. Right Anterior Tibial: Heavy calcific atherosclerosis. Widely patent. Right Tibioperoneal Trunk: Heavy calcific atherosclerosis. Widely patent. Right Posterior Tibial: Heavy calcific atherosclerosis. Widely patent. Right Peroneal: Heavy calcific atherosclerosis. Widely patent. Right dorsalis pedis : Heavy calcific atherosclerosis. Widely patent. LEFT LOWER EXTREMITY ARTERIES: Left Common Femoral: Unremarkable. Left Superficial Femoral: Heavy calcific atherosclerosis. Widely patent. Left Profunda Femoris: Heavy calcific atherosclerosis. Widely patent. Left Popliteal: Unremarkable. Left Anterior Tibial: Heavy calcific atherosclerosis. Widely patent. Left Tibioperoneal Trunk: Heavy calcific atherosclerosis. Widely patent. Left Posterior Tibial: Heavy calcific atherosclerosis. Widely patent. Left Peroneal: Heavy calcific atherosclerosis. Widely patent. Left Dorsalis pedis: Heavy calcific atherosclerosis. Widely patent. NON-ANGIOGRAPHIC ASPECT OF THE EXAM: LOWER THORAX: Bibasilar atelectasis. Mild cardiomegaly. LIVER: Unremarkable. No gross lesion or ductal dilatation. GALLBLADDER AND BILE DUCTS: Unremarkable. PANCREAS: Unremarkable. No gross lesion or ductal dilatation. SPLEEN: Unremarkable. ADRENALS: Unremarkable. No mass. KIDNEYS AND URETERS: Unremarkable. No hydronephrosis. No solid mass. STOMACH AND BOWEL: Small hiatal hernia. No obstruction. No gross mural thickening. APPENDIX: Not visualized. PERITONEUM: Unremarkable. Perihepatic ascites. No free air. LYMPH NODES: Prominent left inguinal lymph nodes. BLADDER: Unremarkable. REPRODUCTIVE: Unremarkable. BONES: Transmetatarsal amputation of left foot. Postsurgical changes involving the left foot and distal lateral left lower extremity. OTHER FINDINGS: None. IMPRESSION: Recent transmetatarsal amputation of left foot with postsurgical changes involving the distal lateral left lower extremity on the left foot. Right lower extremity: Heavy calcific atherosclerosis, but wide patency of the right superficial femoral artery and below the knee arteries with three-vessel runoff to the foot. Left lower extremity: Heavy calcific atherosclerosis, but wide patency of the left superficial femoral artery and below the knee arteries with three-vessel runoff to the foot. Additional incidental findings as above.
[2017-10-15] MEDS ORDERED: ePHEDrine 50 mg/ml Inj ONE (11:23)
--- NOTE | 2017-10-15 11:40 | CARD ---
APPROVED REPORT EKG Measurement Heart [id number] <Conclusion> Normal sinus rhythm Normal ECG
[2017-10-15 11:42] LABS: MEAN CELL VOLUME 90.3 fl (80.0-94.0); MEAN CORPUSCULAR HEMOGLOBIN 29.6 pg (27.0-31.0); MEAN CORPUSCULAR HGB CONC 32.7 g/dL (33.0-37.0); RBC 2.02 Mil/uL (4.40-5.90); RED CELL DISTRIBUTION WIDTH 15.7 % (11.5-14.5); WHITE BLOOD COUNT 14.6 K/uL (4.8-10.8)
--- NOTE | 2017-10-15 14:32 | CP.PCM.PN ---
Subjective - Date & Time of Evaluation Date of Evaluation: 10/15/17 Time of Evaluation: 14:32 - Subjective Subjective: ID Note- Pt. sen and examined today. pt s/p left BKA earlier today. denies any fever or chills. Objective - Vital Signs/Intake and Output Vital Signs (last 24 hours): Temp Pulse Resp BP Pulse Ox 98.2 F 110 H 19 106/62 100 10/15/17 13:18 10/15/17 13:18 10/15/17 13:18 10/15/17 13:18 10/15/17 13:18 Intake and Output: 10/15/17 10/15/17 06:59 18:59 Intake Total 1780 Output Total 500 Balance 1280 - Medications Medications: Current Medications Acetaminophen (Tylenol 325mg Tab) 650 mg PO Q6 PRN PRN Reason: Pain, Mild (1-3) Famotidine (Pepcid) 20 mg PO BID [facility] Last Admin: 10/15/17 09:00 Dose: Not Given Vancomycin HCl 1 gm/ Sodium (Chloride) 250 mls @ 166.667 mls/hr IVPB Q12 STEVEN PRN Reason: Protocol Last Admin: 10/14/17 21:12 Dose: 166.667 mls/hr Meropenem 1 gm/ Sodium (Chloride) 100 mls @ 100 mls/hr IVPB Q8 STEVEN PRN Reason: Protocol Last Admin: 10/15/17 00:09 Dose: 100 mls/hr Clindamycin Phosphate 600 mg/ (Sodium Chloride) 54 mls @ 54 mls/hr IVPB Q8 STEVEN PRN Reason: Protocol Last Admin: 10/15/17 00:09 Dose: 54 mls/hr Lactated Ringer's (Lactated Ringer's) 1,000 mls @ 100 mls/hr IV .Q10H [facility] Insulin Human Lispro (Humalog) 0 units SC ACHS STEVEN PRN Reason: Protocol Last Admin: 10/15/17 07:10 Dose: 3 u Morphine Sulfate (Morphine) 2 mg IVP Q4 PRN PRN Reason: Pain, severe (8-10) Saccharomyces Boulardii (Florastor) 250 mg PO BID [facility] Last Admin: 10/15/17 08:50 Dose: Not Given - Labs Labs: - Additional Findings Additional findings: - Constitutional Appears: No Acute Distress - Head Exam Head Exam: ATRAUMATIC - Neck Exam Neck exam: Positive for: Full Rom - Respiratory Exam Respiratory Exam: Clear to Auscultation Bilateral, NORMAL BREATHING PATTERN - Cardiovascular Exam Cardiovascular Exam: RRR, +S1, +S2 - GI/Abdominal Exam GI & Abdominal Exam: Normal Bowel Sounds, Soft Additional comments: NT,ND - Extremities Exam Additional comments: s/p left BKA wrapped in post surgical dressing - Neurological Exam Additional comments: AAO x 3 Laboratory Results - last 72 hr 10/12/17 10/12/17 10/13/17 16:46 21:46 05:46 WBC RBC Hgb Hct MCV MCH MCHC RDW Plt Count MPV Neut % (Auto) Lymph % (Auto) [place] % (Auto) Eos % (Auto) Baso % (Auto) Neut # (Auto) Lymph # (Auto) [place] # (Auto) Eos # (Auto) Baso # (Auto) Neutrophils % (Manual) Band Neutrophils % Lymphocytes % (Manual) Reactive Lymphs % Monocytes % (Manual) Eosinophils % (Manual) Platelet Estimate Poikilocytosis (manual Anisocytosis (manual) Macrocytosis (manual) Target Cells PT INR APTT Sodium Potassium Chloride Carbon Dioxide Anion Gap BUN Creatinine Est GFR ( Amer) Est GFR (Non-Af Amer) POC Glucose (mg/dL) 391 H 446 H* 285 H Random Glucose Calcium Phosphorus Magnesium Total Bilirubin AST ALT Alkaline Phosphatase Total Protein Albumin Globulin Albumin/Globulin Ratio Vancomycin Trough Blood Type Antibody Screen Crossmatch BBK History Checked 10/13/17 10/13/17 10/13/17 06:00 11:15 11:18 WBC 17.5 H RBC 3.12 L Hgb 9.3 L Hct 28.3 L MCV 90.5 MCH 29.9 MCHC 33.1 RDW 16.2 H Plt Count 325 MPV 9.1 Neut % (Auto) 85.7 H Lymph % (Auto) 8.1 L [place] % (Auto) 5.1 Eos % (Auto) 1.0 Baso % (Auto) 0.1 Neut # (Auto) 15.0 H Lymph # (Auto) 1.4 [place] # (Auto) 0.9 H Eos # (Auto) 0.2 Baso # (Auto) 0.0 Neutrophils % (Manual) 81 H Band Neutrophils % 2 Lymphocytes % (Manual) 8 L Reactive Lymphs % 1 H Monocytes % (Manual) 7 Eosinophils % (Manual) 1 Platelet Estimate Normal Poikilocytosis (manual Slight Anisocytosis (manual) Slight Macrocytosis (manual) Slight Target Cells Slight PT INR APTT Sodium Potassium Chloride Carbon Dioxide Anion Gap BUN Creatinine Est GFR ( Amer) Est GFR (Non-Af Amer) POC Glucose (mg/dL) 259 H Random Glucose Calcium Phosphorus Magnesium Total Bilirubin AST ALT Alkaline Phosphatase Total Protein Albumin Globulin Albumin/Globulin Ratio Vancomycin Trough 9.3 Blood Type Antibody Screen Crossmatch BBK History Checked 10/13/17 10/13/17 10/14/17 16:13 21:28 06:38 WBC RBC Hgb Hct MCV MCH MCHC RDW Plt Count MPV Neut % (Auto) Lymph % (Auto) [place] % (Auto) Eos % (Auto) Baso % (Auto) Neut # (Auto) Lymph # (Auto) [place] # (Auto) Eos # (Auto) Baso # (Auto) Neutrophils % (Manual) Band Neutrophils % Lymphocytes % (Manual) Reactive Lymphs % Monocytes % (Manual) Eosinophils % (Manual) Platelet Estimate Poikilocytosis (manual Anisocytosis (manual) Macrocytosis (manual) Target Cells PT INR APTT Sodium Potassium Chloride Carbon Dioxide Anion Gap BUN Creatinine Est GFR ( Amer) Est GFR (Non-Af Amer) POC Glucose (mg/dL) 211 H 171 H 210 H Random Glucose Calcium Phosphorus Magnesium Total Bilirubin AST ALT Alkaline Phosphatase Total Protein Albumin Globulin Albumin/Globulin Ratio Vancomycin Trough Blood Type Antibody Screen Crossmatch BBK History Checked 10/14/17 10/14/17 10/14/17 09:25 09:25 11:48 WBC 16.8 H RBC 3.21 L Hgb 9.7 L Hct 28.8 L MCV 89.9 MCH 30.1 MCHC 33.5 RDW 15.9 H Plt Count 347 MPV Neut % (Auto) Lymph % (Auto) [place] % (Auto) Eos % (Auto) Baso % (Auto) Neut # (Auto) Lymph # (Auto) [place] # (Auto) Eos # (Auto) Baso # (Auto) Neutrophils % (Manual) Band Neutrophils % Lymphocytes % (Manual) Reactive Lymphs % Monocytes % (Manual) Eosinophils % (Manual) Platelet Estimate Poikilocytosis (manual Anisocytosis (manual) Macrocytosis (manual) Target Cells PT INR APTT Sodium 141 Potassium 3.4 L Chloride 107 Carbon Dioxide 22 Anion Gap 15 BUN 9 Creatinine 0.6 L Est GFR ( Amer) > 60 Est GFR (Non-Af Amer) > 60 POC Glucose (mg/dL) 195 H Random Glucose 244 H Calcium 6.9 L Phosphorus Magnesium Total Bilirubin 0.5 AST 33 ALT 28 Alkaline Phosphatase 112 Total Protein 6.6 Albumin 2.1 L D Globulin 4.5 H Albumin/Globulin Ratio 0.5 L Vancomycin Trough Blood Type Antibody Screen Crossmatch BBK History Checked 10/14/17 10/14/17 10/15/17 15:26 22:01 05:26 WBC RBC Hgb Hct MCV MCH MCHC RDW Plt Count MPV Neut % (Auto) Lymph % (Auto) [place] % (Auto) Eos % (Auto) Baso % (Auto) Neut # (Auto) Lymph # (Auto) [place] # (Auto) Eos # (Auto) Baso # (Auto) Neutrophils % (Manual) Band Neutrophils % Lymphocytes % (Manual) Reactive Lymphs % Monocytes % (Manual) Eosinophils % (Manual) Platelet Estimate Poikilocytosis (manual Anisocytosis (manual) Macrocytosis (manual) Target Cells PT INR APTT Sodium Potassium Chloride Carbon Dioxide Anion Gap BUN Creatinine Est GFR ( Amer) Est GFR (Non-Af Amer) POC Glucose (mg/dL) 181 H 223 H 253 H Random Glucose Calcium Phosphorus Magnesium Total Bilirubin AST ALT Alkaline Phosphatase Total Protein Albumin Globulin Albumin/Globulin Ratio Vancomycin Trough Blood Type Antibody Screen Crossmatch BBK History Checked 10/15/17 10/15/17 10/15/17 06:00 06:00 06:00 WBC 16.0 H RBC 3.10 L Hgb 9.3 L Hct 28.0 L MCV 90.2 MCH 30.0 MCHC 33.3 RDW 15.6 H Plt Count 335 MPV 8.9 Neut % (Auto) 84.1 H Lymph % (Auto) 7.4 L [place] % (Auto) 7.3 Eos % (Auto) 0.8 Baso % (Auto) 0.4 Neut # (Auto) 13.4 H Lymph # (Auto) 1.2 [place] # (Auto) 1.2 H Eos # (Auto) 0.1 Baso # (Auto) 0.1 Neutrophils % (Manual) Band Neutrophils % Lymphocytes % (Manual) Reactive Lymphs % Monocytes % (Manual) Eosinophils % (Manual) Platelet Estimate Poikilocytosis (manual Anisocytosis (manual) Macrocytosis (manual) Target Cells PT 15.9 H INR 1.4 H APTT 33.1 Sodium 140 Potassium 4.0 Chloride 106 Carbon Dioxide 24 Anion Gap 14 BUN 7 L Creatinine 0.6 L Est GFR ( Amer) > 60 Est GFR (Non-Af Amer) > 60 POC Glucose (mg/dL) Random Glucose 230 H Calcium 6.9 L Phosphorus 2.0 L Magnesium 1.4 L Total Bilirubin 0.5 AST 31 ALT 27 Alkaline Phosphatase 112 Total Protein 6.5 Albumin 2.1 L Globulin 4.4 H Albumin/Globulin Ratio 0.5 L Vancomycin Trough Blood Type Antibody Screen Crossmatch BBK History Checked 10/15/17 10/15/17 10/15/17 06:36 08:39 10:57 WBC RBC Hgb Hct MCV MCH MCHC RDW Plt Count MPV Neut % (Auto) Lymph % (Auto) [place] % (Auto) Eos % (Auto) Baso % (Auto) Neut # (Auto) Lymph # (Auto) [place] # (Auto) Eos # (Auto) Baso # (Auto) Neutrophils % (Manual) Band Neutrophils % Lymphocytes % (Manual) Reactive Lymphs % Monocytes % (Manual) Eosinophils % (Manual) Platelet Estimate Poikilocytosis (manual Anisocytosis (manual) Macrocytosis (manual) Target Cells PT INR APTT Sodium Potassium Chloride Carbon Dioxide Anion Gap BUN Creatinine Est GFR ( Amer) Est GFR (Non-Af Amer) POC Glucose (mg/dL) 218 H 183 H Random Glucose Calcium Phosphorus Magnesium Total Bilirubin AST ALT Alkaline Phosphatase Total Protein Albumin Globulin Albumin/Globulin Ratio Vancomycin Trough Blood Type O POSITIVE Antibody Screen Negative Crossmatch See Detail BBK History Checked Patient has bt 10/15/17 10/15/17 10/15/17 11:37 13:59 15:57 WBC 14.6 H RBC 2.02 L Hgb 6.0 L* D Hct 18.2 L MCV 90.3 MCH 29.6 MCHC 32.7 L RDW 15.7 H Plt Count 269 MPV Neut % (Auto) Lymph % (Auto) [place] % (Auto) Eos % (Auto) Baso % (Auto) Neut # (Auto) Lymph # (Auto) [place] # (Auto) Eos # (Auto) Baso # (Auto) Neutrophils % (Manual) Band Neutrophils % Lymphocytes % (Manual) Reactive Lymphs % Monocytes % (Manual) Eosinophils % (Manual) Platelet Estimate Poikilocytosis (manual Anisocytosis (manual) Macrocytosis (manual) Target Cells PT INR APTT Sodium Potassium Chloride Carbon Dioxide Anion Gap BUN Creatinine Est GFR ( Amer) Est GFR (Non-Af Amer) POC Glucose (mg/dL) 196 H 187 H Random Glucose Calcium Phosphorus Magnesium Total Bilirubin AST ALT Alkaline Phosphatase Total Protein Albumin Globulin Albumin/Globulin Ratio Vancomycin Trough Blood Type Antibody Screen Crossmatch BBK History Checked Microbiology 10/09/17 21:50 Blood-Venous Blood Culture - Final NO GROWTH AFTER 5 DAYS 10/09/17 21:50 Blood-Venous Gram Stain - Final TEST NOT PERFORMED 10/09/17 21:47 Blood-Venous Blood Culture - Final NO GROWTH AFTER 5 DAYS 10/09/17 21:47 Blood-Venous Gram Stain - Final TEST NOT PERFORMED 10/10/17 20:30 Blood-Venous Blood Culture - Preliminary NO GROWTH AFTER 4 DAYS 10/10/17 21:00 Blood-Venous Blood Culture - Preliminary NO GROWTH AFTER 4 DAYS 10/10/17 15:50 Ankle - Left Gram Stain - Final 10/10/17 15:50 Ankle - Left Wound Culture - Final Beta Hemolytic Strep Group B 10/10/17 06:46 Nose MRSA Culture (Admit) - Final MRSA NOT DETECTED Assessment and Plan (1) Gangrene of left foot Status: Acute (2) Uncontrolled diabetes mellitus Status: Chronic - Assessment and Plan (Free Text) Assessment: A/P- 72 y/o homeless male with DM II admitet with gangrenous toes and found to have subcutaneous emphysema on the xray and is s/p left TMA and opening of the left lateral LE for drainage of the infection by podiatry today. s/p left BKA today leukocytosis trending down afebrile blood cx- neg x 4 wound cx- group B strep Metatarsal Bone bx- osteo as per path report plan- advise to continue both IV vancomycin and meropnem day #7 keep vanco trough <15. has completed 7 days of IV clindamycin . can d/c clindamycin today. wound management as per surgical team. follow wbc.
[2017-10-15] MEDS: Lactated Ringer's 1,000 ML IV SCH (22:00)
[2017-10-16] MEDS: Meropenem 1 GM in Sodium Chloride 0.9% 100 ML IVPB SCH ×3 (01:04→17:34)
[2017-10-16 06:41] LABS: BASO # 0.1 K/uL (0.0-0.2); BASO % 0.5 % (0.0-2.0); EOS # 0.1 K/uL (0.0-0.7); EOS % 0.8 % (0.0-4.0); HEMOGLOBIN 7.7 g/dL (12.0-18.0); LYMPH % 6.1 % (20.0-40.0); MEAN CELL VOLUME 89.7 fl (80.0-94.0); MEAN CORPUSCULAR HEMOGLOBIN 29.8 pg (27.0-31.0); MEAN CORPUSCULAR HGB CONC 33.2 g/dL (33.0-37.0); MEAN PLATELET VOLUME 8.8 fl (7.2-11.7); MONO # 1.2 K/uL (0.0-0.8); MONO % 7.7 % (0.0-10.0); NEUT # 13.5 K/uL (1.8-7.0); NEUT % 84.9 % (50.0-75.0); RBC 2.57 Mil/uL (4.40-5.90); RED CELL DISTRIBUTION WIDTH 15.5 % (11.5-14.5); WHITE BLOOD COUNT 15.8 K/uL (4.8-10.8)
[2017-10-16 06:48] LABS: GFR AFRICAN-AMERICAN > 60; GFR NON-AFRICAN AMERICAN > 60
--- NOTE | 2017-10-16 07:38 | CP.PCM.PN ---
Subjective - Date & Time of Evaluation Date of Evaluation: 10/16/17 Time of Evaluation: 07:35 - Subjective Subjective: SURGERY NOTE FOR DR. MOBLEY 72M seen and examined at bedside. No acute events overnight. Patient complains of slight fatigue, and some pain in the left leg at site of operation. Objective - Vital Signs/Intake and Output Vital Signs (last 24 hours): Temp Pulse Resp BP Pulse Ox 97.6 F 100 H 20 137/69 100 10/16/17 03:36 10/16/17 03:36 10/16/17 03:36 10/16/17 03:36 10/16/17 03:36 - Medications Medications: Current Medications Acetaminophen (Tylenol 325mg Tab) 650 mg PO Q6 PRN PRN Reason: Pain, Mild (1-3) Famotidine (Pepcid) 20 mg PO BID [facility] Last Admin: 10/15/17 16:23 Dose: 20 mg Vancomycin HCl 1 gm/ Sodium (Chloride) 250 mls @ 166.667 mls/hr IVPB Q12 STEVEN PRN Reason: Protocol Last Admin: 10/15/17 21:53 Dose: 166.667 mls/hr Meropenem 1 gm/ Sodium (Chloride) 100 mls @ 100 mls/hr IVPB Q8 STEVEN PRN Reason: Protocol Last Admin: 10/16/17 01:04 Dose: 100 mls/hr Lactated Ringer's (Lactated Ringer's) 1,000 mls @ 100 mls/hr IV .Q10H [facility] Last Admin: 10/15/17 22:00 Dose: Not Given Insulin Human Lispro (Humalog) 0 units SC ACHS STEVEN PRN Reason: Protocol Last Admin: 10/15/17 22:59 Dose: Not Given Morphine Sulfate (Morphine) 2 mg IVP Q4 PRN PRN Reason: Pain, severe (8-10) Last Admin: 10/16/17 05:21 Dose: 2 mg Saccharomyces Boulardii (Florastor) 250 mg PO BID [facility] Last Admin: 10/15/17 16:23 Dose: 250 mg - Labs Labs: 10/16/17 05:40 10/16/17 05:40 PT 15.9 Seconds (9.8-13.1) H 10/15/17 06:00 INR 1.4 (0.9-1.2) H 10/15/17 06:00 APTT 33.1 Seconds (25.6-37.1) 10/15/17 06:00 - Constitutional Appears: Well, Non-toxic, No Acute Distress - Respiratory Exam Respiratory Exam: Clear to Ausculation Bilateral, NORMAL BREATHING PATTERN - Cardiovascular Exam Cardiovascular Exam: REGULAR RHYTHM, +S1, +S2 - GI/Abdominal Exam GI & Abdominal Exam: Soft. absent: Distended, Firm, Guarding, Rigid, Tenderness , Rebound - Extremities Exam Additional comments: left leg dressing clean dry intact. left Knee immobilizer in place - Neurological Exam Neurological Exam: Alert, Awake Assessment and Plan - Assessment and Plan (Free Text) Assessment: 72M s/p left Below knee amputation Plan: s/p 2PRBC Monitor H&H, WBC, Vitals Dressing care PT/OT Further recs discuss with Dr. Irving Asencio, PGY2
--- NOTE | 2017-10-16 08:29 | CP.PCM.PN ---
<Steve Holly - Last Filed: 10/16/17 08:27> Subjective - Date & Time of Evaluation Date of Evaluation: 10/16/17 Time of Evaluation: 08:27 - Subjective Subjective: Patient seen and examined this morning at bedside w/ Dr. Griffin. There are no acute events overnight, NAD. Patient reports mild pain at surgical site. Patient s/p left below the knee amputation POD1. Patient denies headaches, chest pain, SOB, abdominal pain, nausea, vomiting, diarrhea, dysuria, or fever. Objective - Vital Signs/Intake and Output Vital Signs (last 24 hours): Temp Pulse Resp BP Pulse Ox 98.4 F 101 H 20 137/73 100 10/16/17 08:05 10/16/17 08:05 10/16/17 08:05 10/16/17 08:05 10/16/17 08:05 - Medications Medications: Current Medications Acetaminophen (Tylenol 325mg Tab) 650 mg PO Q6 PRN PRN Reason: Pain, Mild (1-3) Famotidine (Pepcid) 20 mg PO BID [facility] Last Admin: 10/15/17 16:23 Dose: 20 mg Vancomycin HCl 1 gm/ Sodium (Chloride) 250 mls @ 166.667 mls/hr IVPB Q12 STEVEN PRN Reason: Protocol Last Admin: 10/15/17 21:53 Dose: 166.667 mls/hr Meropenem 1 gm/ Sodium (Chloride) 100 mls @ 100 mls/hr IVPB Q8 STEVEN PRN Reason: Protocol Last Admin: 10/16/17 01:04 Dose: 100 mls/hr Lactated Ringer's (Lactated Ringer's) 1,000 mls @ 100 mls/hr IV .Q10H [facility] Last Admin: 10/15/17 22:00 Dose: Not Given Insulin Human Lispro (Humalog) 0 units SC ACHS STEVEN PRN Reason: Protocol Last Admin: 10/15/17 22:59 Dose: Not Given Morphine Sulfate (Morphine) 2 mg IVP Q4 PRN PRN Reason: Pain, severe (8-10) Last Admin: 10/16/17 05:21 Dose: 2 mg Saccharomyces Boulardii (Florastor) 250 mg PO BID [facility] Last Admin: 10/15/17 16:23 Dose: 250 mg - Labs Labs: 10/16/17 05:40 10/16/17 05:40 PT 15.9 Seconds (9.8-13.1) H 10/15/17 06:00 INR 1.4 (0.9-1.2) H 10/15/17 06:00 APTT 33.1 Seconds (25.6-37.1) 10/15/17 06:00 - Constitutional Appears: No Acute Distress - Head Exam Head Exam: ATRAUMATIC, NORMAL INSPECTION, NORMOCEPHALIC - Eye Exam Additional comments: left eye cataract - ENT Exam ENT Exam: Mucous Membranes Moist - Neck Exam Neck Exam: Full ROM. absent: Tenderness - Respiratory Exam Respiratory Exam: Clear to Ausculation Bilateral. absent: Accessory Muscle Use , Decreased Breath Sounds, Rales, Rhonchi, Wheezes, Respiratory Distress - Cardiovascular Exam Cardiovascular Exam: REGULAR RHYTHM. absent: Tachycardia - GI/Abdominal Exam GI & Abdominal Exam: Soft, Normal Bowel Sounds. absent: Distended, Tenderness - Extremities Exam Additional comments: left leg dressing c/d/i left knee immobilizer in place - Neurological Exam Neurological Exam: Alert, Awake, Oriented x3 - Skin Skin Exam: Dry, Normal Color Assessment and Plan (1) Amputation of left lower extremity below knee Status: Acute (3) HTN (hypertension) Status: Chronic (4) Uncontrolled diabetes mellitus Status: Chronic (5) Gangrene of left foot Status: Acute - Assessment and Plan (Free Text) Plan: c/w present management afebrile, non-tachycardic, normotensive s/p left BKA POD 1 podiatry recommendations appreciated surgery recommendations appreciated infectious disease recommendations appreciated CBC: 15.8>7.7/23.1<245 s/p 1 unit PRBC Vancomycin 1 gm Q12 day 7 meropenem 1 gm Q8h day 7 pain management: tylenol 650 mg Q6h prn, morphine 2 mg IV Q4h PT ordered f/u CBC monitor for acute changes <Vimal Griffin K - Last Filed: 10/25/17 18:44> Objective - Vital Signs/Intake and Output Vital Signs (last 24 hours): Temp Pulse Resp BP Pulse Ox 98.9 F 83 20 141/69 99 10/23/17 16:09 10/23/17 16:09 10/23/17 16:09 10/23/17 16:09 10/23/17 16:09 - Labs Labs: 10/22/17 12:00 10/21/17 10:30 PT 15.9 Seconds (9.8-13.1) H 10/15/17 06:00 INR 1.4 (0.9-1.2) H 10/15/17 06:00 APTT 33.1 Seconds (25.6-37.1) 10/15/17 06:00 Assessment and Plan - Assessment and Plan (Free Text) Assessment: Patient was personally seen and examined by me in rounds with residents. Available labs and diagnostic data reviewed. Case, Patient's condition and management plan discussed with residents in rounds. Agree with resident's progress note. Plan: As ordered.
[2017-10-16] MEDS: Saccharomyces Boulardi 250 mg Cap PO SCH ×2 (08:50→17:33)
[2017-10-16] MEDS: Insulin Lispro (humaLOG) 100 Units/ml Inj SC SCH ×4 (08:50→22:14)
--- NOTE | 2017-10-16 09:00 | PN ---
DATE: 10/15/2017 SUBJECTIVE: The patient is seen and examined. Interim events noted. Consults noted and appreciated. The patient for OR, remains on regular medical floor. PHYSICAL EXAMINATION: GENERAL: The patient is in no acute distress. VITAL SIGNS: Stable. HEART: S1 and S2, normal and regular. LUNGS: Good bilateral air exchange. ABDOMEN: Soft and nontender. EXTREMITIES: The patient with gangrenous extremity. The patient is for OR today. PLAN: As ordered. Vimal Griffin MD
--- NOTE | 2017-10-16 12:58 | CP.PCM.CON ---
History of Present Illness - History of Present Illness History of Present Illness: 72 yo man s/p BKA, POD #2. Patient was given Morphine 2mg IV approximately 7 hours prior to examination. He appears comfortable, resting but arousable. Per staff, patient has pain mainly when he's being moved. It's unclear if patient has phantom sensation or pain. Patient has severe diabetic neuropathy, and was not in severe pain after the previous TMA. Past Patient History - Past Medical History & Family History Past Medical History?: Yes - Past Social History Alcohol: None Drugs: Denies - CARDIAC Hx Hypertension: Yes - PULMONARY Hx Respiratory Disorders: No - HEENT Hx Blind: Yes (lt eye) - RENAL Hx Chronic Kidney Disease: No - ENDOCRINE/METABOLIC Hx Diabetes Mellitus Type 1: Yes - HEMATOLOGICAL/ONCOLOGICAL Hx Blood Disorders: No - INTEGUMENTARY Hx Dermatological Problems: No - MUSCULOSKELETAL/RHEUMATOLOGICAL Hx Arthritis: Yes - GASTROINTESTINAL Hx Gastrointestinal Disorders: Yes Hx Gastritis: Yes - GENITOURINARY/GYNECOLOGICAL Hx Genitourinary Disorders: No - PSYCHIATRIC Hx Substance Use: No - SURGICAL HISTORY Hx Surgeries: No - ANESTHESIA Hx Anesthesia: No Meds Allergies/Adverse Reactions: Allergies Allergy/AdvReac Type Severity Reaction Status Date / Time No Known Allergies Allergy Verified 10/09/17 17:36 - Medications Medications: Current Medications Acetaminophen (Tylenol 325mg Tab) 650 mg PO Q6 PRN PRN Reason: Pain, Mild (1-3) Famotidine (Pepcid) 20 mg PO BID [facility] Last Admin: 10/16/17 08:50 Dose: 20 mg Vancomycin HCl 1 gm/ Sodium (Chloride) 250 mls @ 166.667 mls/hr IVPB Q12 STEVEN PRN Reason: Protocol Last Admin: 10/16/17 10:58 Dose: Not Given Meropenem 1 gm/ Sodium (Chloride) 100 mls @ 100 mls/hr IVPB Q8 STEVEN PRN Reason: Protocol Last Admin: 10/16/17 08:51 Dose: 100 mls/hr Lactated Ringer's (Lactated Ringer's) 1,000 mls @ 100 mls/hr IV .Q10H [facility] Last Admin: 10/15/17 22:00 Dose: Not Given Insulin Detemir (Levemir) 5 units SC HS STEVEN Insulin Human Lispro (Humalog) 0 units SC ACHS STEVEN PRN Reason: Protocol Last Admin: 10/16/17 08:50 Dose: 3 u Morphine Sulfate (Morphine) 2 mg IVP Q4 PRN PRN Reason: Pain, severe (8-10) Last Admin: 10/16/17 05:21 Dose: 2 mg Saccharomyces Boulardii (Florastor) 250 mg PO BID [facility] Last Admin: 10/16/17 08:50 Dose: 250 mg Physical Exam - Extremities Exam Additional comments: S/P BAKA, stump in dressing. Results - Vital Signs Recent Vital Signs: Last Vital Signs Temp 98.4 F 10/16/17 10:00 Pulse 101 H 10/16/17 10:00 Resp 20 10/16/17 10:00 BP 137/73 10/16/17 10:00 Pulse Ox 100 10/16/17 10:00 - Labs Result Diagrams: 10/16/17 05:40 10/16/17 05:40 Labs: Laboratory Results - last 24 hr 10/15/17 10/15/17 10/15/17 08:39 13:59 15:57 WBC RBC Hgb Hct MCV MCH MCHC RDW Plt Count MPV Neut % (Auto) Lymph % (Auto) [place] % (Auto) Eos % (Auto) Baso % (Auto) Neut # (Auto) Lymph # (Auto) [place] # (Auto) Eos # (Auto) Baso # (Auto) Sodium Potassium Chloride Carbon Dioxide Anion Gap BUN Creatinine Est GFR ( Amer) Est GFR (Non-Af Amer) POC Glucose (mg/dL) 196 H 187 H Random Glucose Calcium Vancomycin Trough Blood Type O POSITIVE Antibody Screen Negative Crossmatch See Detail BBK History Checked Patient has bt 10/15/17 10/16/17 10/16/17 21:32 05:13 05:40 WBC RBC Hgb Hct MCV MCH MCHC RDW Plt Count MPV Neut % (Auto) Lymph % (Auto) [place] % (Auto) Eos % (Auto) Baso % (Auto) Neut # (Auto) Lymph # (Auto) [place] # (Auto) Eos # (Auto) Baso # (Auto) Sodium 139 Potassium 4.1 Chloride 105 Carbon Dioxide 24 Anion Gap 14 BUN 10 Creatinine 0.9 Est GFR ( Amer) > 60 Est GFR (Non-Af Amer) > 60 POC Glucose (mg/dL) 241 H 238 H Random Glucose 248 H Calcium 6.1 L Vancomycin Trough Blood Type Antibody Screen Crossmatch BBK History Checked 10/16/17 10/16/17 10/16/17 05:40 07:49 10:57 WBC 15.8 H RBC 2.57 L Hgb 7.7 L Hct 23.1 L MCV 89.7 MCH 29.8 MCHC 33.2 RDW 15.5 H Plt Count 245 MPV 8.8 Neut % (Auto) 84.9 H Lymph % (Auto) 6.1 L [place] % (Auto) 7.7 Eos % (Auto) 0.8 Baso % (Auto) 0.5 Neut # (Auto) 13.5 H Lymph # (Auto) 1.0 [place] # (Auto) 1.2 H Eos # (Auto) 0.1 Baso # (Auto) 0.1 Sodium Potassium Chloride Carbon Dioxide Anion Gap BUN Creatinine Est GFR ( Amer) Est GFR (Non-Af Amer) POC Glucose (mg/dL) 271 H Random Glucose Calcium Vancomycin Trough 19.0 H Blood Type Antibody Screen Crossmatch BBK History Checked Assessment & Plan (1) Amputation of left lower extremity below knee Assessment and Plan: 72 yo man, opioid naive, with severe diabetic neuropathy, is s/p BKA. - start Neurontin 100mg q8h, can titrate to 300mg q8h - d/c Morphine IV, start Percocet Status: Acute
[2017-10-16] MEDS: Lactated Ringer's 1,000 ML IV SCH (20:23)
[2017-10-16] MEDS: Insulin Detemir 100 Units/ml Inj SC SCH (22:16)
[2017-10-17 00:16] LABS: BLOOD UREA NITROGEN 11 mg/dl (9-20); CALCIUM 6.2 mg/dL (8.4-10.2)
[2017-10-17] MEDS: Meropenem 1 GM in Sodium Chloride 0.9% 100 ML IVPB SCH ×3 (00:50→17:56)
[2017-10-17] MEDS: Lactated Ringer's 1,000 ML IV SCH (03:15)
[2017-10-17 06:44] LABS: HEMOGLOBIN 7.7 g/dL (12.0-18.0); MEAN CELL VOLUME 89.8 fl (80.0-94.0); MEAN CORPUSCULAR HGB CONC 33.4 g/dL (33.0-37.0); RBC 2.57 Mil/uL (4.40-5.90); RED CELL DISTRIBUTION WIDTH 15.4 % (11.5-14.5); WHITE BLOOD COUNT 14.9 K/uL (4.8-10.8)
[2017-10-17 06:55] LABS: BLOOD UREA NITROGEN 10 mg/dl (9-20); CALCIUM 6.5 mg/dL (8.4-10.2); GFR AFRICAN-AMERICAN > 60; GFR NON-AFRICAN AMERICAN > 60
[2017-10-17] MEDS ORDERED: Potassium Chloride 20 mEq ER Tab PO ONE (07:05)
--- NOTE | 2017-10-17 08:25 | CP.PCM.PN ---
<Steve Holly - Last Filed: 10/17/17 08:23> Subjective - Date & Time of Evaluation Date of Evaluation: 10/17/17 Time of Evaluation: 08:15 - Subjective Subjective: Patient seen and examined this morning at bedside w/ Dr. Griffin. There are no acute events overnight, NAD. Patient reports moderate pain at surgical site. Patient s/p left below the knee amputation POD2. Patient seen by anesthesia for pain management. Patient denies headaches, chest pain, SOB, abdominal pain , nausea, vomiting, diarrhea, dysuria, or fever. Objective - Vital Signs/Intake and Output Vital Signs (last 24 hours): Temp Pulse Resp BP Pulse Ox 100.8 F H 98 H 19 117/64 97 10/17/17 00:00 10/17/17 00:00 10/17/17 00:00 10/17/17 00:00 10/17/17 00:00 - Medications Medications: Current Medications Acetaminophen (Tylenol 325mg Tab) 650 mg PO Q6 PRN PRN Reason: Pain, Mild (1-3) Last Admin: 10/16/17 13:00 Dose: 650 mg Famotidine (Pepcid) 20 mg PO BID [facility] Last Admin: 10/16/17 17:34 Dose: 20 mg Gabapentin (Neurontin) 100 mg PO TID [facility] Last Admin: 10/16/17 17:37 Dose: 100 mg Vancomycin HCl 1 gm/ Sodium (Chloride) 250 mls @ 166.667 mls/hr IVPB Q12 [facility] PRN Reason: Protocol Last Admin: 10/16/17 10:58 Dose: Not Given Meropenem 1 gm/ Sodium (Chloride) 100 mls @ 100 mls/hr IVPB Q8 [facility] PRN Reason: Protocol Last Admin: 10/17/17 00:50 Dose: 100 mls/hr Lactated Ringer's (Lactated Ringer's) 1,000 mls @ 100 mls/hr IV .Q10H [facility] Last Admin: 10/17/17 03:15 Dose: Not Given Insulin Detemir (Levemir) 5 units SC HS [facility] Last Admin: 10/16/17 22:16 Dose: 5 u Insulin Human Lispro (Humalog) 0 units SC ACHS [facility] PRN Reason: Protocol Last Admin: 10/16/17 22:14 Dose: Not Given Oxycodone/Acetaminophen (Percocet 5/325 Mg Tab) 1 tab PO Q4 PRN PRN Reason: Pain, severe (8-10) Stop: 10/19/17 13:01 Saccharomyces Darieldii (Florastor) 250 mg PO BID [facility] Last Admin: 10/16/17 17:33 Dose: 250 mg - Labs Labs: 10/17/17 05:55 10/17/17 05:55 PT 15.9 Seconds (9.8-13.1) H 10/15/17 06:00 INR 1.4 (0.9-1.2) H 10/15/17 06:00 APTT 33.1 Seconds (25.6-37.1) 10/15/17 06:00 - Constitutional Appears: Non-toxic, No Acute Distress - Head Exam Head Exam: ATRAUMATIC, NORMAL INSPECTION, NORMOCEPHALIC - Eye Exam Additional comments: left eye cataract - ENT Exam ENT Exam: Mucous Membranes Moist - Neck Exam Neck Exam: Full ROM. absent: Tenderness - Respiratory Exam Respiratory Exam: Clear to Ausculation Bilateral. absent: Accessory Muscle Use , Decreased Breath Sounds, Rales, Rhonchi, Wheezes, Respiratory Distress - Cardiovascular Exam Cardiovascular Exam: REGULAR RHYTHM. absent: Tachycardia - GI/Abdominal Exam GI & Abdominal Exam: Soft, Normal Bowel Sounds. absent: Distended, Tenderness - Extremities Exam Additional comments: left leg dressing c/d/i left knee immobilizer in place - Neurological Exam Neurological Exam: Alert, Awake, Oriented x3 - Skin Skin Exam: Dry, Normal Color, Warm Assessment and Plan (1) Amputation of left lower extremity below knee Status: Acute (2) Phantom limb pain Status: Acute (3) HTN (hypertension) Status: Chronic (4) Uncontrolled diabetes mellitus Status: Chronic (5) Gangrene of left foot Status: Resolved - Assessment and Plan (Free Text) Plan: c/w present management currently afebrile, non-tachycardic, normotensive temp 100.8 at midnight most likely post-operative/anesthesia fever s/p left BKA POD 2 podiatry recommendations appreciated surgery recommendations appreciated infectious disease recommendations appreciated pain management recommendations appreciated CBC: 14.9>7.7/23.1<261 s/p 1 unit PRBC Vancomycin 1 gm Q12 day 7 (held yesterday) meropenem 1 gm Q8h day 8 insulin levemir 5 units SC HS pain management: tylenol 650 mg Q6h prn, percocet 1 tab PO Q4h prn, neurontin 100 mg PO TID c/w PT monitor for acute changes <Vimal Griffin K - Last Filed: 10/24/17 14:05> Objective - Vital Signs/Intake and Output Vital Signs (last 24 hours): Temp Pulse Resp BP Pulse Ox 98.9 F 83 20 141/69 99 10/23/17 16:09 10/23/17 16:09 10/23/17 16:09 10/23/17 16:09 10/23/17 16:09 - Labs Labs: 10/22/17 12:00 10/21/17 10:30 PT 15.9 Seconds (9.8-13.1) H 10/15/17 06:00 INR 1.4 (0.9-1.2) H 10/15/17 06:00 APTT 33.1 Seconds (25.6-37.1) 10/15/17 06:00 Assessment and Plan - Assessment and Plan (Free Text) Assessment: Patient was personally seen and examined by me in rounds with residents. Available labs and diagnostic data reviewed. Case, Patient's condition and management plan discussed with residents in rounds. Agree with resident's progress note. Plan: As ordered.
[2017-10-17] MEDS: Saccharomyces Boulardi 250 mg Cap PO SCH ×2 (09:14→17:55)
[2017-10-17] MEDS: Insulin Lispro (humaLOG) 100 Units/ml Inj SC SCH ×4 (09:15→22:46)
--- NOTE | 2017-10-17 17:32 | CP.PCM.PN ---
Subjective - Date & Time of Evaluation Date of Evaluation: 10/17/17 Time of Evaluation: 10:15 - Subjective Subjective: General Surgery Progress Note- Dr. Campos 72 y.o male seen and evaluated POD #2 right BKA. Patient is seen resting comfortably in bed and in NAD. Patient seen with friend at bedside during visitation. Denies acute overnight events. Reports pain to the surgical site. Objective - Vital Signs/Intake and Output Vital Signs (last 24 hours): Temp Pulse Resp BP Pulse Ox 100.4 F H 93 H 20 137/67 99 10/17/17 16:33 10/17/17 16:33 10/17/17 16:33 10/17/17 16:33 10/17/17 16:33 - Medications Medications: Current Medications Acetaminophen (Tylenol 325mg Tab) 650 mg PO Q6 PRN PRN Reason: Pain, Mild (1-3) Last Admin: 10/17/17 14:13 Dose: 650 mg Famotidine (Pepcid) 20 mg PO BID [facility] Last Admin: 10/17/17 09:19 Dose: 20 mg Gabapentin (Neurontin) 100 mg PO TID [facility] Last Admin: 10/17/17 14:11 Dose: 100 mg Vancomycin HCl 1 gm/ Sodium (Chloride) 250 mls @ 166.667 mls/hr IVPB Q12 [facility] PRN Reason: Protocol Last Admin: 10/17/17 09:19 Dose: 166.667 mls/hr Meropenem 1 gm/ Sodium (Chloride) 100 mls @ 100 mls/hr IVPB Q8 [facility] PRN Reason: Protocol Last Admin: 10/17/17 09:16 Dose: 100 mls/hr Lactated Ringer's (Lactated Ringer's) 1,000 mls @ 100 mls/hr IV .Q10H [facility] Last Admin: 10/17/17 03:15 Dose: Not Given Insulin Detemir (Levemir) 5 units SC HS [facility] Last Admin: 10/16/17 22:16 Dose: 5 u Insulin Human Lispro (Humalog) 0 units SC ACHS [facility] PRN Reason: Protocol Last Admin: 10/17/17 12:00 Dose: Not Given Oxycodone/Acetaminophen (Percocet 5/325 Mg Tab) 1 tab PO Q4 PRN PRN Reason: Pain, severe (8-10) Stop: 10/19/17 13:01 Saccharomyces Bopatriciodii (Florastor) 250 mg PO BID [facility] Last Admin: 10/17/17 09:14 Dose: 250 mg - Labs Labs: 10/17/17 05:55 10/17/17 05:55 PT 15.9 Seconds (9.8-13.1) H 10/15/17 06:00 INR 1.4 (0.9-1.2) H 10/15/17 06:00 APTT 33.1 Seconds (25.6-37.1) 10/15/17 06:00 - Constitutional Appears: Well, Non-toxic, No Acute Distress - Respiratory Exam Respiratory Exam: Clear to Ausculation Bilateral, NORMAL BREATHING PATTERN - Cardiovascular Exam Cardiovascular Exam: REGULAR RHYTHM, +S1, +S2 - GI/Abdominal Exam GI & Abdominal Exam: Soft. absent: Distended, Firm, Rigid, Tenderness - Extremities Exam Additional comments: left leg dressing clean, dry, and intact without strikethrough pain with palpation to surrounding surgical site left knee immobilizer in place - Neurological Exam Neurological Exam: Alert, Awake - Psychiatric Exam Psychiatric exam: Normal Affect, Normal Mood Assessment and Plan - Assessment and Plan (Free Text) Assessment: 72M s/p POD#2 left Below knee amputation Plan: Monitor H&H, WBC, Vitals, CBC w/ differentials Dressing care PT/OT Further recs per Dr. Irving Garza DPM PGY-1
[2017-10-17 19:49] LABS: BASO # 0.1 K/uL (0.0-0.2); BASO % 0.6 % (0.0-2.0); EOS # 0.1 K/uL (0.0-0.7); EOS % 0.9 % (0.0-4.0); HEMOGLOBIN 7.5 g/dL (12.0-18.0); LYMPH # 1.6 K/uL (1.0-4.3); LYMPH % 10.5 % (20.0-40.0); MEAN CELL VOLUME 88.9 fl (80.0-94.0); MEAN CORPUSCULAR HEMOGLOBIN 30.2 pg (27.0-31.0); MEAN PLATELET VOLUME 8.2 fl (7.2-11.7); MONO # 1.3 K/uL (0.0-0.8); MONO % 8.6 % (0.0-10.0); NEUT # 11.7 K/uL (1.8-7.0); NEUT % 79.4 % (50.0-75.0); RBC 2.47 Mil/uL (4.40-5.90); RED CELL DISTRIBUTION WIDTH 15.3 % (11.5-14.5); WHITE BLOOD COUNT 14.8 K/uL (4.8-10.8)
[2017-10-17] MEDS: Insulin Detemir 100 Units/ml Inj SC SCH (23:11)
[2017-10-18] MEDS: Meropenem 1 GM in Sodium Chloride 0.9% 100 ML IVPB SCH ×3 (00:36→16:10)
[2017-10-18] MEDS: Oxycodone/Acetaminophen 5/325 mg Tab PO PRN ×2 (07:55→12:15)
--- NOTE | 2017-10-18 07:58 | CP.PCM.PN ---
<Steve Holly - Last Filed: 10/18/17 07:55> Subjective - Date & Time of Evaluation Date of Evaluation: 10/18/17 Time of Evaluation: 07:55 - Subjective Subjective: Patient seen and examined this morning at bedside w/ Dr. Griffin. There are no acute events overnight, NAD. Patient reports moderate pain at surgical site. Patient s/p left below the knee amputation POD3. Patient denies headaches, chest pain, SOB, abdominal pain, nausea, vomiting, diarrhea, dysuria, or fever. Objective - Vital Signs/Intake and Output Vital Signs (last 24 hours): Temp Pulse Resp BP Pulse Ox 98.8 F 91 H 19 138/71 100 10/18/17 00:33 10/18/17 00:33 10/18/17 00:33 10/18/17 00:33 10/18/17 00:33 - Medications Medications: Current Medications Acetaminophen (Tylenol 325mg Tab) 650 mg PO Q4 PRN PRN Reason: Fever >100.4 F Famotidine (Pepcid) 20 mg PO BID [facility] Last Admin: 10/17/17 17:56 Dose: 20 mg Gabapentin (Neurontin) 100 mg PO TID [facility] Last Admin: 10/17/17 17:56 Dose: 100 mg Vancomycin HCl 1 gm/ Sodium (Chloride) 250 mls @ 166.667 mls/hr IVPB Q12 [facility] PRN Reason: Protocol Last Admin: 10/17/17 21:03 Dose: 166.667 mls/hr Meropenem 1 gm/ Sodium (Chloride) 100 mls @ 100 mls/hr IVPB Q8 [facility] PRN Reason: Protocol Last Admin: 10/18/17 00:36 Dose: 100 mls/hr Lactated Ringer's (Lactated Ringer's) 1,000 mls @ 100 mls/hr IV .Q10H [facility] Last Admin: 10/17/17 03:15 Dose: Not Given Insulin Detemir (Levemir) 5 units SC HS [facility] Last Admin: 10/17/17 23:11 Dose: 5 u Insulin Human Lispro (Humalog) 0 units SC ACHS [facility] PRN Reason: Protocol Last Admin: 10/17/17 22:46 Dose: Not Given Oxycodone/Acetaminophen (Percocet 5/325 Mg Tab) 1 tab PO Q4 PRN PRN Reason: Pain, severe (8-10) Stop: 10/19/17 13:01 Saccharomyces Darieldii (Florastor) 250 mg PO BID [facility] Last Admin: 10/17/17 17:55 Dose: 250 mg - Labs Labs: 10/17/17 19:30 10/17/17 05:55 PT 15.9 Seconds (9.8-13.1) H 10/15/17 06:00 INR 1.4 (0.9-1.2) H 10/15/17 06:00 APTT 33.1 Seconds (25.6-37.1) 10/15/17 06:00 - Constitutional Appears: Non-toxic, No Acute Distress - Head Exam Head Exam: ATRAUMATIC, NORMAL INSPECTION, NORMOCEPHALIC - Eye Exam Additional comments: left eye cataract - ENT Exam ENT Exam: Mucous Membranes Moist - Neck Exam Neck Exam: Full ROM. absent: Tenderness - Respiratory Exam Respiratory Exam: Clear to Ausculation Bilateral. absent: Accessory Muscle Use , Decreased Breath Sounds, Rales, Rhonchi, Wheezes, Respiratory Distress - Cardiovascular Exam Cardiovascular Exam: REGULAR RHYTHM. absent: Tachycardia - GI/Abdominal Exam GI & Abdominal Exam: Soft, Normal Bowel Sounds. absent: Distended, Tenderness - Extremities Exam Additional comments: mild fluctuance at the stump, 2-3 pepe removed but no drainage, left leg dressing newly changed, c/d/i - Neurological Exam Neurological Exam: Alert, Awake, Oriented x3 - Skin Skin Exam: Dry, Normal Color, Warm Assessment and Plan (1) Amputation of left lower extremity below knee Status: Acute (2) Phantom limb pain Status: Acute (3) HTN (hypertension) Status: Chronic (4) Uncontrolled diabetes mellitus Status: Chronic (5) Gangrene of left foot Status: Resolved - Assessment and Plan (Free Text) Plan: c/w present management currently afebrile, non-tachycardic, normotensive s/p left BKA POD 3 podiatry recommendations appreciated surgery recommendations appreciated infectious disease recommendations appreciated pain management recommendations appreciated s/p 1 unit PRBC f/u CBC Vancomycin 1 gm Q12 day 8 meropenem 1 gm Q8h day 9 insulin levemir 5 units SC HS pain management: tylenol 650 mg Q6h prn, percocet 1 tab PO Q4h prn, neurontin 200 mg PO TID c/w PT monitor for acute changes <Vimal Griffin K - Last Filed: 10/23/17 12:24> Objective - Vital Signs/Intake and Output Vital Signs (last 24 hours): Temp Pulse Resp BP Pulse Ox 97.8 F 84 20 116/74 100 10/18/17 08:29 10/18/17 08:29 10/18/17 08:29 10/18/17 08:29 10/18/17 08:29 - Medications Medications: Current Medications Acetaminophen (Tylenol 325mg Tab) 650 mg PO Q4 PRN PRN Reason: Fever >100.4 F Famotidine (Pepcid) 20 mg PO BID [facility] Last Admin: 10/18/17 09:07 Dose: 20 mg Gabapentin (Neurontin) 200 mg PO TID [facility] Last Admin: 10/18/17 12:15 Dose: 200 mg Vancomycin HCl 1 gm/ Sodium (Chloride) 250 mls @ 166.667 mls/hr IVPB Q12 [facility] PRN Reason: Protocol Last Admin: 10/18/17 09:07 Dose: 166.667 mls/hr Meropenem 1 gm/ Sodium (Chloride) 100 mls @ 100 mls/hr IVPB Q8 [facility] PRN Reason: Protocol Last Admin: 10/18/17 11:47 Dose: 100 mls/hr Lactated Ringer's (Lactated Ringer's) 1,000 mls @ 100 mls/hr IV .Q10H [facility] Last Admin: 10/17/17 03:15 Dose: Not Given Insulin Detemir (Levemir) 5 units SC HS [facility] Last Admin: 10/17/17 23:11 Dose: 5 u Insulin Human Lispro (Humalog) 0 units SC ACHS [facility] PRN Reason: Protocol Last Admin: 10/18/17 11:47 Dose: 2 u Oxycodone/Acetaminophen (Percocet 5/325 Mg Tab) 1 tab PO Q4 PRN PRN Reason: Pain, severe (8-10) Stop: 10/19/17 13:01 Last Admin: 10/18/17 12:15 Dose: 1 tab Saccharomyces Boulardii (Florastor) 250 mg PO BID [facility] Last Admin: 10/18/17 09:07 Dose: 250 mg - Labs Labs: 10/18/17 10:10 10/18/17 10:10 PT 15.9 Seconds (9.8-13.1) H 10/15/17 06:00 INR 1.4 (0.9-1.2) H 10/15/17 06:00 APTT 33.1 Seconds (25.6-37.1) 10/15/17 06:00 Assessment and Plan - Assessment and Plan (Free Text) Assessment: Patient was personally seen and examined by me in rounds with residents. Available labs and diagnostic data reviewed. Case, Patient's condition and management plan discussed with residents in rounds. Agree with resident's progress note. Plan: As ordered. Plan: Pt was seen and examined in rounds with residents, all diagnostic data were reviewed. Case and management and plan was discussed with resident. Agree with residents note and plan.
--- NOTE | 2017-10-18 08:28 | CP.PCM.PN ---
Subjective - Date & Time of Evaluation Date of Evaluation: 10/18/17 Time of Evaluation: 07:30 - Subjective Subjective: General Surgery Note for Dr. Villatoro Patient seen and examined at bedside. Patient received a unit of PRBC overnight. He is still complaining of pain in LLE. Dressing was removed and changed today. Denies fever/chills. Patient is tolerating diet. No other complaints at this time. Objective - Vital Signs/Intake and Output Vital Signs (last 24 hours): Temp Pulse Resp BP Pulse Ox 98.8 F 91 H 19 138/71 100 10/18/17 00:33 10/18/17 00:33 10/18/17 00:33 10/18/17 00:33 10/18/17 00:33 - Medications Medications: Current Medications Acetaminophen (Tylenol 325mg Tab) 650 mg PO Q4 PRN PRN Reason: Fever >100.4 F Famotidine (Pepcid) 20 mg PO BID [facility] Last Admin: 10/17/17 17:56 Dose: 20 mg Gabapentin (Neurontin) 200 mg PO TID [facility] Vancomycin HCl 1 gm/ Sodium (Chloride) 250 mls @ 166.667 mls/hr IVPB Q12 [facility] PRN Reason: Protocol Last Admin: 10/17/17 21:03 Dose: 166.667 mls/hr Meropenem 1 gm/ Sodium (Chloride) 100 mls @ 100 mls/hr IVPB Q8 [facility] PRN Reason: Protocol Last Admin: 10/18/17 00:36 Dose: 100 mls/hr Lactated Ringer's (Lactated Ringer's) 1,000 mls @ 100 mls/hr IV .Q10H [facility] Last Admin: 10/17/17 03:15 Dose: Not Given Insulin Detemir (Levemir) 5 units SC HS [facility] Last Admin: 10/17/17 23:11 Dose: 5 u Insulin Human Lispro (Humalog) 0 units SC ACHS [facility] PRN Reason: Protocol Last Admin: 10/17/17 22:46 Dose: Not Given Oxycodone/Acetaminophen (Percocet 5/325 Mg Tab) 1 tab PO Q4 PRN PRN Reason: Pain, severe (8-10) Stop: 10/19/17 13:01 Last Admin: 10/18/17 07:55 Dose: 1 tab Saccharomyces Boulardii (Florastor) 250 mg PO BID [facility] Last Admin: 10/17/17 17:55 Dose: 250 mg - Labs Labs: 10/17/17 19:30 10/17/17 05:55 PT 15.9 Seconds (9.8-13.1) H 10/15/17 06:00 INR 1.4 (0.9-1.2) H 10/15/17 06:00 APTT 33.1 Seconds (25.6-37.1) 10/15/17 06:00 - Constitutional Appears: No Acute Distress - Head Exam Head Exam: ATRAUMATIC, NORMOCEPHALIC - ENT Exam ENT Exam: Mucous Membranes Moist - Respiratory Exam Respiratory Exam: NORMAL BREATHING PATTERN - Cardiovascular Exam Cardiovascular Exam: REGULAR RHYTHM - GI/Abdominal Exam GI & Abdominal Exam: Soft, Normal Bowel Sounds. absent: Distended, Guarding, Tenderness - Extremities Exam Additional comments: LLE: dressing was changed, incision looks clean and dry without drainage, TTP - Neurological Exam Neurological Exam: Alert, Awake - Psychiatric Exam Psychiatric exam: Normal Affect, Normal Mood - Skin Skin Exam: Dry, Intact, Normal Color, Warm Assessment and Plan - Assessment and Plan (Free Text) Assessment: 72 M s/p L BKA for nec fasciitis and nonhealing LLE wound POD #3 Plan: -Continue diet -Pain Control -f/u Hgb -Continue IV antibiotics -Will discuss with Dr. Irving Hawk PGY1
[2017-10-18] MEDS: Insulin Lispro (humaLOG) 100 Units/ml Inj SC SCH ×3 (09:05→22:17)
[2017-10-18] MEDS: Saccharomyces Boulardi 250 mg Cap PO SCH ×2 (09:07→16:10)
[2017-10-18 10:23] LABS: HEMOGLOBIN 9.1 g/dL (12.0-18.0); MEAN CELL VOLUME 88.5 fl (80.0-94.0); MEAN CORPUSCULAR HEMOGLOBIN 30.3 pg (27.0-31.0); MEAN CORPUSCULAR HGB CONC 34.3 g/dL (33.0-37.0); RBC 3.01 Mil/uL (4.40-5.90); WHITE BLOOD COUNT 15.5 K/uL (4.8-10.8)
[2017-10-18 10:50] LABS: ALB/GLOB RATIO 0.5 (1.0-2.1); ALT/SGPT 30 U/L (21-72); AST/SGOT 43 U/L (17-59); BLOOD UREA NITROGEN 11 mg/dl (9-20); CALCIUM 6.8 mg/dL (8.4-10.2); GFR AFRICAN-AMERICAN > 60; GFR NON-AFRICAN AMERICAN > 60
--- NOTE | 2017-10-18 13:40 | CP.PCM.PN ---
Subjective - Date & Time of Evaluation Date of Evaluation: 10/18/17 Time of Evaluation: 13:40 - Subjective Subjective: ID note- Pt. seen and examined today. pt. c/o pain at the amputation site. He has been having low grade fevers starting yesterday afternoon. Objective - Vital Signs/Intake and Output Vital Signs (last 24 hours): Temp Pulse Resp BP Pulse Ox 97.8 F 84 20 116/74 100 10/18/17 08:29 10/18/17 08:29 10/18/17 08:29 10/18/17 08:29 10/18/17 08:29 - Medications Medications: Current Medications Acetaminophen (Tylenol 325mg Tab) 650 mg PO Q4 PRN PRN Reason: Fever >100.4 F Famotidine (Pepcid) 20 mg PO BID [facility] Last Admin: 10/18/17 09:07 Dose: 20 mg Gabapentin (Neurontin) 200 mg PO TID [facility] Last Admin: 10/18/17 12:15 Dose: 200 mg Vancomycin HCl 1 gm/ Sodium (Chloride) 250 mls @ 166.667 mls/hr IVPB Q12 [facility] PRN Reason: Protocol Last Admin: 10/18/17 09:07 Dose: 166.667 mls/hr Meropenem 1 gm/ Sodium (Chloride) 100 mls @ 100 mls/hr IVPB Q8 [facility] PRN Reason: Protocol Last Admin: 10/18/17 11:47 Dose: 100 mls/hr Lactated Ringer's (Lactated Ringer's) 1,000 mls @ 100 mls/hr IV .Q10H [facility] Last Admin: 10/17/17 03:15 Dose: Not Given Insulin Detemir (Levemir) 5 units SC HS [facility] Last Admin: 10/17/17 23:11 Dose: 5 u Insulin Human Lispro (Humalog) 0 units SC ACHS [facility] PRN Reason: Protocol Last Admin: 10/18/17 11:47 Dose: 2 u Oxycodone/Acetaminophen (Percocet 5/325 Mg Tab) 1 tab PO Q4 PRN PRN Reason: Pain, severe (8-10) Stop: 10/19/17 13:01 Last Admin: 10/18/17 12:15 Dose: 1 tab Saccharomyces Boulardii (Florastor) 250 mg PO BID [facility] Last Admin: 10/18/17 09:07 Dose: 250 mg - Labs Labs: - Constitutional Appears: No Acute Distress - Head Exam Head Exam: ATRAUMATIC - Neck Exam Neck Exam: Full ROM - Respiratory Exam Respiratory Exam: Clear to Ausculation Bilateral, NORMAL BREATHING PATTERN - Cardiovascular Exam Cardiovascular Exam: RRR, +S1, +S2 - GI/Abdominal Exam GI & Abdominal Exam: Soft, Normal Bowel Sounds Additional comments: NT, Nd - Extremities Exam Additional comments: Left BKA stump site with sutures in place, has edema and some fluctuation at the site, no discharge, no erythema slightly warm to touch + tender to touch at BKA site - Neurological Exam Neurological Exam: Alert, Awake, Oriented x3 - Additional Findings Additional findings: Laboratory Results - last 72 hr 10/15/17 10/15/17 10/15/17 08:39 15:57 21:32 WBC RBC Hgb Hct MCV MCH MCHC RDW Plt Count MPV Neut % (Auto) Lymph % (Auto) [place] % (Auto) Eos % (Auto) Baso % (Auto) Neut # (Auto) Lymph # (Auto) [place] # (Auto) Eos # (Auto) Baso # (Auto) Sodium Potassium Chloride Carbon Dioxide Anion Gap BUN Creatinine Est GFR ( Amer) Est GFR (Non-Af Amer) POC Glucose (mg/dL) 187 H 241 H Random Glucose Hemoglobin A1c Calcium Phosphorus Magnesium Total Bilirubin AST ALT Alkaline Phosphatase Total Protein Albumin Globulin Albumin/Globulin Ratio Vancomycin Trough Blood Type O POSITIVE Antibody Screen Negative Crossmatch See Detail BBK History Checked Patient has bt 10/16/17 10/16/17 10/16/17 05:13 05:40 05:40 WBC 15.8 H RBC 2.57 L Hgb 7.7 L Hct 23.1 L MCV 89.7 MCH 29.8 MCHC 33.2 RDW 15.5 H Plt Count 245 MPV 8.8 Neut % (Auto) 84.9 H Lymph % (Auto) 6.1 L [place] % (Auto) 7.7 Eos % (Auto) 0.8 Baso % (Auto) 0.5 Neut # (Auto) 13.5 H Lymph # (Auto) 1.0 [place] # (Auto) 1.2 H Eos # (Auto) 0.1 Baso # (Auto) 0.1 Sodium 140 Potassium 4.2 Chloride 106 Carbon Dioxide 24 Anion Gap 14 BUN 11 Creatinine 0.9 Est GFR ( Amer) > 60 Est GFR (Non-Af Amer) > 60 POC Glucose (mg/dL) 238 H Random Glucose 219 H Hemoglobin A1c Calcium 6.2 L Phosphorus 2.8 Magnesium 1.4 L Total Bilirubin AST ALT Alkaline Phosphatase Total Protein Albumin Globulin Albumin/Globulin Ratio Vancomycin Trough Blood Type Antibody Screen Crossmatch BBK History Checked 10/16/17 10/16/17 10/16/17 07:49 10:42 10:57 WBC RBC Hgb Hct MCV MCH MCHC RDW Plt Count MPV Neut % (Auto) Lymph % (Auto) [place] % (Auto) Eos % (Auto) Baso % (Auto) Neut # (Auto) Lymph # (Auto) [place] # (Auto) Eos # (Auto) Baso # (Auto) Sodium Potassium Chloride Carbon Dioxide Anion Gap BUN Creatinine Est GFR ( Amer) Est GFR (Non-Af Amer) POC Glucose (mg/dL) 271 H Random Glucose Hemoglobin A1c 7.8 H Calcium Phosphorus Magnesium Total Bilirubin AST ALT Alkaline Phosphatase Total Protein Albumin Globulin Albumin/Globulin Ratio Vancomycin Trough 19.0 H Blood Type Antibody Screen Crossmatch BBK History Checked 10/16/17 10/16/17 10/17/17 15:37 21:40 05:30 WBC RBC Hgb Hct MCV MCH MCHC RDW Plt Count MPV Neut % (Auto) Lymph % (Auto) [place] % (Auto) Eos % (Auto) Baso % (Auto) Neut # (Auto) Lymph # (Auto) [place] # (Auto) Eos # (Auto) Baso # (Auto) Sodium Potassium Chloride Carbon Dioxide Anion Gap BUN Creatinine Est GFR ( Amer) Est GFR (Non-Af Amer) POC Glucose (mg/dL) 193 H 164 H 164 H Random Glucose Hemoglobin A1c Calcium Phosphorus Magnesium Total Bilirubin AST ALT Alkaline Phosphatase Total Protein Albumin Globulin Albumin/Globulin Ratio Vancomycin Trough Blood Type Antibody Screen Crossmatch BBK History Checked 10/17/17 10/17/17 10/17/17 05:55 05:55 05:55 WBC 14.9 H RBC 2.57 L Hgb 7.7 L Hct 23.1 L MCV 89.8 MCH 30.0 MCHC 33.4 RDW 15.4 H Plt Count 261 MPV Neut % (Auto) Lymph % (Auto) [place] % (Auto) Eos % (Auto) Baso % (Auto) Neut # (Auto) Lymph # (Auto) [place] # (Auto) Eos # (Auto) Baso # (Auto) Sodium 142 Potassium 3.5 L Chloride 108 H Carbon Dioxide 26 Anion Gap 12 BUN 10 Creatinine 0.9 Est GFR ( Amer) > 60 Est GFR (Non-Af Amer) > 60 POC Glucose (mg/dL) Random Glucose 157 H Hemoglobin A1c Calcium 6.5 L Phosphorus 2.0 L Magnesium 1.6 Total Bilirubin AST ALT Alkaline Phosphatase Total Protein Albumin Globulin Albumin/Globulin Ratio Vancomycin Trough 10.0 Blood Type Antibody Screen Crossmatch BBK History Checked 10/17/17 10/17/17 10/17/17 10:53 15:36 19:30 WBC 14.8 H RBC 2.47 L Hgb 7.5 L Hct 21.9 L MCV 88.9 MCH 30.2 MCHC 34.0 RDW 15.3 H Plt Count 277 MPV 8.2 Neut % (Auto) 79.4 H Lymph % (Auto) 10.5 L [place] % (Auto) 8.6 Eos % (Auto) 0.9 Baso % (Auto) 0.6 Neut # (Auto) 11.7 H Lymph # (Auto) 1.6 [place] # (Auto) 1.3 H Eos # (Auto) 0.1 Baso # (Auto) 0.1 Sodium Potassium Chloride Carbon Dioxide Anion Gap BUN Creatinine Est GFR ( Amer) Est GFR (Non-Af Amer) POC Glucose (mg/dL) 142 H 159 H Random Glucose Hemoglobin A1c Calcium Phosphorus Magnesium Total Bilirubin AST ALT Alkaline Phosphatase Total Protein Albumin Globulin Albumin/Globulin Ratio Vancomycin Trough Blood Type Antibody Screen Crossmatch BBK History Checked 10/17/17 10/18/17 10/18/17 22:27 05:18 10:10 WBC 15.5 H RBC 3.01 L Hgb 9.1 L Hct 26.6 L MCV 88.5 MCH 30.3 MCHC 34.3 RDW 15.0 H Plt Count 318 MPV Neut % (Auto) Lymph % (Auto) [place] % (Auto) Eos % (Auto) Baso % (Auto) Neut # (Auto) Lymph # (Auto) [place] # (Auto) Eos # (Auto) Baso # (Auto) Sodium Potassium Chloride Carbon Dioxide Anion Gap BUN Creatinine Est GFR ( Amer) Est GFR (Non-Af Amer) POC Glucose (mg/dL) 138 H 134 H Random Glucose Hemoglobin A1c Calcium Phosphorus Magnesium Total Bilirubin AST ALT Alkaline Phosphatase Total Protein Albumin Globulin Albumin/Globulin Ratio Vancomycin Trough Blood Type Antibody Screen Crossmatch BBK History Checked 10/18/17 10/18/17 10:10 11:14 WBC RBC Hgb Hct MCV MCH MCHC RDW Plt Count MPV Neut % (Auto) Lymph % (Auto) [place] % (Auto) Eos % (Auto) Baso % (Auto) Neut # (Auto) Lymph # (Auto) [place] # (Auto) Eos # (Auto) Baso # (Auto) Sodium 140 Potassium 3.6 Chloride 104 Carbon Dioxide 25 Anion Gap 15 BUN 11 Creatinine 0.9 Est GFR ( Amer) > 60 Est GFR (Non-Af Amer) > 60 POC Glucose (mg/dL) 162 H Random Glucose 140 H Hemoglobin A1c Calcium 6.8 L Phosphorus Magnesium Total Bilirubin 0.4 AST 43 ALT 30 Alkaline Phosphatase 121 Total Protein 6.3 Albumin 2.0 L Globulin 4.3 H Albumin/Globulin Ratio 0.5 L Vancomycin Trough Blood Type Antibody Screen Crossmatch BBK History Checked Microbiology 10/10/17 20:30 Blood-Venous Blood Culture - Final NO GROWTH AFTER 5 DAYS 10/10/17 20:30 Blood-Venous Gram Stain - Final TEST NOT PERFORMED 10/10/17 21:00 Blood-Venous Blood Culture - Final NO GROWTH AFTER 5 DAYS 10/10/17 21:00 Blood-Venous Gram Stain - Final TEST NOT PERFORMED 10/09/17 21:50 Blood-Venous Blood Culture - Final NO GROWTH AFTER 5 DAYS 10/09/17 21:50 Blood-Venous Gram Stain - Final TEST NOT PERFORMED 10/09/17 21:47 Blood-Venous Blood Culture - Final NO GROWTH AFTER 5 DAYS 10/09/17 21:47 Blood-Venous Gram Stain - Final TEST NOT PERFORMED 10/10/17 15:50 Ankle - Left Gram Stain - Final 10/10/17 15:50 Ankle - Left Wound Culture - Final Beta Hemolytic Strep Group B 10/10/17 06:46 Nose MRSA Culture (Admit) - Final MRSA NOT DETECTED Assessment and Plan (1) Gangrene of left foot Status: Resolved (2) Uncontrolled diabetes mellitus Status: Chronic - Assessment and Plan (Free Text) Assessment: A/P- 72 y/o homeless male with DM II admitet with gangrenous toes and found to have subcutaneous emphysema on the xray and is s/p left TMA and opening of the left lateral LE for drainage of the infection by podiatry today. s/p left BKA Pod #4 leukocytosis trending down but still remains new onset fever blood cx- neg x 4 wound cx from left ankle done on admission - group B strep Metatarsal Bone bx- osteo as per path report plan- advise to continue both IV vancomycin and meropnem day #11 keep vanco trough <15. advise to check blood cx x 2 , UA and urine cx and CXR for fever work up. also advise to get xray of the BKA site r/o any fluid collection. monitor wbc and temps.
--- NOTE | 2017-10-18 17:39 | RAD ---
PROCEDURE: CHEST RADIOGRAPH, 1 VIEW HISTORY: fever COMPARISON: 10/09/2017. FINDINGS: LUNGS: Multifocal infiltrates lower lobe distribution left greater than right. These are new findings compared to the prior study. PLEURA: No pneumothorax or pleural fluid seen. CARDIOVASCULAR: Normal size heart. There may be a component of pulmonary vascular congestion. OSSEOUS STRUCTURES: No significant abnormalities. VISUALIZED UPPER ABDOMEN: Normal. OTHER FINDINGS: None. IMPRESSION: Bilateral lower lobe infiltrates new findings compared to the prior study.
[2017-10-18 21:58] LABS: GRANULAR CAST 17 /lpf (0-1); SQUAMOUS EPITHIAL 2 /hpf (0-5); URINE AMORPHOUS SEDIMENT RARE /ul (<OCC); URINE BACTERIA RARE (<OCC); URINE BILIRUBIN NEGATIVE (NEGATIVE); URINE BLOOD SMALL (NEGATIVE); URINE CLARITY CLOUDY (Clear); URINE COLOR YELLOW (YELLOW); URINE GLUCOSE (UA) 50 mg/dL (Normal); URINE LEUKOCYTE ESTERASE TRACE Leu/uL (Negative); URINE PROTEIN 30 mg/dL (NEGATIVE); URINE UROBILINOGEN 0.2-1.0 mg/dL (0.2-1.0)
[2017-10-18] MEDS: Insulin Detemir 100 Units/ml Inj SC SCH (22:17)
[2017-10-19] MEDS: Meropenem 1 GM in Sodium Chloride 0.9% 100 ML IVPB SCH ×3 (00:09→17:34)
[2017-10-19] MEDS: Oxycodone/Acetaminophen 5/325 mg Tab PO PRN ×2 (05:48→14:27)
[2017-10-19 06:12] LABS: BASO # 0.1 K/uL (0.0-0.2); BASO % 0.5 % (0.0-2.0); EOS # 0.3 K/uL (0.0-0.7); EOS % 2.2 % (0.0-4.0); HEMOGLOBIN 8.6 g/dL (12.0-18.0); LYMPH # 1.6 K/uL (1.0-4.3); LYMPH % 13.1 % (20.0-40.0); MEAN CELL VOLUME 89.1 fl (80.0-94.0); MEAN CORPUSCULAR HEMOGLOBIN 30.3 pg (27.0-31.0); MEAN PLATELET VOLUME 8.2 fl (7.2-11.7); MONO % 8.3 % (0.0-10.0); NEUT # 9.4 K/uL (1.8-7.0); NEUT % 75.9 % (50.0-75.0); RBC 2.82 Mil/uL (4.40-5.90); WHITE BLOOD COUNT 12.3 K/uL (4.8-10.8)
--- NOTE | 2017-10-19 08:35 | CP.PCM.PN ---
<Steve Holly - Last Filed: 10/19/17 08:33> Subjective - Date & Time of Evaluation Date of Evaluation: 10/19/17 Time of Evaluation: 08:20 - Subjective Subjective: Patient seen and examined this morning at bedside w/ Dr. Griffin. There are no acute events overnight, NAD. Patient is sitting up and eating breakfast. Patient reports pain at surgical site relieved w/ medication. Patient s/p left below the knee amputation POD4. Patient denies headaches, chest pain, SOB, abdominal pain, nausea, vomiting, diarrhea, dysuria, or fever. Objective - Vital Signs/Intake and Output Vital Signs (last 24 hours): Temp Pulse Resp BP Pulse Ox 97.8 F 81 20 127/69 98 10/19/17 01:00 10/19/17 01:00 10/19/17 01:00 10/19/17 01:00 10/19/17 01:00 - Medications Medications: Current Medications Acetaminophen (Tylenol 325mg Tab) 650 mg PO Q4 PRN PRN Reason: Fever >100.4 F Famotidine (Pepcid) 20 mg PO BID [facility] Last Admin: 10/18/17 16:12 Dose: 20 mg Gabapentin (Neurontin) 200 mg PO TID [facility] Last Admin: 10/18/17 16:11 Dose: 200 mg Vancomycin HCl 1 gm/ Sodium (Chloride) 250 mls @ 166.667 mls/hr IVPB Q12 [facility] PRN Reason: Protocol Last Admin: 10/18/17 21:41 Dose: 166.667 mls/hr Meropenem 1 gm/ Sodium (Chloride) 100 mls @ 100 mls/hr IVPB Q8 [facility] PRN Reason: Protocol Last Admin: 10/19/17 00:09 Dose: 100 mls/hr Lactated Ringer's (Lactated Ringer's) 1,000 mls @ 100 mls/hr IV .Q10H [facility] Last Admin: 10/17/17 03:15 Dose: Not Given Insulin Detemir (Levemir) 5 units SC HS [facility] Last Admin: 10/18/17 22:17 Dose: 5 u Insulin Human Lispro (Humalog) 0 units SC ACHS [facility] PRN Reason: Protocol Last Admin: 10/18/17 22:17 Dose: Not Given Oxycodone/Acetaminophen (Percocet 5/325 Mg Tab) 1 tab PO Q4 PRN PRN Reason: Pain, severe (8-10) Stop: 10/19/17 13:01 Last Admin: 10/19/17 05:48 Dose: 1 tab Saccharomyces Boulardii (Florastor) 250 mg PO BID [facility] Last Admin: 10/18/17 16:10 Dose: 250 mg - Labs Labs: 10/19/17 05:57 10/18/17 10:10 PT 15.9 Seconds (9.8-13.1) H 10/15/17 06:00 INR 1.4 (0.9-1.2) H 10/15/17 06:00 APTT 33.1 Seconds (25.6-37.1) 10/15/17 06:00 - Constitutional Appears: Non-toxic, No Acute Distress - Head Exam Head Exam: ATRAUMATIC, NORMAL INSPECTION, NORMOCEPHALIC - Eye Exam Additional comments: left eye cataract - ENT Exam ENT Exam: Mucous Membranes Moist - Neck Exam Neck Exam: Full ROM. absent: Tenderness - Respiratory Exam Respiratory Exam: Rhonchi (left base). absent: Decreased Breath Sounds, Rales, Wheezes - Cardiovascular Exam Cardiovascular Exam: REGULAR RHYTHM. absent: Tachycardia - GI/Abdominal Exam GI & Abdominal Exam: Soft, Normal Bowel Sounds. absent: Distended, Tenderness - Extremities Exam Additional comments: left leg wrapped in mauir wrap, c/d/i - Neurological Exam Neurological Exam: Alert, Awake, Oriented x3 - Skin Skin Exam: Dry, Normal Color, Warm Assessment and Plan (1) Amputation of left lower extremity below knee Status: Acute (2) Phantom limb pain Status: Acute (3) HTN (hypertension) Status: Chronic (4) Uncontrolled diabetes mellitus Status: Chronic (5) Gangrene of left foot Status: Resolved - Assessment and Plan (Free Text) Plan: c/w present management currently afebrile, non-tachycardic, normotensive s/p left BKA POD 4 podiatry recommendations appreciated surgery recommendations appreciated infectious disease recommendations appreciated pain management recommendations appreciated CBC: 12.3>8.6/25.2<316 s/p 1 unit PRBC CXR: bilateral lower lobe infiltrates, left greater than right Vancomycin 1 gm Q12 day 9 meropenem 1 gm Q8h day 10 insulin levemir 5 units SC HS pain management: tylenol 650 mg Q6h prn, percocet 1 tab PO Q4h prn, neurontin 200 mg PO TID c/w PT monitor for acute changes <Vimal Griffin K - Last Filed: 10/23/17 12:25> Objective - Vital Signs/Intake and Output Vital Signs (last 24 hours): Temp Pulse Resp BP Pulse Ox 98.4 F 79 18 147/74 97 10/23/17 08:22 10/23/17 08:22 10/23/17 08:22 10/23/17 08:22 10/23/17 08:22 - Medications Medications: Current Medications Acetaminophen (Tylenol 325mg Tab) 650 mg PO Q4 PRN PRN Reason: Fever >100.4 F Enoxaparin Sodium (Lovenox) 40 mg SC DAILY [facility] PRN Reason: Protocol Last Admin: 10/22/17 09:47 Dose: 40 mg Epoetin Zeke (Procrit) 10,000 unit SC DAILY [facility] Last Admin: 10/23/17 09:30 Dose: 10,000 unit Famotidine (Pepcid) 20 mg PO BID [facility] Last Admin: 10/23/17 09:30 Dose: 20 mg Gabapentin (Neurontin) 200 mg PO TID [facility] Last Admin: 10/23/17 09:29 Dose: 200 mg Meropenem 1 gm/ Sodium (Chloride) 100 mls @ 100 mls/hr IVPB Q8 [facility] PRN Reason: Protocol Last Admin: 10/23/17 09:29 Dose: 100 mls/hr Vancomycin HCl 1 gm/ Sodium (Chloride) 250 mls @ 166.667 mls/hr IVPB Q12 [facility] PRN Reason: Protocol Last Admin: 10/23/17 10:57 Dose: 166.667 mls/hr Insulin Detemir (Levemir) 5 units SC [facility] Last Admin: 10/22/17 22:07 Dose: 5 u Insulin Human Lispro (Humalog) 0 units SC ACHS [facility] PRN Reason: Protocol Last Admin: 10/23/17 09:27 Dose: Not Given Saccharomyces Boulardii (Florastor) 250 mg PO BID [facility] Last Admin: 10/23/17 09:29 Dose: 250 mg - Labs Labs: 10/22/17 12:00 10/21/17 10:30 PT 15.9 Seconds (9.8-13.1) H 10/15/17 06:00 INR 1.4 (0.9-1.2) H 10/15/17 06:00 APTT 33.1 Seconds (25.6-37.1) 10/15/17 06:00 Assessment and Plan - Assessment and Plan (Free Text) Assessment: Patient was personally seen and examined by me in rounds with residents. Available labs and diagnostic data reviewed. Case, Patient's condition and management plan discussed with residents in rounds. Agree with resident's progress note. Plan: As ordered.
--- NOTE | 2017-10-19 08:58 | CP.PCM.PN ---
Subjective - Date & Time of Evaluation Date of Evaluation: 10/19/17 Time of Evaluation: 08:53 - Subjective Subjective: SURGERY NOTE FOR DR. MOBLEY 72M seen and examined at bedside. Patient continues to have pain at the site of operation. Patient has been working with physical therapy. Denies fevers, chills. Objective - Vital Signs/Intake and Output Vital Signs (last 24 hours): Temp Pulse Resp BP Pulse Ox 97.9 F 93 H 18 144/77 96 10/19/17 08:37 10/19/17 08:37 10/19/17 08:37 10/19/17 08:37 10/19/17 08:37 - Medications Medications: Current Medications Acetaminophen (Tylenol 325mg Tab) 650 mg PO Q4 PRN PRN Reason: Fever >100.4 F Famotidine (Pepcid) 20 mg PO BID [facility] Last Admin: 10/18/17 16:12 Dose: 20 mg Gabapentin (Neurontin) 200 mg PO TID [facility] Last Admin: 10/18/17 16:11 Dose: 200 mg Vancomycin HCl 1 gm/ Sodium (Chloride) 250 mls @ 166.667 mls/hr IVPB Q12 [facility] PRN Reason: Protocol Last Admin: 10/18/17 21:41 Dose: 166.667 mls/hr Meropenem 1 gm/ Sodium (Chloride) 100 mls @ 100 mls/hr IVPB Q8 [facility] PRN Reason: Protocol Last Admin: 10/19/17 00:09 Dose: 100 mls/hr Lactated Ringer's (Lactated Ringer's) 1,000 mls @ 100 mls/hr IV .Q10H [facility] Last Admin: 10/17/17 03:15 Dose: Not Given Insulin Detemir (Levemir) 5 units SC HS [facility] Last Admin: 10/18/17 22:17 Dose: 5 u Insulin Human Lispro (Humalog) 0 units SC ACHS [facility] PRN Reason: Protocol Last Admin: 10/18/17 22:17 Dose: Not Given Oxycodone/Acetaminophen (Percocet 5/325 Mg Tab) 1 tab PO Q4 PRN PRN Reason: Pain, severe (8-10) Stop: 10/19/17 13:01 Last Admin: 10/19/17 05:48 Dose: 1 tab Saccharomyces Boulardii (Florastor) 250 mg PO BID [facility] Last Admin: 10/18/17 16:10 Dose: 250 mg - Labs Labs: 10/19/17 05:57 10/18/17 10:10 PT 15.9 Seconds (9.8-13.1) H 10/15/17 06:00 INR 1.4 (0.9-1.2) H 10/15/17 06:00 APTT 33.1 Seconds (25.6-37.1) 10/15/17 06:00 - Constitutional Appears: Well, Non-toxic, No Acute Distress - Respiratory Exam Respiratory Exam: Clear to Ausculation Bilateral, NORMAL BREATHING PATTERN - Cardiovascular Exam Cardiovascular Exam: REGULAR RHYTHM, +S1, +S2 - GI/Abdominal Exam GI & Abdominal Exam: Soft. absent: Distended, Firm, Guarding, Rigid, Tenderness , Rebound - Extremities Exam Additional comments: left BKA, dressing clean dry intact, tender to palpation - Neurological Exam Neurological Exam: Alert, Awake Assessment and Plan - Assessment and Plan (Free Text) Assessment: 72M s/p BKA POD4 Total of 4u PRBC since OR Plan: - continue to monitor wound - monitor labs - Continue physical therapy. Further recs discuss with Dr. Irving Asencio, PGY2
[2017-10-19] MEDS: Saccharomyces Boulardi 250 mg Cap PO SCH ×2 (09:42→17:33)
[2017-10-19] MEDS: Insulin Lispro (humaLOG) 100 Units/ml Inj SC SCH ×4 (09:42→22:51)
[2017-10-19] MEDS ORDERED: Sodium Chloride 3% for Inhalation 4 ML VIAL.NEB IH PRN (11:19)
[2017-10-19] MEDS: Enoxaparin 40 mg Syringe SC SCH (14:08)
[2017-10-19] MEDS ORDERED: Oxycodone/Acetaminophen 5/325 mg Tab PO PRN (15:04)
[2017-10-19] MEDS: Insulin Detemir 100 Units/ml Inj SC SCH (22:51)
[2017-10-20] MEDS: Meropenem 1 GM in Sodium Chloride 0.9% 100 ML IVPB SCH ×3 (01:00→17:43)
[2017-10-20 07:12] LABS: HEMOGLOBIN 8.4 g/dL (12.0-18.0); MEAN CELL VOLUME 88.9 fl (80.0-94.0); MEAN CORPUSCULAR HEMOGLOBIN 30.9 pg (27.0-31.0); MEAN CORPUSCULAR HGB CONC 34.8 g/dL (33.0-37.0); RBC 2.73 Mil/uL (4.40-5.90); RED CELL DISTRIBUTION WIDTH 14.7 % (11.5-14.5); WHITE BLOOD COUNT 10.2 K/uL (4.8-10.8)
[2017-10-20 07:31] LABS: ALB/GLOB RATIO 0.5 (1.0-2.1); ALBUMIN 2.1 g/dL (3.5-5.0); ALT/SGPT 27 U/L (21-72); AST/SGOT 30 U/L (17-59); BLOOD UREA NITROGEN 15 mg/dl (9-20); CALCIUM 6.9 mg/dL (8.4-10.2); GFR AFRICAN-AMERICAN > 60; GFR NON-AFRICAN AMERICAN > 60
--- NOTE | 2017-10-20 07:51 | CP.PCM.PN ---
Subjective - Date & Time of Evaluation Date of Evaluation: 10/20/17 Time of Evaluation: 07:49 - Subjective Subjective: Surgery Patient seen and examined. No acute events. Pain controlled. Dressing Clean. Working w PT. Denies Fevers, nausea, diarreah. Objective - Vital Signs/Intake and Output Vital Signs (last 24 hours): Temp Pulse Resp BP Pulse Ox 99.2 F 88 20 141/68 98 10/19/17 23:32 10/19/17 23:32 10/19/17 23:32 10/19/17 23:32 10/19/17 23:32 - Medications Medications: Current Medications Acetaminophen (Tylenol 325mg Tab) 650 mg PO Q4 PRN PRN Reason: Fever >100.4 F Enoxaparin Sodium (Lovenox) 40 mg SC DAILY [facility] PRN Reason: Protocol Last Admin: 10/19/17 14:08 Dose: 40 mg Famotidine (Pepcid) 20 mg PO BID [facility] Last Admin: 10/19/17 17:35 Dose: 20 mg Gabapentin (Neurontin) 200 mg PO TID [facility] Last Admin: 10/19/17 17:35 Dose: 200 mg Vancomycin HCl 1 gm/ Sodium (Chloride) 250 mls @ 166.667 mls/hr IVPB Q12 [facility] PRN Reason: Protocol Last Admin: 10/19/17 20:19 Dose: 166.667 mls/hr Meropenem 1 gm/ Sodium (Chloride) 100 mls @ 100 mls/hr IVPB Q8 [facility] PRN Reason: Protocol Last Admin: 10/19/17 17:34 Dose: 100 mls/hr Lactated Ringer's (Lactated Ringer's) 1,000 mls @ 100 mls/hr IV .Q10H [facility] Last Admin: 10/17/17 03:15 Dose: Not Given Insulin Detemir (Levemir) 5 units SC HS [facility] Last Admin: 10/19/17 22:51 Dose: 5 u Insulin Human Lispro (Humalog) 0 units SC ACHS [facility] PRN Reason: Protocol Last Admin: 10/19/17 22:51 Dose: Not Given Oxycodone/Acetaminophen (Percocet 5/325 Mg Tab) 1 tab PO Q4 PRN PRN Reason: Pain, severe (8-10) Stop: 10/22/17 15:05 Last Admin: 10/19/17 20:17 Dose: 1 tab Saccharomyces Usmani (Florastor) 250 mg PO BID [facility] Last Admin: 10/19/17 17:33 Dose: 250 mg - Labs Labs: 10/20/17 05:25 10/20/17 05:25 PT 15.9 Seconds (9.8-13.1) H 10/15/17 06:00 INR 1.4 (0.9-1.2) H 10/15/17 06:00 APTT 33.1 Seconds (25.6-37.1) 10/15/17 06:00 - Constitutional Appears: No Acute Distress - Head Exam Head Exam: ATRAUMATIC, NORMAL INSPECTION, NORMOCEPHALIC - Eye Exam Eye Exam: EOMI, PERRL. absent: Normal appearance Pupil Exam: NORMAL ACCOMODATION, PERRL Additional comments: L eye cataract - ENT Exam ENT Exam: Mucous Membranes Moist, Normal Exam - Neck Exam Neck Exam: Full ROM, Normal Inspection. absent: Lymphadenopathy - Respiratory Exam Respiratory Exam: Clear to Ausculation Bilateral, NORMAL BREATHING PATTERN - Cardiovascular Exam Cardiovascular Exam: REGULAR RHYTHM, +S1, +S2. absent: Murmur - GI/Abdominal Exam GI & Abdominal Exam: Soft, Normal Bowel Sounds. absent: Tenderness - Exam Exam: NORMAL INSPECTION - Extremities Exam Extremities Exam: Normal Capillary Refill, Tenderness. absent: Full ROM, Joint Swelling, Normal Inspection, Pedal Edema Additional comments: L BKA. Dressing C/D/I - Neurological Exam Neurological Exam: Alert, Awake, CN II-XII Intact, Oriented x3 - Psychiatric Exam Psychiatric exam: Normal Affect, Normal Mood - Skin Skin Exam: Dry, Intact, Normal Color, Warm Assessment and Plan - Assessment and Plan (Free Text) Assessment: 72M s/p BKA POD5 Total of 4u PRBC since OR hgb 8 today Wound cx Group B strep Plan: -Stitches removal POD 14. Follow up at Dr. Villatoro's office to get pepe removed. -ABX per ID/primary - continue to monitor wound - monitor labs h/h - Continue physical therapy. Further recs discuss with Dr. Villatoro
[2017-10-20] MEDS ORDERED: Oxycodone/Acetaminophen 5/325 mg Tab PO PRN ×2 (07:54→07:55)
[2017-10-20] MEDS: Saccharomyces Boulardi 250 mg Cap PO SCH ×2 (10:16→17:42)
[2017-10-20] MEDS: Enoxaparin 40 mg Syringe SC SCH (10:16)
[2017-10-20] MEDS: Insulin Lispro (humaLOG) 100 Units/ml Inj SC SCH ×4 (10:19→22:52)
[2017-10-20 19:13] LABS: LEGIONELLA AG URINE NEGATIVE (NEGATIVE)
[2017-10-20] MEDS: Insulin Detemir 100 Units/ml Inj SC SCH (22:52)
[2017-10-21] MEDS: Meropenem 1 GM in Sodium Chloride 0.9% 100 ML IVPB SCH ×3 (00:43→16:08)
--- NOTE | 2017-10-21 07:55 | CP.PCM.PN ---
Subjective - Date & Time of Evaluation Date of Evaluation: 10/21/17 Time of Evaluation: 07:20 - Subjective Subjective: General Surgery Note for Dr. Villatoro Patient seen and examined at bedside. No acute event overnight. Patient complains of pain in LLE still. Denies fever/chills. He is tolerating diet, passing flatus, and having BM. Patient has no other complaints at this time. Objective - Vital Signs/Intake and Output Vital Signs (last 24 hours): Temp Pulse Resp BP Pulse Ox 99.7 F H 89 18 153/70 H 97 10/21/17 00:14 10/21/17 00:14 10/21/17 00:14 10/21/17 00:14 10/21/17 00:14 - Medications Medications: Current Medications Acetaminophen (Tylenol 325mg Tab) 650 mg PO Q4 PRN PRN Reason: Fever >100.4 F Enoxaparin Sodium (Lovenox) 40 mg SC DAILY [facility] PRN Reason: Protocol Last Admin: 10/20/17 10:16 Dose: 40 mg Famotidine (Pepcid) 20 mg PO BID [facility] Last Admin: 10/20/17 17:43 Dose: 20 mg Gabapentin (Neurontin) 200 mg PO TID [facility] Last Admin: 10/20/17 17:43 Dose: 200 mg Vancomycin HCl 1 gm/ Sodium (Chloride) 250 mls @ 166.667 mls/hr IVPB Q12 [facility] PRN Reason: Protocol Last Admin: 10/20/17 20:48 Dose: 166.667 mls/hr Meropenem 1 gm/ Sodium (Chloride) 100 mls @ 100 mls/hr IVPB Q8 [facility] PRN Reason: Protocol Last Admin: 10/21/17 00:43 Dose: 100 mls/hr Lactated Ringer's (Lactated Ringer's) 1,000 mls @ 100 mls/hr IV .Q10H [facility] Last Admin: 10/17/17 03:15 Dose: Not Given Insulin Detemir (Levemir) 5 units SC HS [facility] Last Admin: 10/20/17 22:52 Dose: 5 u Insulin Human Lispro (Humalog) 0 units SC ACHS [facility] PRN Reason: Protocol Last Admin: 10/20/17 22:52 Dose: Not Given Oxycodone/Acetaminophen (Percocet 5/325 Mg Tab) 1 tab PO Q4 PRN PRN Reason: Pain, moderate (4-7) Stop: 10/23/17 07:55 Oxycodone/Acetaminophen (Percocet 5/325 Mg Tab) 2 tab PO Q4 PRN PRN Reason: Pain, severe (8-10) Stop: 10/22/17 15:05 Saccharomyces Boulardii (Florastor) 250 mg PO BID [facility] Last Admin: 10/20/17 17:42 Dose: 250 mg - Labs Labs: 10/20/17 05:25 10/20/17 05:25 PT 15.9 Seconds (9.8-13.1) H 10/15/17 06:00 INR 1.4 (0.9-1.2) H 10/15/17 06:00 APTT 33.1 Seconds (25.6-37.1) 10/15/17 06:00 - Constitutional Appears: No Acute Distress - Eye Exam Eye Exam: Normal appearance - ENT Exam ENT Exam: Mucous Membranes Moist - Respiratory Exam Respiratory Exam: NORMAL BREATHING PATTERN - Cardiovascular Exam Cardiovascular Exam: REGULAR RHYTHM - Extremities Exam Additional comments: s/p L BKA - dressing clean,dry and intact with no drainage or evidence of bleeding, TTP - Neurological Exam Neurological Exam: Alert, Awake - Psychiatric Exam Psychiatric exam: Normal Affect, Normal Mood - Skin Skin Exam: Dry, Intact, Warm Assessment and Plan - Assessment and Plan (Free Text) Assessment: 72M s/p BKA POD#6 -Continue IV antibiotics -f/u agglutinins -Monitor Hgb -PT/OT -OOB/IS -Staple removal POD 14 -Further recommendations as per Dr. Irving Hawk PGY1
[2017-10-21] MEDS: Saccharomyces Boulardi 250 mg Cap PO SCH ×2 (08:47→16:08)
[2017-10-21] MEDS: Enoxaparin 40 mg Syringe SC SCH (08:48)
[2017-10-21] MEDS: Insulin Lispro (humaLOG) 100 Units/ml Inj SC SCH ×4 (08:48→22:47)
--- NOTE | 2017-10-21 08:57 | PN ---
DATE: 10/21/2017 SUBJECTIVE: The patient is seen and examined. Interim events noted. Consults noted and appreciated. Surgical followup and interventions noted and appreciated. The patient remains in regular medical floor, status post surgery. The patient feels okay. Denies any specific complaints. No chest pain and no shortness of breath. There is a pain at surgical site, but it is control. PHYSICAL EXAMINATION: GENERAL: The patient is in no acute distress. VITAL SIGNS: Stable. HEART: S1 and S2 normal and regular. LUNGS: Good bilateral air exchange. ABDOMEN: Soft and nontender. EXTREMITIES: The patient is status post left amputation surgical site No sign of acute complications. Right leg; no edema. No calf swelling. No tenderness. No acute ischemia. CENTRAL NERVOUS SYSTEM: Essentially unchanged. DIAGNOSTIC DATA: Available diagnostic data reviewed. ASSESSMENT AND PLAN: Overall, the patient is medically stable. Plan as ordered. Vimal Griffin MD MTDD
[2017-10-21 10:47] LABS: BASO # 0.1 K/uL (0.0-0.2); BASO % 1.2 % (0.0-2.0); EOS # 0.1 K/uL (0.0-0.7); EOS % 1.6 % (0.0-4.0); HEMOGLOBIN 7.9 g/dL (12.0-18.0); LYMPH # 1.2 K/uL (1.0-4.3); LYMPH % 13.3 % (20.0-40.0); MEAN CELL VOLUME 89.4 fl (80.0-94.0); MEAN CORPUSCULAR HEMOGLOBIN 30.6 pg (27.0-31.0); MEAN CORPUSCULAR HGB CONC 34.3 g/dL (33.0-37.0); MEAN PLATELET VOLUME 7.6 fl (7.2-11.7); MONO # 0.8 K/uL (0.0-0.8); MONO % 8.4 % (0.0-10.0); NEUT % 75.5 % (50.0-75.0); RBC 2.57 Mil/uL (4.40-5.90); RED CELL DISTRIBUTION WIDTH 14.6 % (11.5-14.5); WHITE BLOOD COUNT 9.3 K/uL (4.8-10.8)
[2017-10-21 10:51] LABS: ALB/GLOB RATIO 0.5 (1.0-2.1); ALT/SGPT 31 U/L (21-72); AST/SGOT 41 U/L (17-59); BLOOD UREA NITROGEN 15 mg/dl (9-20); CALCIUM 7.3 mg/dL (8.4-10.2); GFR AFRICAN-AMERICAN > 60; GFR NON-AFRICAN AMERICAN > 60
[2017-10-21] MEDS: Insulin Detemir 100 Units/ml Inj SC SCH (21:52)
--- NOTE | 2017-10-21 21:53 | CP.PCM.PN ---
Subjective - Date & Time of Evaluation Date of Evaluation: 10/20/17 Time of Evaluation: 11:30 - Subjective Subjective: Patient remains stable Has no fever, BP has been stable. WBC 10.2 Hgb 8.4 Has minimal pain on the op site. Objective - Vital Signs/Intake and Output Vital Signs (last 24 hours): Temp Pulse Resp BP Pulse Ox 98.7 F 77 20 141/70 99 10/21/17 16:25 10/21/17 16:25 10/21/17 16:25 10/21/17 16:25 10/21/17 16:25 - Medications Medications: Current Medications Acetaminophen (Tylenol 325mg Tab) 650 mg PO Q4 PRN PRN Reason: Fever >100.4 F Enoxaparin Sodium (Lovenox) 40 mg SC DAILY [facility] PRN Reason: Protocol Last Admin: 10/21/17 08:48 Dose: 40 mg Famotidine (Pepcid) 20 mg PO BID [facility] Last Admin: 10/21/17 16:09 Dose: 20 mg Gabapentin (Neurontin) 200 mg PO TID [facility] Last Admin: 10/21/17 16:09 Dose: 200 mg Vancomycin HCl 1 gm/ Sodium (Chloride) 250 mls @ 166.667 mls/hr IVPB Q12 [facility] PRN Reason: Protocol Last Admin: 10/21/17 21:13 Dose: 166.667 mls/hr Meropenem 1 gm/ Sodium (Chloride) 100 mls @ 100 mls/hr IVPB Q8 [facility] PRN Reason: Protocol Last Admin: 10/21/17 16:08 Dose: 100 mls/hr Lactated Ringer's (Lactated Ringer's) 1,000 mls @ 100 mls/hr IV .Q10H [facility] Last Admin: 10/17/17 03:15 Dose: Not Given Insulin Detemir (Levemir) 5 units SC HS [facility] Last Admin: 10/20/17 22:52 Dose: 5 u Insulin Human Lispro (Humalog) 0 units SC ACHS [facility] PRN Reason: Protocol Last Admin: 10/21/17 16:08 Dose: 2 u Oxycodone/Acetaminophen (Percocet 5/325 Mg Tab) 1 tab PO Q4 PRN PRN Reason: Pain, moderate (4-7) Stop: 10/23/17 07:55 Oxycodone/Acetaminophen (Percocet 5/325 Mg Tab) 2 tab PO Q4 PRN PRN Reason: Pain, severe (8-10) Stop: 10/22/17 15:05 Saccharomyces Bopatriciodii (Florastor) 250 mg PO BID [facility] Last Admin: 10/21/17 16:08 Dose: 250 mg - Labs Labs: 10/21/17 10:30 10/21/17 10:30 PT 15.9 Seconds (9.8-13.1) H 10/15/17 06:00 INR 1.4 (0.9-1.2) H 10/15/17 06:00 APTT 33.1 Seconds (25.6-37.1) 10/15/17 06:00 - Head Exam Head Exam: NORMAL INSPECTION - Eye Exam Eye Exam: Normal appearance - ENT Exam ENT Exam: Mucous Membranes Moist - Respiratory Exam Respiratory Exam: Clear to Ausculation Bilateral - Cardiovascular Exam Cardiovascular Exam: REGULAR RHYTHM - GI/Abdominal Exam GI & Abdominal Exam: Normal Bowel Sounds - Neurological Exam Neurological Exam: Awake, CN II-XII Intact Assessment and Plan (1) Amputation of left lower extremity below knee Status: Acute (2) HTN (hypertension) Status: Chronic (3) Uncontrolled diabetes mellitus Status: Chronic - Assessment and Plan (Free Text) Plan: Con tmeds Con ttx Cont pain meds Phys therapy
[2017-10-22] MEDS: Meropenem 1 GM in Sodium Chloride 0.9% 100 ML IVPB SCH ×3 (00:12→16:12)
--- NOTE | 2017-10-22 08:33 | OP ---
PROCEDURE DATE: 10/15/2017 The patient was seen on 10/15 with left leg necrosis. OPERATION PERFORMED: Left below-knee amputation. SURGEONS: and Dr. Villatoro. DESCRIPTION OF PROCEDURE: In the operating room, the patient was identified by name of procedure, laterality, my aston, the consent in his wrist band. The left leg was prepped and after waiting for 3 minutes, it was draped using a stockinette and a tourniquet. Tourniquet was inflated to 350 and after the successful timeout, the skin incision was made; however, the tourniquet was inadequate and it was brought up to 450, but still there was inadequate bleeding. Eventually, it was let down because much of the blood was venous. In any case, a posterior flap was designed taking the incision down to the fascia in its outline. It was found fascia was divided. The bones were identified both the fibula and the tibia. These were swept back with the Periosteal elevator and cut with the saw. The towel clips placed in both bones and pressed forward. The amputation knife was used to amputate the leg preserving as much as possible the posterior flap, which turned out a little bit shorter than I would have liked. Hemostasis was achieved with a cautery, suture ligation. The artery and veins were individually identified, clamped and tied, suture ligated. The nerve was identified and high ligation was performed. Hemostasis was excellent once the tourniquet was let down. Posterior muscle was curved down to give a nicer flap. The anterior part of the bone was taken off with the saw and rounded off nicely. A high removal of the fibula was performed using rongeurs. The hemostasis was excellent. The incision was closed using a T incision that was closed with Vicryl and pepe. Pressure dressing was applied and thereafter the knee immobilized. The patient was taken to recovery room in good condition after the sponge and needle count were declared correct. Jesus Villatoro MD
--- NOTE | 2017-10-22 08:39 | PN ---
DATE: 10/21/2017 HISTORY OF PRESENT ILLNESS: He is seen on the floor status post amputation of the left leg. The SIVA bandage is intact. The knee immobilizer is working well. He has some pain, but generally doing well. Hemoglobin has been stable and presently 7.9. We will follow for the leg. Jesus Villatoro MD
[2017-10-22] MEDS: Saccharomyces Boulardi 250 mg Cap PO SCH ×2 (09:44→16:13)
[2017-10-22] MEDS: Enoxaparin 40 mg Syringe SC SCH (09:47)
[2017-10-22] MEDS: Insulin Lispro (humaLOG) 100 Units/ml Inj SC SCH ×5 (09:47→22:08)
--- NOTE | 2017-10-22 10:01 | PN ---
DATE: 10/20/2017 SUBJECTIVE: Patient is seen on the floor complaining of pain in the leg. The leg is in a binder and then a knee immobilizer. The incision looked pretty good and hopefully will begin compression soon. Stitches will stay as is. Jesus Villatoro MD
--- NOTE | 2017-10-22 11:10 | CP.PCM.PN ---
Subjective - Date & Time of Evaluation Date of Evaluation: 10/22/17 Time of Evaluation: 14:39 - Subjective Subjective: ID Note- Pt. seen and examined. No new events . remains afebrile Objective - Vital Signs/Intake and Output Vital Signs (last 24 hours): Temp Pulse Resp BP Pulse Ox 98.8 F 78 20 149/75 98 10/22/17 08:33 10/22/17 08:33 10/22/17 08:33 10/22/17 08:33 10/22/17 08:33 - Medications Medications: Current Medications Acetaminophen (Tylenol 325mg Tab) 650 mg PO Q4 PRN PRN Reason: Fever >100.4 F Enoxaparin Sodium (Lovenox) 40 mg SC DAILY [facility] PRN Reason: Protocol Last Admin: 10/22/17 09:47 Dose: 40 mg Famotidine (Pepcid) 20 mg PO BID [facility] Last Admin: 10/22/17 09:44 Dose: 20 mg Gabapentin (Neurontin) 200 mg PO TID [facility] Last Admin: 10/22/17 09:48 Dose: 200 mg Meropenem 1 gm/ Sodium (Chloride) 100 mls @ 100 mls/hr IVPB Q8 [facility] PRN Reason: Protocol Last Admin: 10/22/17 09:48 Dose: 100 mls/hr Lactated Ringer's (Lactated Ringer's) 1,000 mls @ 100 mls/hr IV .Q10H [facility] Last Admin: 10/17/17 03:15 Dose: Not Given Insulin Detemir (Levemir) 5 units SC HS [facility] Last Admin: 10/21/17 21:52 Dose: 5 u Insulin Human Lispro (Humalog) 0 units SC ACHS [facility] PRN Reason: Protocol Last Admin: 10/22/17 09:47 Dose: Not Given Oxycodone/Acetaminophen (Percocet 5/325 Mg Tab) 1 tab PO Q4 PRN PRN Reason: Pain, moderate (4-7) Stop: 10/23/17 07:55 Oxycodone/Acetaminophen (Percocet 5/325 Mg Tab) 2 tab PO Q4 PRN PRN Reason: Pain, severe (8-10) Stop: 10/22/17 15:05 Saccharomyces Boulardii (Florastor) 250 mg PO BID [facility] Last Admin: 10/22/17 09:44 Dose: 250 mg - Labs Labs: - Additional Findings Additional findings: - Constitutional Appears: No Acute Distress - Head Exam Head Exam: ATRAUMATIC - Neck Exam Neck Exam: Full ROM - Respiratory Exam Respiratory Exam: Clear to Ausculation Bilateral, NORMAL BREATHING PATTERN - Cardiovascular Exam Cardiovascular Exam: RRR, +S1, +S2 - GI/Abdominal Exam GI & Abdominal Exam: Soft, Normal Bowel Sounds Additional comments: NT, Nd - Extremities Exam Additional comments: Left BKA stump site with sutures in place, no erythema, no discharge - Neurological Exam Neurological Exam: Alert, Awake, Oriented x 3 Laboratory Results - last 72 hr 10/19/17 10/19/17 10/19/17 15:47 17:41 21:12 WBC RBC Hgb Hct MCV MCH MCHC RDW Plt Count MPV Neut % (Auto) Lymph % (Auto) Jewell % (Auto) Eos % (Auto) Baso % (Auto) Neut # (Auto) Lymph # (Auto) Jewell # (Auto) Eos # (Auto) Baso # (Auto) Sodium Potassium Chloride Carbon Dioxide Anion Gap BUN Creatinine Est GFR ( Amer) Est GFR (Non-Af Amer) POC Glucose (mg/dL) 176 H 156 H Random Glucose Calcium Total Bilirubin AST ALT Alkaline Phosphatase Total Protein Albumin Globulin Albumin/Globulin Ratio Ur L.pneumophila Ag Negative 10/20/17 10/20/17 10/20/17 05:25 05:25 05:54 WBC 10.2 RBC 2.73 L Hgb 8.4 L Hct 24.3 L MCV 88.9 MCH 30.9 MCHC 34.8 RDW 14.7 H Plt Count 321 MPV Neut % (Auto) Lymph % (Auto) Jewell % (Auto) Eos % (Auto) Baso % (Auto) Neut # (Auto) Lymph # (Auto) Jewell # (Auto) Eos # (Auto) Baso # (Auto) Sodium 140 Potassium 3.9 Chloride 100 Carbon Dioxide 28 Anion Gap 16 BUN 15 Creatinine 1.0 Est GFR ( Amer) > 60 Est GFR (Non-Af Amer) > 60 POC Glucose (mg/dL) 172 H Random Glucose 163 H Calcium 6.9 L Total Bilirubin 0.1 L AST 30 ALT 27 Alkaline Phosphatase 124 Total Protein 6.5 Albumin 2.1 L Globulin 4.4 H Albumin/Globulin Ratio 0.5 L Ur L.pneumophila Ag 10/20/17 10/20/17 10/20/17 11:16 16:01 22:12 WBC RBC Hgb Hct MCV MCH MCHC RDW Plt Count MPV Neut % (Auto) Lymph % (Auto) Jewell % (Auto) Eos % (Auto) Baso % (Auto) Neut # (Auto) Lymph # (Auto) Jewell # (Auto) Eos # (Auto) Baso # (Auto) Sodium Potassium Chloride Carbon Dioxide Anion Gap BUN Creatinine Est GFR ( Amer) Est GFR (Non-Af Amer) POC Glucose (mg/dL) 175 H 133 H 148 H Random Glucose Calcium Total Bilirubin AST ALT Alkaline Phosphatase Total Protein Albumin Globulin Albumin/Globulin Ratio Ur L.pneumophila Ag 10/21/17 10/21/17 10/21/17 05:31 10:30 10:30 WBC 9.3 RBC 2.57 L Hgb 7.9 L Hct 23.0 L MCV 89.4 MCH 30.6 MCHC 34.3 RDW 14.6 H Plt Count 329 MPV 7.6 Neut % (Auto) 75.5 H Lymph % (Auto) 13.3 L Jewell % (Auto) 8.4 Eos % (Auto) 1.6 Baso % (Auto) 1.2 Neut # (Auto) 7.0 Lymph # (Auto) 1.2 Jewell # (Auto) 0.8 Eos # (Auto) 0.1 Baso # (Auto) 0.1 Sodium 142 Potassium 3.8 Chloride 101 Carbon Dioxide 31 H Anion Gap 14 BUN 15 Creatinine 1.0 Est GFR ( Amer) > 60 Est GFR (Non-Af Amer) > 60 POC Glucose (mg/dL) 94 Random Glucose 130 H Calcium 7.3 L Total Bilirubin 0.2 AST 41 ALT 31 Alkaline Phosphatase 104 Total Protein 6.2 L Albumin 2.0 L Globulin 4.2 H Albumin/Globulin Ratio 0.5 L Ur L.pneumophila Ag 10/21/17 10/21/17 10/21/17 11:29 15:23 21:41 WBC RBC Hgb Hct MCV MCH MCHC RDW Plt Count MPV Neut % (Auto) Lymph % (Auto) Jewell % (Auto) Eos % (Auto) Baso % (Auto) Neut # (Auto) Lymph # (Auto) Jewell # (Auto) Eos # (Auto) Baso # (Auto) Sodium Potassium Chloride Carbon Dioxide Anion Gap BUN Creatinine Est GFR ( Amer) Est GFR (Non-Af Amer) POC Glucose (mg/dL) 164 H 174 H 176 H Random Glucose Calcium Total Bilirubin AST ALT Alkaline Phosphatase Total Protein Albumin Globulin Albumin/Globulin Ratio Ur L.pneumophila Ag 10/22/17 10/22/17 05:28 12:00 WBC 8.2 RBC 2.65 L Hgb 8.1 L Hct 23.6 L MCV 89.0 MCH 30.5 MCHC 34.3 RDW 14.5 Plt Count 364 MPV Neut % (Auto) Lymph % (Auto) Jewell % (Auto) Eos % (Auto) Baso % (Auto) Neut # (Auto) Lymph # (Auto) Jewell # (Auto) Eos # (Auto) Baso # (Auto) Sodium Potassium Chloride Carbon Dioxide Anion Gap BUN Creatinine Est GFR ( Amer) Est GFR (Non-Af Amer) POC Glucose (mg/dL) 141 H Random Glucose Calcium Total Bilirubin AST ALT Alkaline Phosphatase Total Protein Albumin Globulin Albumin/Globulin Ratio Ur L.pneumophila Ag Microbiology 10/18/17 16:33 Blood-Venous Blood Culture - Preliminary NO GROWTH AFTER 3 DAYS 10/18/17 16:23 Blood-Venous Blood Culture - Preliminary NO GROWTH AFTER 3 DAYS 10/18/17 21:20 Urine,Clean Catch Urine Culture - Final No Growth (<1,000 CFU/ML) 10/10/17 20:30 Blood-Venous Blood Culture - Final NO GROWTH AFTER 5 DAYS 10/10/17 20:30 Blood-Venous Gram Stain - Final TEST NOT PERFORMED 10/10/17 21:00 Blood-Venous Blood Culture - Final NO GROWTH AFTER 5 DAYS 10/10/17 21:00 Blood-Venous Gram Stain - Final TEST NOT PERFORMED 10/09/17 21:50 Blood-Venous Blood Culture - Final NO GROWTH AFTER 5 DAYS 10/09/17 21:50 Blood-Venous Gram Stain - Final TEST NOT PERFORMED 10/09/17 21:47 Blood-Venous Blood Culture - Final NO GROWTH AFTER 5 DAYS 10/09/17 21:47 Blood-Venous Gram Stain - Final TEST NOT PERFORMED 10/10/17 15:50 Ankle - Left Gram Stain - Final 10/10/17 15:50 Ankle - Left Wound Culture - Final Beta Hemolytic Strep Group B 10/10/17 06:46 Nose MRSA Culture (Admit) - Final MRSA NOT DETECTED Accession No. : [id number] Patient Name / ID : GONZALEZ LOPEZ / [id number] Exam Date : 10/18/2017 16:11:57 ( Approved ) Study Comment : Sex / Age : M / 72Y Creator : charan chairez Dictator : Molina Rojas MD Automobile Service Advisor : Editor In Chief Newspaper : Molina Rojas MD Approver2 : Report Date : 10/18/2017 16:24:39 My Comment : PROCEDURE: CHEST RADIOGRAPH, 1 VIEW HISTORY: fever COMPARISON: 10/09/2017. FINDINGS: LUNGS: Multifocal infiltrates lower lobe distribution left greater than right. These are new findings compared to the prior study. PLEURA: No pneumothorax or pleural fluid seen. CARDIOVASCULAR: Normal size heart. There may be a component of pulmonary vascular congestion. OSSEOUS STRUCTURES: No significant abnormalities. VISUALIZED UPPER ABDOMEN: Normal. OTHER FINDINGS: None. IMPRESSION: Bilateral lower lobe infiltrates new findings compared to the prior study. Assessment and Plan (1) Gangrene of left foot Status: Resolved (2) Uncontrolled diabetes mellitus Status: Chronic (3) Amputation of left lower extremity below knee Status: Acute - Assessment and Plan (Free Text) Assessment: A/P- 72 y/o homeless male with DM II admitet with gangrenous toes and found to have subcutaneous emphysema on the xray and is s/p left TMA and opening of the left lateral LE for drainage of the infection by podiatry today. s/p left BKA Pod #8 leukocytosis has resolved. afebrile past 4 days. blood cx- neg x 4 wound cx from left ankle done on admission - group B strep Metatarsal Bone bx- osteo as per path report plan- advise to continue both IV vancomycin and meropnem day #15 keep vanco trough <15. if patietn is being transferred to [facility] advise to d/c above IV abx as pt. has completed 15 days of it. check repeat CXR for resolution of lower lobe infiltrtae. advise incentive spiromtery. can be d/c on oral abx bactrim DS BID for 7 days. to be f/u as outpatient by both his PMD and surgeon. all above d/w patient and with GAS COMBUSTION ENGINEER Estelle.
[2017-10-22 12:41] LABS: HEMOGLOBIN 8.1 g/dL (12.0-18.0); MEAN CORPUSCULAR HEMOGLOBIN 30.5 pg (27.0-31.0); MEAN CORPUSCULAR HGB CONC 34.3 g/dL (33.0-37.0); RBC 2.65 Mil/uL (4.40-5.90); RED CELL DISTRIBUTION WIDTH 14.5 % (11.5-14.5); WHITE BLOOD COUNT 8.2 K/uL (4.8-10.8)
[2017-10-22] MEDS: EPOETIN ALFA 10,000 UNIT/ML ML SC SCH (13:40)
[2017-10-22 14:45] LABS: IRON 13 ug/dL (49-181)
[2017-10-22 14:54] LABS: % IRON SATURATION 7 % (20-55); TOTAL IRON BINDING CAPACITY 185 ug/dL (250-450)
[2017-10-22 16:34] LABS: FOLATE 11.3 ng/mL
[2017-10-22] MEDS: Insulin Detemir 100 Units/ml Inj SC SCH (22:07)
[2017-10-23] MEDS: Meropenem 1 GM in Sodium Chloride 0.9% 100 ML IVPB SCH ×3 (00:43→16:26)
--- NOTE | 2017-10-23 07:57 | CP.PCM.PN ---
<Steve Holly - Last Filed: 10/23/17 12:22> Subjective - Date & Time of Evaluation Date of Evaluation: 10/23/17 Time of Evaluation: 07:25 - Subjective Subjective: Patient seen and examined this morning at bedside w/ Dr. Griffin. There are no acute events overnight, NAD. Patient laying in bed comfortably. Patient reports pain at surgical site relieved w/ medication. Patient s/p left below the knee amputation POD8. Patient denies headaches, chest pain, SOB, abdominal pain, nausea, vomiting, diarrhea, dysuria, or fever. Objective - Vital Signs/Intake and Output Vital Signs (last 24 hours): Temp Pulse Resp BP Pulse Ox 99.1 F 80 18 143/71 98 10/23/17 00:48 10/23/17 00:48 10/23/17 00:48 10/23/17 00:48 10/23/17 00:48 - Medications Medications: Current Medications Acetaminophen (Tylenol 325mg Tab) 650 mg PO Q4 PRN PRN Reason: Fever >100.4 F Enoxaparin Sodium (Lovenox) 40 mg SC DAILY [facility] PRN Reason: Protocol Last Admin: 10/22/17 09:47 Dose: 40 mg Epoetin Zeke (Procrit) 10,000 unit SC DAILY [facility] Last Admin: 10/22/17 13:40 Dose: 10,000 unit Famotidine (Pepcid) 20 mg PO BID [facility] Last Admin: 10/22/17 16:13 Dose: 20 mg Gabapentin (Neurontin) 200 mg PO TID [facility] Last Admin: 10/22/17 16:13 Dose: 200 mg Meropenem 1 gm/ Sodium (Chloride) 100 mls @ 100 mls/hr IVPB Q8 [facility] PRN Reason: Protocol Last Admin: 10/23/17 00:43 Dose: 100 mls/hr Lactated Ringer's (Lactated Ringer's) 1,000 mls @ 100 mls/hr IV .Q10H [facility] Last Admin: 10/17/17 03:15 Dose: Not Given Vancomycin HCl 1 gm/ Sodium (Chloride) 250 mls @ 166.667 mls/hr IVPB Q12 [facility] PRN Reason: Protocol Last Admin: 10/22/17 21:57 Dose: 166.667 mls/hr Insulin Detemir (Levemir) 5 units SC [facility] Last Admin: 10/22/17 22:07 Dose: 5 u Insulin Human Lispro (Humalog) 0 units SC [facility] PRN Reason: Protocol Last Admin: 10/22/17 22:08 Dose: Not Given Saccharomyces Boulardii (Florastor) 250 mg PO BID [facility] Last Admin: 10/22/17 16:13 Dose: 250 mg - Labs Labs: 10/22/17 12:00 10/21/17 10:30 PT 15.9 Seconds (9.8-13.1) H 10/15/17 06:00 INR 1.4 (0.9-1.2) H 10/15/17 06:00 APTT 33.1 Seconds (25.6-37.1) 10/15/17 06:00 - Constitutional Appears: Non-toxic, No Acute Distress - Head Exam Head Exam: ATRAUMATIC, NORMAL INSPECTION, NORMOCEPHALIC - Eye Exam Additional comments: left eye cataract - ENT Exam ENT Exam: Mucous Membranes Moist - Neck Exam Neck Exam: Full ROM. absent: Tenderness - Respiratory Exam Respiratory Exam: Clear to Ausculation Bilateral. absent: Accessory Muscle Use , Decreased Breath Sounds, Rales, Rhonchi, Wheezes, Respiratory Distress - Cardiovascular Exam Cardiovascular Exam: REGULAR RHYTHM. absent: Tachycardia - GI/Abdominal Exam GI & Abdominal Exam: Soft, Normal Bowel Sounds. absent: Distended, Tenderness - Extremities Exam Additional comments: left leg wrapped in mauri wrap, c/d/i - Neurological Exam Neurological Exam: Alert, Awake, Oriented x3 - Skin Skin Exam: Dry, Normal Color, Warm Assessment and Plan (1) Amputation of left lower extremity below knee Status: Acute (2) Phantom limb pain Status: Acute (3) HTN (hypertension) Status: Chronic (4) Uncontrolled diabetes mellitus Status: Chronic (5) Gangrene of left foot Status: Resolved - Assessment and Plan (Free Text) Plan: c/w present management currently afebrile, non-tachycardic, normotensive s/p left BKA POD 8 podiatry recommendations appreciated surgery recommendations appreciated infectious disease recommendations appreciated pain management recommendations appreciated CBC: 8.2>8.1/23.6<364 CXR: bilateral small pleural effusion, bibasilar airspace disease possible atelectasis or pneumonia Vancomycin 1 gm Q12 day 13 meropenem 1 gm Q8h day 14 c/w procrit insulin levemir 5 units SC HS insulin correction scale pain management: tylenol 650 mg Q6h prn, neurontin 200 mg PO TID c/w PT monitor for acute changes <Vimal Griffin K - Last Filed: 10/24/17 13:27> Objective - Vital Signs/Intake and Output Vital Signs (last 24 hours): Temp Pulse Resp BP Pulse Ox 98.9 F 83 20 141/69 99 10/23/17 16:09 10/23/17 16:09 10/23/17 16:09 10/23/17 16:09 10/23/17 16:09 - Labs Labs: 10/22/17 12:00 10/21/17 10:30 PT 15.9 Seconds (9.8-13.1) H 10/15/17 06:00 INR 1.4 (0.9-1.2) H 10/15/17 06:00 APTT 33.1 Seconds (25.6-37.1) 10/15/17 06:00 Assessment and Plan - Assessment and Plan (Free Text) Assessment: Patient was personally seen and examined by me in rounds with residents. Available labs and diagnostic data reviewed. Case, Patient's condition and management plan discussed with residents in rounds. Agree with resident's progress note. Plan: As ordered.
--- NOTE | 2017-10-23 09:13 | PN ---
DATE: 10/22/2017 SUBJECTIVE: The patient is seen and examined. Interim events noted. Consults noted and appreciated. The patient remains in regular medical floor. Awake, responsive, feels okay. Denies any chest pain or shortness of breath. The leg pain is adequately controlled. PHYSICAL EXAMINATION: GENERAL: The patient is in no acute distress. VITAL SIGNS: Stable. HEART: S1 and S2, normal and regular. LUNGS: Good bilateral air exchange. ABDOMEN: Soft and nontender. EXTREMITIES: The patient has some dependent edema. No calf swelling. No tenderness. No acute ischemia. LINE HELPER: Essentially unchanged. Surgical site is under surgical dressings. DIAGNOSTIC DATA: Available diagnostic data reviewed. PLAN: Overall, the patient's general medical condition is stable. Plan as ordered. Vimal Griffin MD
[2017-10-23] MEDS: Insulin Lispro (humaLOG) 100 Units/ml Inj SC SCH ×3 (09:27→16:37)
[2017-10-23] MEDS: Saccharomyces Boulardi 250 mg Cap PO SCH ×2 (09:29→16:27)
[2017-10-23] MEDS: EPOETIN ALFA 10,000 UNIT/ML ML SC SCH (09:30)
--- NOTE | 2017-10-23 09:57 | RAD ---
HISTORY: F/u pneumonia COMPARISON: 10/18/2017. FINDINGS: LUNGS: There is airspace disease in both lower lobes. There is subsegmental atelectasis in both mid lungs. PLEURA: There are bilateral small pleural effusions, no pneumothorax apparent. CARDIOVASCULAR: Normal. OSSEOUS STRUCTURES: No significant abnormalities. VISUALIZED UPPER ABDOMEN: Normal. OTHER FINDINGS: None. IMPRESSION: Bilateral small pleural effusions and bibasilar airspace disease which may represent compressive atelectasis or pneumonia. Follow-up is advised.
[2017-10-23] MEDS: Oxycodone/Acetaminophen 5/325 mg Tab PO PRN ×2 (13:16→17:15)
[2017-10-23 16:09] VITALS: BP 141/69; PULSE 83; RESP 20; TEMP 98.9; O2SAT 99
--- NOTE | 2017-10-25 15:00 | PQF SEPSIS ---
Dr. Griffin 10/10 Critical Care Progress Note by Dr. 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 After study was pt diagnosed with severe sepsis? This form is a permanent part of the medical record Clarification of your documentation is requested to better reflect the severity of illness and intensity of treatment of your patient. Indicators present [] Temp < 96.8 or > 100.4 [] WBC count > 12,000/mm3 or <000/mm3 or 10% immature neutrophils [] Heart Rate > 90 [] Respiratory Rate > 20 [] Fever or hypothermia [] Chills [] Positive blood cultures [] Hypotension [] Metabolic acidosis (Elevated lactate level, anion gap or reduced blood pH) [] Acute confusion /Altered Mental Status [] Shock [] Other: [] Location in the medical record that reflects the above clinical findings: [] Treatment Provided: [] PHYSICIAN'S RESPONSE Based on your medical judgment of the clinical indicators outlined above, are you treating this patient for a known or suspected: [] Sepsis / Septicemia Please specify organism if known [] [] SIRS (Systemic Inflammatory Response Syndrome) [] Severe Sepsis (Sepsis with Associated Organ Dysfunction) [] Fever of Unknown Origin [] Other, please indicate: [] [] If Unable to Determine, please check the box, sign and date. Present On Admission (POA) Indicator: [] Present at the time of admission [] Not present at the time of admission [] Clinically Undetermined In responding to this query, please exercise your independent professional judgment. The fact that a question is asked does not imply that any particular answer is desired or expected. Thank you for your clarification on this documentation. If you have any questions please call:[ ] * Thank you, [ ]Mayte Cruz sales account manager MARTINE[employer]
== END 2017-10-23 18:05 | DRG 853 ==
LOC: H.ER 17:28 → H.ERHOLD 23:01 → H.ICU/CCU 10-10 01:27 → H.MEDSURG1 10-12 00:15
PROVIDERS: ADMIT Internal Medicine; ATTEND Internal Medicine
PROC: 0Y6N0ZC Detachment at Left Foot, Partial 3rd Ray, Open Approach (ICD-10-PCS; 2017-10-10)
PROC: 0Y6N0ZD Detachment at Left Foot, Partial 4th Ray, Open Approach (ICD-10-PCS; 2017-10-10)
PROC: 0Y6N0ZF Detachment at Left Foot, Partial 5th Ray, Open Approach (ICD-10-PCS; 2017-10-10)
PROC: 0QBP0ZX Excision of Left Metatarsal, Open Approach, Diagnostic (ICD-10-PCS; 2017-10-10)
PROC: 0QBR0ZX Excision of Left Toe Phalanx, Open Approach, Diagnostic (ICD-10-PCS; 2017-10-10)
PROC: 30233K1 Transfusion of Nonautologous Frozen Plasma into Peripheral Vein, Percutaneous Approach (ICD-10-PCS; 2017-10-10)
PROC: 30233N1 Transfusion of Nonautologous Red Blood Cells into Peripheral Vein, Percutaneous Approach (ICD-10-PCS; 2017-10-10)
PROC: 0Y6N0Z9 Detachment at Left Foot, Partial 1st Ray, Open Approach (ICD-10-PCS; principal; 2017-10-10 09:15)
PROC: 0Y6N0ZB Detachment at Left Foot, Partial 2nd Ray, Open Approach (ICD-10-PCS; 2017-10-10 09:15)
PROC: 0Y6J0Z1 Detachment at Left Lower Leg, High, Open Approach (ICD-10-PCS; 2017-10-15)
DX: A41.9 Sepsis, unspecified organism (principal); A48.0 Gas gangrene; M72.6 Necrotizing fasciitis; E11.00 Type 2 diabetes mellitus with hyperosmolarity without nonketotic hyperglycemic-hyperosmolar coma (NKHHC); E11.52 Type 2 diabetes mellitus with diabetic peripheral angiopathy with gangrene; L03.116 Cellulitis of left lower limb; R65.20 Severe sepsis without septic shock; E11.65 Type 2 diabetes mellitus with hyperglycemia; Z59.0 Homelessness; I10 Essential (primary) hypertension; M19.90 Unspecified osteoarthritis, unspecified site; E86.0 Dehydration; J98.2 Interstitial emphysema; B95.1 Streptococcus, group B, as the cause of diseases classified elsewhere; G54.6 Phantom limb syndrome with pain; D64.9 Anemia, unspecified; R79.1 Abnormal coagulation profile

== ENCOUNTER 2017-10-23 16:38 | Inpatient (IN) | payer MEDICARE, MEDICAID ==
[2017-10-23] MEDS ORDERED: Oxycodone/Acetaminophen 5/325 mg Tab PO PRN (18:25)
[2017-10-23] MEDS: Insulin Detemir 100 Units/ml Inj SC SCH (22:16)
[2017-10-23] MEDS: Insulin Lispro (humaLOG) 100 Units/ml Inj SC SCH (22:27)
[2017-10-24 06:31] LABS: HEMOGLOBIN 8.3 g/dL (12.0-18.0); MEAN CELL VOLUME 88.9 fl (80.0-94.0); MEAN CORPUSCULAR HEMOGLOBIN 29.6 pg (27.0-31.0); MEAN CORPUSCULAR HGB CONC 33.2 g/dL (33.0-37.0); RBC 2.82 Mil/uL (4.40-5.90); RED CELL DISTRIBUTION WIDTH 14.4 % (11.5-14.5); WHITE BLOOD COUNT 8.6 K/uL (4.8-10.8)
[2017-10-24 06:42] LABS: ALB/GLOB RATIO 0.5 (1.0-2.1); ALBUMIN 2.3 g/dL (3.5-5.0); ALT/SGPT 30 U/L (21-72); AST/SGOT 29 U/L (17-59); BLOOD UREA NITROGEN 21 mg/dl (9-20); GFR AFRICAN-AMERICAN > 60; GFR NON-AFRICAN AMERICAN 55
--- NOTE | 2017-10-24 07:44 | CP.PCM.HP ---
<Steve Holly - Last Filed: 10/24/17 07:41> History of Present Illness - History of Present Illness History of Present Illness: HPI: 72 y/o man w/ pmh of HTN and NIDDM2 admitted to rehab for physical therapy s/p left BKA. The patient is POD#9. Patient reports pain at surgical site relieved w/ medication. The patient denies headaches, chest pain, SOB, abdominal pain, nausea, vomiting, diarrhea, dysuria, or fever. PMD: Dr. Randy Ruiz PMH: NIDDM2, HTN meds: see med list Allergies: NKDA PSH: left TMA 10/10/2017, left BKA 10/15/2017 Fam: denies SOC: denies smoking, alcohol, and drugs; homeless ROS: 12 points assessed and negative unless otherwise reported in HPI Present on Admission - Present on Admission Any Indicators Present on Admission: Yes History of DVT/PE: No History of Uncontrolled Diabetes: Yes Urinary Catheter: No Decubitus Ulcer Present: No Review of Systems - Review of Systems All systems: reviewed and no additional remarkable complaints except - Constitutional Constitutional: absent: Chills, Fever, Headache - EENT Eyes: absent: Change in Vision - Cardiovascular Cardiovascular: absent: Chest Pain - Respiratory Respiratory: absent: Dyspnea - Gastrointestinal Gastrointestinal: absent: Abdominal Pain, Diarrhea, Nausea, Vomiting - Genitourinary Genitourinary: absent: Dysuria - Integumentary Integumentary: absent: Rash Past Patient History - Past Medical History & Family History Past Medical History?: Yes - Past Social History Smoking Status: Never Smoked - CARDIAC Hx Hypertension: Yes - PULMONARY Hx Respiratory Disorders: No - HEENT Hx Blind: Yes (lt eye) - RENAL Hx Chronic Kidney Disease: No - ENDOCRINE/METABOLIC Hx Diabetes Mellitus Type 2: Yes - HEMATOLOGICAL/ONCOLOGICAL Hx Blood Disorders: No - INTEGUMENTARY Hx Dermatological Problems: No - MUSCULOSKELETAL/RHEUMATOLOGICAL Hx Arthritis: Yes Hx Falls: No - GASTROINTESTINAL Hx Gastrointestinal Disorders: Yes Hx Gastritis: Yes - GENITOURINARY/GYNECOLOGICAL Hx Genitourinary Disorders: No - PSYCHIATRIC Hx Substance Use: No - SURGICAL HISTORY Hx Surgeries: No - ANESTHESIA Hx Anesthesia: No Meds Allergies/Adverse Reactions: Allergies Allergy/AdvReac Type Severity Reaction Status Date / Time No Known Allergies Allergy Verified 10/23/17 16:52 Physical Exam - Constitutional Appears: Non-toxic, No Acute Distress - Head Exam Head Exam: ATRAUMATIC, NORMAL INSPECTION, NORMOCEPHALIC - Eye Exam Additional comments: left eye cataract - ENT Exam ENT Exam: Mucous Membranes Moist - Neck Exam Neck exam: Positive for: Full Rom. Negative for: Tenderness - Respiratory Exam Respiratory Exam: Clear to Auscultation Bilateral. absent: Accessory Muscle Use , Decreased Breath Sounds, Rales, Rhonchi, Wheezes, Respiratory Distress - Cardiovascular Exam Cardiovascular Exam: REGULAR RHYTHM. absent: Tachycardia - GI/Abdominal Exam GI & Abdominal Exam: Normal Bowel Sounds, Soft. absent: Distended, Tenderness - Extremities Exam Additional comments: left leg wrapped in mauri wrap, c/d/i - Neurological Exam Neurological exam: Alert, Oriented x3 - Skin Skin Exam: Dry, Intact, Normal Color, Warm Results - Vital Signs Recent Vital Signs: Last Vital Signs Temp 98.2 F 10/24/17 07:32 Pulse 85 10/24/17 07:32 Resp 20 10/24/17 07:32 BP 127/67 10/24/17 07:32 Pulse Ox 95 10/24/17 07:32 - Labs Result Diagrams: 10/24/17 05:30 10/24/17 05:30 Labs: Laboratory Results - last 24 hr 10/23/17 10/24/17 10/24/17 21:53 05:30 05:30 WBC 8.6 RBC 2.82 L Hgb 8.3 L Hct 25.1 L MCV 88.9 MCH 29.6 MCHC 33.2 RDW 14.4 Plt Count 389 Sodium 137 Potassium 4.3 Chloride 99 Carbon Dioxide 30 Anion Gap 12 BUN 21 H Creatinine 1.3 Est GFR ( Amer) > 60 Est GFR (Non-Af Amer) 55 POC Glucose (mg/dL) 159 H Random Glucose 143 H Calcium 8.0 L Total Bilirubin 0.2 AST 29 ALT 30 Alkaline Phosphatase 150 H D Total Protein 6.9 Albumin 2.3 L Globulin 4.6 H Albumin/Globulin Ratio 0.5 L 10/24/17 06:06 WBC RBC Hgb Hct MCV MCH MCHC RDW Plt Count Sodium Potassium Chloride Carbon Dioxide Anion Gap BUN Creatinine Est GFR ( Amer) Est GFR (Non-Af Amer) POC Glucose (mg/dL) 129 H Random Glucose Calcium Total Bilirubin AST ALT Alkaline Phosphatase Total Protein Albumin Globulin Albumin/Globulin Ratio Assessment & Plan (1) Amputation of left lower extremity below knee Status: Acute (2) Phantom limb pain Status: Acute (3) HTN (hypertension) Status: Chronic (4) Uncontrolled diabetes mellitus Status: Chronic - Assessment and Plan (Free Text) Plan: c/w present management currently afebrile, non-tachycardic, normotensive s/p left BKA POD 9 podiatry recommendations appreciated surgery recommendations appreciated infectious disease recommendations appreciated pain management recommendations appreciated CBC: 8.6>8.3/25.1<389 c/w procrit insulin levemir 5 units SC HS insulin correction scale hypoglycemic protocol pain management: tylenol 650 mg Q6h prn, neurontin 200 mg PO TID, percocet 1 tab PO Q4h prn (moderate), percocet 2 tab PO Q4h prn (severe) c/w PT monitor for acute changes <Griffin,Vimal K - Last Filed: 10/24/17 13:48> Results - Vital Signs Recent Vital Signs: Last Vital Signs Temp 98.2 F 10/24/17 07:32 Pulse 85 10/24/17 09:09 Resp 20 10/24/17 07:32 BP 127/67 10/24/17 09:09 Pulse Ox 95 10/24/17 07:32 - Labs Result Diagrams: 10/24/17 05:30 10/24/17 05:30 Labs: Laboratory Results - last 24 hr 10/23/17 10/24/17 10/24/17 21:53 05:30 05:30 WBC 8.6 RBC 2.82 L Hgb 8.3 L Hct 25.1 L MCV 88.9 MCH 29.6 MCHC 33.2 RDW 14.4 Plt Count 389 Sodium 137 Potassium 4.3 Chloride 99 Carbon Dioxide 30 Anion Gap 12 BUN 21 H Creatinine 1.3 Est GFR ( Amer) > 60 Est GFR (Non-Af Amer) 55 POC Glucose (mg/dL) 159 H Random Glucose 143 H Calcium 8.0 L Total Bilirubin 0.2 AST 29 ALT 30 Alkaline Phosphatase 150 H D Total Protein 6.9 Albumin 2.3 L Globulin 4.6 H Albumin/Globulin Ratio 0.5 L 10/24/17 06:06 WBC RBC Hgb Hct MCV MCH MCHC RDW Plt Count Sodium Potassium Chloride Carbon Dioxide Anion Gap BUN Creatinine Est GFR ( Amer) Est GFR (Non-Af Amer) POC Glucose (mg/dL) 129 H Random Glucose Calcium Total Bilirubin AST ALT Alkaline Phosphatase Total Protein Albumin Globulin Albumin/Globulin Ratio Assessment & Plan - Assessment and Plan (Free Text) Assessment: Patient was personally seen and examined by me in rounds with residents. Available labs and diagnostic data reviewed. Case, Patient's condition and management plan discussed with residents in rounds. Agree with resident's progress note. Plan: As ordered.
[2017-10-24] MEDS ORDERED: Glucagon Recombinant 1 mg Inj IM PRN (07:50)
[2017-10-24] MEDS: Insulin Lispro (humaLOG) 100 Units/ml Inj SC SCH ×4 (07:50→22:36)
[2017-10-24] MEDS ORDERED: Dextrose 50% SYRINGE Inj (50 ml) IV PRN (07:50)
[2017-10-24] MEDS ORDERED: Patient's Own Med (Brimonidine 0.15% [Alphagan P 0.15% Opht] 1 DROP) OP SCH (09:00)
[2017-10-24] MEDS ORDERED: SITAGLIPTIN PHOS PO SCH (09:00)
[2017-10-24] MEDS ORDERED: METFORMIN HCL PO SCH (09:00)
[2017-10-24] MEDS ORDERED: Pneumococcal 23-Valent Vaccine IM ONE (09:00)
[2017-10-24] MEDS: Tmp-Smz 800 mg-160 mg DS Tab PO SCH ×2 (09:08→17:50)
[2017-10-24] MEDS: Saccharomyces Boulardi 250 mg Cap PO SCH ×2 (09:10→17:49)
[2017-10-24] MEDS: Enoxaparin 40 mg Syringe SC SCH (09:11)
[2017-10-24] MEDS: EPOETIN ALFA 10,000 UNIT/ML ML SC SCH (09:15)
[2017-10-24] MEDS: Brimonidine 0.2% 50 DROP/5 ML BOTTLE OU SCH ×3 (09:31→17:48)
[2017-10-24] MEDS: Oxycodone/Acetaminophen 5/325 mg Tab PO PRN (10:12)
--- NOTE | 2017-10-24 12:40 | CP.PCM.CON ---
History of Present Illness - History of Present Illness History of Present Illness: Dr Juarez PMR consultation on Oswaldo Miner, born 1945, who has been admitted to [facility] acute inpatient rehabilitation following an admission for left LE swelling and ulceration and eventual BKA was performed. He is homeless. 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 absent: Abnormal Movements Past Patient History - Past Medical History & Family History Past Medical History?: Yes - Past Social History Smoking Status: Never Smoked Alcohol: None Drugs: Denies Home Situation {Lives}: Homeless - CARDIAC Hx Hypertension: Yes - PULMONARY Hx Respiratory Disorders: No - HEENT Hx Blind: Yes (lt eye) - RENAL Hx Chronic Kidney Disease: No - ENDOCRINE/METABOLIC Hx Diabetes Mellitus Type 2: Yes - HEMATOLOGICAL/ONCOLOGICAL Hx Blood Disorders: No - INTEGUMENTARY Hx Dermatological Problems: No - MUSCULOSKELETAL/RHEUMATOLOGICAL Hx Arthritis: Yes Hx Falls: No - GASTROINTESTINAL Hx Gastrointestinal Disorders: Yes Hx Gastritis: Yes - GENITOURINARY/GYNECOLOGICAL Hx Genitourinary Disorders: No - PSYCHIATRIC Hx Substance Use: No - SURGICAL HISTORY Hx Surgeries: No - ANESTHESIA Hx Anesthesia: No Meds Allergies/Adverse Reactions: Allergies Allergy/AdvReac Type Severity Reaction Status Date / Time No Known Allergies Allergy Verified 10/23/17 16:52 - Medications Medications: Current Medications Acetaminophen (Tylenol 325mg Tab) 650 mg PO Q4 PRN PRN Reason: Fever >100.4 F Amlodipine Besylate (Norvasc) 10 mg PO DAILY [facility] Last Admin: 10/24/17 09:09 Dose: 10 mg Brimonidine Tartrate (Alphagan 0.2% Opht) 1 drop OU TID [facility] Last Admin: 10/24/17 12:38 Dose: 1 drop Dextrose (Dextrose 50% Inj) 0 ml IV STAT PRN; Protocol PRN Reason: Hypoglycemia Protocol Dextrose (Glutose 15) 0 gm PO ONCE PRN; Protocol PRN Reason: Hypoglycemia Protocol Enoxaparin Sodium (Lovenox) 40 mg SC DAILY [facility] PRN Reason: Protocol Last Admin: 10/24/17 09:11 Dose: 40 mg Epoetin Zeke (Procrit) 10,000 unit SC DAILY [facility] Last Admin: 10/24/17 09:15 Dose: 10,000 unit Famotidine (Pepcid) 20 mg PO BID [facility] Last Admin: 10/24/17 09:09 Dose: 20 mg Ferrous Sulfate (Feosol) 325 mg PO BID [facility] Last Admin: 10/24/17 09:09 Dose: 325 mg Gabapentin (Neurontin) 200 mg PO TID [facility] Last Admin: 10/24/17 12:39 Dose: 200 mg Glucagon (Glucagen Diagnostic Kit) 0 mg IM STAT PRN; Protocol PRN Reason: Hypoglycemia Protocol Insulin Detemir (Levemir) 5 units SC HS [facility] Last Admin: 10/23/17 22:16 Dose: 5 units Insulin Human Lispro (Humalog) 0 units SC [facility] PRN Reason: Protocol Last Admin: 10/24/17 12:00 Dose: 2 unit Metformin HCl (Glucophage) 500 mg PO BID [facility] Last Admin: 10/24/17 09:09 Dose: 500 mg Oxycodone/Acetaminophen (Percocet 5/325 Mg Tab) 1 tab PO Q4 PRN PRN Reason: Pain, moderate (4-7) Stop: 10/26/17 18:26 Oxycodone/Acetaminophen (Percocet 5/325 Mg Tab) 2 tab PO Q4 PRN PRN Reason: Pain, severe (8-10) Stop: 10/26/17 18:26 Last Admin: 10/24/17 10:12 Dose: 2 tab Saccharomyces Boulardii (Florastor) 250 mg PO BID [facility] Last Admin: 10/24/17 09:10 Dose: 250 mg Sitagliptin Phosphate (Januvia) 50 mg PO BID [facility] Last Admin: 10/24/17 09:09 Dose: 50 mg Trimethoprim/Sulfamethoxazole (Bactrim Ds Tab) 1 tab PO BID [facility] PRN Reason: Protocol Last Admin: 10/24/17 09:08 Dose: 1 tab Physical Exam - Constitutional Appears: Non-toxic - Head Exam Head Exam: ATRAUMATIC, NORMAL INSPECTION, NORMOCEPHALIC - Eye Exam Eye Exam: absent: Normal appearance (left eye opaque with lesion) - ENT Exam ENT Exam: Mucous Membranes Moist - Respiratory Exam Respiratory Exam: NORMAL BREATHING PATTERN - Cardiovascular Exam Cardiovascular Exam: REGULAR RHYTHM - GI/Abdominal Exam GI & Abdominal Exam: absent: Distended, Firm - Extremities Exam Extremities exam: Negative for: calf tenderness (on the right. Left residual limb with "T" closure. CDI) - Neurological Exam Neurological exam: Alert, CN II-XII Intact, Oriented x3 - Psychiatric Exam Psychiatric exam: Normal Affect, Normal Mood - Skin Skin Exam: Warm Results - Vital Signs Recent Vital Signs: Last Vital Signs Temp 98.2 F 10/24/17 07:32 Pulse 85 10/24/17 09:09 Resp 20 10/24/17 07:32 BP 127/67 10/24/17 09:09 Pulse Ox 95 10/24/17 07:32 - Labs Result Diagrams: 10/24/17 05:30 10/24/17 05:30 Labs: Laboratory Results - last 24 hr 10/23/17 10/24/17 10/24/17 21:53 05:30 05:30 WBC 8.6 RBC 2.82 L Hgb 8.3 L Hct 25.1 L MCV 88.9 MCH 29.6 MCHC 33.2 RDW 14.4 Plt Count 389 Sodium 137 Potassium 4.3 Chloride 99 Carbon Dioxide 30 Anion Gap 12 BUN 21 H Creatinine 1.3 Est GFR ( Amer) > 60 Est GFR (Non-Af Amer) 55 POC Glucose (mg/dL) 159 H Random Glucose 143 H Calcium 8.0 L Total Bilirubin 0.2 AST 29 ALT 30 Alkaline Phosphatase 150 H D Total Protein 6.9 Albumin 2.3 L Globulin 4.6 H Albumin/Globulin Ratio 0.5 L 10/24/17 06:06 WBC RBC Hgb Hct MCV MCH MCHC RDW Plt Count Sodium Potassium Chloride Carbon Dioxide Anion Gap BUN Creatinine Est GFR ( Amer) Est GFR (Non-Af Amer) POC Glucose (mg/dL) 129 H Random Glucose Calcium Total Bilirubin AST ALT Alkaline Phosphatase Total Protein Albumin Globulin Albumin/Globulin Ratio Assessment & Plan - Assessment and Plan (Free Text) Assessment: PT/OT to continue to help increase functional independence Team conference for d/c planning Pain: controlled Vascular: no evidence of DVT. Keep incision clean and dry GI: No evidence of constipation or diarrhea Patient is an excellent acute rehabilitation candidate and will have focused pain management, wound care, PT, OT and recreational therapy to help facilitate a safe and appropriate d/c plan Impairment code: 05.4
--- NOTE | 2017-10-24 17:04 | CP.PCM.PCO ---
Physician Communication Note - Physician Communication Note Physician Communication Note: surgery will remove pepe, nurse dressing changes prn with 4x4/kerlix/mauri
[2017-10-24] MEDS ORDERED: Povidone Iodine Topical 10% Sol ONE (17:15)
[2017-10-24] MEDS: Insulin Detemir 100 Units/ml Inj SC SCH (22:43)
[2017-10-25] MEDS: Povidone Iodine Topical 10% Sol EXT SCH ×2 (07:08→08:10)
[2017-10-25] MEDS: Insulin Lispro (humaLOG) 100 Units/ml Inj SC SCH ×4 (07:08→21:29)
[2017-10-25] MEDS: Enoxaparin 40 mg Syringe SC SCH (08:11)
[2017-10-25] MEDS: Brimonidine 0.2% 50 DROP/5 ML BOTTLE OU SCH ×3 (08:12→17:39)
[2017-10-25] MEDS: Saccharomyces Boulardi 250 mg Cap PO SCH ×2 (08:12→17:52)
[2017-10-25] MEDS: Tmp-Smz 800 mg-160 mg DS Tab PO SCH ×2 (08:13→17:38)
[2017-10-25] MEDS: EPOETIN ALFA 10,000 UNIT/ML ML SC SCH (08:15)
--- NOTE | 2017-10-25 08:20 | CP.PCM.PN ---
Subjective - Date & Time of Evaluation Date of Evaluation: 10/25/17 Time of Evaluation: 08:00 - Subjective Subjective: Patient seen and examined this morning at bedside w/ Dr. Griffin. There are no acute events overnight, NAD. The patient is sp left BKA POD#10 The patient is sitting in bed comfortably eating breakfast. The patient is tolerating physical therapy. Pain relieved w/ medication. The patient has no complaints, denies headaches, chest pain, SOB, abdominal pain, nausea, vomiting, diarrhea, dysuria, or fever. Objective - Vital Signs/Intake and Output Vital Signs (last 24 hours): Temp Pulse Resp BP Pulse Ox 97.9 F 78 20 128/70 96 10/24/17 20:17 10/25/17 08:14 10/24/17 20:17 10/25/17 08:14 10/24/17 20:17 - Medications Medications: Current Medications Acetaminophen (Tylenol 325mg Tab) 650 mg PO Q4 PRN PRN Reason: Fever >100.4 F Amlodipine Besylate (Norvasc) 10 mg PO DAILY [facility] Last Admin: 10/25/17 08:14 Dose: 10 mg Brimonidine Tartrate (Alphagan 0.2% Opht) 1 drop OU TID [facility] Last Admin: 10/25/17 08:12 Dose: 1 drop Dextrose (Dextrose 50% Inj) 0 ml IV STAT PRN; Protocol PRN Reason: Hypoglycemia Protocol Dextrose (Glutose 15) 0 gm PO ONCE PRN; Protocol PRN Reason: Hypoglycemia Protocol Enoxaparin Sodium (Lovenox) 40 mg SC DAILY [facility] PRN Reason: Protocol Last Admin: 10/25/17 08:11 Dose: 40 mg Epoetin Zeke (Procrit) 10,000 unit SC DAILY [facility] Last Admin: 10/25/17 08:15 Dose: 10,000 unit Famotidine (Pepcid) 20 mg PO BID [facility] Last Admin: 10/25/17 08:13 Dose: 20 mg Ferrous Sulfate (Feosol) 325 mg PO BID [facility] Last Admin: 10/25/17 08:12 Dose: 325 mg Gabapentin (Neurontin) 200 mg PO TID [facility] Last Admin: 10/25/17 08:12 Dose: 200 mg Glucagon (Glucagen Diagnostic Kit) 0 mg IM STAT PRN; Protocol PRN Reason: Hypoglycemia Protocol Insulin Detemir (Levemir) 5 units SC [facility] Last Admin: 10/24/17 22:43 Dose: 5 units Insulin Human Lispro (Humalog) 0 units SC [facility] PRN Reason: Protocol Last Admin: 10/25/17 07:08 Dose: Not Given Metformin HCl (Glucophage) 500 mg PO BID [facility] Last Admin: 10/25/17 08:11 Dose: 500 mg Oxycodone/Acetaminophen (Percocet 5/325 Mg Tab) 1 tab PO Q4 PRN PRN Reason: Pain, moderate (4-7) Stop: 10/26/17 18:26 Oxycodone/Acetaminophen (Percocet 5/325 Mg Tab) 2 tab PO Q4 PRN PRN Reason: Pain, severe (8-10) Stop: 10/26/17 18:26 Last Admin: 10/24/17 10:12 Dose: 2 tab Povidone Iodine (Betadine 10% Topical Soln) 0 ml EXT DAILY [facility] Last Admin: 10/25/17 08:10 Dose: 1 applic Saccharomyces Boulardii (Florastor) 250 mg PO BID [facility] Last Admin: 10/25/17 08:12 Dose: 250 mg Sitagliptin Phosphate (Januvia) 50 mg PO BID [facility] Last Admin: 10/25/17 08:13 Dose: 50 mg Trimethoprim/Sulfamethoxazole (Bactrim Ds Tab) 1 tab PO BID [facility] PRN Reason: Protocol Last Admin: 10/25/17 08:13 Dose: 1 tab - Labs Labs: 10/24/17 05:30 10/24/17 05:30 - Constitutional Appears: Non-toxic, No Acute Distress - Head Exam Head Exam: ATRAUMATIC, NORMAL INSPECTION, NORMOCEPHALIC - Eye Exam Additional comments: left eye cataract - ENT Exam ENT Exam: Mucous Membranes Moist - Neck Exam Neck Exam: Full ROM. absent: Tenderness - Respiratory Exam Respiratory Exam: Clear to Ausculation Bilateral. absent: Accessory Muscle Use , Decreased Breath Sounds, Rales, Rhonchi, Wheezes, Respiratory Distress - Cardiovascular Exam Cardiovascular Exam: REGULAR RHYTHM. absent: Tachycardia - GI/Abdominal Exam GI & Abdominal Exam: Soft, Normal Bowel Sounds. absent: Distended, Tenderness - Back Exam Additional comments: left leg wrapped in mauri wrap, c/d/i - Neurological Exam Neurological Exam: Alert, Awake, Oriented x3 - Skin Skin Exam: Dry, Intact, Normal Color, Warm Assessment and Plan (1) Amputation of left lower extremity below knee Status: Acute (2) Phantom limb pain Status: Acute (3) HTN (hypertension) Status: Chronic (4) Uncontrolled diabetes mellitus Status: Chronic - Assessment and Plan (Free Text) Plan: c/w present management currently afebrile, non-tachycardic, normotensive s/p left BKA POD 10 podiatry recommendations appreciated surgery recommendations appreciated infectious disease recommendations appreciated pain management recommendations appreciated bactrim DS 1 tab PO BID day 2 c/w procrit insulin levemir 5 units SC HS insulin correction scale hypoglycemic protocol pain management: tylenol 650 mg Q6h prn, neurontin 200 mg PO TID, percocet 1 tab PO Q4h prn (moderate), percocet 2 tab PO Q4h prn (severe) c/w PT monitor for acute changes
--- NOTE | 2017-10-25 18:07 | PCM.OPOC ---
Physiatry Overall Plan of Care - Overall Plan of Care Estimated Length of Stay in Weeks: 3 Rehab Impairment: Mobility, Gait, Balance Etiologic Diagnosis: Amputee Rehab/Medical Prognosis: Fair - Anticipated Interventions Physical Therapy:: Yes Occupational Therapy:: Yes Speech Therapy:: No Recreational Therapy:: Yes - Therapy Goals Bed Mobility: Contact Guard Ambulation: Moderate Assistance Functional Positional Changes:: Contact Guard - Discharge Plan Identification of Barriers to Discharge: Home Situation Discharge Destination: Subacute
[2017-10-25] MEDS: Insulin Detemir 100 Units/ml Inj SC SCH (21:28)
[2017-10-26] MEDS: Insulin Lispro (humaLOG) 100 Units/ml Inj SC SCH ×4 (07:31→21:26)
--- NOTE | 2017-10-26 08:08 | CP.PCM.PN ---
<Steve Holly - Last Filed: 10/26/17 09:11> Subjective - Date & Time of Evaluation Date of Evaluation: 10/26/17 Time of Evaluation: 08:08 - Subjective Subjective: Patient seen and examined this morning at bedside w/ Dr. Griffin. There are no acute events overnight, NAD. The patient is sp left BKA POD#11. The patient is preparing for physical therapy. The patient is tolerating physical therapy. Pain relieved w/ medication. The patient has no complaints, denies headaches , chest pain, SOB, abdominal pain, nausea, vomiting, diarrhea, dysuria, or fever. Objective - Vital Signs/Intake and Output Vital Signs (last 24 hours): Temp Pulse Resp BP Pulse Ox 98.0 F 81 20 120/64 98 10/25/17 20:38 10/25/17 20:38 10/25/17 20:38 10/25/17 20:38 10/25/17 20:38 - Medications Medications: Current Medications Acetaminophen (Tylenol 325mg Tab) 650 mg PO Q4 PRN PRN Reason: Fever >100.4 F Amlodipine Besylate (Norvasc) 10 mg PO DAILY [facility] Last Admin: 10/25/17 08:14 Dose: 10 mg Brimonidine Tartrate (Alphagan 0.2% Opht) 1 drop OU TID [facility] Last Admin: 10/25/17 17:39 Dose: 1 drop Dextrose (Dextrose 50% Inj) 0 ml IV STAT PRN; Protocol PRN Reason: Hypoglycemia Protocol Dextrose (Glutose 15) 0 gm PO ONCE PRN; Protocol PRN Reason: Hypoglycemia Protocol Enoxaparin Sodium (Lovenox) 40 mg SC DAILY [facility] PRN Reason: Protocol Last Admin: 10/25/17 08:11 Dose: 40 mg Epoetin Zeke (Procrit) 10,000 unit SC DAILY [facility] Last Admin: 10/25/17 08:15 Dose: 10,000 unit Famotidine (Pepcid) 20 mg PO BID [facility] Last Admin: 10/25/17 17:38 Dose: 20 mg Ferrous Sulfate (Feosol) 325 mg PO BID [facility] Last Admin: 10/25/17 17:38 Dose: 325 mg Gabapentin (Neurontin) 200 mg PO TID [facility] Last Admin: 10/25/17 17:38 Dose: 200 mg Glucagon (Glucagen Diagnostic Kit) 0 mg IM STAT PRN; Protocol PRN Reason: Hypoglycemia Protocol Insulin Detemir (Levemir) 5 units SC HS [facility] Last Admin: 10/25/17 21:28 Dose: 5 units Insulin Human Lispro (Humalog) 0 units SC ACHS [facility] PRN Reason: Protocol Last Admin: 10/26/17 07:31 Dose: Not Given Metformin HCl (Glucophage) 500 mg PO BID [facility] Last Admin: 10/25/17 17:53 Dose: 500 mg Oxycodone/Acetaminophen (Percocet 5/325 Mg Tab) 1 tab PO Q4 PRN PRN Reason: Pain, moderate (4-7) Stop: 10/26/17 18:26 Last Admin: 10/25/17 11:45 Dose: 1 tab Oxycodone/Acetaminophen (Percocet 5/325 Mg Tab) 2 tab PO Q4 PRN PRN Reason: Pain, severe (8-10) Stop: 10/26/17 18:26 Last Admin: 10/24/17 10:12 Dose: 2 tab Povidone Iodine (Betadine 10% Topical Soln) 0 ml EXT DAILY [facility] Last Admin: 10/25/17 08:10 Dose: 1 applic Saccharomyces Boulardii (Florastor) 250 mg PO BID [facility] Last Admin: 10/25/17 17:52 Dose: 250 mg Sitagliptin Phosphate (Januvia) 50 mg PO BID [facility] Last Admin: 10/25/17 17:38 Dose: 50 mg Trimethoprim/Sulfamethoxazole (Bactrim Ds Tab) 1 tab PO BID [facility] PRN Reason: Protocol Last Admin: 10/25/17 17:38 Dose: 1 tab - Labs Labs: 10/24/17 05:30 10/24/17 05:30 - Constitutional Appears: Non-toxic, No Acute Distress - Head Exam Head Exam: ATRAUMATIC, NORMAL INSPECTION, NORMOCEPHALIC - Eye Exam Additional comments: left eye cataract and blind - ENT Exam ENT Exam: Mucous Membranes Moist - Respiratory Exam Respiratory Exam: Clear to Ausculation Bilateral. absent: Accessory Muscle Use , Decreased Breath Sounds, Rales, Rhonchi, Wheezes, Respiratory Distress - Cardiovascular Exam Cardiovascular Exam: REGULAR RHYTHM. absent: Tachycardia - GI/Abdominal Exam GI & Abdominal Exam: Soft, Normal Bowel Sounds. absent: Distended, Tenderness - Extremities Exam Additional comments: left leg wrapped in mauri wrap, c/d/i - Neurological Exam Neurological Exam: Alert, Awake, Oriented x3 - Skin Skin Exam: Dry, Intact, Normal Color, Warm Assessment and Plan (1) Amputation of left lower extremity below knee Status: Acute (2) Phantom limb pain Status: Acute (3) HTN (hypertension) Status: Chronic (4) Uncontrolled diabetes mellitus Status: Chronic - Assessment and Plan (Free Text) Plan: c/w present management currently afebrile, non-tachycardic, normotensive s/p left BKA POD 11 podiatry recommendations appreciated surgery recommendations appreciated infectious disease recommendations appreciated pain management recommendations appreciated bactrim DS 1 tab PO BID day 3 c/w procrit insulin levemir 5 units SC HS insulin correction scale hypoglycemic protocol pain management: tylenol 650 mg Q6h prn, neurontin 200 mg PO TID, percocet 1 tab PO Q8h prn (moderate), percocet 2 tab PO Q8h prn (severe) c/w PT monitor for acute changes <Griffin,Vimal K - Last Filed: 10/27/17 18:53> Objective - Vital Signs/Intake and Output Vital Signs (last 24 hours): Temp Pulse Resp BP Pulse Ox 98.1 F 82 18 93/53 L 99 10/27/17 07:35 10/27/17 07:35 10/27/17 07:35 10/27/17 08:57 10/27/17 07:35 - Medications Medications: Current Medications Acetaminophen (Tylenol 325mg Tab) 650 mg PO Q4 PRN PRN Reason: temp >100.4/breakthrough pain. Amlodipine Besylate (Norvasc) 10 mg PO DAILY [facility] Last Admin: 10/27/17 08:57 Dose: Not Given Brimonidine Tartrate (Alphagan 0.2% Opht) 1 drop OU TID [facility] Last Admin: 10/27/17 16:45 Dose: 1 drop Dextrose (Dextrose 50% Inj) 0 ml IV STAT PRN; Protocol PRN Reason: Hypoglycemia Protocol Dextrose (Glutose 15) 0 gm PO ONCE PRN; Protocol PRN Reason: Hypoglycemia Protocol Enoxaparin Sodium (Lovenox) 40 mg SC DAILY [facility] PRN Reason: Protocol Last Admin: 10/27/17 08:51 Dose: 40 mg Epoetin Zeke (Procrit) 10,000 unit SC DAILY [facility] Last Admin: 10/27/17 08:51 Dose: 10,000 unit Escitalopram Oxalate (Lexapro) 5 mg PO DAILY [facility] Last Admin: 10/27/17 10:23 Dose: 5 mg Famotidine (Pepcid) 20 mg PO BID [facility] Last Admin: 10/27/17 16:46 Dose: 20 mg Ferrous Sulfate (Feosol) 325 mg PO BID [facility] Last Admin: 10/27/17 16:46 Dose: 325 mg Gabapentin (Neurontin) 200 mg PO TID [facility] Last Admin: 10/27/17 16:46 Dose: 200 mg Glucagon (Glucagen Diagnostic Kit) 0 mg IM STAT PRN; Protocol PRN Reason: Hypoglycemia Protocol Insulin Detemir (Levemir) 5 units SC [facility] Last Admin: 10/26/17 21:27 Dose: 5 units Insulin Human Lispro (Humalog) 0 units SC ACHS [facility] PRN Reason: Protocol Last Admin: 10/27/17 16:16 Dose: Not Given Metformin HCl (Glucophage) 500 mg PO BID [facility] Last Admin: 10/27/17 16:46 Dose: 500 mg Oxycodone/Acetaminophen (Percocet 5/325 Mg Tab) 2 tab PO Q8 PRN PRN Reason: Pain, severe (8-10) Stop: 10/29/17 14:01 Last Admin: 10/26/17 17:06 Dose: 2 tab Oxycodone/Acetaminophen (Percocet 5/325 Mg Tab) 1 tab PO Q8 PRN PRN Reason: Pain, moderate (4-7) Stop: 10/30/17 14:01 Povidone Iodine (Betadine 10% Topical Soln) 0 ml EXT DAILY [facility] Last Admin: 10/27/17 08:51 Dose: 1 applic Saccharomyces Boulardii (Florastor) 250 mg PO BID [facility] Last Admin: 10/27/17 16:46 Dose: 250 mg Sitagliptin Phosphate (Januvia) 50 mg PO BID [facility] Last Admin: 10/27/17 16:46 Dose: 50 mg Trimethoprim/Sulfamethoxazole (Bactrim Ds Tab) 1 tab PO BID [facility] PRN Reason: Protocol Last Admin: 10/27/17 16:46 Dose: 1 tab - Labs Labs: 10/27/17 06:00 10/27/17 06:00 Assessment and Plan - Assessment and Plan (Free Text) Assessment: Patient was personally seen and examined by me in rounds with residents. Available labs and diagnostic data reviewed. Case, Patient's condition and management plan discussed with residents in rounds. Agree with resident's progress note. Plan: As ordered.
[2017-10-26] MEDS: Oxycodone/Acetaminophen 5/325 mg Tab PO PRN ×2 (08:39→17:06)
[2017-10-26] MEDS: EPOETIN ALFA 10,000 UNIT/ML ML SC SCH (08:40)
[2017-10-26] MEDS: Enoxaparin 40 mg Syringe SC SCH (08:41)
[2017-10-26] MEDS: Povidone Iodine Topical 10% Sol EXT SCH (08:41)
[2017-10-26] MEDS: Saccharomyces Boulardi 250 mg Cap PO SCH ×2 (08:41→17:06)
[2017-10-26] MEDS: Brimonidine 0.2% 50 DROP/5 ML BOTTLE OU SCH ×3 (08:42→17:07)
[2017-10-26] MEDS: Tmp-Smz 800 mg-160 mg DS Tab PO SCH ×2 (08:42→17:07)
[2017-10-26] MEDS ORDERED: Oxycodone/Acetaminophen 5/325 mg Tab PO PRN (08:54)
--- NOTE | 2017-10-26 16:14 | CP.PCM.CON ---
History of Present Illness - History of Present Illness History of Present Illness: 2 y/o man w/ pmh of HTN and NIDDM2 admitted to rehab for physical therapy s/p left BKA pt on evaluation denied any previous psychiatric diagnosis or treatment pt however reported currently feeling sad and depressed due to his current medical condition., loosing his sight in one eye and BKA stated he feels down and tired tearful at times pt however denied changes in sleep or appetite denied any current suicidal or homicidal ideations denied perceptual disturbances Past Patient History - Past Medical History & Family History Past Medical History?: Yes - Past Social History Smoking Status: Never Smoked Alcohol: None Drugs: Denies Home Situation {Lives}: Homeless - CARDIAC Hx Hypertension: Yes - PULMONARY Hx Respiratory Disorders: No - HEENT Hx Blind: Yes (lt eye) - RENAL Hx Chronic Kidney Disease: No - ENDOCRINE/METABOLIC Hx Diabetes Mellitus Type 2: Yes - HEMATOLOGICAL/ONCOLOGICAL Hx Blood Disorders: No - INTEGUMENTARY Hx Dermatological Problems: No - MUSCULOSKELETAL/RHEUMATOLOGICAL Hx Arthritis: Yes Hx Falls: No - GASTROINTESTINAL Hx Gastrointestinal Disorders: Yes Hx Gastritis: Yes - GENITOURINARY/GYNECOLOGICAL Hx Genitourinary Disorders: No - PSYCHIATRIC Hx Substance Use: No - SURGICAL HISTORY Hx Surgeries: No - ANESTHESIA Hx Anesthesia: No Meds Allergies/Adverse Reactions: Allergies Allergy/AdvReac Type Severity Reaction Status Date / Time No Known Allergies Allergy Verified 10/23/17 16:52 - Medications Medications: Current Medications Acetaminophen (Tylenol 325mg Tab) 650 mg PO Q4 PRN PRN Reason: Fever >100.4 F Amlodipine Besylate (Norvasc) 10 mg PO DAILY [facility] Last Admin: 10/26/17 08:41 Dose: 10 mg Brimonidine Tartrate (Alphagan 0.2% Opht) 1 drop OU TID [facility] Last Admin: 10/26/17 13:20 Dose: 1 drop Dextrose (Dextrose 50% Inj) 0 ml IV STAT PRN; Protocol PRN Reason: Hypoglycemia Protocol Dextrose (Glutose 15) 0 gm PO ONCE PRN; Protocol PRN Reason: Hypoglycemia Protocol Enoxaparin Sodium (Lovenox) 40 mg SC DAILY [facility] PRN Reason: Protocol Last Admin: 10/26/17 08:41 Dose: 40 mg Epoetin Zeke (Procrit) 10,000 unit SC DAILY [facility] Last Admin: 04/27/18 08:40 Dose: 10,000 unit Escitalopram Oxalate (Lexapro) 5 mg PO DAILY [facility] Last Admin: 10/26/17 13:19 Dose: 5 mg Famotidine (Pepcid) 20 mg PO BID [facility] Last Admin: 10/26/17 08:42 Dose: 20 mg Ferrous Sulfate (Feosol) 325 mg PO BID [facility] Last Admin: 10/26/17 08:42 Dose: 325 mg Gabapentin (Neurontin) 200 mg PO TID [facility] Last Admin: 10/26/17 13:20 Dose: 200 mg Glucagon (Glucagen Diagnostic Kit) 0 mg IM STAT PRN; Protocol PRN Reason: Hypoglycemia Protocol Insulin Detemir (Levemir) 5 units SC HS [facility] Last Admin: 10/25/17 21:28 Dose: 5 units Insulin Human Lispro (Humalog) 0 units SC ACHS [facility] PRN Reason: Protocol Last Admin: 10/26/17 12:03 Dose: Not Given Metformin HCl (Glucophage) 500 mg PO BID [facility] Last Admin: 10/26/17 08:42 Dose: 500 mg Oxycodone/Acetaminophen (Percocet 5/325 Mg Tab) 1 tab PO Q8 PRN PRN Reason: Pain, moderate (4-7) Stop: 10/29/17 14:01 Oxycodone/Acetaminophen (Percocet 5/325 Mg Tab) 2 tab PO Q8 PRN PRN Reason: Pain, severe (8-10) Stop: 10/29/17 14:01 Povidone Iodine (Betadine 10% Topical Soln) 0 ml EXT DAILY [facility] Last Admin: 10/26/17 08:41 Dose: 1 applic Saccharomyces Boulardii (Florastor) 250 mg PO BID [facility] Last Admin: 10/26/17 08:41 Dose: 250 mg Sitagliptin Phosphate (Januvia) 50 mg PO BID [facility] Last Admin: 10/26/17 08:41 Dose: 50 mg Trimethoprim/Sulfamethoxazole (Bactrim Ds Tab) 1 tab PO BID [facility] PRN Reason: Protocol Last Admin: 10/26/17 08:42 Dose: 1 tab Physical Exam - Psychiatric Exam Additional comments: pt seen in wheel chair, calm cooperative partial eye contact speech soft mood sad affect constricted, thought form coherent denied any current suicidal or homicidal ideations, denied perceptual disturbances, alert awake ox3 Results - Vital Signs Recent Vital Signs: Last Vital Signs Temp 98.0 F 10/26/17 08:22 Pulse 91 H 10/26/17 08:41 Resp 20 10/26/17 08:22 BP 105/57 L 10/26/17 08:41 Pulse Ox 97 10/26/17 08:22 - Labs Result Diagrams: 10/24/17 05:30 10/24/17 05:30 Labs: Laboratory Results - last 24 hr 10/25/17 10/26/17 10/26/17 21:16 06:53 11:49 POC Glucose (mg/dL) 156 H 81 125 H 10/26/17 15:18 POC Glucose (mg/dL) 156 H Assessment & Plan - Assessment and Plan (Free Text) Assessment: mood disorder due to medical condition with depressive features Plan: start lexapro 5mg and uptitrate gradually to 10mg social media strategist may assist in linking the patient to adult day care program as pt agreed
--- NOTE | 2017-10-26 19:34 | CP.PCM.PN ---
Subjective - Date & Time of Evaluation Date of Evaluation: 10/26/17 Time of Evaluation: 19:33 - Subjective Subjective: Patient seen in the room head covered in sheet when I woke him up, NAD, yet says 10/10 pain which is not consistent with clinical presentation continue current care, will follow up with the wound healing Objective - Vital Signs/Intake and Output Vital Signs (last 24 hours): Temp Pulse Resp BP Pulse Ox 98.0 F 91 H 20 105/57 L 97 10/26/17 08:22 10/26/17 08:41 10/26/17 08:22 10/26/17 08:41 10/26/17 08:22 - Medications Medications: Current Medications Acetaminophen (Tylenol 325mg Tab) 650 mg PO Q4 PRN PRN Reason: Fever >100.4 F Amlodipine Besylate (Norvasc) 10 mg PO DAILY [facility] Last Admin: 10/26/17 08:41 Dose: 10 mg Brimonidine Tartrate (Alphagan 0.2% Opht) 1 drop OU TID [facility] Last Admin: 10/26/17 17:07 Dose: 1 drop Dextrose (Dextrose 50% Inj) 0 ml IV STAT PRN; Protocol PRN Reason: Hypoglycemia Protocol Dextrose (Glutose 15) 0 gm PO ONCE PRN; Protocol PRN Reason: Hypoglycemia Protocol Enoxaparin Sodium (Lovenox) 40 mg SC DAILY [facility] PRN Reason: Protocol Last Admin: 10/26/17 08:41 Dose: 40 mg Epoetin Zeke (Procrit) 10,000 unit SC DAILY [facility] Last Admin: 10/26/17 08:40 Dose: 10,000 unit Escitalopram Oxalate (Lexapro) 5 mg PO DAILY [facility] Last Admin: 10/26/17 13:19 Dose: 5 mg Famotidine (Pepcid) 20 mg PO BID [facility] Last Admin: 10/26/17 17:07 Dose: 20 mg Ferrous Sulfate (Feosol) 325 mg PO BID [facility] Last Admin: 10/26/17 17:07 Dose: 325 mg Gabapentin (Neurontin) 200 mg PO TID [facility] Last Admin: 10/26/17 17:07 Dose: 200 mg Glucagon (Glucagen Diagnostic Kit) 0 mg IM STAT PRN; Protocol PRN Reason: Hypoglycemia Protocol Insulin Detemir (Levemir) 5 units SC HS [facility] Last Admin: 10/25/17 21:28 Dose: 5 units Insulin Human Lispro (Humalog) 0 units SC ACHS [facility] PRN Reason: Protocol Last Admin: 10/26/17 16:24 Dose: Not Given Metformin HCl (Glucophage) 500 mg PO BID [facility] Last Admin: 10/26/17 17:07 Dose: 500 mg Oxycodone/Acetaminophen (Percocet 5/325 Mg Tab) 1 tab PO Q8 PRN PRN Reason: Pain, moderate (4-7) Stop: 10/29/17 14:01 Oxycodone/Acetaminophen (Percocet 5/325 Mg Tab) 2 tab PO Q8 PRN PRN Reason: Pain, severe (8-10) Stop: 10/29/17 14:01 Last Admin: 10/26/17 17:06 Dose: 2 tab Povidone Iodine (Betadine 10% Topical Soln) 0 ml EXT DAILY [facility] Last Admin: 10/26/17 08:41 Dose: 1 applic Saccharomyces Boulardii (Florastor) 250 mg PO BID [facility] Last Admin: 10/26/17 17:06 Dose: 250 mg Sitagliptin Phosphate (Januvia) 50 mg PO BID [facility] Last Admin: 10/26/17 17:07 Dose: 50 mg Trimethoprim/Sulfamethoxazole (Bactrim Ds Tab) 1 tab PO BID [facility] PRN Reason: Protocol Last Admin: 10/26/17 17:07 Dose: 1 tab - Labs Labs: 10/24/17 05:30 10/24/17 05:30
[2017-10-26] MEDS: Insulin Detemir 100 Units/ml Inj SC SCH (21:27)
[2017-10-27 06:39] LABS: MEAN CELL VOLUME 89.3 fl (80.0-94.0); MEAN CORPUSCULAR HEMOGLOBIN 30.4 pg (27.0-31.0); MEAN CORPUSCULAR HGB CONC 34.1 g/dL (33.0-37.0); RBC 2.64 Mil/uL (4.40-5.90); RED CELL DISTRIBUTION WIDTH 15.1 % (11.5-14.5); WHITE BLOOD COUNT 7.9 K/uL (4.8-10.8)
[2017-10-27 07:01] LABS: CALCIUM 8.3 mg/dL (8.4-10.2)
[2017-10-27] MEDS: Insulin Lispro (humaLOG) 100 Units/ml Inj SC SCH ×4 (07:49→21:34)
[2017-10-27] MEDS ORDERED: Oxycodone/Acetaminophen 5/325 mg Tab PO PRN (08:32)
[2017-10-27] MEDS: EPOETIN ALFA 10,000 UNIT/ML ML SC SCH (08:51)
[2017-10-27] MEDS: Tmp-Smz 800 mg-160 mg DS Tab PO SCH ×2 (08:51→16:46)
[2017-10-27] MEDS: Povidone Iodine Topical 10% Sol EXT SCH (08:51)
[2017-10-27] MEDS: Enoxaparin 40 mg Syringe SC SCH (08:51)
[2017-10-27] MEDS: Brimonidine 0.2% 50 DROP/5 ML BOTTLE OU SCH ×3 (08:52→16:45)
[2017-10-27] MEDS: Saccharomyces Boulardi 250 mg Cap PO SCH ×2 (08:53→16:46)
--- NOTE | 2017-10-27 10:17 | PN ---
DATE: 10/27/2017 SUBJECTIVE: The patient is seen and examined. Interim events noted. The patient remains in acute rehab unit, feels okay, complains of pain every 6 hours, Percocet is not holding enough. No chest pain. No shortness of breath. physical therapy yesterday and tolerated well. PHYSICAL EXAMINATION: GENERAL: The patient is in no acute distress. VITAL SIGNS: Stable. HEART: S1 and S2 normal and regular. LUNGS: Good bilateral air exchange. ABDOMEN: Soft and nontender. EXTREMITIES: The patient is status post amputation. Surgical site as per nursing staff is pink. No edema. No calf swelling. No tenderness. No acute ischemia. amputated extremity. DIAGNOSTIC DATA: Available diagnostic data reviewed. Hemoglobin is 8.2. Other labs are acceptable. PLAN: Overall, the patient is clinically stable. Plan as ordered. Case and plan discussed with the patient and nursing staff. Vimal Griffin MD
[2017-10-27 14:20] LABS: IRON 28 ug/dL (49-181)
[2017-10-27 14:32] LABS: % IRON SATURATION 11 % (20-55); TOTAL IRON BINDING CAPACITY 245 ug/dL (250-450)
[2017-10-27] MEDS: Oxycodone/Acetaminophen 5/325 mg Tab PO PRN (20:34)
[2017-10-27] MEDS: Insulin Detemir 100 Units/ml Inj SC SCH (21:34)
[2017-10-28] MEDS: Insulin Lispro (humaLOG) 100 Units/ml Inj SC SCH ×4 (06:40→21:25)
[2017-10-28] MEDS: Brimonidine 0.2% 50 DROP/5 ML BOTTLE OU SCH ×3 (09:05→17:05)
[2017-10-28] MEDS: Tmp-Smz 800 mg-160 mg DS Tab PO SCH ×2 (09:05→17:03)
--- NOTE | 2017-10-28 09:24 | PN ---
DATE: 10/28/2017 SUBJECTIVE: The patient is seen and examined. Interim events noted. The patient had complained of abdominal pain and bladder scan was done, which showed 1000 mL urinary retention. Garcia catheter was inserted. The patient did 5000 mL denied any burning while voiding. PHYSICAL EXAMINATION GENERAL: The patient is in no acute distress. VITAL SIGNS: Stable. HEART: S1 and S2, normal and regular. LUNGS: Good bilateral air exchange. ABDOMEN: Currently, soft and nontender. No organomegaly. No fluids. Bowel sounds are present and normal. EXTREMITIES: No edema. No calf swelling. No tenderness. No acute ischemia. The patient is status post amputation. No sign of acute complications. CENTRAL NERVOUS SYSTEM: Exam is essentially unchanged. DIAGNOSTIC DATA: Available diagnostic data reviewed. ASSESSMENT AND PLAN: The patient also has B12 deficiency and anemia of chronic disease with plan as ordered. Case and plan discussed with the patient. Vimal Griffin MD
[2017-10-28] MEDS: Saccharomyces Boulardi 250 mg Cap PO SCH ×2 (09:26→17:04)
[2017-10-28] MEDS: Enoxaparin 40 mg Syringe SC SCH (09:28)
[2017-10-28] MEDS: EPOETIN ALFA 10,000 UNIT/ML ML SC SCH (09:29)
[2017-10-28] MEDS: Povidone Iodine Topical 10% Sol EXT SCH (09:45)
[2017-10-28 15:24] LABS: SPERM URINE RARE /hpf; URINE BILIRUBIN NEGATIVE (NEGATIVE); URINE BLOOD NEGATIVE (NEGATIVE); URINE CLARITY CLEAR (Clear); URINE COLOR STRAW (YELLOW); URINE GLUCOSE (UA) NEG (Normal); URINE LEUKOCYTE ESTERASE NEG Leu/uL (Negative); URINE PROTEIN NEGATIVE (NEGATIVE); URINE UROBILINOGEN 0.2-1.0 mg/dL (0.2-1.0)
[2017-10-28] MEDS: Insulin Detemir 100 Units/ml Inj SC SCH (21:24)
[2017-10-29] MEDS: Insulin Lispro (humaLOG) 100 Units/ml Inj SC SCH ×4 (06:35→21:53)
[2017-10-29] MEDS ORDERED: Oxycodone/Acetaminophen 5/325 mg Tab PO PRN ×3 (08:14→19:30)
[2017-10-29] MEDS: Brimonidine 0.2% 50 DROP/5 ML BOTTLE OU SCH ×3 (08:23→17:35)
[2017-10-29] MEDS: Saccharomyces Boulardi 250 mg Cap PO SCH ×2 (08:24→17:35)
[2017-10-29] MEDS: Enoxaparin 40 mg Syringe SC SCH (08:25)
[2017-10-29] MEDS: Povidone Iodine Topical 10% Sol EXT SCH (08:27)
[2017-10-29] MEDS: Tmp-Smz 800 mg-160 mg DS Tab PO SCH ×2 (08:27→17:35)
[2017-10-29] MEDS: EPOETIN ALFA 10,000 UNIT/ML ML SC SCH (08:34)
--- NOTE | 2017-10-29 09:36 | PN ---
DATE: 10/29/2017 SUBJECTIVE: The patient is seen and examined. Interim events noted. The patient had urinary retention and pain. Now, the patient has Garcia catheter. The patient feels okay. Denies any other complaint of chest pain or shortness of breath. Leg pain is adequately controlled. PHYSICAL EXAMINATION: GENERAL: The patient is in no acute distress. VITAL SIGNS: Stable. HEART: S1 and S2, normal and regular. LUNGS: Good bilateral air exchange. GASTROINTESTINAL: Abdomen is soft and nontender. EXTREMITIES: No edema. No calf swelling or tenderness. No acute ischemia. CENTRAL NERVOUS SYSTEM: Exam is essentially unchanged. ASSESSMENT AND PLAN: The patient is status post amputation. Surgical site is clean. Overall, the patient's general medical condition is stable. Plan as ordered. Vimal Griffin MD cc:
--- NOTE | 2017-10-29 17:57 | CP.PCM.PN ---
Subjective - Date & Time of Evaluation Date of Evaluation: 10/29/17 Time of Evaluation: 17:57 - Subjective Subjective: Patient seen in room no pain denies sob/cp or fever tolerating therapies team conf tomorrow Objective - Vital Signs/Intake and Output Vital Signs (last 24 hours): Temp Pulse Resp BP Pulse Ox 98.4 F 81 20 89/50 L 96 10/29/17 08:19 10/29/17 08:26 10/29/17 08:19 10/29/17 14:15 10/29/17 08:19 - Medications Medications: Current Medications Acetaminophen (Tylenol 325mg Tab) 650 mg PO Q4 PRN PRN Reason: temp >100.4/breakthrough pain. Amlodipine Besylate (Norvasc) 10 mg PO DAILY [facility] Last Admin: 10/29/17 08:26 Dose: 10 mg Brimonidine Tartrate (Alphagan 0.2% Opht) 1 drop OU TID [facility] Last Admin: 10/29/17 17:35 Dose: 1 drop Cyanocobalamin (Vitamin B12 1000 Mcg/Ml Inj) 1,000 mcg IM DAILY@1700 [facility] Last Admin: 10/29/17 17:37 Dose: 1,000 mcg Dextrose (Dextrose 50% Inj) 0 ml IV STAT PRN; Protocol PRN Reason: Hypoglycemia Protocol Dextrose (Glutose 15) 0 gm PO ONCE PRN; Protocol PRN Reason: Hypoglycemia Protocol Enoxaparin Sodium (Lovenox) 40 mg SC DAILY [facility] PRN Reason: Protocol Last Admin: 10/29/17 08:25 Dose: 40 mg Epoetin Zeke (Procrit) 10,000 unit SC DAILY [facility] Last Admin: 10/29/17 08:34 Dose: 10,000 unit Escitalopram Oxalate (Lexapro) 5 mg PO DAILY [facility] Last Admin: 10/29/17 08:25 Dose: 5 mg Famotidine (Pepcid) 20 mg PO BID [facility] Last Admin: 10/29/17 17:36 Dose: 20 mg Ferrous Sulfate (Feosol) 325 mg PO BID [facility] Last Admin: 10/29/17 17:35 Dose: 325 mg Gabapentin (Neurontin) 200 mg PO Q8 [facility] Last Admin: 10/29/17 13:27 Dose: 200 mg Glucagon (Glucagen Diagnostic Kit) 0 mg IM STAT PRN; Protocol PRN Reason: Hypoglycemia Protocol Insulin Detemir (Levemir) 5 units SC [facility] Last Admin: 10/28/17 21:24 Dose: 5 units Insulin Human Lispro (Humalog) 0 units SC [facility] PRN Reason: Protocol Last Admin: 10/29/17 17:36 Dose: Not Given Metformin HCl (Glucophage) 500 mg PO BID [facility] Last Admin: 10/29/17 17:36 Dose: 500 mg Oxycodone/Acetaminophen (Percocet 5/325 Mg Tab) 1 tab PO Q8 PRN PRN Reason: Pain, moderate (4-7) Stop: 11/01/17 08:33 Oxycodone/Acetaminophen (Percocet 5/325 Mg Tab) 2 tab PO Q8 PRN PRN Reason: Pain, severe (8-10) Stop: 11/01/17 08:15 Povidone Iodine (Betadine 10% Topical Soln) 0 ml EXT 0600 [facility] Saccharomyces Boulardii (Florastor) 250 mg PO BID [facility] Last Admin: 10/29/17 17:35 Dose: 250 mg Sitagliptin Phosphate (Januvia) 50 mg PO BID [facility] Last Admin: 10/29/17 17:36 Dose: 50 mg Tamsulosin HCl (Flomax) 0.4 mg PO [facility] Trimethoprim/Sulfamethoxazole (Bactrim Ds Tab) 1 tab PO BID [facility] PRN Reason: Protocol Last Admin: 10/29/17 17:35 Dose: 1 tab - Labs Labs: 10/27/17 06:00 10/27/17 06:00
--- NOTE | 2017-10-29 19:38 | CON ---
COMPREHENSIVE UROLOGIC CONSULTATION DATE: 10/29/2017 TIME OF CONSULTATION: Roughly 10:20 a.m. REASON FOR CONSULTATION: Acute urinary retention, status post left BK amputation. BRIEF HISTORY: The patient is a 72-year-old male, status post left BK amputation with a past medical history of hypertension and eag-wfrkmal-dppsivzqp diabetes mellitus 2, who is now in rehab at [facility], status post left BK amputation who went into acute urinary retention. Multiple catheterizations showed greater than 1000 mL of residual urine and a temporary Garcia catheter was left indwelling leg bag drainage. The patient denies any smoking or alcohol history and drug use, but is currently homeless. He denies any prior history of any dysuria, gross hematuria, renal colic, or abdominal pain except when he went into urinary retention and he started complaining of lower abdominal distention with pain. PAST MEDICAL HISTORY: He has no prior history of any kidney disease or kidney stones. PAST SURGICAL HISTORY: No prior surgical history except for his recent left BK amputation. PHYSICAL EXAMINATION: GENERAL: The patient is a well-developed and well-nourished male. He is alert and he is oriented. VITAL SIGNS: Today; his temperature is 98.4, blood pressure is 107/59, his respiratory rate is 20, and his O2 sat on room air is 96%. HEENT: Grossly within normal limits except for he does have a scar over his left eye. GENITALIA: His testicles are down bilaterally and nontender. He had a Garcia catheter that is drainage sandra urine well and . RECTAL: He has normal rectal tone without fluctuance or masses. Prostate is slightly enlarged, wide, smooth, symmetrical, and nontender without nodules or indurations with a palpable median sulcus. LABORATORY DATA: Urine was sent for culture and sensitivity to laboratory. His urinalysis on 10/28/2017 shows that the color was straw colored, clarity was clear, pH was 7, and specific gravity 1.008. Protein was negative. Glucose is negative. Ketones, blood, nitrite, bilirubin, and urobilinogen were all negative. Leukocyte esterase was negative. There was less than 1 RBC and less than 1 WBC with per high-power field. The patient is also currently on Bactrim DS, oral antibiotic. His CBC on 10/27/2017 showed a WBC count 7.9, hemoglobin 8, hematocrit of 23.6 with a platelet count of 478,000 indicating a severe anemia. His chem profile on 10/29/2017 shows glucose of 133. His recent laboratory evaluation done on 10/27/2017 showed a sodium of 135, potassium 4.2, chloride 97, CO2 of 28, BUN and creatinine 24 and 1.9 respectively with GFR of 35 indicating chronic kidney disease stage III. His random glucose was 133. Hemoglobin A1c was 7.8. Calcium is 8.3. Phosphorus is 2. Magnesium is 1.6. His total bilirubin was 0.2. AST was 29. ALT was 30. Alkaline phosphatase was 150. DIAGNOSTIC IMPRESSION: Acute urinary retention postoperatively, left below-knee amputation. The patient is having daily bowel movements so far, no indication of any constipation at this time. PLAN: Plan for this patient will be to start the patient on Flomax 0.4 mg daily for treatment of BPH and urinary retention. The patient could be given a trial of voiding in one week on Flomax. $#DTPHYNAME DD: $#DTDICT $#TMDICT([facility]:michelle:jacquelyn) DT: $#DTTRAN $#TMTRAN([facility]:michelle:jacquelyn) Job # $#DOCID
[2017-10-29] MEDS: Insulin Detemir 100 Units/ml Inj SC SCH (21:53)
[2017-10-30 06:03] LABS: HEMOGLOBIN 9.2 g/dL (12.0-18.0); MEAN CELL VOLUME 91.2 fl (80.0-94.0); MEAN CORPUSCULAR HEMOGLOBIN 29.8 pg (27.0-31.0); MEAN CORPUSCULAR HGB CONC 32.7 g/dL (33.0-37.0); RBC 3.1 Mil/uL (4.40-5.90); WHITE BLOOD COUNT 9.2 K/uL (4.8-10.8)
[2017-10-30] MEDS: Povidone Iodine Topical 10% Sol EXT SCH (06:38)
[2017-10-30 06:39] LABS: CALCIUM 8.6 mg/dL (8.4-10.2)
[2017-10-30] MEDS: Insulin Lispro (humaLOG) 100 Units/ml Inj SC SCH ×4 (06:40→21:31)
[2017-10-30] MEDS: Tmp-Smz 800 mg-160 mg DS Tab PO SCH ×2 (08:05→16:35)
[2017-10-30] MEDS: Brimonidine 0.2% 50 DROP/5 ML BOTTLE OU SCH ×3 (08:05→16:34)
[2017-10-30] MEDS: Enoxaparin 40 mg Syringe SC SCH (08:06)
[2017-10-30] MEDS: Saccharomyces Boulardi 250 mg Cap PO SCH ×2 (08:06→16:35)
[2017-10-30] MEDS: EPOETIN ALFA 10,000 UNIT/ML ML SC SCH (11:13)
--- NOTE | 2017-10-30 13:16 | PSY.TMCNF ---
Nursing - Vital Signs Vital Signs (Last 8 hours): Vital Signs 10/30/17 10:00 Temperature 98.1 F Pulse Rate 83 Respiratory 17 Rate Blood Pressure 107/56 L O2 Sat by Pulse 99 Oximetry Pain: 0 - Medications/Other Issues Comment: Pt is at moderate nutritonal risk. Goals-. 1. Pt to consume 75-100% of meals. 2. Blood glucoses to be between 70-180 mg/dl. Follow-up assessment due by 10/31/2017. - Skin Incision Site: left stump Dressing Status: Clean, Dry, Intact Incision Line Treatment: betadine - Bladder Management Bladder Pattern: Normal Voiding Method: Indwelling Catheter - Bowel Management Bowel Pattern: Normal - Patient/Family Teaching Comments: N/A - Goals/Time Frame Comments: Pt was seen awake and alert sitting in his wheelchair in his room. Pt was agreeable to participate in session following encouragement. [employer] video translation utilized for syriac translation, Dasha Truong #[id number]. Pt expressed minimal interest in leisure activities as pt reported he will listen to television shows and baseball games. Pt does not like to play any other leisure tasks 2' L eye blindness. Pt reported he has a friend; however, no family support. Pt charts reports that pt is homeless and pt asked at end of session that the staff will assist in setup with locating a place for pt to be discharged. Throughout session, pt c/o phantom pain and dizziness. RN Xena hameed. Pt remained in room at end of sssion, call [place] within reach. Physical Therapy - Bed Mobility Bed Mobility: Verbal Cues, Minimal Assistance Comment: previously pt required CS for bed mob. incr'd assist for bed mob may be secondary to hypotensive episode. - rolling L/R w/ CS - Transfers Sit to Stand: Verbal Cues, Minimal Assistance - Ambulation Level of Assistance: Verbal Cues, Contact Guard Distance (ft.): 12 Assistive Devices: Rolling Walker - Stair Negotiation Stairs: Level of Assistance: Not Tested - Standing Balance Static Stand: Minimal Assistance Dynamic Stand: Moderate Assistance Comment: w/ RW - Pain Pain (assessed during therapy session): 5 Comment: Rest and Medications help with pain - Insight/Carryover Insight/Carryover: Good - Patient/Family Education Comment: fxnl mob, residual limb care, preprosthetic mgmt, DME, safety, balance , posture, rehab goals, POC, skin protection, L knee immob, deep breathing exer - Assessment/Plan Assessment: Patient is a 72 y/o male admitted for rehabilitation s/p (L)BKA. Patient is motivated and has been noted to show improvement with some self-care tasks. Currently he presents with decreased strength, endurance, activity tolerance, sitting/standing balance/tolerance, coordination, safety awareness, compensatory strategy, and self-care. Patient will benefit from skilled Occupational Therapy services to increase functional [place]. - Goals Timeframe: 8 days Goals: Improve Self-feeding, grooming, oral hygiene to Indpendent. Improve functional transfers to/from chair, bed, toilet to CGA. Improve W/C mobility to Supervision for 150 feet including turns. Improve UB and LB dressing and bathing to [place] - Provider Therapist: Liya Osman PT License Number: [id number] Occupational Therapy - Arousal/Attention/Orientation Level of Consciousness: Awake, Alert, Forgetful Patient Orientation: Person, Place, Appropriate to Situation - ADL/IADL Self Feeding: Verbal Cues, Set-up Help Grooming: Verbal Cues, Set-up Help Bathing-Upper Extremity: Minimal Assistance Bathing-Lower Extremity: Moderate Assistance, Maximum Assistance Dressing-Upper Extremity: Contact Guard Dressing-Lower Extremity: Moderate Assistance Homemaking: Not Applicable - Sitting Balance Static Sitting: Supervision Dynamic Sitting: Contact Guard Assist - Transfers Wheelchair to Bed Transfers: Minimal Assistance Toilet Transfers: Minimal Assistance Comment: Tub transfers not tested at this time, will check if appropriate for patient's discharge setting. - Wheelchair Management Level of Assistance: Contact Guard Distance (ft.): 150 - Upper Extremity Status Right Upper Extremity Comment: WFL Left Upper Extremity Comment: WFL - Pain Pain (assessed during therapy session): 5 Comment: Rest and Medications help with pain - Insight/Carryover Insight/Carryover: Good - Patient/Family Education Comment: fxnl mob, residual limb care, preprosthetic mgmt, DME, safety, balance , posture, rehab goals, POC, skin protection, L knee immob, deep breathing exer - Assessment/Plan Assessment: Patient is a 72 y/o male admitted for rehabilitation s/p (L)BKA. Patient is motivated and has been noted to show improvement with some self-care tasks. Currently he presents with decreased strength, endurance, activity tolerance, sitting/standing balance/tolerance, coordination, safety awareness, compensatory strategy, and self-care. Patient will benefit from skilled Occupational Therapy services to increase functional [place]. - Goals Timeframe: 8 days Goals: Improve Self-feeding, grooming, oral hygiene to Indpendent. Improve functional transfers to/from chair, bed, toilet to CGA. Improve W/C mobility to Supervision for 150 feet including turns. Improve UB and LB dressing and bathing to [place] - Provider Therapist: Jay Miller OTR/L License Number: [id number] Speech Therapy - Plan Assessment: Patient is a 72 y/o male admitted for rehabilitation s/p (L)BKA. Patient is motivated and has been noted to show improvement with some self-care tasks. Currently he presents with decreased strength, endurance, activity tolerance, sitting/standing balance/tolerance, coordination, safety awareness, compensatory strategy, and self-care. Patient will benefit from skilled Occupational Therapy services to increase functional [place]. Recreational Therapy - Participation Participation: Monitors His/Her Own Leisure Time - Attendance Attendance: Daily - Activities Leisure Activities: Television - Socialization Level of Socialization: Initiates/interacts freely with care givers and peer - Diversional Time Diversional Time: listening to television - Assessment Assessment/Plan: Patient is a 72 y/o male admitted for rehabilitation s/p (L) BKA. Patient is motivated and has been noted to show improvement with some self- care tasks. Currently he presents with decreased strength, endurance, activity tolerance, sitting/standing balance/tolerance, coordination, safety awareness, compensatory strategy, and self-care. Patient will benefit from skilled Occupational Therapy services to increase functional [place]. - Provider Therapist: Demetrice Vega, TELEX OPERATOR #[id number] Nutrition - Current Diet Current Diet/ Supplement/ Feedings: Moderate consistent CHO diet, Glucerna shake BID (provides 440 kcal,. 20 gm protein). - Appetite Percent Meal Consumed: 50-74% - Comments Comments: N/A - Assessment/Goals/Time Frame Assessment/Goals/Time Frame: Pt is at moderate nutritonal risk. Goals-. 1. Pt to consume 75-100% of meals. 2. Blood glucoses to be between 70-180 mg/dl. Follow-up assessment due by 10/31/2017. - Provider Provider: Mari Shah MS, RD Case Management - Psychosocial Assessment Support Systems: Adarsh Ba/friend/[phone]. Naif Castillo/friend/ [phone] Psychological Interventions/Needs: Pt is Setswana speaking, alert and oriented, mood appears depressed and was started on antidepressants; Psychology also to follow up for support Discharge Concerns: Pt is homeless; may require [facility] into [facility] care as pt is legally blind in left eye and limited vision in right with new BKA Patient/Family Meeting: CM met with pt and rehab team via Setswana speaking parent trainer Gloria Guerra Intervention/Goal/Outcome:: 1. Tentative discharge 11/09/17 to [facility] and possible LTC 2. Pt authorized by insurance through 10/31/17 with updates requested at that time 3. GOAL: Min assist overall 4. Emotional support - Discharge Plan Discharge Plan: Subacute care - Provider Provider: MARCK Bansal, FLOORING MACHINE OPERATOR License Number: [id number] Rehabilitation Plan - Discharge Plan Estimated Date of Discharge: 11/09/17 Discharge to: Subacute
--- NOTE | 2017-10-30 13:30 | CP.PCM.PN ---
Subjective - Date & Time of Evaluation Date of Evaluation: 10/30/17 Time of Evaluation: 13:30 - Subjective Subjective: Patient seen in room pain is controlled I lowered his max dose percocet he is tolerating well continue current care Objective - Vital Signs/Intake and Output Vital Signs (last 24 hours): Temp Pulse Resp BP Pulse Ox 98.1 F 83 17 107/56 L 99 10/30/17 10:00 10/30/17 10:00 10/30/17 10:00 10/30/17 10:00 10/30/17 10:00 Intake and Output: 10/30/17 10/30/17 06:59 18:59 Intake Total 540 Output Total 2500 Balance -1960 - Medications Medications: Current Medications Acetaminophen (Tylenol 325mg Tab) 650 mg PO Q4 PRN PRN Reason: temp >100.4/breakthrough pain. Amlodipine Besylate (Norvasc) 10 mg PO DAILY [facility] Last Admin: 10/29/17 08:26 Dose: 10 mg Brimonidine Tartrate (Alphagan 0.2% Opht) 1 drop OU TID [facility] Last Admin: 10/30/17 12:20 Dose: 1 drop Cyanocobalamin (Vitamin B12 1000 Mcg/Ml Inj) 1,000 mcg IM DAILY@1700 [facility] Last Admin: 10/29/17 17:37 Dose: 1,000 mcg Dextrose (Dextrose 50% Inj) 0 ml IV STAT PRN; Protocol PRN Reason: Hypoglycemia Protocol Dextrose (Glutose 15) 0 gm PO ONCE PRN; Protocol PRN Reason: Hypoglycemia Protocol Enoxaparin Sodium (Lovenox) 40 mg SC DAILY [facility] PRN Reason: Protocol Last Admin: 10/30/17 08:06 Dose: 40 mg Epoetin Zeke (Procrit) 10,000 unit SC DAILY [facility] Last Admin: 10/30/17 11:13 Dose: 10,000 unit Escitalopram Oxalate (Lexapro) 5 mg PO DAILY [facility] Last Admin: 10/30/17 08:07 Dose: 5 mg Famotidine (Pepcid) 20 mg PO BID [facility] Last Admin: 10/30/17 08:07 Dose: 20 mg Ferrous Sulfate (Feosol) 325 mg PO BID [facility] Last Admin: 10/30/17 08:05 Dose: 325 mg Gabapentin (Neurontin) 200 mg PO Q8 [facility] Last Admin: 10/29/17 13:27 Dose: 200 mg Glucagon (Glucagen Diagnostic Kit) 0 mg IM STAT PRN; Protocol PRN Reason: Hypoglycemia Protocol Insulin Detemir (Levemir) 5 units SC [facility] Last Admin: 10/29/17 21:53 Dose: 5 units Insulin Human Lispro (Humalog) 0 units SC [facility] PRN Reason: Protocol Last Admin: 10/30/17 11:30 Dose: Not Given Metformin HCl (Glucophage) 500 mg PO BID [facility] Last Admin: 10/30/17 08:06 Dose: 500 mg Oxycodone/Acetaminophen (Percocet 5/325 Mg Tab) 1 tab PO Q8 PRN PRN Reason: Pain level 4-10 Stop: 11/01/17 08:33 Povidone Iodine (Betadine 10% Topical Soln) 0 ml EXT 0600 [facility] Last Admin: 10/30/17 06:38 Dose: 1 applic Saccharomyces Boulardii (Florastor) 250 mg PO BID [facility] Last Admin: 10/30/17 08:06 Dose: 250 mg Sitagliptin Phosphate (Januvia) 50 mg PO BID [facility] Last Admin: 10/30/17 08:05 Dose: 50 mg Tamsulosin HCl (Flomax) 0.4 mg PO [facility] Last Admin: 10/29/17 21:51 Dose: 0.4 mg Trimethoprim/Sulfamethoxazole (Bactrim Ds Tab) 1 tab PO BID [facility] PRN Reason: Protocol Last Admin: 10/30/17 08:05 Dose: 1 tab - Labs Labs: 10/30/17 05:25 10/30/17 05:25
[2017-10-30 16:36] LABS: CALCIUM 8.5 mg/dL (8.4-10.2)
[2017-10-30] MEDS ORDERED: Sod Polystyrene Sulf 15 gm/60 ml Susp PO ONE (20:30)
[2017-10-30] MEDS: Insulin Detemir 100 Units/ml Inj SC SCH (21:26)
[2017-10-31] MEDS: Povidone Iodine Topical 10% Sol EXT SCH (06:52)
[2017-10-31] MEDS: Insulin Lispro (humaLOG) 100 Units/ml Inj SC SCH ×4 (07:10→21:17)
--- NOTE | 2017-10-31 07:21 | CP.PCM.PN ---
<Jess Stahl - Last Filed: 10/31/17 13:32> Subjective - Date & Time of Evaluation Date of Evaluation: 10/31/17 Time of Evaluation: 07:05 - Subjective Subjective: Patient seen and examined bedside with Dr Griffin. Patient reports feeling well. participatient in PT. s/p left BKA day # 16 No overnight events. Denies chest pain, SOB, n,v,abd pain. soft deposition 2nd to kayexalate given yesterday Objective - Vital Signs/Intake and Output Vital Signs (last 24 hours): Temp Pulse Resp BP Pulse Ox 98.1 F 79 20 106/59 L 97 10/30/17 20:22 10/30/17 20:22 10/30/17 20:22 10/30/17 20:22 10/30/17 20:22 Intake and Output: 10/31/17 10/31/17 06:59 18:59 Intake Total 350 Output Total 1400 Balance -1050 - Medications Medications: Current Medications Acetaminophen (Tylenol 325mg Tab) 650 mg PO Q4 PRN PRN Reason: temp >100.4/breakthrough pain. Amlodipine Besylate (Norvasc) 10 mg PO DAILY [facility] Last Admin: 10/29/17 08:26 Dose: 10 mg Brimonidine Tartrate (Alphagan 0.2% Opht) 1 drop OU TID [facility] Last Admin: 10/30/17 16:34 Dose: 1 drop Cyanocobalamin (Vitamin B12 1000 Mcg/Ml Inj) 1,000 mcg IM DAILY@1700 [facility] Last Admin: 10/30/17 16:35 Dose: 1,000 mcg Dextrose (Dextrose 50% Inj) 0 ml IV STAT PRN; Protocol PRN Reason: Hypoglycemia Protocol Dextrose (Glutose 15) 0 gm PO ONCE PRN; Protocol PRN Reason: Hypoglycemia Protocol Enoxaparin Sodium (Lovenox) 40 mg SC DAILY [facility] PRN Reason: Protocol Last Admin: 10/30/17 08:06 Dose: 40 mg Epoetin Zeke (Procrit) 10,000 unit SC DAILY [facility] Last Admin: 10/30/17 11:13 Dose: 10,000 unit Escitalopram Oxalate (Lexapro) 5 mg PO DAILY [facility] Last Admin: 10/30/17 08:07 Dose: 5 mg Famotidine (Pepcid) 20 mg PO BID [facility] Last Admin: 10/30/17 16:35 Dose: 20 mg Ferrous Sulfate (Feosol) 325 mg PO BID [facility] Last Admin: 10/30/17 16:35 Dose: 325 mg Gabapentin (Neurontin) 200 mg PO Q8 [facility] Last Admin: 10/29/17 13:27 Dose: 200 mg Glucagon (Glucagen Diagnostic Kit) 0 mg IM STAT PRN; Protocol PRN Reason: Hypoglycemia Protocol Insulin Detemir (Levemir) 5 units SC [facility] Last Admin: 10/30/17 21:26 Dose: 5 units Insulin Human Lispro (Humalog) 0 units SC [facility] PRN Reason: Protocol Last Admin: 10/31/17 07:10 Dose: Not Given Metformin HCl (Glucophage) 500 mg PO BID [facility] Last Admin: 10/30/17 16:35 Dose: 500 mg Oxycodone/Acetaminophen (Percocet 5/325 Mg Tab) 1 tab PO Q8 PRN PRN Reason: Pain level 4-10 Stop: 11/01/17 08:33 Povidone Iodine (Betadine 10% Topical Soln) 0 ml EXT 0600 [facility] Last Admin: 10/31/17 06:52 Dose: 1 applic Saccharomyces Boulardii (Florastor) 250 mg PO BID [facility] Last Admin: 10/30/17 16:35 Dose: 250 mg Sitagliptin Phosphate (Januvia) 50 mg PO BID [facility] Last Admin: 10/30/17 16:35 Dose: 50 mg Tamsulosin HCl (Flomax) 0.4 mg PO [facility] Last Admin: 10/30/17 21:26 Dose: 0.4 mg Trimethoprim/Sulfamethoxazole (Bactrim Ds Tab) 1 tab PO BID [facility] PRN Reason: Protocol Last Admin: 10/30/17 16:35 Dose: 1 tab - Labs Labs: 10/30/17 05:25 10/30/17 15:15 - Constitutional Appears: Non-toxic, No Acute Distress - Head Exam Head Exam: ATRAUMATIC, NORMOCEPHALIC - Eye Exam Eye Exam: Normal appearance - ENT Exam ENT Exam: Mucous Membranes Moist - Respiratory Exam Respiratory Exam: Clear to Ausculation Bilateral. absent: Rales, Rhonchi, Wheezes - Cardiovascular Exam Cardiovascular Exam: REGULAR RHYTHM, +S1, +S2 - GI/Abdominal Exam GI & Abdominal Exam: Soft, Normal Bowel Sounds. absent: Tenderness, Rebound - Extremities Exam Extremities Exam: absent: Pedal Edema Additional comments: left BKA - Back Exam Back Exam: NORMAL INSPECTION - Neurological Exam Neurological Exam: Alert, Awake, Oriented x3 - Psychiatric Exam Psychiatric exam: Normal Affect - Skin Skin Exam: Normal Color Assessment and Plan (1) Amputation of left lower extremity below knee Status: Acute (2) Phantom limb pain Status: Acute (3) HTN (hypertension) Status: Chronic (4) Uncontrolled diabetes mellitus Status: Chronic (5) Hyperkalemia Assessment & Plan: -k 5.9 trending down to 5.4 today Status: Acute - Assessment and Plan (Free Text) Plan: -infectious disease recommendations appreciated -pain management recommendations appreciated -bactrim DS 1 tab PO BID day 3 -c/w procrit -insulin levemir 5 units SC HS -insulin correction scale -hypoglycemic protocol -pain management: tylenol 650 mg Q6h prn, neurontin 200 mg PO TID, percocet 1 tab PO Q8h prn (moderate) c/w PT -s/p kayexalate yesterday -Kayexalate 30 g given today -F/u CMP tomorrow -monitor for acute changes <Griffni,Vimal K - Last Filed: 11/08/17 20:18> Objective - Vital Signs/Intake and Output Vital Signs (last 24 hours): Temp Pulse Resp BP Pulse Ox 99.7 F H 90 20 140/76 97 11/08/17 10:27 11/08/17 10:27 11/08/17 10:27 11/08/17 10:27 11/08/17 08:37 Intake and Output: 11/08/17 11/09/17 18:59 06:59 Intake Total 1530 Output Total 1200 Balance 330 - Medications Medications: Current Medications Acetaminophen (Tylenol 325mg Tab) 650 mg PO Q6 PRN PRN Reason: Pain, Mild (1-3) Last Admin: 11/08/17 10:32 Dose: 650 mg Acetaminophen (Tylenol 325mg Tab) 650 mg PO Q4 PRN PRN Reason: Pain, Mild (1-3) Amlodipine Besylate (Norvasc) 10 mg PO DAILY [facility] Last Admin: 10/29/17 08:26 Dose: 10 mg Brimonidine Tartrate (Alphagan 0.2% Opht) 1 drop OU TID [facility] Last Admin: 11/08/17 16:53 Dose: 1 drop Cyanocobalamin (Vitamin B12 1000 Mcg/Ml Inj) 1,000 mcg IM Q30D [facility] Dextrose (Dextrose 50% Inj) 0 ml IV STAT PRN; Protocol PRN Reason: Hypoglycemia Protocol Dextrose (Glutose 15) 0 gm PO ONCE PRN; Protocol PRN Reason: Hypoglycemia Protocol Enoxaparin Sodium (Lovenox) 40 mg SC DAILY [facility] PRN Reason: Protocol Last Admin: 11/08/17 08:23 Dose: 40 mg Epoetin Zeke (Procrit) 10,000 unit SC MWF [facility] Last Admin: 11/07/17 09:45 Dose: Not Given Escitalopram Oxalate (Lexapro) 10 mg PO DAILY [facility] Last Admin: 11/08/17 08:22 Dose: 10 mg Famotidine (Pepcid) 20 mg PO BID [facility] Last Admin: 11/08/17 16:54 Dose: 20 mg Ferrous Sulfate (Feosol) 325 mg PO BID [facility] Last Admin: 11/08/17 16:54 Dose: 325 mg Finasteride (Proscar) 5 mg PO DAILY [facility] Last Admin: 11/08/17 08:25 Dose: 5 mg Gabapentin (Neurontin) 200 mg PO Q8 [facility] Last Admin: 10/29/17 13:27 Dose: 200 mg Piperacillin Sod/Tazobactam (Sod 3.375 gm/ Sodium Chloride) 100 mls @ 100 mls/ hr IVPB Q8 [facility] PRN Reason: Protocol Stop: 11/11/17 14:01 Last Admin: 11/08/17 14:13 Dose: 100 mls/hr Insulin Detemir (Levemir) 5 units SC HS [facility] Last Admin: 11/07/17 21:39 Dose: 5 units Insulin Human Lispro (Humalog) 0 units SC 0700,2100 [facility] PRN Reason: Protocol Last Admin: 11/08/17 06:27 Dose: Not Given Lactic Acid (Lac-Hydrin 12% Cream (140 G)) 1 ea TOP BID [facility] Last Admin: 11/08/17 16:55 Dose: 1 applic Lactobacillus Acidophilus (Bacid Acidophilus) 1 cap PO BID [facility] Stop: 11/11/17 17:01 Last Admin: 11/08/17 16:53 Dose: 1 cap Metformin HCl (Glucophage) 500 mg PO BID [facility] Last Admin: 11/08/17 16:54 Dose: 500 mg Nystatin/Triamcinolone Acetonide (Mycolog Ii Oint) 1 applic TOP TID [facility] Last Admin: 11/08/17 16:55 Dose: 1 applic Oxycodone/Acetaminophen (Percocet 5/325 Mg Tab) 1 tab PO Q8H PRN PRN Reason: Pain scale 4-10. Stop: 11/10/17 10:24 Last Admin: 11/05/17 09:10 Dose: 1 tab Povidone Iodine (Betadine 10% Topical Soln) 0 ml EXT 0600 [facility] Last Admin: 11/08/17 05:45 Dose: 1 applic Saccharomyces Boulardii (Florastor) 250 mg PO BID [facility] Last Admin: 11/08/17 16:54 Dose: 250 mg Sitagliptin Phosphate (Januvia) 50 mg PO BID [facility] Last Admin: 11/08/17 16:54 Dose: 50 mg Tamsulosin HCl (Flomax) 0.4 mg PO BID [facility] Last Admin: 11/08/17 16:54 Dose: 0.4 mg - Labs Labs: 11/08/17 05:30 11/08/17 05:30 Assessment and Plan - Assessment and Plan (Free Text) Assessment: Patient was personally seen and examined by me in rounds with residents. Available labs and diagnostic data reviewed. Case, Patient's condition and management plan discussed with residents in rounds. Agree with resident's progress note. Plan: As ordered.
[2017-10-31 08:43] LABS: ALB/GLOB RATIO 0.6 (1.0-2.1); ALBUMIN 3.1 g/dL (3.5-5.0); CALCIUM 8.8 mg/dL (8.4-10.2)
[2017-10-31] MEDS: Enoxaparin 40 mg Syringe SC SCH (08:51)
[2017-10-31] MEDS: Brimonidine 0.2% 50 DROP/5 ML BOTTLE OU SCH ×3 (08:51→17:05)
[2017-10-31] MEDS: Tmp-Smz 800 mg-160 mg DS Tab PO SCH ×2 (08:52→17:06)
[2017-10-31] MEDS: Saccharomyces Boulardi 250 mg Cap PO SCH ×2 (08:52→17:06)
[2017-10-31] MEDS: EPOETIN ALFA 10,000 UNIT/ML ML SC SCH (09:11)
[2017-10-31] MEDS ORDERED: Sod Polystyrene Sulf 15 gm/60 ml Susp PO ONE (09:44)
--- NOTE | 2017-10-31 19:28 | CP.PCM.PN ---
Subjective - Date & Time of Evaluation Date of Evaluation: 10/31/17 Time of Evaluation: 19:27 - Subjective Subjective: Patient in the room doing ok pain is well controlled, getting much less medication for pain at this point. plan to MARGOT Objective - Vital Signs/Intake and Output Vital Signs (last 24 hours): Temp Pulse Resp BP Pulse Ox 97.8 F 95 H 19 119/61 98 10/31/17 08:36 10/31/17 08:36 10/31/17 08:36 10/31/17 08:36 10/31/17 08:36 Intake and Output: 10/31/17 11/01/17 18:59 06:59 Output Total 1100 Balance -1100 - Medications Medications: Current Medications Acetaminophen (Tylenol 325mg Tab) 650 mg PO Q4 PRN PRN Reason: temp >100.4/breakthrough pain. Amlodipine Besylate (Norvasc) 10 mg PO DAILY [facility] Last Admin: 10/29/17 08:26 Dose: 10 mg Brimonidine Tartrate (Alphagan 0.2% Opht) 1 drop OU TID [facility] Last Admin: 10/31/17 17:05 Dose: 1 drop Cyanocobalamin (Vitamin B12 1000 Mcg/Ml Inj) 1,000 mcg IM DAILY@1700 [facility] Last Admin: 10/31/17 17:48 Dose: 1,000 mcg Dextrose (Dextrose 50% Inj) 0 ml IV STAT PRN; Protocol PRN Reason: Hypoglycemia Protocol Dextrose (Glutose 15) 0 gm PO ONCE PRN; Protocol PRN Reason: Hypoglycemia Protocol Enoxaparin Sodium (Lovenox) 40 mg SC DAILY [facility] PRN Reason: Protocol Last Admin: 10/31/17 08:51 Dose: 40 mg Epoetin Zeke (Procrit) 10,000 unit SC DAILY [facility] Last Admin: 10/31/17 09:11 Dose: 10,000 unit Escitalopram Oxalate (Lexapro) 5 mg PO DAILY [facility] Last Admin: 10/31/17 08:52 Dose: 5 mg Famotidine (Pepcid) 20 mg PO BID [facility] Last Admin: 10/31/17 17:06 Dose: 20 mg Ferrous Sulfate (Feosol) 325 mg PO BID [facility] Last Admin: 10/31/17 17:06 Dose: 325 mg Gabapentin (Neurontin) 200 mg PO Q8 [facility] Last Admin: 10/29/17 13:27 Dose: 200 mg Glucagon (Glucagen Diagnostic Kit) 0 mg IM STAT PRN; Protocol PRN Reason: Hypoglycemia Protocol Insulin Detemir (Levemir) 5 units SC [facility] Last Admin: 10/30/17 21:26 Dose: 5 units Insulin Human Lispro (Humalog) 0 units SC [facility] PRN Reason: Protocol Last Admin: 10/31/17 17:07 Dose: Not Given Metformin HCl (Glucophage) 500 mg PO BID [facility] Last Admin: 10/31/17 17:06 Dose: 500 mg Oxycodone/Acetaminophen (Percocet 5/325 Mg Tab) 1 tab PO Q8 PRN PRN Reason: Pain level 4-10 Stop: 11/01/17 08:33 Povidone Iodine (Betadine 10% Topical Soln) 0 ml EXT 0600 [facility] Last Admin: 10/31/17 06:52 Dose: 1 applic Saccharomyces Boulardii (Florastor) 250 mg PO BID [facility] Last Admin: 10/31/17 17:06 Dose: 250 mg Sitagliptin Phosphate (Januvia) 50 mg PO BID [facility] Last Admin: 10/31/17 17:06 Dose: 50 mg Tamsulosin HCl (Flomax) 0.4 mg PO [facility] Last Admin: 10/30/17 21:26 Dose: 0.4 mg Trimethoprim/Sulfamethoxazole (Bactrim Ds Tab) 1 tab PO BID [facility] PRN Reason: Protocol Last Admin: 10/31/17 17:06 Dose: 1 tab - Labs Labs: 10/30/17 05:25 10/31/17 08:18
[2017-10-31] MEDS: Insulin Detemir 100 Units/ml Inj SC SCH (21:45)
[2017-11-01] MEDS: Povidone Iodine Topical 10% Sol EXT SCH (05:38)
[2017-11-01 06:26] LABS: ALB/GLOB RATIO 0.6 (1.0-2.1); ALBUMIN 3.3 g/dL (3.5-5.0); ALT/SGPT 28 U/L (21-72); AST/SGOT 30 U/L (17-59); BLOOD UREA NITROGEN 21 mg/dl (9-20); CALCIUM 8.7 mg/dL (8.4-10.2); GFR AFRICAN-AMERICAN > 60; GFR NON-AFRICAN AMERICAN 50
[2017-11-01] MEDS: Insulin Lispro (humaLOG) 100 Units/ml Inj SC SCH ×2 (07:32→11:09)
[2017-11-01] MEDS: Tmp-Smz 800 mg-160 mg DS Tab PO SCH ×2 (08:47→17:06)
[2017-11-01] MEDS: Saccharomyces Boulardi 250 mg Cap PO SCH ×2 (08:47→17:05)
[2017-11-01] MEDS: Brimonidine 0.2% 50 DROP/5 ML BOTTLE OU SCH ×3 (08:48→17:06)
[2017-11-01] MEDS: EPOETIN ALFA 10,000 UNIT/ML ML SC SCH (08:49)
--- NOTE | 2017-11-01 08:56 | PN ---
DATE: 11/01/2017 SUBJECTIVE: The patient is seen and examined. Interim events noted. The patient remains in acute rehab unit. Feels better. Pain is improving . No chest pain or shortness of breath. Still has some . PHYSICAL EXAMINATION: GENERAL: The patient is in no acute distress. VITAL SIGNS: Stable. HEART: S1 and S2, normal and regular. LUNGS: Good bilateral air exchange. ABDOMEN: Soft and nontender. EXTREMITIES: The patient is status post amputation. No sign of acute complications. No edema. No calf swelling. No tenderness. CENTRAL NERVOUS SYSTEM: Exam is essentially unchanged. DIAGNOSTIC DATA: Available diagnostic data reviewed. ASSESSMENT AND PLAN: Overall, the patient's general medical condition is stable. Plan as ordered. Vimal Griffin MD
[2017-11-01] MEDS ORDERED: Oxycodone/Acetaminophen 5/325 mg Tab PO PRN (10:23)
[2017-11-01] MEDS: Enoxaparin 40 mg Syringe SC SCH (11:47)
[2017-11-01] MEDS ORDERED: Insulin Lispro (humaLOG) 100 Units/ml Inj SC SCH (21:00)
[2017-11-01] MEDS: Insulin Detemir 100 Units/ml Inj SC SCH (21:51)
[2017-11-02 06:47] LABS: BLOOD UREA NITROGEN 21 mg/dl (9-20); CALCIUM 9.1 mg/dL (8.4-10.2); GFR AFRICAN-AMERICAN > 60; GFR NON-AFRICAN AMERICAN 50; HEMOGLOBIN 10.4 g/dL (12.0-18.0); MEAN CELL VOLUME 92.9 fl (80.0-94.0); MEAN CORPUSCULAR HEMOGLOBIN 30.8 pg (27.0-31.0); MEAN CORPUSCULAR HGB CONC 33.1 g/dL (33.0-37.0); RBC 3.38 Mil/uL (4.40-5.90); RED CELL DISTRIBUTION WIDTH 15.8 % (11.5-14.5)
[2017-11-02] MEDS: Povidone Iodine Topical 10% Sol EXT SCH (06:54)
[2017-11-02] MEDS: Tmp-Smz 800 mg-160 mg DS Tab PO SCH ×2 (08:35→17:08)
[2017-11-02] MEDS: Brimonidine 0.2% 50 DROP/5 ML BOTTLE OU SCH ×3 (08:35→17:08)
[2017-11-02] MEDS: Saccharomyces Boulardi 250 mg Cap PO SCH ×2 (08:36→17:08)
[2017-11-02] MEDS: Enoxaparin 40 mg Syringe SC SCH (08:39)
[2017-11-02] MEDS: EPOETIN ALFA 10,000 UNIT/ML ML SC SCH (08:40)
[2017-11-02] MEDS: Oxycodone/Acetaminophen 5/325 mg Tab PO PRN (08:43)
--- NOTE | 2017-11-02 08:51 | PN ---
DATE: 11/02/2017 SUBJECTIVE: The patient is seen and examined. Interim events noted. The patient remains in Acute Rehab Unit. The patient feels okay. Denies any complaint of chest pain or shortness of breath. OBJECTIVE: GENERAL: The patient is in no acute distress. VITAL SIGNS: Stable. HEART: S1 and S2, normal and regular. LUNGS: Good bilateral air exchange. ABDOMEN: Soft and nontender. EXTREMITIES: The patient is status post amputation. No sign of acute complication. Nonpitting edema. No calf swelling, no tenderness, no acute ischemia. CENTRAL NERVOUS SYSTEM: Exam is essentially unchanged. GENITOURINARY: Garcia catheter remains in place draining clear urine. DIAGNOSTIC DATA: Available diagnostic data reviewed. PLAN: Overall, the patient's general medical condition is stable. Plan as ordered. Vimal Griffin MD
--- NOTE | 2017-11-02 12:32 | CP.PCM.PN ---
Subjective - Date & Time of Evaluation Date of Evaluation: 11/02/17 Time of Evaluation: 12:31 - Subjective Subjective: Patient seen in the room comfortable pain medications given but comfortable at the lower dose continue current care Objective - Vital Signs/Intake and Output Vital Signs (last 24 hours): Temp Pulse Resp BP Pulse Ox 97.3 F L 83 20 118/67 98 11/02/17 10:00 11/02/17 10:00 11/02/17 10:00 11/02/17 10:00 11/02/17 10:00 Intake and Output: 11/02/17 11/02/17 06:59 18:59 Intake Total 350 Output Total 1800 Balance -1450 - Medications Medications: Current Medications Acetaminophen (Tylenol 325mg Tab) 650 mg PO Q6 PRN PRN Reason: Pain, Mild (1-3) Acetaminophen (Tylenol 325mg Tab) 650 mg PO Q4 PRN PRN Reason: Pain, Mild (1-3) Amlodipine Besylate (Norvasc) 10 mg PO DAILY [facility] Last Admin: 10/29/17 08:26 Dose: 10 mg Brimonidine Tartrate (Alphagan 0.2% Opht) 1 drop OU TID [facility] Last Admin: 11/02/17 12:12 Dose: 1 drop Cyanocobalamin (Vitamin B12 1000 Mcg/Ml Inj) 1,000 mcg IM DAILY@1700 [facility] Last Admin: 11/01/17 17:03 Dose: 1,000 mcg Dextrose (Dextrose 50% Inj) 0 ml IV STAT PRN; Protocol PRN Reason: Hypoglycemia Protocol Dextrose (Glutose 15) 0 gm PO ONCE PRN; Protocol PRN Reason: Hypoglycemia Protocol Enoxaparin Sodium (Lovenox) 40 mg SC DAILY [facility] PRN Reason: Protocol Last Admin: 11/02/17 08:39 Dose: 40 mg Epoetin Zeke (Procrit) 10,000 unit SC DAILY [facility] Last Admin: 11/02/17 08:40 Dose: 10,000 unit Escitalopram Oxalate (Lexapro) 5 mg PO DAILY [facility] Last Admin: 11/02/17 08:39 Dose: 5 mg Famotidine (Pepcid) 20 mg PO BID [facility] Last Admin: 11/02/17 08:40 Dose: 20 mg Ferrous Sulfate (Feosol) 325 mg PO BID [facility] Last Admin: 11/02/17 08:36 Dose: 325 mg Gabapentin (Neurontin) 200 mg PO Q8 [facility] Last Admin: 10/29/17 13:27 Dose: 200 mg Glucagon (Glucagen Diagnostic Kit) 0 mg IM STAT PRN; Protocol PRN Reason: Hypoglycemia Protocol Insulin Detemir (Levemir) 5 units SC [facility] Last Admin: 11/01/17 21:51 Dose: 5 units Insulin Human Lispro (Humalog) 0 units SC .ACB/HS [facility] PRN Reason: Protocol Metformin HCl (Glucophage) 500 mg PO BID [facility] Last Admin: 11/02/17 08:38 Dose: 500 mg Oxycodone/Acetaminophen (Percocet 5/325 Mg Tab) 1 tab PO Q8H PRN PRN Reason: Pain scale 4-10. Stop: 11/04/17 10:24 Last Admin: 11/02/17 08:43 Dose: 1 tab Povidone Iodine (Betadine 10% Topical Soln) 0 ml EXT 0600 [facility] Last Admin: 11/02/17 06:54 Dose: 1 applic Saccharomyces Boulardii (Florastor) 250 mg PO BID [facility] Last Admin: 11/02/17 08:36 Dose: 250 mg Sitagliptin Phosphate (Januvia) 50 mg PO BID [facility] Last Admin: 11/02/17 08:39 Dose: 50 mg Tamsulosin HCl (Flomax) 0.4 mg PO [facility] Last Admin: 11/01/17 21:51 Dose: 0.4 mg Trimethoprim/Sulfamethoxazole (Bactrim Ds Tab) 1 tab PO BID [facility] PRN Reason: Protocol Last Admin: 11/02/17 08:35 Dose: 1 tab - Labs Labs: 11/02/17 06:25 11/02/17 06:25
[2017-11-02] MEDS: Insulin Detemir 100 Units/ml Inj SC SCH (21:50)
[2017-11-03] MEDS: Povidone Iodine Topical 10% Sol EXT SCH (05:56)
[2017-11-03] MEDS ORDERED: Insulin Lispro (humaLOG) 100 Units/ml Inj SC SCH (07:00)
[2017-11-03] MEDS: EPOETIN ALFA 10,000 UNIT/ML ML SC SCH (08:48)
[2017-11-03] MEDS: Enoxaparin 40 mg Syringe SC SCH (08:55)
[2017-11-03] MEDS: Saccharomyces Boulardi 250 mg Cap PO SCH ×2 (08:55→17:15)
[2017-11-03] MEDS: Brimonidine 0.2% 50 DROP/5 ML BOTTLE OU SCH ×3 (08:56→17:00)
[2017-11-03] MEDS: Tmp-Smz 800 mg-160 mg DS Tab PO SCH ×2 (08:56→17:00)
--- NOTE | 2017-11-03 09:06 | PN ---
DATE: 11/03/2017 SUBJECTIVE: The patient is seen and examined. Interim events noted. The patient remains in Acute Rehab Unit. The patient feels okay. Denies any specific complaints. No chest pain. No shortness of breath. Leg pain is adequately controlled. The patient's were removed yesterday. PHYSICAL EXAMINATION: GENERAL: The patient is in no acute distress. VITAL SIGNS: Stable. HEART: S1 and S2, normal and regular. LUNGS: Good bilateral air exchange. ABDOMEN: Soft and nontender. EXTREMITIES: The patient is status post removal with minimal gaping. No signs of cellulitis or discharge. No edema. No calf swelling. No tenderness. 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 DIAGNOSTIC DATA: Available diagnostic data reviewed. PLAN: Overall, the patient's general medical condition is stable. Garcia catheter is in place. Plan as ordered. Vimal Griffin MD
[2017-11-03] MEDS: Insulin Lispro (humaLOG) 100 Units/ml Inj SC SCH (21:21)
[2017-11-03] MEDS: Insulin Detemir 100 Units/ml Inj SC SCH (22:01)
[2017-11-04] MEDS: Povidone Iodine Topical 10% Sol EXT SCH (06:03)
--- NOTE | 2017-11-04 06:47 | CP.PCM.PCO ---
Physician Communication Note - Physician Communication Note Physician Communication Note: Celina removed. Surgical site c/d/i. Steri strips added.
[2017-11-04] MEDS: Insulin Lispro (humaLOG) 100 Units/ml Inj SC SCH ×2 (06:48→21:30)
[2017-11-04] MEDS: Brimonidine 0.2% 50 DROP/5 ML BOTTLE OU SCH ×3 (08:51→16:32)
[2017-11-04] MEDS: Saccharomyces Boulardi 250 mg Cap PO SCH ×2 (08:52→16:32)
[2017-11-04] MEDS: EPOETIN ALFA 10,000 UNIT/ML ML SC SCH (08:54)
[2017-11-04] MEDS: Enoxaparin 40 mg Syringe SC SCH (08:54)
[2017-11-04] MEDS: Tmp-Smz 800 mg-160 mg DS Tab PO SCH ×2 (08:56→16:33)
--- NOTE | 2017-11-04 10:44 | PN ---
DATE: 11/04/2017 SUBJECTIVE: The patient is seen and examined. Interim events noted. The patient remains in Acute Rehab Unit. The patient feels okay. Denies any chest pain. No shortness of breath. PHYSICAL EXAMINATION: GENERAL: The patient is in no acute distress. VITAL SIGNS: Stable. HEART: S1 and S2, normal and regular. LUNGS: Good bilateral air exchange. ABDOMEN: Soft and nontender. EXTREMITIES: No edema. No calf swelling. No tenderness. No acute ischemia. The patient is status post amputation. Surgical site is showing little gaping on the with some serous discharge. No purulent discharge. No surrounding cellulitis, expected to heal medially stitches are . CENTRAL NERVOUS SYSTEM: Essentially unchanged. DIAGNOSTIC DATA: Available diagnostic data reviewed. PLAN: Overall, the patient's general medical condition is stable. Plan as ordered. Vimal Griffin MD
[2017-11-04] MEDS: Insulin Detemir 100 Units/ml Inj SC SCH (22:58)
[2017-11-05 06:12] LABS: HEMOGLOBIN 11.5 g/dL (12.0-18.0); MEAN CELL VOLUME 93.4 fl (80.0-94.0); MEAN CORPUSCULAR HEMOGLOBIN 30.5 pg (27.0-31.0); MEAN CORPUSCULAR HGB CONC 32.7 g/dL (33.0-37.0); RBC 3.76 Mil/uL (4.40-5.90); RED CELL DISTRIBUTION WIDTH 17.9 % (11.5-14.5); WHITE BLOOD COUNT 7.9 K/uL (4.8-10.8)
[2017-11-05 06:35] LABS: CALCIUM 9.4 mg/dL (8.4-10.2)
[2017-11-05] MEDS: Povidone Iodine Topical 10% Sol EXT SCH (07:21)
[2017-11-05] MEDS: Insulin Lispro (humaLOG) 100 Units/ml Inj SC SCH ×2 (07:30→21:30)
[2017-11-05] MEDS ORDERED: Sod Polystyrene Sulf 15 gm/60 ml Susp PO ONE ×2 (08:00→16:00)
[2017-11-05] MEDS: Brimonidine 0.2% 50 DROP/5 ML BOTTLE OU SCH ×3 (09:03→16:32)
[2017-11-05] MEDS: Saccharomyces Boulardi 250 mg Cap PO SCH ×2 (09:04→16:34)
[2017-11-05] MEDS: Tmp-Smz 800 mg-160 mg DS Tab PO SCH (09:04)
[2017-11-05] MEDS: EPOETIN ALFA 10,000 UNIT/ML ML SC SCH (09:06)
[2017-11-05] MEDS: Oxycodone/Acetaminophen 5/325 mg Tab PO PRN (09:10)
[2017-11-05] MEDS: Enoxaparin 40 mg Syringe SC SCH (10:16)
--- NOTE | 2017-11-05 11:42 | PN ---
DATE: 11/05/2017 SUBJECTIVE: The patient is seen and examined. Interim events noted. Telephone orders were obtained as the patient's potassium was very high of 6.5. The patient feels okay. Complains of pain, requiring narcotics, but pain is improving. Surgical followup noted. Stitches were removed. No chest pain or shortness of breath. PHYSICAL EXAMINATION: GENERAL: The patient is in no acute distress. VITAL SIGNS: Stable. HEART: S1 and S2, normal and regular. LUNGS: Good bilateral air exchange. ABDOMEN: Soft and nontender. EXTREMITIES: The patient is status post amputation. Surgical site is clean, remains small opening on . No calf swelling. No tenderness. No acute ischemia. CENTRAL NERVOUS SYSTEM: Essentially unchanged. DIAGNOSTIC DATA: Available diagnostic data reviewed. Overall, the patient's potassium , BUN and creatinine were also slightly elevated. PLAN: Overall, the patient is clinically stable and improving. Plan as ordered. Vimal Griffin MD
[2017-11-05 15:33] LABS: CALCIUM 9.2 mg/dL (8.4-10.2)
--- NOTE | 2017-11-05 17:36 | CP.PCM.CON ---
History of Present Illness - History of Present Illness History of Present Illness: follow up consult pt with history of diabetes, presenting with depressed mood, started on lexapro 5mg on evaluation pt reported feeling less depressed, brighter affect, denied any current suicidal or homicidal ideations denied perceptual disturbances Past Patient History - Past Medical History & Family History Past Medical History?: Yes - Past Social History Smoking Status: Never Smoked Alcohol: None Drugs: Denies Home Situation {Lives}: Homeless - CARDIAC Hx Hypertension: Yes - PULMONARY Hx Respiratory Disorders: No - HEENT Hx Blind: Yes (lt eye) - RENAL Hx Chronic Kidney Disease: No - ENDOCRINE/METABOLIC Hx Diabetes Mellitus Type 2: Yes - HEMATOLOGICAL/ONCOLOGICAL Hx Blood Disorders: No - INTEGUMENTARY Hx Dermatological Problems: No - MUSCULOSKELETAL/RHEUMATOLOGICAL Hx Arthritis: Yes Hx Falls: No - GASTROINTESTINAL Hx Gastrointestinal Disorders: Yes Hx Gastritis: Yes - GENITOURINARY/GYNECOLOGICAL Hx Genitourinary Disorders: No - PSYCHIATRIC Hx Substance Use: No - SURGICAL HISTORY Hx Surgeries: No - ANESTHESIA Hx Anesthesia: No Meds Allergies/Adverse Reactions: Allergies Allergy/AdvReac Type Severity Reaction Status Date / Time No Known Allergies Allergy Verified 10/23/17 16:52 - Medications Medications: Current Medications Acetaminophen (Tylenol 325mg Tab) 650 mg PO Q6 PRN PRN Reason: Pain, Mild (1-3) Acetaminophen (Tylenol 325mg Tab) 650 mg PO Q4 PRN PRN Reason: Pain, Mild (1-3) Amlodipine Besylate (Norvasc) 10 mg PO DAILY [facility] Last Admin: 10/29/17 08:26 Dose: 10 mg Brimonidine Tartrate (Alphagan 0.2% Opht) 1 drop OU TID [facility] Last Admin: 11/05/17 16:32 Dose: 1 drop Cyanocobalamin (Vitamin B12 1000 Mcg/Ml Inj) 1,000 mcg IM Q30D [facility] Dextrose (Dextrose 50% Inj) 0 ml IV STAT PRN; Protocol PRN Reason: Hypoglycemia Protocol Dextrose (Glutose 15) 0 gm PO ONCE PRN; Protocol PRN Reason: Hypoglycemia Protocol Enoxaparin Sodium (Lovenox) 40 mg SC DAILY [facility] PRN Reason: Protocol Last Admin: 11/05/17 10:16 Dose: 40 mg Epoetin Zeke (Procrit) 10,000 unit SC DAILY [facility] Last Admin: 05/07/18 09:06 Dose: 10,000 unit Escitalopram Oxalate (Lexapro) 5 mg PO DAILY [facility] Last Admin: 11/05/17 09:05 Dose: 5 mg Famotidine (Pepcid) 20 mg PO BID [facility] Last Admin: 11/05/17 16:35 Dose: 20 mg Ferrous Sulfate (Feosol) 325 mg PO BID [facility] Last Admin: 11/05/17 16:34 Dose: 325 mg Gabapentin (Neurontin) 200 mg PO Q8 [facility] Last Admin: 10/29/17 13:27 Dose: 200 mg Glucagon (Glucagen Diagnostic Kit) 0 mg IM STAT PRN; Protocol PRN Reason: Hypoglycemia Protocol Insulin Detemir (Levemir) 5 units SC HS [facility] Last Admin: 11/04/17 22:58 Dose: 5 units Insulin Human Lispro (Humalog) 0 units SC 0700,2100 [facility] PRN Reason: Protocol Last Admin: 11/05/17 07:30 Dose: Not Given Metformin HCl (Glucophage) 500 mg PO BID [facility] Last Admin: 11/05/17 16:34 Dose: 500 mg Oxycodone/Acetaminophen (Percocet 5/325 Mg Tab) 1 tab PO Q8H PRN PRN Reason: Pain scale 4-10. Stop: 11/10/17 10:24 Last Admin: 11/05/17 09:10 Dose: 1 tab Povidone Iodine (Betadine 10% Topical Soln) 0 ml EXT 0600 [facility] Last Admin: 11/05/17 07:21 Dose: 1 applic Saccharomyces Boulardii (Florastor) 250 mg PO BID [facility] Last Admin: 11/05/17 16:34 Dose: 250 mg Sitagliptin Phosphate (Januvia) 50 mg PO BID [facility] Last Admin: 11/05/17 16:35 Dose: 50 mg Tamsulosin HCl (Flomax) 0.4 mg PO HS [facility] Last Admin: 11/04/17 21:19 Dose: 0.4 mg Physical Exam - Psychiatric Exam Additional comments: pt seen in bad calm cooperative mood reported fine appropriate affect thought form coherent denied suicidal or homicidal ideations, denied perceptual disturbances , AAox3 Results - Vital Signs Recent Vital Signs: Last Vital Signs Temp 97.7 F 11/05/17 07:00 Pulse 78 11/05/17 07:00 Resp 20 11/05/17 07:00 BP 138/77 11/05/17 07:00 Pulse Ox 99 11/05/17 07:00 - Labs Result Diagrams: 11/05/17 05:25 11/05/17 14:23 Labs: Laboratory Results - last 24 hr 11/04/17 11/04/17 11/04/17 21:23 22:04 22:54 WBC RBC Hgb Hct MCV MCH MCHC RDW Plt Count Sodium Potassium Chloride Carbon Dioxide Anion Gap BUN Creatinine Est GFR ( Amer) Est GFR (Non-Af Amer) POC Glucose (mg/dL) 76 77 98 Random Glucose Serum Osmolality Calcium 11/05/17 11/05/17 11/05/17 05:25 05:25 06:27 WBC 7.9 RBC 3.76 L Hgb 11.5 L Hct 35.1 MCV 93.4 MCH 30.5 MCHC 32.7 L RDW 17.9 H Plt Count 555 H Sodium 135 Potassium 6.5 H* D Chloride 100 Carbon Dioxide 19 L Anion Gap 23 H BUN 37 H Creatinine 1.9 H Est GFR ( Amer) 43 Est GFR (Non-Af Amer) 35 POC Glucose (mg/dL) 83 Random Glucose 89 Serum Osmolality Calcium 9.4 11/05/17 11/05/17 14:23 14:23 WBC RBC Hgb Hct MCV MCH MCHC RDW Plt Count Sodium 137 Potassium 6.3 H* Chloride 100 Carbon Dioxide 22 Anion Gap 21 H BUN 36 H Creatinine 2.3 H Est GFR ( Amer) 34 Est GFR (Non-Af Amer) 28 POC Glucose (mg/dL) Random Glucose 161 H Serum Osmolality 307 H Calcium 9.2 Assessment & Plan - Assessment and Plan (Free Text) Assessment: 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
--- NOTE | 2017-11-05 18:49 | CP.PCM.CON ---
History of Present Illness - History of Present Illness History of Present Illness: pt is seen and examined, full consult is dictated #[id number] Past Patient History - Past Medical History & Family History Past Medical History?: Yes - Past Social History Smoking Status: Never Smoked Alcohol: None Drugs: Denies Home Situation {Lives}: Homeless - CARDIAC Hx Hypertension: Yes - PULMONARY Hx Respiratory Disorders: No - HEENT Hx Blind: Yes (lt eye) - RENAL Hx Chronic Kidney Disease: No - ENDOCRINE/METABOLIC Hx Diabetes Mellitus Type 2: Yes - HEMATOLOGICAL/ONCOLOGICAL Hx Blood Disorders: No - INTEGUMENTARY Hx Dermatological Problems: No - MUSCULOSKELETAL/RHEUMATOLOGICAL Hx Arthritis: Yes Hx Falls: No - GASTROINTESTINAL Hx Gastrointestinal Disorders: Yes Hx Gastritis: Yes - GENITOURINARY/GYNECOLOGICAL Hx Genitourinary Disorders: No - PSYCHIATRIC Hx Substance Use: No - SURGICAL HISTORY Hx Surgeries: No - ANESTHESIA Hx Anesthesia: No Meds Allergies/Adverse Reactions: Allergies Allergy/AdvReac Type Severity Reaction Status Date / Time No Known Allergies Allergy Verified 10/23/17 16:52 - Medications Medications: Current Medications Acetaminophen (Tylenol 325mg Tab) 650 mg PO Q6 PRN PRN Reason: Pain, Mild (1-3) Acetaminophen (Tylenol 325mg Tab) 650 mg PO Q4 PRN PRN Reason: Pain, Mild (1-3) Amlodipine Besylate (Norvasc) 10 mg PO DAILY [facility] Last Admin: 10/29/17 08:26 Dose: 10 mg Brimonidine Tartrate (Alphagan 0.2% Opht) 1 drop OU TID [facility] Last Admin: 11/05/17 16:32 Dose: 1 drop Cyanocobalamin (Vitamin B12 1000 Mcg/Ml Inj) 1,000 mcg IM Q30D [facility] Dextrose (Dextrose 50% Inj) 0 ml IV STAT PRN; Protocol PRN Reason: Hypoglycemia Protocol Dextrose (Glutose 15) 0 gm PO ONCE PRN; Protocol PRN Reason: Hypoglycemia Protocol Enoxaparin Sodium (Lovenox) 40 mg SC DAILY [facility] PRN Reason: Protocol Last Admin: 11/05/17 10:16 Dose: 40 mg Epoetin Zeke (Procrit) 10,000 unit SC DAILY [facility] Last Admin: 11/05/17 09:06 Dose: 10,000 unit Escitalopram Oxalate (Lexapro) 5 mg PO DAILY [facility] Last Admin: 11/05/17 09:05 Dose: 5 mg Famotidine (Pepcid) 20 mg PO BID [facility] Last Admin: 11/05/17 16:35 Dose: 20 mg Ferrous Sulfate (Feosol) 325 mg PO BID [facility] Last Admin: 11/05/17 16:34 Dose: 325 mg Finasteride (Proscar) 5 mg PO DAILY [facility] Gabapentin (Neurontin) 200 mg PO Q8 [facility] Last Admin: 10/29/17 13:27 Dose: 200 mg Glucagon (Glucagen Diagnostic Kit) 0 mg IM STAT PRN; Protocol PRN Reason: Hypoglycemia Protocol Insulin Detemir (Levemir) 5 units SC HS [facility] Last Admin: 11/04/17 22:58 Dose: 5 units Insulin Human Lispro (Humalog) 0 units SC 0700,2100 [facility] PRN Reason: Protocol Last Admin: 11/05/17 07:30 Dose: Not Given Metformin HCl (Glucophage) 500 mg PO BID [facility] Last Admin: 11/05/17 16:34 Dose: 500 mg Oxycodone/Acetaminophen (Percocet 5/325 Mg Tab) 1 tab PO Q8H PRN PRN Reason: Pain scale 4-10. Stop: 11/10/17 10:24 Last Admin: 11/05/17 09:10 Dose: 1 tab Povidone Iodine (Betadine 10% Topical Soln) 0 ml EXT 0600 [facility] Last Admin: 11/05/17 07:21 Dose: 1 applic Saccharomyces Boulardii (Florastor) 250 mg PO BID [facility] Last Admin: 11/05/17 16:34 Dose: 250 mg Sitagliptin Phosphate (Januvia) 50 mg PO BID [facility] Last Admin: 11/05/17 16:35 Dose: 50 mg Tamsulosin HCl (Flomax) 0.4 mg PO BID [facility] Results - Vital Signs Recent Vital Signs: Last Vital Signs Temp 97.7 F 11/05/17 07:00 Pulse 78 11/05/17 07:00 Resp 20 11/05/17 07:00 BP 138/77 11/05/17 07:00 Pulse Ox 99 11/05/17 07:00 - Labs Result Diagrams: 11/05/17 05:25 11/05/17 19:13 Labs: Laboratory Results - last 24 hr 11/04/17 11/04/17 11/04/17 21:23 22:04 22:54 WBC RBC Hgb Hct MCV MCH MCHC RDW Plt Count Sodium Potassium Chloride Carbon Dioxide Anion Gap BUN Creatinine Est GFR ( Amer) Est GFR (Non-Af Amer) POC Glucose (mg/dL) 76 77 98 Random Glucose Serum Osmolality Calcium 11/05/17 11/05/17 11/05/17 05:25 05:25 06:27 WBC 7.9 RBC 3.76 L Hgb 11.5 L Hct 35.1 MCV 93.4 MCH 30.5 MCHC 32.7 L RDW 17.9 H Plt Count 555 H Sodium 135 Potassium 6.5 H* D Chloride 100 Carbon Dioxide 19 L Anion Gap 23 H BUN 37 H Creatinine 1.9 H Est GFR ( Amer) 43 Est GFR (Non-Af Amer) 35 POC Glucose (mg/dL) 83 Random Glucose 89 Serum Osmolality Calcium 9.4 11/05/17 11/05/17 14:23 14:23 WBC RBC Hgb Hct MCV MCH MCHC RDW Plt Count Sodium 137 Potassium 6.3 H* Chloride 100 Carbon Dioxide 22 Anion Gap 21 H BUN 36 H Creatinine 2.3 H Est GFR ( Amer) 34 Est GFR (Non-Af Amer) 28 POC Glucose (mg/dL) Random Glucose 161 H Serum Osmolality 307 H Calcium 9.2
[2017-11-05] MEDS ORDERED: Sodium Bicarbonate 7.5% (0.9 MEQ/ML) 50ML INJ IV ONE ×2 (18:55→20:45)
[2017-11-05] MEDS ORDERED: Calcium Gluconate 4.65 mEq/10 ml Inj IV ONE (18:55)
[2017-11-05] MEDS ORDERED: Dextrose 50% SYRINGE Inj (50 ml) IVP ONE (18:55)
[2017-11-05] MEDS ORDERED: Calcium Gluconate 4.6 MEQ in Sodium Chloride 0.9% 100 ML IV ONE ×2 (19:30→20:45)
[2017-11-05 20:58] LABS: URINE BACTERIA MANY (<OCC); URINE BILIRUBIN NEGATIVE (NEGATIVE); URINE BLOOD NEGATIVE (NEGATIVE); URINE CLARITY SLIGHTY-CLOUDY (Clear); URINE COLOR YELLOW (YELLOW); URINE GLUCOSE (UA) NEG (Normal); URINE LEUKOCYTE ESTERASE SMALL Leu/uL (Negative); URINE PROTEIN NEGATIVE (NEGATIVE); URINE UROBILINOGEN 0.2-1.0 mg/dL (0.2-1.0)
[2017-11-05] MEDS: Insulin Regular 100 units/ml IVP ONE (21:36)
[2017-11-05] MEDS: Insulin Detemir 100 Units/ml Inj SC SCH ×2 (23:28→23:40)
[2017-11-06] MEDS: Povidone Iodine Topical 10% Sol EXT SCH (06:02)
[2017-11-06] MEDS: Insulin Lispro (humaLOG) 100 Units/ml Inj SC SCH ×2 (06:03→22:22)
[2017-11-06] MEDS ORDERED: Insulin Regular 100 units/ml IVP SCH (07:30)
[2017-11-06] MEDS: Enoxaparin 40 mg Syringe SC SCH (08:38)
[2017-11-06] MEDS: Saccharomyces Boulardi 250 mg Cap PO SCH ×2 (08:39→16:52)
[2017-11-06] MEDS: EPOETIN ALFA 10,000 UNIT/ML ML SC SCH (08:48)
--- NOTE | 2017-11-06 09:06 | CP.PCM.PN ---
Subjective - Date & Time of Evaluation Date of Evaluation: 11/06/17 Time of Evaluation: 09:06 - Subjective Subjective: pt is seen and examined, follow up consult is dictated #[id number] Objective - Vital Signs/Intake and Output Vital Signs (last 24 hours): Temp Pulse Resp BP Pulse Ox 97.9 F 84 20 125/65 96 11/06/17 08:19 11/06/17 08:19 11/06/17 08:19 11/06/17 08:19 11/06/17 08:19 Intake and Output: 11/06/17 11/06/17 06:59 18:59 Intake Total 920 Output Total 901 Balance 19 - Medications Medications: Current Medications Acetaminophen (Tylenol 325mg Tab) 650 mg PO Q6 PRN PRN Reason: Pain, Mild (1-3) Acetaminophen (Tylenol 325mg Tab) 650 mg PO Q4 PRN PRN Reason: Pain, Mild (1-3) Amlodipine Besylate (Norvasc) 10 mg PO DAILY [facility] Last Admin: 10/29/17 08:26 Dose: 10 mg Brimonidine Tartrate (Alphagan 0.2% Opht) 1 drop OU TID [facility] Last Admin: 11/05/17 16:32 Dose: 1 drop Cyanocobalamin (Vitamin B12 1000 Mcg/Ml Inj) 1,000 mcg IM Q30D [facility] Dextrose (Dextrose 50% Inj) 0 ml IV STAT PRN; Protocol PRN Reason: Hypoglycemia Protocol Dextrose (Glutose 15) 0 gm PO ONCE PRN; Protocol PRN Reason: Hypoglycemia Protocol Enoxaparin Sodium (Lovenox) 40 mg SC DAILY [facility] PRN Reason: Protocol Last Admin: 11/06/17 08:38 Dose: 40 mg Epoetin Zeke (Procrit) 10,000 unit SC DAILY [facility] Last Admin: 11/06/17 08:48 Dose: 10,000 unit Escitalopram Oxalate (Lexapro) 10 mg PO DAILY [facility] Last Admin: 11/06/17 08:40 Dose: 10 mg Famotidine (Pepcid) 20 mg PO BID [facility] Last Admin: 11/06/17 08:40 Dose: 20 mg Ferrous Sulfate (Feosol) 325 mg PO BID [facility] Last Admin: 11/06/17 08:38 Dose: 325 mg Finasteride (Proscar) 5 mg PO DAILY [facility] Last Admin: 11/06/17 08:39 Dose: 5 mg Gabapentin (Neurontin) 200 mg PO Q8 [facility] Last Admin: 10/29/17 13:27 Dose: 200 mg Glucagon (Glucagen Diagnostic Kit) 0 mg IM STAT PRN; Protocol PRN Reason: Hypoglycemia Protocol Sodium Bicarbonate 75 meq/ (Sodium Chloride) 1,075 mls @ 70 mls/hr IV .[id number] [facility] Stop: 11/06/17 10:21 Last Admin: 11/05/17 21:44 Dose: 70 mls/hr Insulin Detemir (Levemir) 5 units SC HS [facility] Last Admin: 11/05/17 23:40 Dose: Not Given Insulin Human Lispro (Humalog) 0 units SC 0700,2100 [facility] PRN Reason: Protocol Last Admin: 11/06/17 06:03 Dose: Not Given Insulin Human Regular (Humulin R) 5 units IVP ONCE ONE Stop: 11/06/17 19:50 Last Admin: 11/05/17 21:36 Dose: 5 units Metformin HCl (Glucophage) 500 mg PO BID [facility] Last Admin: 11/06/17 08:39 Dose: 500 mg Oxycodone/Acetaminophen (Percocet 5/325 Mg Tab) 1 tab PO Q8H PRN PRN Reason: Pain scale 4-10. Stop: 11/10/17 10:24 Last Admin: 11/05/17 09:10 Dose: 1 tab Povidone Iodine (Betadine 10% Topical Soln) 0 ml EXT 0600 [facility] Last Admin: 11/06/17 06:02 Dose: 1 applic Saccharomyces Boulardii (Florastor) 250 mg PO BID [facility] Last Admin: 11/06/17 08:39 Dose: 250 mg Sitagliptin Phosphate (Januvia) 50 mg PO BID [facility] Last Admin: 11/06/17 08:40 Dose: 50 mg Tamsulosin HCl (Flomax) 0.4 mg PO BID [facility] Last Admin: 11/06/17 08:41 Dose: 0.4 mg - Labs Labs: 11/05/17 05:25 11/06/17 05:50
[2017-11-06] MEDS: Brimonidine 0.2% 50 DROP/5 ML BOTTLE OU SCH ×3 (09:26→16:52)
--- NOTE | 2017-11-06 09:55 | CON ---
DATE: 11/05/2017 RENAL CONSULTATION LOCATION: The patient is located in room number 625, bed 1. CONSULTATION REQUESTED BY: Vimal Griffin MD REASON FOR RENAL CONSULTATION: Acute renal failure and hyperkalemia for further evaluation. HISTORY OF PRESENT ILLNESS: Mr. 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 Subsequently, the patient was discharged from medical floor to the Rehab on 10/24/2017. Renal consult was requested today for hyperkalemia and acute renal failure. The patient denies any chest pain or palpitation. Denies any abdominal pain. Denies any nausea, vomiting or diarrhea. Wilmer any dysuria. Decrease urine output. PAST MEDICAL HISTORY: Significant for longstanding diabetes and hypertension. PAST SURGICAL HISTORY: Status post TMA on 10/10/2017 and status post left BKA on 10/15/2017. ALLERGIES: NO KNOWN DRUG ALLERGIES. SOCIAL HISTORY: Denies any smoking, alcohol, or drugs. He is homeless. FAMILY HISTORY: Not significant. MEDICATIONS: Include Alphagan eye drops, ferrous sulfate 325 mg p.o. b.i.d., Flomax 0.4 mg b.i.d., Florastor 250 mg p.o. b.i.d., metformin 100 mg p.o. b.i.d, Humalog for sliding scale and Humulin R, Januvia 50 mg p.o. b.i.d., Levemir 5 units subcutaneous at bedtime, Lexapro 5 mg p.o. daily, Lovenox 40 mg subcutaneous daily, Neurontin on hold, amlodipine on hold, Pepcid 20 mg p.o. b.i.d., Percocet 1 tablet every 8 hours p.r.n., Procrit 10,000 units subcutaneous daily, Proscar 5 mg p.o. daily, B12 1000 mcg IM daily, and Tylenol. REVIEW OF SYSTEMS: Significant for status post left BKA. All other review of systems are reviewed and are negative. PHYSICAL EXAMINATION: As follows: VITAL SIGNS: Blood pressure of 138/77, pulse of 78, respirations of 20, temperature of 97.7, and oxygen saturation is 99%. Height is 5 feet and 6 inches and weight is 113 pounds. GENERAL: Mr. Miner is a 72-year-old elderly male, moderately built and moderately nourished, not in acute distress. 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 Tongue is moist. Trachea is midline. LUNGS: Symmetry on both side. Bilateral breath sounds are present. Clear on auscultation. CARDIOVASCULAR SYSTEM : [place] at the fifth intercostal space, 1/2 inch medial to midclavicular line. S1 and S2 audible. No murmur. No gallop. ABDOMEN: Normal in appearance. Soft and tympanic. No guarding. No rigidity. Mild suprapubic tenderness present. No guarding. No rigidity. No hepatosplenomegaly. CENTRAL NERVOUS SYSTEM: The patient is alert, awake, and oriented x2-3. Sensory motor system is grossly within normal limits. EXTREMITIES: No cyanosis. No clubbing. No edema on the right side, status post left BKA. SKIN: Skin turgor is very poor. LABORATORY DATA: Include as follows as of 11/05/2017, WBC of 7.9, hemoglobin of 11.5, hematocrit of 35.1, and platelets of 555. Sodium is 135, potassium is 6.5, chloride is 100, CO2 is 22, BUN is 37, creatinine is 1.9, glucose is 89, and calcium is 9.4. Repeat BMP this afternoon sodium of 137, potassium of 6.3, chloride of 100, CO2 of 22, BUN of 36, creatinine of 2.3, and glucose of 161. Serum osmolality of 307 and calcium of 9.2. As of 10/24/2017, his serum creatinine is 1.3 and his baseline creatinine on admission was 0.6. ASSESSMENT: In summary, Mr. Miner is a 72-year-old elderly male with history of longstanding hypertension, diabetes, gangrene of the foot, status post left transmetatarsal amputation on 10/10/2017, subsequently, the patient underwent left below-knee amputation on Bactrim also with hyperkalemia and increased BUN and creatinine, status post Kayexalate this morning, had a good bowel movements and repeat potassium was thus still elevated at 6.3 came down from 6.5 this morning. The patient has 400 mL of the urine in the bladder scan with decreased urine output, status post incision of the Garcia catheter: 1. Acute renal failure most likely secondary to multifactorial, secondary to medication Bactrim and also obstructive uropathy. 2. Hyperkalemia secondary to obstructive uropathy and also Bactrim. 3. Metabolic acidosis. 4. Diabetes. 5. Hypertension. 6. Status post left below-knee amputation. PLAN: We will check his serum osmolality, urine osmolality, will calculate and also we will give D50 1 amp and insulin 5 units IV push and sodium bicarbonate 1 amp IV push, and also we will start IV fluids half normal saline with 75 mEq times 1 and encouraged p.o. fluids and his repeat potassium came down to 5.2. I will continue to monitor the BMP and continue IV fluids. We will follow with you. Thank you for allowing me to participate in your patient's care. Bactrim was discontinued this afternoon. Nena Mancia MD
--- NOTE | 2017-11-06 10:07 | PN ---
DATE: 11/06/2017 SUBJECTIVE: The patient is seen and examined. Interim events noted. Consults noted and appreciated. Nephrology consult and interventions noted and appreciated. The patient with hyperkalemia and was treated accordingly. The patient feels okay. Denies any chest pain or shortness of breath. PHYSICAL EXAMINATION: GENERAL: The patient is in no acute distress. VITAL SIGNS: Stable. HEART: S1 and S2, normal and regular. LUNGS: Good bilateral air exchange. ABDOMEN: Soft and nontender. No organomegaly. No fluids. Bowel sounds are plus and normal. EXTREMITIES: The patient is status post amputation. No sign of complication. No calf swelling. No tenderness. No acute ischemia. CENTRAL NERVOUS SYSTEM: Exam is essentially unchanged. DIAGNOSTIC DATA: Available diagnostic data reviewed. Potassium was 5.2. Today's labs are pending. IMPRESSION AND PLAN: The patient had multiple episodes of diarrhea related to Kayexalate, which was expected. Overall, the patient is medically stable. We will follow electrolyte. Plan as ordered. Case and plan discussed with patient and the nursing staff. Psychiatric consult also noted and appreciated. The patient's will be increased. Vimal Griffin MD
[2017-11-06] MEDS: Sodium Chloride 0.45% 1,000 ML IV SCH (10:26)
--- NOTE | 2017-11-06 13:19 | PSY.TMCNF ---
Nursing - Vital Signs Vital Signs (Last 8 hours): Vital Signs 11/06/17 11/06/17 08:19 09:00 Temperature 97.9 F 97.9 F Pulse Rate 84 84 Respiratory 20 20 Rate Blood Pressure 125/65 125/65 O2 Sat by Pulse 96 Oximetry Pain: 0 - Precautions: Precautions: Fall Prevention - Medications/Other Issues Comment: Pt at moderate nutritional risk. goals: 1. Pt to consume 75-100% of meals ( met, continue). 2. Blood glucoses to be between 70-180 mg/dl ( partially met, continue). Follow-up due on 11/09/2017 - Skin Incision Site: L stump Dressing Status: Clean, Dry, Intact Incision: Healing Well, Steri-Strips Intact Incision Line Treatment: pepe removed by surgery team - steri strips applied and re wrapped by surgery. - Toileting Toileting: Moderate Assistance - Bladder Management Bladder Pattern: Retention Voiding Method: Indwelling Catheter - Bowel Management Bowel Pattern: Normal Bowel Management: Moderate Assistance - Transfers Transfers: Minimal Assistance - ADL's ADL's: Moderate Assistance - Pain Management Comments: Medicate prn for pain as ordered - Patient/Family Teaching Comments: N/A - Goals/Time Frame Comments: Maintain Safety. Assess for pain. Retention : Seen by Dr Redd to maintain harry as orderd till 11/05/17 also started on Flomax - Provider Provider: Juany Post RN Physical Therapy - Bed Mobility Bed Mobility: Supervision, Verbal Cues Comment: CS - Transfers Sit to Stand: Verbal Cues, Contact Guard - Ambulation Level of Assistance: Verbal Cues, Contact Guard, Minimal Assistance Distance (ft.): 15 - Stair Negotiation Comment: Atempted to hop 1 small step but pt. was unable at this time - Standing Balance Static Stand: Minimal Assistance Dynamic Stand: Moderate Assistance - Pain Pain (assessed during therapy session): 0 - Insight/Carryover Insight/Carryover: Fair - Patient/Family Education Comment: -ongoing for adls, transfers, mobility, w/c management/propulsion-- using adaptive/compensatory strategies. -rehab, OT goals and plan of care. -L stump management, wrapping. -bed positioning, RLE positioning. -pt needs additional training to improve carryover and safety awareness - Assessment/Plan Assessment: Pt declines to participate in recreation therapy sessions throughout stay on unit. Pt receives daily room visits for social support and encouragement to participate in sessions. However, pt will decline 2' visual deficits and no leisure interests. Pt's mood continues to be flat and will continue to encourage to participate in recreation therapy sessions. - Goals Timeframe: 3 weeks Goals: -FEEDING: I/setup 100% of time. -GROOMING: I/setup 100% of time. - UPPER BODY BATHING/DRESSING: I/setup seated. -LOWER BODY DRESSING: Close S/CG and verbal cues with adapive/compensatory strategies. -LOWER BODY BATHING: Min assist/CG and verbal cues seated. -W/C PROPULSION: Mod I 150 feet, manage brakes with Mod I. -TOILETING: Supervision/Close S. -BUEs strength to 4+/5 throughout for imparoved adls, transfers/mobility - Provider License Number: [id number] Occupational Therapy - Arousal/Attention/Orientation Patient Orientation: Person - ADL/IADL Self Feeding: Independent, Set-up Help Bathing-Upper Extremity: Contact Guard Bathing-Lower Extremity: Minimal Assistance Dressing-Upper Extremity: Set-up Help Dressing-Lower Extremity: Verbal Cues, Set-up Help, Minimal Assistance Comment: Pt completes donning/doffing R shie/sock with CS cross over method seated in w/c - Sitting Balance Static Sitting: Independent without upper extremity support Dynamic Sitting: Reaches across midline Comment: seated at edge of bed - Transfers Wheelchair to Bed Transfers: Verbal Cues, Set-up Help, Minimal Assistance Toilet Transfers: Verbal Cues, Set-up Help, Minimal Assistance - Wheelchair Management Level of Assistance: Supervision Distance (ft.): 150 - Upper Extremity Status Right Upper Extremity Comment: AROm is WFLs: 4/5 trhroughout Left Upper Extremity Comment: AROM is WFLs, 4/5 - Pain Pain (assessed during therapy session): 0 - Insight/Carryover Insight/Carryover: Fair - Patient/Family Education Comment: -ongoing for adls, transfers, mobility, w/c management/propulsion-- using adaptive/compensatory strategies. -rehab, OT goals and plan of care. -L stump management, wrapping. -bed positioning, RLE positioning. -pt needs additional training to improve carryover and safety awareness - Assessment/Plan Assessment: Pt declines to participate in recreation therapy sessions throughout stay on unit. Pt receives daily room visits for social support and encouragement to participate in sessions. However, pt will decline 2' visual deficits and no leisure interests. Pt's mood continues to be flat and will continue to encourage to participate in recreation therapy sessions. - Goals Timeframe: 3 weeks Goals: -FEEDING: I/setup 100% of time. -GROOMING: I/setup 100% of time. - UPPER BODY BATHING/DRESSING: I/setup seated. -LOWER BODY DRESSING: Close S/CG and verbal cues with adapive/compensatory strategies. -LOWER BODY BATHING: Min assist/CG and verbal cues seated. -W/C PROPULSION: Mod I 150 feet, manage brakes with Mod I. -TOILETING: Supervision/Close S. -BUEs strength to 4+/5 throughout for imparoved adls, transfers/mobility - Provider Therapist: SANG Cain/[facility] - Plan Assessment: Pt declines to participate in recreation therapy sessions throughout stay on unit. Pt receives daily room visits for social support and encouragement to participate in sessions. However, pt will decline 2' visual deficits and no leisure interests. Pt's mood continues to be flat and will continue to encourage to participate in recreation therapy sessions. Recreational Therapy - Participation Participation: Monitors His/Her Own Leisure Time - Attendance Attendance: Daily - Activities Leisure Activities: Television - Socialization Level of Socialization: Initiates/interacts freely with care givers and peer - Diversional Time Diversional Time: listening to television - Assessment Assessment/Plan: Pt declines to participate in recreation therapy sessions throughout stay on unit. Pt receives daily room visits for social support and encouragement to participate in sessions. However, pt will decline 2' visual deficits and no leisure interests. Pt's mood continues to be flat and will continue to encourage to participate in recreation therapy sessions. Problems Currently Limiting Participation: L eye blindness, decrease leisure awareness level, no family support, limited social support, unknown home situation Goals and Time Frame: Pt will be encouraged to participate in 1:1 and group recreation therapy sesions 3-5x week to improve leisure awareness, attention to task, arousal level, and overall mood state. - Provider Therapist: Demetrice Vega, [employer]PECT[employer] #[id number] Nutrition - Current Diet Current Diet/ Supplement/ Feedings: Moderate consistent CHO thin liquids Glucerna shake 8 ounces 2 per day. (440 kcal and 19.8 grams of protein) - Appetite Percent Meal Consumed: 50-74% - Comments Comments: N/A - Assessment/Goals/Time Frame Assessment/Goals/Time Frame: Pt at moderate nutritional risk. goals: 1. Pt to consume 75-100% of meals ( met, continue). 2. Blood glucoses to be between 70- 180 mg/dl (partially met, continue). Follow-up due on 11/09/2017 - Provider Provider: Suzanna Brantley RD Case Management - Psychosocial Assessment Support Systems: Adarsh Ba/friend/[phone]. 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 Tentative discharge 11/09/17 to [facility] and possible LTC 2. Pt authorized by insurance through 10/31/17 with updates requested at that time 3. GOAL: Min assist overall 4. Emotional support - Discharge Plan Discharge Plan: Subacute care - Provider Provider: MARCK Bansal, [employer]IA ACCOUNT EXECUTIVE License Number: [id number] Rehabilitation Plan - Treatment Plan Treatment Plan: Physical Therapy, Occupational Therapy, Dietary, Patient/Family Education - Discharge Plan Discharge to: Subacute
--- NOTE | 2017-11-06 13:53 | CP.PCM.PN ---
Subjective - Date & Time of Evaluation Date of Evaluation: 11/06/17 Time of Evaluation: 13:52 - Subjective Subjective: Patient seen in the PT gym denies pain left LE amputation incision still healing not yet ready for casting or hook tender. Has SIVA wrap set for d/c 11/09/17 to [facility] Objective - Vital Signs/Intake and Output Vital Signs (last 24 hours): Temp Pulse Resp BP Pulse Ox 97.9 F 84 20 125/65 96 11/06/17 09:00 11/06/17 09:00 11/06/17 09:00 11/06/17 09:00 11/06/17 08:19 Intake and Output: 11/06/17 11/06/17 06:59 18:59 Intake Total 920 Output Total 901 Balance 19 - Medications Medications: Current Medications Acetaminophen (Tylenol 325mg Tab) 650 mg PO Q6 PRN PRN Reason: Pain, Mild (1-3) Acetaminophen (Tylenol 325mg Tab) 650 mg PO Q4 PRN PRN Reason: Pain, Mild (1-3) Amlodipine Besylate (Norvasc) 10 mg PO DAILY [facility] Last Admin: 10/29/17 08:26 Dose: 10 mg Brimonidine Tartrate (Alphagan 0.2% Opht) 1 drop OU TID [facility] Last Admin: 11/06/17 09:26 Dose: 1 drop Cyanocobalamin (Vitamin B12 1000 Mcg/Ml Inj) 1,000 mcg IM Q30D [facility] Dextrose (Dextrose 50% Inj) 0 ml IV STAT PRN; Protocol PRN Reason: Hypoglycemia Protocol Dextrose (Glutose 15) 0 gm PO ONCE PRN; Protocol PRN Reason: Hypoglycemia Protocol Enoxaparin Sodium (Lovenox) 40 mg SC DAILY [facility] PRN Reason: Protocol Last Admin: 11/06/17 08:38 Dose: 40 mg Epoetin Zeke (Procrit) 10,000 unit SC MWF [facility] Escitalopram Oxalate (Lexapro) 10 mg PO DAILY [facility] Last Admin: 11/06/17 08:40 Dose: 10 mg Famotidine (Pepcid) 20 mg PO BID [facility] Last Admin: 11/06/17 08:40 Dose: 20 mg Ferrous Sulfate (Feosol) 325 mg PO BID [facility] Last Admin: 11/06/17 08:38 Dose: 325 mg Finasteride (Proscar) 5 mg PO DAILY [facility] Last Admin: 11/06/17 08:39 Dose: 5 mg Gabapentin (Neurontin) 200 mg PO Q8 [facility] Last Admin: 10/29/17 13:27 Dose: 200 mg Glucagon (Glucagen Diagnostic Kit) 0 mg IM STAT PRN; Protocol PRN Reason: Hypoglycemia Protocol Sodium Chloride (Sodium Chloride 0.45%) 1,000 mls @ 70 mls/hr IV .[id number] [facility] Stop: 11/07/17 10:01 Last Admin: 11/06/17 10:26 Dose: 70 mls/hr Insulin Detemir (Levemir) 5 units SC HS [facility] Last Admin: 11/05/17 23:40 Dose: Not Given Insulin Human Lispro (Humalog) 0 units SC 0700,2100 [facility] PRN Reason: Protocol Last Admin: 11/06/17 06:03 Dose: Not Given Insulin Human Regular (Humulin R) 5 units IVP ONCE ONE Stop: 11/06/17 19:50 Last Admin: 11/05/17 21:36 Dose: 5 units Metformin HCl (Glucophage) 500 mg PO BID [facility] Last Admin: 11/06/17 08:39 Dose: 500 mg Oxycodone/Acetaminophen (Percocet 5/325 Mg Tab) 1 tab PO Q8H PRN PRN Reason: Pain scale 4-10. Stop: 11/10/17 10:24 Last Admin: 11/05/17 09:10 Dose: 1 tab Povidone Iodine (Betadine 10% Topical Soln) 0 ml EXT 0600 [facility] Last Admin: 11/06/17 06:02 Dose: 1 applic Saccharomyces Boulardii (Florastor) 250 mg PO BID [facility] Last Admin: 11/06/17 08:39 Dose: 250 mg Sitagliptin Phosphate (Januvia) 50 mg PO BID [facility] Last Admin: 11/06/17 08:40 Dose: 50 mg Tamsulosin HCl (Flomax) 0.4 mg PO BID [facility] Last Admin: 11/06/17 08:41 Dose: 0.4 mg - Labs Labs: 11/05/17 05:25 11/06/17 05:50
--- NOTE | 2017-11-06 14:01 | PN ---
DATE: 11/06/2017 FOLLOWUP RENAL CONSULTATION LOCATION: The patient is located in rehab acute in room number 625, bed 1. REQUESTED BY: Dr. Vimal Griffin. REASON FOR FOLLOWUP: Acute renal failure and hyperkalemia. SUBJECTIVE: Mr. Miner is a 72-year-old elderly male with past medical history significant for longstanding hypertension, diabetes, hyperlipidemia, diabetic foot, status post TMA on 10/10/2017. Subsequently, the patient required left BKA on 10/15/2017 and transferred to acute rehab on 10/23/2017. The patient was found to have acute renal failure and hyperkalemia. Renal consult was requested yesterday and seen for hyperkalemia. The patient denies any complaints today. The patient has a Garcia catheter with a good urine output now. Denies any headache or dizziness. Denies any chest pain or palpitation. Denies any fever, cough, or abdominal pain. No nausea, vomiting or diarrhea. PHYSICAL EXAMINATION: VITAL SIGNS: This morning as follows, blood pressure of 125/65, pulse of 84, respirations of 20, temperature of 97.9, saturations of 96%. Height is 5 feet 6 inches and weight is 113 pounds. HEENT: Right eye is normal and left eye is blind. Conjunctivae pink. Sclerae are anicteric. Tongue is moist. Trachea is midline. LUNGS: Symmetric on both sides. Bilateral breath sounds present. Clear on auscultation. CARDIOVASCULAR SYSTEM: [place] at the fifth intercostal space, 1/2 inch medial to midclavicular line. S1 and S2 audible. No murmur or gallop. ABDOMEN: Normal in appearance, soft, and tympanic. No guarding. No rigidity. No hepatosplenomegaly. CENTRAL NERVOUS SYSTEM: The patient is alert, awake, and oriented x3. Nonfocal neuro examination. Cranial nerves II through XII grossly intact. Sensory and motor system is within normal limits. EXTREMITIES: No cyanosis. No clubbing. No edema on the right leg, status post left BKA. CURRENT MEDICATIONS: Include as follows; Alphagan eye drops, Betadine topical, ferrous sulfate 325 mg p.o. b.i.d., Flomax 0.4 mg b.i.d., Florastor 250 mg p.o. b.i.d., metformin 500 mg p.o. b.i.d, Januvia 50 mg p.o. b.i.d., Levemir 5 units subcutaneous at bedtime, Lexapro 10 mg p.o. daily, Lovenox 40 mg subcutaneous daily, gabapentin on hold, amlodipine on hold, Pepcid 20 mg p.o. b.i.d., Percocet 1 tablet p.o. every 8 hours, Epogen 10,000 units subcutaneous daily, Proscar 5 mg daily, IV fluids, bicarbonate drip at 75 mEq in 1 liter Tylenol and cyanocobalamin. LABORATORY DATA: This morning include as follows, sodium is 140, potassium is 4.8, chloride is 101, CO2 is 24, BUN is 32, creatinine is 1.7, glucose is 102, and calcium is 9. ASSESSMENT: In summary, Mr. Miner is a 72-year-old elderly male with history of hypertension, diabetes, hyperlipidemia, left foot gangrene, status post transmetatarsal amputation, status post below-knee amputation on 10/15/2017. Subsequently, transferred to acute rehab for physical therapy with increased BUN and creatinine: 1. Hyperkalemia most likely secondary to intravascular depletion and acute renal failure on Bactrim. The patient is also Bactrim now and repeat potassium is within normal limits. 2. Bladder outlet obstruction. 3. Acute renal failure secondary to intravascular depletion on Bactrim. The patient is off Bactrim. 4. Hypertension. 5. Diabetes. 6. Status post left below-knee amputation. PLAN: We will change sodium bicarbonate drip to half normal saline at 70 mL per hour and change Epogen to 10,000 units three times a week Sunday, Sunday, Sunday and hold for hemoglobin more than 11. Continue to monitor BMP. Check PSA levels. We will follow with you. Thank you for allowing me to participate in your patient's care. Nena Mancia MD
[2017-11-06] MEDS: Insulin Regular 100 units/ml IVP ONE (21:24)
[2017-11-06] MEDS: Insulin Detemir 100 Units/ml Inj SC SCH (22:23)
[2017-11-07] MEDS: Sodium Chloride 0.45% 1,000 ML IV SCH ×2 (00:02→12:49)
[2017-11-07] MEDS: Povidone Iodine Topical 10% Sol EXT SCH (06:23)
[2017-11-07] MEDS: Insulin Lispro (humaLOG) 100 Units/ml Inj SC SCH ×2 (06:25→21:40)
[2017-11-07 06:56] LABS: BLOOD UREA NITROGEN 28 mg/dl (9-20); CALCIUM 8.6 mg/dL (8.4-10.2); GFR AFRICAN-AMERICAN > 60; GFR NON-AFRICAN AMERICAN 50
[2017-11-07] MEDS: Enoxaparin 40 mg Syringe SC SCH (08:24)
[2017-11-07] MEDS: Brimonidine 0.2% 50 DROP/5 ML BOTTLE OU SCH ×3 (08:25→17:09)
[2017-11-07] MEDS: Saccharomyces Boulardi 250 mg Cap PO SCH ×2 (08:27→17:09)
--- NOTE | 2017-11-07 09:12 | PN ---
DATE: 11/07/2017 SUBJECTIVE: The patient is seen and examined. Interim events noted. Consults noted and appreciated . The patient had Garcia catheter removed, but the patient was not able to void and Garcia was inserted back. The patient feels okay. Denies any specific complaint of chest pain or shortness of breath. PHYSICAL EXAMINATION: GENERAL: The patient is in no acute distress. VITAL SIGNS: Stable. HEART: S1 and S2, normal and regular. LUNGS: Good bilateral air exchange. ABDOMEN: Soft and nontender. EXTREMITIES: The patient is status post amputation. No sign of complication. Left hand, the patient also has a , but no acute rash. No tenderness. No sign of cellulitis. No sign of distal neurovascular compromise. The patient has no edema. No calf swelling. No tenderness. No acute ischemia. CENTRAL NERVOUS SYSTEM: Essentially unchanged. DIAGNOSTIC DATA: Available diagnostic data reviewed. BUN and creatinine still improving. Potassium is controlled. PLAN: Overall, the patient's general medical condition is stable and improving. Plan as ordered. Vimal rGiffin MD
[2017-11-07] MEDS: Ammonium Lactate 12% Cream (140 g) TOP SCH ×2 (09:40→17:10)
[2017-11-07] MEDS: EPOETIN ALFA 10,000 UNIT/ML ML SC SCH (09:45)
--- NOTE | 2017-11-07 11:17 | CP.PCM.PN ---
Subjective - Date & Time of Evaluation Date of Evaluation: 11/07/17 Time of Evaluation: 11:17 - Subjective Subjective: pt is seen and examined, follow up consult is dictated #[id number] c/w ivf 1/2 ns at 70 ml/hr bmp in am add cipro 250 mg po bid Objective - Vital Signs/Intake and Output Vital Signs (last 24 hours): Temp Pulse Resp BP Pulse Ox 98.8 F 82 21 129/63 97 11/07/17 09:00 11/07/17 09:00 11/07/17 09:00 11/07/17 09:00 11/07/17 09:00 Intake and Output: 11/07/17 11/07/17 06:59 18:59 Intake Total 1140 Output Total 2500 Balance -1360 - Medications Medications: Current Medications Acetaminophen (Tylenol 325mg Tab) 650 mg PO Q6 PRN PRN Reason: Pain, Mild (1-3) Acetaminophen (Tylenol 325mg Tab) 650 mg PO Q4 PRN PRN Reason: Pain, Mild (1-3) Amlodipine Besylate (Norvasc) 10 mg PO DAILY [facility] Last Admin: 10/29/17 08:26 Dose: 10 mg Brimonidine Tartrate (Alphagan 0.2% Opht) 1 drop OU TID [facility] Last Admin: 11/07/17 08:25 Dose: 1 drop Cyanocobalamin (Vitamin B12 1000 Mcg/Ml Inj) 1,000 mcg IM Q30D [facility] Dextrose (Dextrose 50% Inj) 0 ml IV STAT PRN; Protocol PRN Reason: Hypoglycemia Protocol Dextrose (Glutose 15) 0 gm PO ONCE PRN; Protocol PRN Reason: Hypoglycemia Protocol Enoxaparin Sodium (Lovenox) 40 mg SC DAILY [facility] PRN Reason: Protocol Last Admin: 11/07/17 08:24 Dose: 40 mg Epoetin Zeke (Procrit) 10,000 unit SC MWF [facility] Last Admin: 11/07/17 09:45 Dose: Not Given Escitalopram Oxalate (Lexapro) 10 mg PO DAILY [facility] Last Admin: 11/07/17 08:24 Dose: 10 mg Famotidine (Pepcid) 20 mg PO BID [facility] Last Admin: 11/07/17 08:25 Dose: 20 mg Ferrous Sulfate (Feosol) 325 mg PO BID [facility] Last Admin: 11/07/17 08:25 Dose: 325 mg Finasteride (Proscar) 5 mg PO DAILY [facility] Last Admin: 11/07/17 08:24 Dose: 5 mg Gabapentin (Neurontin) 200 mg PO Q8 [facility] Last Admin: 10/29/17 13:27 Dose: 200 mg Glucagon (Glucagen Diagnostic Kit) 0 mg IM STAT PRN; Protocol PRN Reason: Hypoglycemia Protocol Insulin Detemir (Levemir) 5 units SC HS [facility] Last Admin: 11/06/17 22:23 Dose: 5 units Insulin Human Lispro (Humalog) 0 units SC 0700,2100 [facility] PRN Reason: Protocol Last Admin: 11/07/17 06:25 Dose: Not Given Lactic Acid (Lac-Hydrin 12% Cream (140 G)) 1 ea TOP BID [facility] Metformin HCl (Glucophage) 500 mg PO BID [facility] Last Admin: 11/07/17 08:25 Dose: 500 mg Oxycodone/Acetaminophen (Percocet 5/325 Mg Tab) 1 tab PO Q8H PRN PRN Reason: Pain scale 4-10. Stop: 11/10/17 10:24 Last Admin: 11/05/17 09:10 Dose: 1 tab Povidone Iodine (Betadine 10% Topical Soln) 0 ml EXT 0600 [facility] Last Admin: 11/07/17 06:23 Dose: 1 applic Saccharomyces Boulardii (Florastor) 250 mg PO BID [facility] Last Admin: 11/07/17 08:27 Dose: 250 mg Sitagliptin Phosphate (Januvia) 50 mg PO BID [facility] Last Admin: 11/07/17 08:25 Dose: 50 mg Tamsulosin HCl (Flomax) 0.4 mg PO BID [facility] Last Admin: 11/07/17 08:24 Dose: 0.4 mg - Labs Labs: 11/05/17 05:25 11/07/17 05:25
[2017-11-07 15:45] LABS: TOTAL PSA 0.9 ng/mL (< or = 4.0)
[2017-11-07] MEDS: Insulin Detemir 100 Units/ml Inj SC SCH (21:39)
--- NOTE | 2017-11-08 03:04 | CON ---
DATE: 11/07/2017 FOLLOWUP RENAL CONSULTATION LOCATION: The patient is located in room 625, bed 1. REQUESTED BY: Dr. Vimal Griffin. REASON FOR FOLLOWUP: Acute renal failure and hyperkalemia. HISTORY OF PRESENT ILLNESS: Mr. Miner is a 72-year-old elderly male with a history of longstanding hypertension, diabetes, hyperlipidemia, who was admitted with gangrene of the left foot status post initially transmetatarsal amputation on 10/10/2017, subsequently, the patient underwent a BKA on 10/15/2017 and then transferred to acute rehab on 10/23/2017. The patient was on p.o. Bactrim and the patient was found to have worsening renal function and hyperkalemia status post Garcia catheter placement yesterday and drained about 400 mL. The patient is feeling much better today, not in acute distress. Denies any headache, dizziness. Denies any chest pain or palpitation. Denies any fever or cough. No abdominal pain. No nausea, vomiting, or diarrhea. PHYSICAL EXAMINATION VITAL SIGNS: This morning, blood pressure 125/65, pulse 84, respirations 20, temperature 97.9, saturations 96%, height is 5 feet 6 inches, and weight is 113 pounds. GENERAL: Mr. Miner is a 72-year-old elderly male, thin built, and not in distress. HEENT: Pupils are normal and reactive to light and accommodation. Conjunctivae pink. Sclerae anicteric. Tongue is moist. Trachea is midline. LUNGS: Symmetric on both sides. Bilateral breath sounds present. Clear to auscultation. CARDIOVASCULAR: [place] at the fifth intercostal space, midclavicular line. S1 and S2 audible. No murmur or gallop. ABDOMEN: Normal in appearance, soft, and tympanic. No guarding. No rigidity. No hepatosplenomegaly. CENTRAL NERVOUS SYSTEM: The patient is alert, awake, and oriented x2 to 3. Sensory and motor system is grossly within normal limits. EXTREMITIES: No cyanosis. No clubbing. No edema. On the right side status post left BKA. CURRENT MEDICATIONS: Include as follows; Alphagan eye drops, Cipro 250 mg p.o. q. 12 hours, IV fluids, half normal saline at 70 mL per hour, ferrous sulfate 325 p.o. b.i.d., Flomax 0.4 mg b.i.d., Florastor 250 mg p.o. b.i.d., metformin 500 mg p.o. b.i.d., Humalog for sliding scale and Januvia 50 mg p.o. b.i.d., lotion topical b.i.d., Lexapro 10 mg p.o. daily, Lovenox 40 mg subcutaneously daily, gabapentin on hold, amlodipine 10 mg on hold, Pepcid 20 mg p.o. b.i.d., Percocet 1 tablet p.o. q. 8 hours p.r.n. and Procrit 10,000 units 3 times a week, Proscar 5 mg p.o. daily, Tylenol and vitamin D 12,000 mcg IM q. 3 days. LABORATORY DATA: Include as follows; as of 11/07/2017, sodium 138, potassium 4.4, chloride 101, CO2 of 21, BUN 28, creatinine 1.4, glucose 122, calcium 8.6, PSA 0.9 and free PSA is 0.1, percentage of free PSA is 11. Urine culture as of 11/05/2017, positive for Gram-negative rods, identification is pending. ASSESSMENT AND PLAN: In summary, Mr. Miner is a 72-year-old elderly male with a history of hypertension, diabetes, hyperlipidemia, benign prosthetic hypertrophy, with left foot infection status post transmetatarsal amputation, status post below knee amputation subsequently on 10/15/2017, who was transferred to acute rehab on 10/23/2017 with increased BUN and creatinine and hyperkalemia. 1. Acute renal failure most likely secondary to multifactorial obstructive uropathy and also Bactrim and intravascular volume depletion. 2. Dehydration, skin turgor is much better and fluid status is improving. 3. Hypertension. 4. Status post hyperkalemia secondary to multifactorial obstructive uropathy and Bactrim, and acute renal failure. Renal function is slowly improving. Continue IV fluids, half normal saline 70 mL per hour. Repeat BMP in a.m. 5. Urinary tract infection. We will start empirically on Bactrim 250 mg p.o. b.i.d. and followup identification of the Gram-negative rods in a.m. Thank you for allowing me to participate in your patient's care. Nena Mancia MD
[2017-11-08] MEDS: Sodium Chloride 0.45% 1,000 ML IV SCH (03:08)
[2017-11-08] MEDS: Povidone Iodine Topical 10% Sol EXT SCH (05:45)
[2017-11-08] MEDS: Insulin Lispro (humaLOG) 100 Units/ml Inj SC SCH ×2 (06:27→21:04)
[2017-11-08 07:16] LABS: HEMOGLOBIN 11.9 g/dL (12.0-18.0); MEAN CELL VOLUME 94.5 fl (80.0-94.0); MEAN CORPUSCULAR HEMOGLOBIN 31.1 pg (27.0-31.0); MEAN CORPUSCULAR HGB CONC 32.9 g/dL (33.0-37.0); RBC 3.82 Mil/uL (4.40-5.90); RED CELL DISTRIBUTION WIDTH 19.7 % (11.5-14.5); WHITE BLOOD COUNT 11.9 K/uL (4.8-10.8)
[2017-11-08 07:21] LABS: BLOOD UREA NITROGEN 25 mg/dl (9-20); CALCIUM 8.6 mg/dL (8.4-10.2); GFR AFRICAN-AMERICAN > 60; GFR NON-AFRICAN AMERICAN > 60
[2017-11-08] MEDS: Brimonidine 0.2% 50 DROP/5 ML BOTTLE OU SCH ×3 (08:22→16:53)
[2017-11-08] MEDS: Enoxaparin 40 mg Syringe SC SCH (08:23)
[2017-11-08] MEDS: Saccharomyces Boulardi 250 mg Cap PO SCH ×2 (08:23→16:54)
[2017-11-08] MEDS: Ammonium Lactate 12% Cream (140 g) TOP SCH ×2 (08:24→16:55)
[2017-11-08] MEDS: Mycolog II OINT TOP SCH ×3 (08:25→16:55)
--- NOTE | 2017-11-08 08:57 | CP.PCM.PN ---
Subjective - Date & Time of Evaluation Date of Evaluation: 11/08/17 Time of Evaluation: 08:57 - Subjective Subjective: pt is seen and examined, follow up consult is dictated#[id number] c/w ivf 1/2 ns at 7o ml/hr bmp in am Objective - Vital Signs/Intake and Output Vital Signs (last 24 hours): Temp Pulse Resp BP Pulse Ox 98.3 F 75 19 118/78 97 11/08/17 08:37 11/08/17 08:37 11/08/17 08:37 11/08/17 08:37 11/08/17 08:37 Intake and Output: 11/08/17 11/08/17 06:59 18:59 Intake Total 1090 Output Total 2000 Balance -910 - Medications Medications: Current Medications Acetaminophen (Tylenol 325mg Tab) 650 mg PO Q6 PRN PRN Reason: Pain, Mild (1-3) Acetaminophen (Tylenol 325mg Tab) 650 mg PO Q4 PRN PRN Reason: Pain, Mild (1-3) Amlodipine Besylate (Norvasc) 10 mg PO DAILY [facility] Last Admin: 10/29/17 08:26 Dose: 10 mg Brimonidine Tartrate (Alphagan 0.2% Opht) 1 drop OU TID [facility] [place] Last Admin: 11/08/17 08:22 Dose: 1 drop Ciprofloxacin (Cipro) 250 mg PO Q12 [facility] [place] PRN Reason: Protocol Stop: 11/10/17 21:01 Last Admin: 11/08/17 08:22 Dose: 250 mg Cyanocobalamin (Vitamin B12 1000 Mcg/Ml Inj) 1,000 mcg IM Q30D [facility] [place] Dextrose (Dextrose 50% Inj) 0 ml IV STAT PRN; Protocol PRN Reason: Hypoglycemia Protocol Dextrose (Glutose 15) 0 gm PO ONCE PRN; Protocol PRN Reason: Hypoglycemia Protocol Enoxaparin Sodium (Lovenox) 40 mg SC DAILY [facility] [place] PRN Reason: Protocol Last Admin: 11/08/17 08:23 Dose: 40 mg Epoetin Zeke (Procrit) 10,000 unit SC MWF [facility] [place] Last Admin: 11/07/17 09:45 Dose: Not Given Escitalopram Oxalate (Lexapro) 10 mg PO DAILY [facility] [place] Last Admin: 11/08/17 08:22 Dose: 10 mg Famotidine (Pepcid) 20 mg PO BID [facility] [place] Last Admin: 11/08/17 08:22 Dose: 20 mg Ferrous Sulfate (Feosol) 325 mg PO BID [facility] [place] Last Admin: 11/08/17 08:23 Dose: 325 mg Finasteride (Proscar) 5 mg PO DAILY [facility] [place] Last Admin: 11/08/17 08:25 Dose: 5 mg Gabapentin (Neurontin) 200 mg PO Q8 [facility] [place] Last Admin: 10/29/17 13:27 Dose: 200 mg Sodium Chloride (Sodium Chloride 0.45%) 1,000 mls @ 70 mls/hr IV .[id number] [facility] [place] Stop: 11/08/17 12:03 Last Admin: 11/08/17 03:08 Dose: 70 mls/hr Insulin Detemir (Levemir) 5 units SC HS [facility] [place] Last Admin: 11/07/17 21:39 Dose: 5 units Insulin Human Lispro (Humalog) 0 units SC 0700,2100 [facility] [place] PRN Reason: Protocol Last Admin: 11/08/17 06:27 Dose: Not Given Lactic Acid (Lac-Hydrin 12% Cream (140 G)) 1 ea TOP BID [facility] [place] Last Admin: 11/08/17 08:24 Dose: 1 applic Metformin HCl (Glucophage) 500 mg PO BID [facility] [place] Last Admin: 11/08/17 08:22 Dose: 500 mg Nystatin/Triamcinolone Acetonide (Mycolog Ii Oint) 1 applic TOP TID [facility] [place] Last Admin: 11/08/17 08:25 Dose: 1 applic Oxycodone/Acetaminophen (Percocet 5/325 Mg Tab) 1 tab PO Q8H PRN PRN Reason: Pain scale 4-10. Stop: 11/10/17 10:24 Last Admin: 11/05/17 09:10 Dose: 1 tab Povidone Iodine (Betadine 10% Topical Soln) 0 ml EXT 0600 [facility] [place] Last Admin: 11/08/17 05:45 Dose: 1 applic Saccharomyces Boulardii (Florastor) 250 mg PO BID [facility] [place] Last Admin: 11/08/17 08:23 Dose: 250 mg Sitagliptin Phosphate (Januvia) 50 mg PO BID [facility] [place] Last Admin: 11/08/17 08:23 Dose: 50 mg Tamsulosin HCl (Flomax) 0.4 mg PO BID [facility] [place] Last Admin: 11/08/17 08:23 Dose: 0.4 mg - Labs Labs: 11/08/17 05:30 11/08/17 05:30
[2017-11-08] MEDS: Piperacillin/Tazobact 3.375 GM in Sodium Chloride 0.9% 100 ML IVPB SCH ×2 (14:13→22:14)
--- NOTE | 2017-11-08 16:42 | CP.PCM.PN ---
Subjective - Date & Time of Evaluation Date of Evaluation: 11/08/17 Time of Evaluation: 07:10 - Subjective Subjective: Patient seen and examined bedisde with Dr Griffin Patient reports feeling better. Denies fever, n,v,d,abd pain. Harry in place, good diuresis, normal urine color started on cipro. urine cx e coli resistant to Cipro. added zosyn Objective - Vital Signs/Intake and Output Vital Signs (last 24 hours): Temp Pulse Resp BP Pulse Ox 99.7 F H 90 20 140/76 97 11/08/17 10:27 11/08/17 10:27 11/08/17 10:27 11/08/17 10:27 11/08/17 08:37 Intake and Output: 11/08/17 11/08/17 06:59 18:59 Intake Total 1090 Output Total 2000 Balance -910 - Medications Medications: Current Medications Acetaminophen (Tylenol 325mg Tab) 650 mg PO Q6 PRN PRN Reason: Pain, Mild (1-3) Last Admin: 11/08/17 10:32 Dose: 650 mg Acetaminophen (Tylenol 325mg Tab) 650 mg PO Q4 PRN PRN Reason: Pain, Mild (1-3) Amlodipine Besylate (Norvasc) 10 mg PO DAILY [facility] Last Admin: 10/29/17 08:26 Dose: 10 mg Brimonidine Tartrate (Alphagan 0.2% Opht) 1 drop OU TID [facility] Last Admin: 11/08/17 12:39 Dose: 1 drop Cyanocobalamin (Vitamin B12 1000 Mcg/Ml Inj) 1,000 mcg IM Q30D [facility] Dextrose (Dextrose 50% Inj) 0 ml IV STAT PRN; Protocol PRN Reason: Hypoglycemia Protocol Dextrose (Glutose 15) 0 gm PO ONCE PRN; Protocol PRN Reason: Hypoglycemia Protocol Enoxaparin Sodium (Lovenox) 40 mg SC DAILY [facility] PRN Reason: Protocol Last Admin: 11/08/17 08:23 Dose: 40 mg Epoetin Zeke (Procrit) 10,000 unit SC MWF [facility] Last Admin: 11/07/17 09:45 Dose: Not Given Escitalopram Oxalate (Lexapro) 10 mg PO DAILY [facility] Last Admin: 11/08/17 08:22 Dose: 10 mg Famotidine (Pepcid) 20 mg PO BID [facility] Last Admin: 11/08/17 08:22 Dose: 20 mg Ferrous Sulfate (Feosol) 325 mg PO BID [facility] Last Admin: 11/08/17 08:23 Dose: 325 mg Finasteride (Proscar) 5 mg PO DAILY [facility] Last Admin: 11/08/17 08:25 Dose: 5 mg Gabapentin (Neurontin) 200 mg PO Q8 [facility] Last Admin: 10/29/17 13:27 Dose: 200 mg Piperacillin Sod/Tazobactam (Sod 3.375 gm/ Sodium Chloride) 100 mls @ 100 mls/ hr IVPB Q8 [facility] PRN Reason: Protocol Stop: 11/11/17 14:01 Last Admin: 11/08/17 14:13 Dose: 100 mls/hr Insulin Detemir (Levemir) 5 units SC HS [facility] Last Admin: 11/07/17 21:39 Dose: 5 units Insulin Human Lispro (Humalog) 0 units SC 0700,2100 [facility] PRN Reason: Protocol Last Admin: 11/08/17 06:27 Dose: Not Given Lactic Acid (Lac-Hydrin 12% Cream (140 G)) 1 ea TOP BID [facility] Last Admin: 11/08/17 08:24 Dose: 1 applic Lactobacillus Acidophilus (Bacid Acidophilus) 1 cap PO BID [facility] Stop: 11/11/17 17:01 Metformin HCl (Glucophage) 500 mg PO BID [facility] Last Admin: 11/08/17 08:22 Dose: 500 mg Nystatin/Triamcinolone Acetonide (Mycolog Ii Oint) 1 applic TOP TID [facility] Last Admin: 11/08/17 12:39 Dose: 1 applic Oxycodone/Acetaminophen (Percocet 5/325 Mg Tab) 1 tab PO Q8H PRN PRN Reason: Pain scale 4-10. Stop: 11/10/17 10:24 Last Admin: 11/05/17 09:10 Dose: 1 tab Povidone Iodine (Betadine 10% Topical Soln) 0 ml EXT 0600 [facility] Last Admin: 11/08/17 05:45 Dose: 1 applic Saccharomyces Boulardii (Florastor) 250 mg PO BID [facility] Last Admin: 11/08/17 08:23 Dose: 250 mg Sitagliptin Phosphate (Januvia) 50 mg PO BID [facility] Last Admin: 11/08/17 08:23 Dose: 50 mg Tamsulosin HCl (Flomax) 0.4 mg PO BID [facility] Last Admin: 11/08/17 08:23 Dose: 0.4 mg - Labs Labs: 11/08/17 05:30 11/08/17 05:30 - Constitutional Appears: Non-toxic, No Acute Distress - Head Exam Head Exam: ATRAUMATIC, NORMOCEPHALIC - Eye Exam Eye Exam: Normal appearance - ENT Exam ENT Exam: Mucous Membranes Moist - Neck Exam Neck Exam: Normal Inspection - Respiratory Exam Respiratory Exam: Clear to Ausculation Bilateral. absent: Rales, Rhonchi, Wheezes - Cardiovascular Exam Cardiovascular Exam: REGULAR RHYTHM, +S1, +S2 - GI/Abdominal Exam GI & Abdominal Exam: Soft, Normal Bowel Sounds. absent: Tenderness - Extremities Exam Extremities Exam: Normal Inspection. absent: Pedal Edema Additional comments: LKA - Neurological Exam Neurological Exam: Alert, Awake - Skin Skin Exam: Dry, Intact, Normal Color Assessment and Plan (1) Amputation of left lower extremity below knee Status: Acute (2) Phantom limb pain Status: Acute (3) HTN (hypertension) Status: Chronic (4) Uncontrolled diabetes mellitus Status: Chronic (5) Hyperkalemia Status: Acute - Assessment and Plan (Free Text) Plan: Assessment and Plan (1) Amputation of left lower extremity below knee Status: Acute -c/w PT (2) Phantom limb pain Status: Acute -c/w neurontin (3) HTN (hypertension) Status: Chronic (4) Uncontrolled diabetes mellitus Status: Chronic --insulin levemir 5 units SC HS, Januvia, metformin -insulin correction scale -hypoglycemic protocol 5) UTI -on harry due to urinary retention -Reiki Practitioner consult appreciated -flomax 0.4 BID -Urine cx e coli sensitive to cephalosporine. -started on Zosyn 6) DVT Prophylaxis 40 mg sc daily
[2017-11-08] MEDS: Lactobacillus Acidophilus 500 MU Cap PO SCH (16:53)
[2017-11-08] MEDS: Insulin Detemir 100 Units/ml Inj SC SCH (22:16)
[2017-11-09] MEDS ORDERED: Sodium Chloride 0.45% 1,000 ML IV SCH (00:15)
[2017-11-09] MEDS: Piperacillin/Tazobact 3.375 GM in Sodium Chloride 0.9% 100 ML IVPB SCH (06:02)
[2017-11-09] MEDS: Povidone Iodine Topical 10% Sol EXT SCH (06:03)
[2017-11-09] MEDS: Insulin Lispro (humaLOG) 100 Units/ml Inj SC SCH (06:15)
[2017-11-09 06:46] LABS: BLOOD UREA NITROGEN 24 mg/dl (9-20); CALCIUM 8.4 mg/dL (8.4-10.2); GFR AFRICAN-AMERICAN > 60; GFR NON-AFRICAN AMERICAN 55
--- NOTE | 2017-11-09 07:30 | PN ---
DATE: 11/08/2017 FOLLOWUP RENAL CONSULTATION LOCATION: The patient is located in room 625, bed 1. REQUESTED BY: Dr. Vimal Griffin. SUBJECTIVE: Mr. Miner is a 72-year-old elderly male with past medical history significant for longstanding hypertension, diabetes, who was admitted with left foot gangrene. Subsequently, the patient underwent initially transmetatarsal amputation on 10/10/2017 and then underwent left BKA on 10/15/2017. From there, the patient was admitted to acute rehab for physical therapy. The patient was found to have increase BUN and creatinine, hyperkalemia and obstructive uropathy. The patient had a Garcia catheter placement and also found to be intravascularly depleted, dehydrated and started on IV fluids. The patient is feeling much better now. Serum potassium is within normal limits. Renal function improving. Denies any complaints this morning. Denies any headache or dizziness. Denies any chest pain or palpitation. Denies any fever or cough. No abdominal pain. No nausea, vomiting or diarrhea. PHYSICAL EXAMINATION: VITAL SIGNS: As follows this morning , blood pressure of 118/78, pulse of 75, respirations of 19, temperature of 98.3, saturations of 97%. Height is 5 feet 6 inches and weight is 113 pounds. GENERAL: Mr. Miner is a 72-year-old elderly male, thin built, and not in distress. Seen in rehab. HEENT: Pupils are normal and reactive to light and accommodation. Conjunctivae pink. Sclerae anicteric. Tongue is moist. Trachea is midline. LUNGS: Symmetric on both sides. Bilateral breath sounds present. Clear on auscultation. CARDIOVASCULAR SYSTEM: [place] at the fifth intercostal space, midclavicular line, 1/2 inch medial to. S1 and S2 audible. No murmur or gallop. ABDOMEN: Normal in appearance, soft, and tympanic. No guarding. No rigidity. No hepatosplenomegaly. CENTRAL NERVOUS SYSTEM: The patient is alert, awake, and oriented x3. Nonfocal neuro examination. Cranial nerves II through XII grossly intact. Sensory system is within normal limits. Motor system normal, status post left BKA. EXTREMITIES: No cyanosis. No clubbing. No edema on the right leg. CURRENT MEDICATIONS: Include as follows; Alphagan eye drops, Bacid one capsule p.o. b.i.d., ferrous sulfate 325 mg p.o. b.i.d., Flomax 0.4 mg p.o. b.i.d., Florastor, metformin 500 mg p.o. b.i.d, Humalog for sliding scale, Januvia 50 mg p.o. b.i.d., Lac-Hydrin lotion Levemir 5 units subcutaneous at bedtime, Lexapro 10 mg p.o. daily, Lovenox 40 mg subcutaneous daily, gabapentin on hold, Norvasc on hold, Pepcid 20 mg p.o. b.i.d., Percocet one tablet p.o. every 8 hours p.r.n., Cipro 250 mg p.o. b.i.d., Procrit 10,000 units three times a week, Proscar 5 mg, acetaminophen and vitamin B12 1000 mcg IM 3 every other day. LABORATORY DATA: Include as follows, as of 11/08/2017, WBC 11.9, hemoglobin 11.9, hematocrit 36.1, and platelets 423. Sodium 139, potassium 4.8, chloride 105, CO2 17, BUN 25, creatinine 1.1, glucose 105, and calcium 8.6. His urine culture positive for E. coli, sensitive to amikacin, ampicillin, resistant to Bactrim, sensitive to ertapenem, cefazolin, resistant to Cipro and also sensitive to cefepime, nitrofurantoin, meropenem, piperacillin and tazobactam. ASSESSMENT AND PLAN: Mr. Miner is a 72-year-old elderly male with history of hypertension, diabetes, benign prosthetic hypertrophy, gangrene of the foot, status post transmetatarsal amputation, subsequently, left below knee amputation, urinary retention, increase BUN and creatinine and increase potassium and metabolic acidosis. 1. Acute renal failure most likely secondary to multifactorial, secondary to intravascular depletion, bladder outlet obstruction, also on Bactrim. 2. Status post hyperkalemia secondary to dehydration, bladder outlet obstruction and acute renal failure, on Bactrim. 3. Status post left below knee amputation. 4. Hypertension. 5. Diabetes. Sugars are under control. Continue insulin as per Dr. Vimal Griffin. Continue current medications. Norvasc is on hold. We will follow with you. Thank you for allowing me to participate in your patient's care. Continue IV fluids half normal at 70 mL per hour. Nena Mancia MD
[2017-11-09] MEDS: Enoxaparin 40 mg Syringe SC SCH (08:13)
[2017-11-09] MEDS: Saccharomyces Boulardi 250 mg Cap PO SCH (08:14)
[2017-11-09] MEDS: Brimonidine 0.2% 50 DROP/5 ML BOTTLE OU SCH ×2 (08:16→14:29)
[2017-11-09] MEDS: Ammonium Lactate 12% Cream (140 g) TOP SCH (08:16)
[2017-11-09] MEDS: Mycolog II OINT TOP SCH ×2 (08:17→12:45)
[2017-11-09] MEDS: Lactobacillus Acidophilus 500 MU Cap PO SCH (08:23)
[2017-11-09 08:56] VITALS: BP 124/63; PULSE 81; RESP 19; TEMP 97.8; O2SAT 100
[2017-11-09] MEDS: EPOETIN ALFA 10,000 UNIT/ML ML SC SCH (09:00)
[2017-11-09 10:16] LABS: BASO # 0.1 K/uL (0.0-0.2); BASO % 0.5 % (0.0-2.0); EOS # 0.1 K/uL (0.0-0.7); EOS % 0.5 % (0.0-4.0); HEMOGLOBIN 11.5 g/dL (12.0-18.0); LYMPH # 1.9 K/uL (1.0-4.3); LYMPH % 10.1 % (20.0-40.0); MEAN CELL VOLUME 94.6 fl (80.0-94.0); MEAN CORPUSCULAR HEMOGLOBIN 30.7 pg (27.0-31.0); MEAN CORPUSCULAR HGB CONC 32.4 g/dL (33.0-37.0); MEAN PLATELET VOLUME 7.3 fl (7.2-11.7); MONO # 1.9 K/uL (0.0-0.8); MONO % 10.4 % (0.0-10.0); NEUT # 14.5 K/uL (1.8-7.0); NEUT % 78.5 % (50.0-75.0); NRBC % 0.1 % (0.0-0.0); RBC 3.74 Mil/uL (4.40-5.90); RED CELL DISTRIBUTION WIDTH 19.6 % (11.5-14.5); WHITE BLOOD COUNT 18.5 K/uL (4.8-10.8)
--- NOTE | 2017-11-09 12:02 | CP.PCM.DIS ---
Provider - Provider Date of Admission: 10/23/17 18:05 Attending physician: Vimal Griffin MD Time Spent in preparation of Discharge (in minutes): 30 Diagnosis - Discharge Diagnosis (1) Amputation of left lower extremity below knee Status: Acute (2) Phantom limb pain Status: Acute (3) HTN (hypertension) Status: Chronic (4) Uncontrolled diabetes mellitus Status: Chronic Hospital Course - Lab Results Lab Results: Micro Results 11/05/17 20:40 Urine,Harry Urine Culture - Final Escherichia Coli 10/28/17 15:00 Urine,Catheterized Urine Culture - Final No Growth (<1,000 CFU/ML) Most Recent Lab Values WBC 18.5 K/uL (4.8-10.8) H D 11/09/17 09:30 RBC 3.74 Mil/uL (4.40-5.90) L 11/09/17 09:30 Hgb 11.5 g/dL (12.0-18.0) L 11/09/17 09:30 Hct 35.4 % (35.0-51.0) 11/09/17 09:30 MCV 94.6 fl (80.0-94.0) H 11/09/17 09:30 MCH 30.7 pg (27.0-31.0) 11/09/17 09:30 MCHC 32.4 g/dL (33.0-37.0) L 11/09/17 09:30 RDW 19.6 % (11.5-14.5) H 11/09/17 09:30 Plt Count 385 K/uL (130-400) 11/09/17 09:30 MPV 7.3 fl (7.2-11.7) 11/09/17 09:30 Neut % (Auto) 78.5 % (50.0-75.0) H 11/09/17 09:30 Lymph % (Auto) 10.1 % (20.0-40.0) L 11/09/17 09:30 [place] % (Auto) 10.4 % (0.0-10.0) H 11/09/17 09:30 Eos % (Auto) 0.5 % (0.0-4.0) 11/09/17 09:30 Baso % (Auto) 0.5 % (0.0-2.0) 11/09/17 09:30 Neut # (Auto) 14.5 K/uL (1.8-7.0) H 11/09/17 09:30 Lymph # (Auto) 1.9 K/uL (1.0-4.3) 11/09/17 09:30 [place] # (Auto) 1.9 K/uL (0.0-0.8) H 11/09/17 09:30 Eos # (Auto) 0.1 K/uL (0.0-0.7) 11/09/17 09:30 Baso # (Auto) 0.1 K/uL (0.0-0.2) 11/09/17 09:30 Retic Count 5.1 % (0.5-1.5) H 10/27/17 13:01 Haptoglobin 401.4 mg/dL (30.0-200.0) H 10/27/17 13:01 Sodium 136 mmol/l (132-148) 11/09/17 05:25 Potassium 4.3 MMOL/L (3.6-5.0) 11/09/17 05:25 Chloride 104 mmol/L (98-107) 11/09/17 05:25 Carbon Dioxide 18 mmol/L (22-30) L 11/09/17 05:25 Anion Gap 18 (10-20) 11/09/17 05:25 BUN 24 mg/dl (9-20) H 11/09/17 05:25 Creatinine 1.3 mg/dl (0.8-1.5) 11/09/17 05:25 Est GFR ( Amer) > 60 11/09/17 05:25 Est GFR (Non-Af Amer) 55 11/09/17 05:25 POC Glucose (mg/dL) 92 mg/dL (65-110) 11/09/17 06:14 Random Glucose 90 mg/dL (75-110) 11/09/17 05:25 Serum Osmolality 368 mosm/kg (272-300) H 11/05/17 19:13 Calcium 8.4 mg/dL (8.4-10.2) 11/09/17 05:25 Iron 28 ug/dL (49-181) L 10/27/17 13:01 TIBC 245 ug/dL (250-450) L 10/27/17 13:01 % Saturation 11 % (20-55) L 10/27/17 13:01 Erythropoietin 246.3 mIU/mL (2.6-18.5) H 10/27/17 13:01 Ferritin 236.0 ng/Ml (17.9-464) 10/27/17 13:01 Total Bilirubin 0.3 mg/dl (0.2-1.3) 11/01/17 05:15 AST 30 U/L (17-59) 11/01/17 05:15 ALT 28 U/L (21-72) 11/01/17 05:15 Alkaline Phosphatase 141 U/L (38-126) H 11/01/17 05:15 Total Protein 8.8 G/DL (6.3-8.2) H 11/01/17 05:15 Albumin 3.3 g/dL (3.5-5.0) L 11/01/17 05:15 Globulin 5.5 gm/dL (2.2-3.9) H 11/01/17 05:15 Albumin/Globulin Ratio 0.6 (1.0-2.1) L 11/01/17 05:15 Free PSA 0.1 ng/mL 11/06/17 11:30 % Free PSA 11 % (calc) (>25) L 11/06/17 11:30 Total PSA 0.9 ng/mL (< or = 4.0) 11/06/17 11:30 Vitamin B12 278 pg/mL (239-931) 10/27/17 13:01 Cortisol AM Sample 19.1 ug/dL (4.46-22.7) 10/31/17 05:30 Urine Color Yellow (YELLOW) 11/05/17 20:40 Urine Clarity Slighty-cloudy (Clear) 11/05/17 20:40 Urine pH 5.0 (5.0-8.0) 11/05/17 20:40 Ur Specific [place] 1.017 (1.003-1.030) 11/05/17 20:40 Urine Protein Negative mg/dL (NEGATIVE) 11/05/17 20:40 Urine Glucose (UA) Neg mg/dL (Normal) 11/05/17 20:40 Urine Ketones Negative mg/dL (NEGATIVE) 11/05/17 20:40 Urine Blood Negative (NEGATIVE) 11/05/17 20:40 Urine Nitrate Positive (NEGATIVE) H 11/05/17 20:40 Urine Bilirubin Negative (NEGATIVE) 11/05/17 20:40 Urine Urobilinogen 0.2-1.0 mg/dL (0.2-1.0) 11/05/17 20:40 Ur Leukocyte Esterase [place]/uL (Negative) 11/05/17 20:40 Urine RBC (Auto) 1 /hpf (0-3) 11/05/17 20:40 Urine Microscopic WBC 13 /hpf (0-5) H 11/05/17 20:40 Urine Bacteria Many (<OCC) H 11/05/17 20:40 Hyaline Casts 3-5 /hpf (0-2) H 11/05/17 20:40 Urine Sperm (Auto) Rare /hpf (NONE) H 10/28/17 15:00 Urine Osmolality 478 mosm/kg (300-1000) 11/05/17 20:40 Ur Random Sodium 72 meq/L 11/05/17 20:40 Ur Random Potassium 52.7 mmol/L 11/05/17 20:40 - Hospital Course Hospital Course: 72 yo PMhx/o HTN, DM, left foot gangrene s/p left BKA on 10/15/17. Patient on acute rehab for physical therapy . Patient with obstructive uropathy, hyperkalemia, multifactorial ANGE evaluated by md ophthalmologist and resolved. Patient on Harry catheter, had UTI for E coli, sensitive to cephalosporine. Patient on Zosyn. Patient hemodynamically stable, better hydrated. Patient cleared by md ophthalmologist to continue with IV Zosyn for 5 days, Flomax 0.4 mg BID. Patient seen by Dr Griffin. Patient cleared to be discharged to [facility] to continue IV abx treatment and physical therapist Diagnosis (1) Amputation of left lower extremity below knee (2) Phantom limb pain -c/w neurontin (3) HTN (hypertension) Status: Chronic (4) Uncontrolled diabetes mellitus Status: Chronic 5) UTI -on harry due to urinary retention -Regional Economist consult appreciated -flomax 0.4 BID -Urine cx e coli sensitive to cephalosporine. -started on Zosyn Discharge Exam - Head Exam Head Exam: ATRAUMATIC, NORMOCEPHALIC - Eye Exam Eye Exam: Normal appearance - ENT Exam ENT Exam: Mucous Membranes Moist - Respiratory Exam Respiratory Exam: Clear to PA & Lateral. absent: Rales, Rhonchi, Wheezes - Cardiovascular Exam Cardiovascular Exam: REGULAR RHYTHM, +S1, +S2 - GI/Abdominal Exam GI & Abdominal Exam: Normal Bowel Sounds, Soft. absent: Tenderness - Extremities Exam Additional comments: left BKA - Neurological Exam Neurological exam: Alert, Oriented x3 - Psychiatric Exam Psychiatric exam: Normal Mood - Skin Skin Exam: Intact Discharge Plan - Discharge Medications Prescriptions: Piperacill/Tazo 3.375gm in Dex [Zosyn 3.375 Gm IV] 3.375 gm IVPB Q8H 5 Days bag - Follow Up Plan Condition: GOOD Disposition: REHAB FACILITY/REHAB UNIT Instructions: Preventing Falls
--- NOTE | 2017-11-09 12:28 | CP.PCM.PN ---
Subjective - Date & Time of Evaluation Date of Evaluation: 11/09/17 Time of Evaluation: 12:27 - Subjective Subjective: pt is seen and examined, follow up consult is dictated #[id number] Objective - Vital Signs/Intake and Output Vital Signs (last 24 hours): Temp Pulse Resp BP Pulse Ox 97.8 F 81 19 124/63 100 11/09/17 08:55 11/09/17 08:55 11/09/17 08:55 11/09/17 08:55 11/09/17 08:55 Intake and Output: 11/09/17 11/09/17 06:59 18:59 Intake Total 1100 Output Total 900 Balance 200 - Medications Medications: Current Medications Acetaminophen (Tylenol 325mg Tab) 650 mg PO Q6 PRN PRN Reason: Pain, Mild (1-3) Last Admin: 11/08/17 10:32 Dose: 650 mg Acetaminophen (Tylenol 325mg Tab) 650 mg PO Q4 PRN PRN Reason: Pain, Mild (1-3) Amlodipine Besylate (Norvasc) 10 mg PO DAILY [facility] Last Admin: 10/29/17 08:26 Dose: 10 mg Brimonidine Tartrate (Alphagan 0.2% Opht) 1 drop OU TID [facility] Last Admin: 11/09/17 08:16 Dose: 1 drop Cyanocobalamin (Vitamin B12 1000 Mcg/Ml Inj) 1,000 mcg IM Q30D [facility] Dextrose (Dextrose 50% Inj) 0 ml IV STAT PRN; Protocol PRN Reason: Hypoglycemia Protocol Dextrose (Glutose 15) 0 gm PO ONCE PRN; Protocol PRN Reason: Hypoglycemia Protocol Enoxaparin Sodium (Lovenox) 40 mg SC DAILY [facility] PRN Reason: Protocol Last Admin: 11/09/17 08:13 Dose: 40 mg Epoetin Zeke (Procrit) 10,000 unit SC MWF [facility] Last Admin: 11/07/17 09:45 Dose: Not Given Escitalopram Oxalate (Lexapro) 10 mg PO DAILY [facility] Last Admin: 11/09/17 08:17 Dose: 10 mg Famotidine (Pepcid) 20 mg PO BID [facility] Last Admin: 11/09/17 08:14 Dose: 20 mg Ferrous Sulfate (Feosol) 325 mg PO BID [facility] Last Admin: 11/09/17 08:14 Dose: 325 mg Finasteride (Proscar) 5 mg PO DAILY [facility] Last Admin: 11/09/17 08:18 Dose: 5 mg Gabapentin (Neurontin) 200 mg PO Q8 [facility] Last Admin: 10/29/17 13:27 Dose: 200 mg Piperacillin Sod/Tazobactam (Sod 3.375 gm/ Sodium Chloride) 100 mls @ 100 mls/ hr IVPB Q8 [facility] PRN Reason: Protocol Stop: 11/11/17 14:01 Last Admin: 11/09/17 06:02 Dose: 100 mls/hr Sodium Chloride (Sodium Chloride 0.45%) 1,000 mls @ 70 mls/hr IV .[id number] [facility] Stop: 11/10/17 00:07 Last Admin: 11/09/17 00:11 Dose: 70 mls/hr Insulin Detemir (Levemir) 5 units SC HS [facility] Last Admin: 11/08/17 22:16 Dose: 5 units Insulin Human Lispro (Humalog) 0 units SC 0700,2100 [facility] PRN Reason: Protocol Last Admin: 11/09/17 06:15 Dose: Not Given Lactic Acid (Lac-Hydrin 12% Cream (140 G)) 1 ea TOP BID [facility] Last Admin: 11/09/17 08:16 Dose: 1 applic Lactobacillus Acidophilus (Bacid Acidophilus) 1 cap PO BID [facility] Stop: 11/11/17 17:01 Last Admin: 11/09/17 08:23 Dose: 1 cap Metformin HCl (Glucophage) 500 mg PO BID [facility] Last Admin: 11/09/17 08:14 Dose: 500 mg Nystatin/Triamcinolone Acetonide (Mycolog Ii Oint) 1 applic TOP TID [facility] Last Admin: 11/09/17 08:17 Dose: 1 applic Oxycodone/Acetaminophen (Percocet 5/325 Mg Tab) 1 tab PO Q8H PRN PRN Reason: Pain scale 4-10. Stop: 11/10/17 10:24 Last Admin: 11/05/17 09:10 Dose: 1 tab Povidone Iodine (Betadine 10% Topical Soln) 0 ml EXT 0600 [facility] Last Admin: 11/09/17 06:03 Dose: 1 applic Saccharomyces Boulardii (Florastor) 250 mg PO BID [facility] Last Admin: 11/09/17 08:14 Dose: 250 mg Sitagliptin Phosphate (Januvia) 50 mg PO BID [facility] Last Admin: 11/09/17 08:15 Dose: 50 mg Tamsulosin HCl (Flomax) 0.4 mg PO BID [facility] Last Admin: 11/09/17 08:14 Dose: 0.4 mg - Labs Labs: 11/09/17 09:30 11/09/17 05:25
--- NOTE | 2017-11-09 12:57 | CP.PCM.PN ---
Subjective - Date & Time of Evaluation Date of Evaluation: 11/09/17 Time of Evaluation: 12:56 - Subjective Subjective: Patient seen packed and ready to go to [facility] now no CP or SOB no fever pain is well controlled I will follow him at [facility] and hopefully will be able to get prosthesis soon Objective - Vital Signs/Intake and Output Vital Signs (last 24 hours): Temp Pulse Resp BP Pulse Ox 97.8 F 81 19 124/63 100 11/09/17 08:55 11/09/17 08:55 11/09/17 08:55 11/09/17 08:55 11/09/17 08:55 Intake and Output: 11/09/17 11/09/17 06:59 18:59 Intake Total 1100 Output Total 900 Balance 200 - Medications Medications: Current Medications Acetaminophen (Tylenol 325mg Tab) 650 mg PO Q6 PRN PRN Reason: Pain, Mild (1-3) Last Admin: 11/08/17 10:32 Dose: 650 mg Acetaminophen (Tylenol 325mg Tab) 650 mg PO Q4 PRN PRN Reason: Pain, Mild (1-3) Amlodipine Besylate (Norvasc) 10 mg PO DAILY [facility] Last Admin: 10/29/17 08:26 Dose: 10 mg Brimonidine Tartrate (Alphagan 0.2% Opht) 1 drop OU TID [facility] Last Admin: 11/09/17 08:16 Dose: 1 drop Cyanocobalamin (Vitamin B12 1000 Mcg/Ml Inj) 1,000 mcg IM Q30D [facility] Dextrose (Dextrose 50% Inj) 0 ml IV STAT PRN; Protocol PRN Reason: Hypoglycemia Protocol Dextrose (Glutose 15) 0 gm PO ONCE PRN; Protocol PRN Reason: Hypoglycemia Protocol Enoxaparin Sodium (Lovenox) 40 mg SC DAILY [facility] PRN Reason: Protocol Last Admin: 11/09/17 08:13 Dose: 40 mg Epoetin Zeke (Procrit) 10,000 unit SC MWF [facility] Last Admin: 11/09/17 09:00 Dose: 10,000 unit Escitalopram Oxalate (Lexapro) 10 mg PO DAILY [facility] Last Admin: 11/09/17 08:17 Dose: 10 mg Famotidine (Pepcid) 20 mg PO BID [facility] Last Admin: 11/09/17 08:14 Dose: 20 mg Ferrous Sulfate (Feosol) 325 mg PO BID [facility] Last Admin: 11/09/17 08:14 Dose: 325 mg Finasteride (Proscar) 5 mg PO DAILY [facility] Last Admin: 11/09/17 08:18 Dose: 5 mg Gabapentin (Neurontin) 200 mg PO Q8 [facility] Last Admin: 10/29/17 13:27 Dose: 200 mg Piperacillin Sod/Tazobactam (Sod 3.375 gm/ Sodium Chloride) 100 mls @ 100 mls/ hr IVPB Q8 [facility] PRN Reason: Protocol Stop: 11/11/17 14:01 Last Admin: 11/09/17 06:02 Dose: 100 mls/hr Sodium Chloride (Sodium Chloride 0.45%) 1,000 mls @ 70 mls/hr IV .[id number] [facility] Stop: 11/10/17 00:07 Last Admin: 11/09/17 00:11 Dose: 70 mls/hr Insulin Detemir (Levemir) 5 units SC HS [facility] Last Admin: 11/08/17 22:16 Dose: 5 units Insulin Human Lispro (Humalog) 0 units SC 0700,2100 [facility] PRN Reason: Protocol Last Admin: 11/09/17 06:15 Dose: Not Given Lactic Acid (Lac-Hydrin 12% Cream (140 G)) 1 ea TOP BID [facility] Last Admin: 11/09/17 08:16 Dose: 1 applic Lactobacillus Acidophilus (Bacid Acidophilus) 1 cap PO BID [facility] Stop: 11/11/17 17:01 Last Admin: 11/09/17 08:23 Dose: 1 cap Metformin HCl (Glucophage) 500 mg PO BID [facility] Last Admin: 11/09/17 08:14 Dose: 500 mg Nystatin/Triamcinolone Acetonide (Mycolog Ii Oint) 1 applic TOP TID [facility] Last Admin: 11/09/17 12:45 Dose: 1 applic Oxycodone/Acetaminophen (Percocet 5/325 Mg Tab) 1 tab PO Q8H PRN PRN Reason: Pain scale 4-10. Stop: 11/10/17 10:24 Last Admin: 11/05/17 09:10 Dose: 1 tab Povidone Iodine (Betadine 10% Topical Soln) 0 ml EXT 0600 [facility] Last Admin: 11/09/17 06:03 Dose: 1 applic Saccharomyces Boulardii (Florastor) 250 mg PO BID [facility] Last Admin: 11/09/17 08:14 Dose: 250 mg Sitagliptin Phosphate (Januvia) 50 mg PO BID [facility] Last Admin: 11/09/17 08:15 Dose: 50 mg Tamsulosin HCl (Flomax) 0.4 mg PO BID [facility] Last Admin: 11/09/17 08:14 Dose: 0.4 mg - Labs Labs: 11/09/17 09:30 11/09/17 05:25
--- NOTE | 2017-11-12 08:14 | PN ---
DATE: 11/09/2017 FOLLOWUP RENAL CONSULTATION LOCATION: The patient is located in room 625, bed 1 rehab. 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 Subsequently, the patient underwent transmetatarsal amputation on 10/10 which was advised to BKA on 10/15, and subsequently, transferred to acute rehab on 10/23. The patient is feeling better, not in acute distress, and found to have a worsening metabolic acidosis, hyperkalemia, and acute renal failure and found to have obstructive uropathy, status post Garcia catheter placement, and started on IV fluids for intravascular volume depletion, and dehydration. The patient is feeling much better. The patient has a good urine output. No complaints. No chest pain. No palpitation. No fever. No cough. No abdominal pain. No nausea, vomiting, diarrhea. PHYSICAL EXAMINATION: VITAL SIGNS: As follows: Blood pressure 140/76, pulse 90, respirations 20, temperature 99.7, saturation 97%. Height 5 feet 6 inches, weight is 170 pounds. GENERAL: The patient is 72 years old elderly male, moderately built, moderately nourished, not in distress. HEENT: Pupils normal and reactive to light and accommodation. Conjunctivae pink. Sclerae anicteric. Tongue is moist. Trachea is midline. LUNGS: Symmetric on both sides. Bilateral breath sounds present. Clear to auscultation. CVS: [place] at the fifth intercostal space, midclavicular line. S1, S2 audible. No murmur or gallop. ABDOMEN: Normal in appearance, soft, tympanic. No guarding. No rigidity. No hepatosplenomegaly. MOBILE NURSE: The patient is alert, awake, and oriented x3. Nonfocal neuro examination. Cranial nerves II through XII grossly intact. Sensory system is within normal limits. Motor system is within normal limits except left BKA. EXTREMITIES: No cyanosis, no clubbing, no edema on the right leg, status post left BKA. MEDICATIONS: His current medications include Humalog, ferrous sulfate, Janumet, oxycodone, Procrit, Pepcid, gabapentin, Lovenox, Levemir, Flomax, Januvia, Bacid, Proscar, Lexapro, and Zosyn 3.375 gm every 8 hours. LABORATORY DATA: Include as follows, as of 11/09/2017, WBC 18.5, hemoglobin 11.5, hematocrit is 35.4, platelets 385. Sodium 136, potassium 4.3, chloride 104, CO2 of 18, BUN 23, creatinine 1.3, glucose 92, calcium 8.4. Urine culture positive for E. coli and sensitive to Zosyn. IMPRESSION: In summary, the patient is 72 years old elderly male with a history of hypertension, diabetes, benign prostatic hyperplasia, status post left below knee amputation. 1. Status post hyperkalemia, potassium is within normal limits. 2. Status post metabolic acidosis secondary to renal failure and obstructive uropathy. 3. Acute renal failure. Renal function is slowly improving. Continue his current medication. Continue Zosyn and increase p.o. fluid intake. Continue his antihypertensive medication. Continue insulin for possible transfer to subacute rehab. We will follow with you. Thank you for allowing me to participate in your patient's care. Nena Mancia MD
== END 2017-11-09 12:30 | DRG 560 ==
PROVIDERS: ADMIT Internal Medicine; ATTEND Internal Medicine
PROC: F08Z1FZ Dressing Techniques Treatment using Assistive, Adaptive, Supportive or Protective Equipment (ICD-10-PCS; 2017-10-23)
PROC: F07Z5FZ Bed Mobility Treatment using Assistive, Adaptive, Supportive or Protective Equipment (ICD-10-PCS; 2017-10-23)
PROC: F07Z9FZ Gait Training/Functional Ambulation Treatment using Assistive, Adaptive, Supportive or Protective Equipment (ICD-10-PCS; 2017-10-23)
PROC: F07L6FZ Therapeutic Exercise Treatment of Musculoskeletal System - Lower Back / Lower Extremity using Assistive, Adaptive, Supportive or Protective Equipment (ICD-10-PCS; 2017-10-23)
PROC: 3E0234Z Introduction of Serum, Toxoid and Vaccine into Muscle, Percutaneous Approach (ICD-10-PCS; principal; 2017-10-24)
DX: Z47.81 Encounter for orthopedic aftercare following surgical amputation (principal); N17.9 Acute kidney failure, unspecified; N39.0 Urinary tract infection, site not specified; N13.8 Other obstructive and reflux uropathy; K52.1 Toxic gastroenteritis and colitis; Z89.512 Acquired absence of left leg below knee; E11.65 Type 2 diabetes mellitus with hyperglycemia; G54.6 Phantom limb syndrome with pain; N40.1 Benign prostatic hyperplasia with lower urinary tract symptoms; Z59.0 Homelessness; Z23 Encounter for immunization; I12.9 Hypertensive chronic kidney disease with stage 1 through stage 4 chronic kidney disease, or unspecified chronic kidney disease; E11.22 Type 2 diabetes mellitus with diabetic chronic kidney disease; N18.3 Chronic kidney disease, stage 3 (moderate); K29.70 Gastritis, unspecified, without bleeding; F06.31 Mood disorder due to known physiological condition with depressive features; E78.5 Hyperlipidemia, unspecified; E87.5 Hyperkalemia; R33.9 Retention of urine, unspecified; D63.8 Anemia in other chronic diseases classified elsewhere; E53.8 Deficiency of other specified B group vitamins; T50.3X5A Adverse effect of electrolytic, caloric and water-balance agents, initial encounter; T37.0X5A Adverse effect of sulfonamides, initial encounter; N32.0 Bladder-neck obstruction; B96.20 Unspecified Escherichia coli [E. coli] as the cause of diseases classified elsewhere; E86.0 Dehydration